=== PATIENT | male | born 1935 | race Caucasian/White ===

== ENCOUNTER 2019-04-26 16:11 | Emergency (ER) | payer OTHER ==
--- OUTSIDE RECORDS SUMMARY | 2019-04-26 16:13 | XMS REPORT ---
:1935 Author Organization [facility] Address [address] [place] [address] Dr. Ware [address] [place] [id number] Care Team Providers Name Role Phone DONALD APARICIO Unavailable Unavailable Problems This patient has no known problems. Allergies, Adverse Reactions, Alerts This patient has no known allergies or adverse reactions. Medications This patient has no known medications. Results Test Description Test Time Test Comments Text Results Atomic Results Result Comments PSA 2019-03-09 09:03:00 Test Item Value Reference Range Comments PROSTATE SPECIFIC ANTIGEN (BEAKER) (test thvy=356) 0.2 ng/mL 0.0-4.0 [id number] 09:03:00 Test Item Value Reference Range Comments THYROID STIMULATING HORMONE (BEAKER) (test 0.38 uIU/mL 0.35-4.94 abha=390) LIPID [id number] 08:48:00 Test Item Value Reference Range Comments TRIGLYCERIDES (BEAKER) (test lbri=733) 36 mg/dL CHOLESTEROL (BEAKER) (test hpnk=344) 102 mg/dL HDL CHOLESTEROL (BEAKER) (test rwnr=571) 45 mg/dL LDL CHOLESTEROL CALCULATED (BEAKER) (test 50 mg/dL hixn=219) Triglyceride Reference Range: Low Risk <150 Borderline 150- 199 High Risk 200-499 Very High Risk >=500Cholesterol Reference Range: Low Risk <200 Borderline 200-239 High Risk > 240HDL Cholesterol Reference Range: Low Risk >=60 High Risk <40LDL Cholesterol Reference Range: Optimal <100 Near Optimal 100-129 Borderline 130-159 High 160-189 Very High >=190BASIC METABOLIC [id number] 08:48:00 Test Item Value Reference Range Comments SODIUM (BEAKER) (test 137 meq/L 136-145 xzlj=766) POTASSIUM (BEAKER) (test 4.5 meq/L 3.5-5.1 cwyu=277) CHLORIDE (BEAKER) (test 103 meq/L 98-107 nxct=978) CO2 (BEAKER) (test 29 meq/L 22-29 czjn=506) BLOOD UREA NITROGEN 18 mg/dL 7-21 (BEAKER) (test nyqw=627) CREATININE (BEAKER) (test 0.99 mg/dL 0.57-1.25 rgae=436) GLUCOSE RANDOM (BEAKER) 109 mg/dL 70-105 (test aybx=889) CALCIUM (BEAKER) (test 9.4 mg/dL 8.4-10.2 srhq=061) EGFR (BEAKER) (test 72 mL/min/1.73 sq m ESTIMATED GFR IS NOT zoef=6229) ACCURATE CREATININE CLEARANCE IN PREDICTING GLOMERULAR FILTRATION RATE. ESTIMATED GFR IS NOT APPLICABLE FOR DIALYSIS PATIENTS. HEPATIC FUNCTION [id number] 08:48:00 Test Item Value Reference Range Comments TOTAL PROTEIN (BEAKER) (test cyaz=542) 6.6 gm/dL 6.0-8.3 ALBUMIN (BEAKER) (test lgxi=9379) 3.2 g/dL 3.5-5.0 BILIRUBIN TOTAL (BEAKER) (test fbqi=840) 1.3 mg/dL 0.2-1.2 BILIRUBIN DIRECT (BEAKER) (test ncsg=325) 0.7 mg/dL 0.1-0.5 ALKALINE PHOSPHATASE (BEAKER) (test bqdk=818) 89 U/L 40-150 AST (SGOT) (BEAKER) (test pvsl=351) 52 U/L 5-34 ALT (SGPT) (BEAKER) (test ebca=371) 28 U/L 6-55 CBC W/PLT COUNT & AUTO [id number] 08:25:00 Test Item Value Reference Range Comments WHITE BLOOD CELL COUNT (BEAKER) (test dtqw=718) 6.4 K/ L 3.5-10.5 RED BLOOD CELL COUNT (BEAKER) (test ajhl=830) 4.10 M/ L 4.63-6.08 HEMOGLOBIN (BEAKER) (test qdyb=666) 14.6 GM/DL 13.7-17.5 HEMATOCRIT (BEAKER) (test lwvn=544) 42.4 % 40.1-51.0 MEAN CORPUSCULAR VOLUME (BEAKER) (test ovru=160) 103.4 fL 79.0-92.2 MEAN CORPUSCULAR HEMOGLOBIN (BEAKER) (test 35.6 pg 25.7-32.2 jipx=732) MEAN CORPUSCULAR HEMOGLOBIN CONC (BEAKER) (test 34.4 GM/DL 32.3-36.5 xeyk=107) RED CELL DISTRIBUTION WIDTH (BEAKER) (test 14.6 % 11.6-14.4 ebqq=828) PLATELET COUNT (BEAKER) (test ujmf=306) 97 K/CU MM 150-450 MEAN PLATELET VOLUME (BEAKER) (test srhu=860) 9.5 fL 9.4-12.4 NUCLEATED RED BLOOD CELLS (BEAKER) (test 0 /100 WBC 0-0 ptxr=530) NEUTROPHILS RELATIVE PERCENT (BEAKER) (test 44 % trpi=527) LYMPHOCYTES RELATIVE PERCENT (BEAKER) (test 36 % bmnx=195) MONOCYTES RELATIVE PERCENT (BEAKER) (test 12 % gmjj=371) EOSINOPHILS RELATIVE PERCENT (BEAKER) (test 8 % baop=275) BASOPHILS RELATIVE PERCENT (BEAKER) (test 1 % mhvk=593) NEUTROPHILS ABSOLUTE COUNT (BEAKER) (test 2.82 K/ L 1.78-5.38 nehb=278) LYMPHOCYTES ABSOLUTE COUNT (BEAKER) (test 2.28 K/ L 1.32-3.57 ltbr=698) MONOCYTES ABSOLUTE COUNT (BEAKER) (test dwct=466) 0.74 K/ L 0.30-0.82 EOSINOPHILS ABSOLUTE COUNT (BEAKER) (test 0.51 K/ L 0.04-0.54 kelh=079) BASOPHILS ABSOLUTE COUNT (BEAKER) (test yznq=916) 0.06 K/ L 0.01-0.08 IMMATURE GRANULOCYTES-RELATIVE PERCENT (BEAKER) 0 % 0-1 (test mqhh=5693) PET, CARDIAC PERFUSION MULTIPLE STUDIES, REST AND [id number] 14:08: 00Reason for Exam:->chest painFINAL REPORT PROCEDURE: Rest/Stress MYOCARDIAL PERFUSION PET with regadenoson\XA9\ CPT CODE: 07663 INDICATION: Chest pain HISTORY: Cardiac risk factors: Hyperlipidemia, family history, age, sex. Other cardiovascular history: No reported CAD. Recent cardiac symptoms: Chest pain. Current cardiovascular- related medications: Aspirin, flecainide. PROTOCOL: Limited low-dose CT imaging was performed for attenuation correction. 40.2 mCi of Rb-82 chloride was injected iv at rest, and gated PET (positron emission tomography) images were obtained. Subsequently, 40.1 mCi of Rb-82 chloride was injected iv at expected peak pharmacologic effect, and gated PET images were obtained. PRELIMINARY STRESS TEST DATA FROM NONINVASIVE CARDIOLOGY: Pharmacologic stress was by 10-second iv infusion of 0.4 mg of regadenoson. Radiotracer was injected 30 seconds after start of stress. Heart rate was 55 beats/min at rest and 67 beats/min (48% of MPHR) at tracer injection. BP was 144/102 mmHg at rest and 111/65 mmHg at tracer injection. Stress was stopped for predetermined endpoint. The patient experienced no symptoms; treatment was not required. Preliminary ECG evaluation revealed sinus bradycardia at rest and no ischemic changes with stress. (Final ECG interpretation and other stress and monitoring data are reported separately by Cardiology.) IMAGING FINDINGS: Study quality is good. Images obtained after rest and stress injections show normal LV activity. LV and RV volumes appear normal. Gated images obtained at rest and with stress show normal LV wall motion and thickening. LVEF at rest is greater than 70%. LVEF at stress is greater than 70%. IMPRESSION: 1. Normal study. 2. Appropriate pharmacologic stress. 3. Normal myocardial perfusion. 4. Normal restingLV function. No deterioration of function is noted with pharmacologic stress. 5. Normal extracardiac tracer distribution. 6. CT images show calcification the aorta 7. No previous [facility] study for comparison. NONINVASIVE RISK STRATIFICATION: The above findings are considered low risk ( <1% annualmortality rate) based on the following criterion:- Normal or small myocardial perfusion defect at rest or with stress(JACC. 2012;59(9):857-88.) Signed: Alberto Salinas MDReport Verified Date/Time: 07/29/2018 14:08:02 Reading Location: [address] Reading Room [id number] 09:42:00 Test Item Value Reference Range Comments PROSTATE SPECIFIC ANTIGEN (BEAKER) (test rbsl=382) 0.3 ng/mL 0.0-4.0 [id number] 09:42:00 Test Item Value Reference Range Comments THYROID STIMULATING HORMONE (BEAKER) (test 0.64 uIU/mL 0.35-4.94 jdrp=031) B-TYPE NATRIURETIC FACTOR (BNP)2018-07-29 09:29:00 Test Item Value Reference Range Comments B-TYPE NATRIURETIC PEPTIDE (BEAKER) (test 125 pg/mL 0-100 ezqm=275) LIPID [id number] 09:23:00 Test Item Value Reference Range Comments TRIGLYCERIDES (BEAKER) (test sfui=825) 58 mg/dL CHOLESTEROL (BEAKER) (test qaaz=465) 132 mg/dL HDL CHOLESTEROL (BEAKER) (test wahr=597) 50 mg/dL LDL CHOLESTEROL CALCULATED (BEAKER) (test 70 mg/dL syul=292) Triglyceride Reference Range: Low Risk <150 Borderline 150- 199 High Risk 200-499 Very High Risk >=500Cholesterol Reference Range: Low Risk <200 Borderline 200-239 High Risk > 240HDL Cholesterol Reference Range: Low Risk >=60 High Risk <40LDL Cholesterol Reference Range: Optimal <100 Near Optimal 100-129 Borderline 130-159 High 160-189 Very High >=190BASIC METABOLIC [id number] 09:23:00 Test Item Value Reference Range Comments SODIUM (BEAKER) (test 138 meq/L 136-145 rwhb=087) POTASSIUM (BEAKER) (test 3.8 meq/L 3.5-5.1 yvxm=874) CHLORIDE (BEAKER) (test 102 meq/L 98-107 zcge=322) CO2 (BEAKER) (test 29 meq/L 22-29 soem=508) BLOOD UREA NITROGEN 19 mg/dL 7-21 (BEAKER) (test uwdw=243) CREATININE (BEAKER) (test 0.95 mg/dL 0.57-1.25 xavo=697) GLUCOSE RANDOM (BEAKER) 108 mg/dL 70-105 (test qofd=420) CALCIUM (BEAKER) (test 9.6 mg/dL 8.4-10.2 fbgc=742) EGFR (BEAKER) (test 76 mL/min/1.73 sq m ESTIMATED GFR IS NOT ormd=6719) ACCURATE CREATININE CLEARANCE IN PREDICTING GLOMERULAR FILTRATION RATE. ESTIMATED GFR IS NOT APPLICABLE FOR DIALYSIS PATIENTS. HEPATIC FUNCTION [id number] 09:23:00 Test Item Value Reference Range Comments TOTAL PROTEIN (BEAKER) (test eynr=417) 6.9 gm/dL 6.0-8.3 ALBUMIN (BEAKER) (test cbru=7926) 3.5 g/dL 3.5-5.0 BILIRUBIN TOTAL (BEAKER) (test tdtn=821) 1.0 mg/dL 0.2-1.2 BILIRUBIN DIRECT (BEAKER) (test ulmt=082) 0.5 mg/dL 0.1-0.5 ALKALINE PHOSPHATASE (BEAKER) (test gnlb=921) 90 U/L 40-150 AST (SGOT) (BEAKER) (test yvxa=391) 41 U/L 5-34 ALT (SGPT) (BEAKER) (test folh=596) 23 U/L 6-55 CBC W/PLT COUNT & AUTO [id number] 09:01:00 Test Item Value Reference Range Comments WHITE BLOOD CELL COUNT (BEAKER) (test pwcf=241) 6.2 K/ L 3.5-10.5 RED BLOOD CELL COUNT (BEAKER) (test rwkx=174) 4.24 M/ L 4.63-6.08 HEMOGLOBIN (BEAKER) (test ruwm=439) 14.9 GM/DL 13.7-17.5 HEMATOCRIT (BEAKER) (test omxr=790) 43.1 % 40.1-51.0 MEAN CORPUSCULAR VOLUME (BEAKER) (test eaub=431) 101.7 fL 79.0-92.2 MEAN CORPUSCULAR HEMOGLOBIN (BEAKER) (test 35.1 pg 25.7-32.2 ajko=423) MEAN CORPUSCULAR HEMOGLOBIN CONC (BEAKER) (test 34.6 GM/DL 32.3-36.5 huud=060) RED CELL DISTRIBUTION WIDTH (BEAKER) (test 14.1 % 11.6-14.4 ypti=650) PLATELET COUNT (BEAKER) (test ufwu=656) 116 K/CU MM 150-450 MEAN PLATELET VOLUME (BEAKER) (test xywh=527) 8.9 fL 9.4-12.4 NUCLEATED RED BLOOD CELLS (BEAKER) (test 0 /100 WBC 0-0 onmi=890) NEUTROPHILS RELATIVE PERCENT (BEAKER) (test 47 % tiqi=345) LYMPHOCYTES RELATIVE PERCENT (BEAKER) (test 34 % ccyq=799) MONOCYTES RELATIVE PERCENT (BEAKER) (test 10 % ibum=041) EOSINOPHILS RELATIVE PERCENT (BEAKER) (test 8 % omnp=714) BASOPHILS RELATIVE PERCENT (BEAKER) (test 1 % ygwi=991) NEUTROPHILS ABSOLUTE COUNT (BEAKER) (test 2.92 K/ L 1.78-5.38 plwz=870) LYMPHOCYTES ABSOLUTE COUNT (BEAKER) (test 2.09 K/ L 1.32-3.57 hvar=115) MONOCYTES ABSOLUTE COUNT (BEAKER) (test 0.63 K/ L 0.30-0.82 dphb=529) EOSINOPHILS ABSOLUTE COUNT (BEAKER) (test 0.52 K/ L 0.04-0.54 algn=965) BASOPHILS ABSOLUTE COUNT (BEAKER) (test 0.05 K/ L 0.01-0.08 ssrj=828) IMMATURE GRANULOCYTES-RELATIVE PERCENT (BEAKER) 0 % 0-1 (test jsmh=8341) [id number] 09:12:00 Test Item Value Reference Range Comments PROSTATE SPECIFIC ANTIGEN (BEAKER) (test atof=682) 0.3 ng/mL 0.0-4.0 [id number] 08:35:00 Test Item Value Reference Range Comments THYROID STIMULATING HORMONE (BEAKER) (test 0.84 uIU/mL 0.35-4.94 wvwx=945) B-TYPE NATRIURETIC FACTOR (BNP)2018-02-25 08:22:00 Test Item Value Reference Range Comments B-TYPE NATRIURETIC PEPTIDE (BEAKER) (test 159 pg/mL 0-100 kyay=903) LIPID [id number] 08:15:00 Test Item Value Reference Range Comments TRIGLYCERIDES (BEAKER) (test kmhc=044) 54 mg/dL CHOLESTEROL (BEAKER) (test zlne=580) 125 mg/dL HDL CHOLESTEROL (BEAKER) (test zfkm=628) 54 mg/dL LDL CHOLESTEROL CALCULATED (BEAKER) (test 60 mg/dL ynav=944) Triglyceride Reference Range: Low Risk <150 Borderline 150- 199 High Risk 200-499 Very High Risk >=500Cholesterol Reference Range: Low Risk <200 Borderline 200-239 High Risk > 240HDL Cholesterol Reference Range: Low Risk >=60 High Risk <40LDL Cholesterol Reference Range: Optimal <100 Near Optimal 100-129 Borderline 130-159 High 160-189 Very High >=190BASIC METABOLIC [id number] 08:15:00 Test Item Value Reference Range Comments SODIUM (BEAKER) (test 139 meq/L 136-145 hxcq=227) POTASSIUM (BEAKER) (test 4.2 meq/L 3.5-5.1 susm=042) CHLORIDE (BEAKER) (test 102 meq/L 98-107 uuwy=345) CO2 (BEAKER) (test 31 meq/L 22-29 drla=162) BLOOD UREA NITROGEN 17 mg/dL 7-21 (BEAKER) (test xufb=700) CREATININE (BEAKER) (test 1.14 mg/dL 0.57-1.25 icra=442) GLUCOSE RANDOM (BEAKER) 97 mg/dL 70-105 (test rtcu=458) CALCIUM (BEAKER) (test 9.7 mg/dL 8.4-10.2 rmpw=171) EGFR (BEAKER) (test 62 mL/min/1.73 sq m ESTIMATED GFR IS NOT uuhu=2982) ACCURATE CREATININE CLEARANCE IN PREDICTING GLOMERULAR FILTRATION RATE. ESTIMATED GFR IS NOT APPLICABLE FOR DIALYSIS PATIENTS. HEPATIC FUNCTION [id number] 08:15:00 Test Item Value Reference Range Comments TOTAL PROTEIN (BEAKER) (test intw=420) 7.0 gm/dL 6.0-8.3 ALBUMIN (BEAKER) (test obog=9821) 3.7 g/dL 3.5-5.0 BILIRUBIN TOTAL (BEAKER) (test bsib=601) 1.2 mg/dL 0.2-1.2 BILIRUBIN DIRECT (BEAKER) (test dxev=230) 0.7 mg/dL 0.1-0.5 ALKALINE PHOSPHATASE (BEAKER) (test tcjc=972) 85 U/L 40-150 AST (SGOT) (BEAKER) (test cvug=867) 37 U/L 5-34 ALT (SGPT) (BEAKER) (test fipe=302) 19 U/L 6-55 CBC W/PLT COUNT & AUTO [id number] 07:57:00 Test Item Value Reference Range Comments WHITE BLOOD CELL COUNT (BEAKER) (test nbbg=141) 6.6 K/ L 3.5-10.5 RED BLOOD CELL COUNT (BEAKER) (test rxrg=693) 4.27 M/ L 4.63-6.08 HEMOGLOBIN (BEAKER) (test iyyn=843) 14.7 GM/DL 13.7-17.5 HEMATOCRIT (BEAKER) (test rwmh=049) 43.5 % 40.1-51.0 MEAN CORPUSCULAR VOLUME (BEAKER) (test vqox=562) 101.9 fL 79.0-92.2 MEAN CORPUSCULAR HEMOGLOBIN (BEAKER) (test 34.4 pg 25.7-32.2 dhjf=138) MEAN CORPUSCULAR HEMOGLOBIN CONC (BEAKER) (test 33.8 GM/DL 32.3-36.5 qzoj=064) RED CELL DISTRIBUTION WIDTH (BEAKER) (test 14.5 % 11.6-14.4 cjtj=608) PLATELET COUNT (BEAKER) (test vxtc=586) 117 K/CU MM 150-450 MEAN PLATELET VOLUME (BEAKER) (test azhv=653) 9.5 fL 9.4-12.4 NUCLEATED RED BLOOD CELLS (BEAKER) (test 0 /100 WBC 0-0 mxjy=520) NEUTROPHILS RELATIVE PERCENT (BEAKER) (test 48 % yyxg=379) LYMPHOCYTES RELATIVE PERCENT (BEAKER) (test 37 % kvdq=178) MONOCYTES RELATIVE PERCENT (BEAKER) (test 10 % xyyc=541) EOSINOPHILS RELATIVE PERCENT (BEAKER) (test 5 % imhr=919) BASOPHILS RELATIVE PERCENT (BEAKER) (test 1 % pvut=036) NEUTROPHILS ABSOLUTE COUNT (BEAKER) (test 3.12 K/ L 1.78-5.38 efkx=065) LYMPHOCYTES ABSOLUTE COUNT (BEAKER) (test 2.42 K/ L 1.32-3.57 vojz=125) MONOCYTES ABSOLUTE COUNT (BEAKER) (test 0.67 K/ L 0.30-0.82 fxje=153) EOSINOPHILS ABSOLUTE COUNT (BEAKER) (test 0.30 K/ L 0.04-0.54 iqno=906) BASOPHILS ABSOLUTE COUNT (BEAKER) (test 0.04 K/ L 0.01-0.08 nepv=030) IMMATURE GRANULOCYTES-RELATIVE PERCENT (BEAKER) 0 % 0-1 (test ylop=2213) RAD, CHEST, 2 [id number] 11:54:00Reason for Exam:->HTNFINAL REPORT CLINICAL HISTORY: HTN TECHNIQUE: 2 views of the chest COMPARISON: 08/11/2015 IMPRESSION: Mild interstitial opacities are again seen with a left lower lung predominance. There is no lobar consolidation. There are no pleural effusions. The cardiomediastinal silhouette is unchanged tortuosity of the thoracic aorta. 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 Signed: Lucina Hearn MDReport Verified Date/Time: 08/20/2017 11:54: 58 Reading Location: [facility] Reading Room [id number] 11:48:00 Test Item Value Reference Range Comments THYROID STIMULATING HORMONE (BEAKER) (test 1.05 uIU/mL 0.35-4.94 uvod=859) [id number] 10:45:00 Test Item Value Reference Range Comments PROSTATE SPECIFIC ANTIGEN (BEAKER) (test evwa=048) 0.4 ng/mL 0.0-4.0 LIPID [id number] 10:37:00 Test Item Value Reference Range Comments TRIGLYCERIDES (BEAKER) (test ljav=485) 19 mg/dL CHOLESTEROL (BEAKER) (test nsrx=110) 128 mg/dL HDL CHOLESTEROL (BEAKER) (test fyom=025) 51 mg/dL LDL CHOLESTEROL CALCULATED (BEAKER) (test 73 mg/dL pdsc=998) Triglyceride Reference Range: Low Risk <150 Borderline 150- 199 High Risk 200-499 Very High Risk >=500Cholesterol Reference Range: Low Risk <200 Borderline 200-239 High Risk > 240HDL Cholesterol Reference Range: Low Risk >=60 High Risk <40LDL Cholesterol Reference Range: Optimal <100 Near Optimal 100-129 Borderline 130-159 High 160-189 Very High >=190BASIC METABOLIC [id number] 10:37:00 Test Item Value Reference Range Comments SODIUM (BEAKER) (test 141 meq/L 136-145 bgld=917) POTASSIUM (BEAKER) (test 3.9 meq/L 3.5-5.1 smbn=596) CHLORIDE (BEAKER) (test 104 meq/L 98-107 rbsm=777) CO2 (BEAKER) (test 28 meq/L 22-29 esis=029) BLOOD UREA NITROGEN 16 mg/dL 7-21 (BEAKER) (test yznu=655) CREATININE (BEAKER) (test 0.98 mg/dL 0.57-1.25 anmr=291) GLUCOSE RANDOM (BEAKER) 110 mg/dL 70-105 (test cdnz=238) CALCIUM (BEAKER) (test 9.5 mg/dL 8.4-10.2 yizl=341) EGFR (BEAKER) (test 73 mL/min/1.73 sq m ESTIMATED GFR IS NOT ipns=5588) ACCURATE CREATININE CLEARANCE IN PREDICTING GLOMERULAR FILTRATION RATE. ESTIMATED GFR IS NOT APPLICABLE FOR DIALYSIS PATIENTS. HEPATIC FUNCTION [id number] 10:37:00 Test Item Value Reference Range Comments TOTAL PROTEIN (BEAKER) (test dllk=881) 6.9 gm/dL 6.0-8.3 ALBUMIN (BEAKER) (test dzid=4812) 3.6 g/dL 3.5-5.0 BILIRUBIN TOTAL (BEAKER) (test wlzp=443) 0.9 mg/dL 0.2-1.2 BILIRUBIN DIRECT (BEAKER) (test gtfr=617) 0.5 mg/dL 0.1-0.5 ALKALINE PHOSPHATASE (BEAKER) (test kkle=101) 85 U/L 40-150 AST (SGOT) (BEAKER) (test mmrq=698) 33 U/L 5-34 ALT (SGPT) (BEAKER) (test isfc=690) 15 U/L 6-55 CBC W/PLT COUNT & AUTO [id number] 10:06:00 Test Item Value Reference Range Comments WHITE BLOOD CELL COUNT (BEAKER) (test rntj=685) 6.1 K/ L 3.5-10.5 RED BLOOD CELL COUNT (BEAKER) (test msrq=315) 4.06 M/ L 4.63-6.08 HEMOGLOBIN (BEAKER) (test caer=762) 14.1 GM/DL 13.7-17.5 HEMATOCRIT (BEAKER) (test pgxa=204) 41.1 % 40.1-51.0 MEAN CORPUSCULAR VOLUME (BEAKER) (test rvle=705) 101.2 fL 79.0-92.2 MEAN CORPUSCULAR HEMOGLOBIN (BEAKER) (test 34.7 pg 25.7-32.2 lwqy=659) MEAN CORPUSCULAR HEMOGLOBIN CONC (BEAKER) (test 34.3 GM/DL 32.3-36.5 soca=181) RED CELL DISTRIBUTION WIDTH (BEAKER) (test 14.3 % 11.6-14.4 rsmi=256) PLATELET COUNT (BEAKER) (test dkgp=810) 126 K/CU MM 150-450 MEAN PLATELET VOLUME (BEAKER) (test smku=677) 9.5 fL 9.4-12.4 NUCLEATED RED BLOOD CELLS (BEAKER) (test 0 /100 WBC 0-0 ajuk=418) NEUTROPHILS RELATIVE PERCENT (BEAKER) (test 51 % ctfv=722) LYMPHOCYTES RELATIVE PERCENT (BEAKER) (test 33 % twvi=538) MONOCYTES RELATIVE PERCENT (BEAKER) (test 11 % qvww=594) EOSINOPHILS RELATIVE PERCENT (BEAKER) (test 4 % cqsm=286) BASOPHILS RELATIVE PERCENT (BEAKER) (test 1 % udge=688) NEUTROPHILS ABSOLUTE COUNT (BEAKER) (test 3.09 K/ L 1.78-5.38 zkyt=021) LYMPHOCYTES ABSOLUTE COUNT (BEAKER) (test 2.01 K/ L 1.32-3.57 falg=032) MONOCYTES ABSOLUTE COUNT (BEAKER) (test 0.68 K/ L 0.30-0.82 owre=820) EOSINOPHILS ABSOLUTE COUNT (BEAKER) (test 0.25 K/ L 0.04-0.54 fvqk=154) BASOPHILS ABSOLUTE COUNT (BEAKER) (test 0.06 K/ L 0.01-0.08 afhz=029) IMMATURE GRANULOCYTES-RELATIVE PERCENT (BEAKER) 0 % 0-1 (test ogbz=1586) [id number] 10:54:00 Test Item Value Reference Range Comments PROSTATE SPECIFIC ANTIGEN (BEAKER) (test btgu=562) 0.9 ng/mL 0.0-4.0 [id number] 10:06:00 Test Item Value Reference Range Comments THYROID STIMULATING HORMONE (BEAKER) (test 0.86 uIU/mL 0.35-4.94 wkgw=873) LIPID [id number] 09:51:00 Test Item Value Reference Range Comments TRIGLYCERIDES (BEAKER) (test euhd=519) 51 mg/dL CHOLESTEROL (BEAKER) (test ihmn=000) 138 mg/dL HDL CHOLESTEROL (BEAKER) (test lyvr=622) 55 mg/dL LDL CHOLESTEROL CALCULATED (BEAKER) (test 73 mg/dL jwex=896) Triglyceride Reference Range: Low Risk <150 Borderline 150- 199 High Risk 200-499 Very High Risk >=500Cholesterol Reference Range: Low Risk <200 Borderline 200-239 High Risk > 240HDL Cholesterol Reference Range: Low Risk >=60 High Risk <40LDL Cholesterol Reference Range: Optimal <100 Near Optimal 100-129 Borderline 130-159 High 160-189 Very High >=190BASIC METABOLIC [id number] 09:51:00 Test Item Value Reference Range Comments SODIUM (BEAKER) (test 140 meq/L 136-145 igui=893) POTASSIUM (BEAKER) (test 3.6 meq/L 3.5-5.1 cenx=054) CHLORIDE (BEAKER) (test 102 meq/L 98-107 xasl=050) CO2 (BEAKER) (test 29 meq/L 22-29 vcqb=469) BLOOD UREA NITROGEN 12 mg/dL 7-21 (BEAKER) (test ziam=972) CREATININE (BEAKER) (test 0.97 mg/dL 0.57-1.25 ykwq=131) GLUCOSE RANDOM (BEAKER) 105 mg/dL 70-105 (test scwh=227) CALCIUM (BEAKER) (test 9.4 mg/dL 8.4-10.2 xlxi=737) EGFR (BEAKER) (test 74 mL/min/1.73 sq m ESTIMATED GFR IS NOT hxwq=3061) ACCURATE CREATININE CLEARANCE IN PREDICTING GLOMERULAR FILTRATION RATE. ESTIMATED GFR IS NOT APPLICABLE FOR DIALYSIS PATIENTS. HEPATIC FUNCTION [id number] 09:51:00 Test Item Value Reference Range Comments TOTAL PROTEIN (BEAKER) (test abff=352) 7.1 gm/dL 6.0-8.3 ALBUMIN (BEAKER) (test amwl=4928) 3.5 g/dL 3.5-5.0 BILIRUBIN TOTAL (BEAKER) (test rpzs=217) 1.2 mg/dL 0.2-1.2 BILIRUBIN DIRECT (BEAKER) (test snsj=124) 0.6 mg/dL 0.1-0.5 ALKALINE PHOSPHATASE (BEAKER) (test ylsi=605) 96 U/L 40-150 AST (SGOT) (BEAKER) (test hiem=876) 48 U/L 5-34 ALT (SGPT) (BEAKER) (test xnds=505) 28 U/L 6-55 CBC W/PLT COUNT & AUTO [id number] 09:12:00 Test Item Value Reference Range Comments WHITE BLOOD CELL COUNT (BEAKER) (test rexn=988) 5.1 K/ L 3.5-10.5 RED BLOOD CELL COUNT (BEAKER) (test dtnx=544) 4.28 M/ L 4.63-6.08 HEMOGLOBIN (BEAKER) (test kvhg=179) 15.1 GM/DL 13.7-17.5 HEMATOCRIT (BEAKER) (test tdnp=513) 43.9 % 40.1-51.0 MEAN CORPUSCULAR VOLUME (BEAKER) (test dggq=884) 102.6 fL 79.0-92.2 MEAN CORPUSCULAR HEMOGLOBIN (BEAKER) (test 35.3 pg 25.7-32.2 zlsu=832) MEAN CORPUSCULAR HEMOGLOBIN CONC (BEAKER) (test 34.4 GM/DL 32.3-36.5 vtvy=258) RED CELL DISTRIBUTION WIDTH (BEAKER) (test 14.3 % 11.6-14.4 qawm=617) PLATELET COUNT (BEAKER) (test fyoc=294) 118 K/CU MM 150-450 MEAN PLATELET VOLUME (BEAKER) (test lzbl=273) 9.3 fL 9.4-12.4 NUCLEATED RED BLOOD CELLS (BEAKER) (test 0 /100 WBC 0-0 goab=925) NEUTROPHILS RELATIVE PERCENT (BEAKER) (test 47 % nqta=427) LYMPHOCYTES RELATIVE PERCENT (BEAKER) (test 36 % rfbq=337) MONOCYTES RELATIVE PERCENT (BEAKER) (test 12 % zxrr=323) EOSINOPHILS RELATIVE PERCENT (BEAKER) (test 4 % aftg=284) BASOPHILS RELATIVE PERCENT (BEAKER) (test 1 % kogy=162) NEUTROPHILS ABSOLUTE COUNT (BEAKER) (test 2.38 K/ L 1.78-5.38 rxss=549) LYMPHOCYTES ABSOLUTE COUNT (BEAKER) (test 1.83 K/ L 1.32-3.57 cdyn=476) MONOCYTES ABSOLUTE COUNT (BEAKER) (test 0.63 K/ L 0.30-0.82 sden=601) EOSINOPHILS ABSOLUTE COUNT (BEAKER) (test 0.22 K/ L 0.04-0.54 xjoh=798) BASOPHILS ABSOLUTE COUNT (BEAKER) (test 0.04 K/ L 0.01-0.08 jgbw=362) IMMATURE GRANULOCYTES-RELATIVE PERCENT (BEAKER) 0 % 0-1 (test mpug=8990) [id number] 11:16:00 Test Item Value Reference Range Comments THYROID STIMULATING HORMONE (BEAKER) (test 1.13 uIU/mL 0.35-4.94 jfoo=267) LIPID [id number] 10:34:00 Test Item Value Reference Range Comments TRIGLYCERIDES (BEAKER) (test ahfh=804) 46 mg/dL CHOLESTEROL (BEAKER) (test sjul=562) 126 mg/dL HDL CHOLESTEROL (BEAKER) (test kcct=915) 52 mg/dL LDL CHOLESTEROL CALCULATED (BEAKER) (test 65 mg/dL jdrq=106) Triglyceride Reference Range: Low Risk <150 Borderline 150- 199 High Risk 200-499 Very High Risk >=500Cholesterol Reference Range: Low Risk <200 Borderline 200-239 High Risk > 240HDL Cholesterol Reference Range: Low Risk >=60 High Risk <40LDL Cholesterol Reference Range: Optimal <100 Near Optimal 100-129 Borderline 130-159 High 160-189 Very High >=190BASIC METABOLIC [id number] 10:34:00 Test Item Value Reference Range Comments SODIUM (BEAKER) (test 141 meq/L 136-145 hzpw=487) POTASSIUM (BEAKER) (test 3.8 meq/L 3.5-5.1 esxv=764) CHLORIDE (BEAKER) (test 103 meq/L 98-107 ljra=780) CO2 (BEAKER) (test 28 meq/L 22-29 lrim=540) BLOOD UREA NITROGEN 16 mg/dL 7-21 (BEAKER) (test lgdo=140) CREATININE (BEAKER) (test 1.01 mg/dL 0.57-1.25 uvuv=985) GLUCOSE RANDOM (BEAKER) 102 mg/dL 70-105 (test ttyw=852) CALCIUM (BEAKER) (test 9.6 mg/dL 8.4-10.2 lvsy=992) EGFR (BEAKER) (test 71 mL/min/1.73 sq m ESTIMATED GFR IS NOT uolo=6495) ACCURATE CREATININE CLEARANCE IN PREDICTING GLOMERULAR FILTRATION RATE. ESTIMATED GFR IS NOT APPLICABLE FOR DIALYSIS PATIENTS. HEPATIC FUNCTION [id number] 10:34:00 Test Item Value Reference Range Comments TOTAL PROTEIN (BEAKER) (test gptf=145) 6.8 gm/dL 6.0-8.3 ALBUMIN (BEAKER) (test fikp=9212) 3.4 g/dL 3.5-5.0 BILIRUBIN TOTAL (BEAKER) (test wdax=882) 1.1 mg/dL 0.2-1.2 BILIRUBIN DIRECT (BEAKER) (test risz=563) 0.5 mg/dL 0.1-0.5 ALKALINE PHOSPHATASE (BEAKER) (test uypx=749) 78 U/L 40-150 AST (SGOT) (BEAKER) (test chtd=018) 38 U/L 5-34 ALT (SGPT) (BEAKER) (test rwnu=769) 17 U/L 6-55 [id number] 10:17:00 Test Item Value Reference Range Comments PROSTATE SPECIFIC ANTIGEN (BEAKER) (test nvzt=935) 0.5 ng/mL 0.0-4.0 CBC W/PLT COUNT & AUTO [id number] 09:50:00 Test Item Value Reference Range Comments WHITE BLOOD CELL COUNT (BEAKER) (test crgu=628) 5.0 K/ L 4.0-10.0 RED BLOOD CELL COUNT (BEAKER) (test dzyt=408) 4.18 M/ L 4.20-5.80 HEMOGLOBIN (BEAKER) (test vhjd=751) 14.6 GM/DL 13.0-16.8 HEMATOCRIT (BEAKER) (test inpj=539) 44.6 % 40.0-50.0 MEAN CORPUSCULAR VOLUME (BEAKER) (test xtws=871) 107.0 fL 82.0-98.0 MEAN CORPUSCULAR HEMOGLOBIN (BEAKER) (test 35.1 pg 27.0-33.0 wytg=322) MEAN CORPUSCULAR HEMOGLOBIN CONC (BEAKER) (test 32.8 GM/DL 32.0-36.0 tewp=026) RED CELL DISTRIBUTION WIDTH (BEAKER) (test 13.1 % 10.3-14.2 lnjd=568) PLATELET COUNT (BEAKER) (test idlz=573) 114 K/CU MM 150-430 MEAN PLATELET VOLUME (BEAKER) (test ludc=858) 6.8 fL 6.5-10.5 NUCLEATED RED BLOOD CELLS (BEAKER) (test 0 /100 WBC 0-0 hwap=631) NEUTROPHILS RELATIVE PERCENT (BEAKER) (test 48 % dxlg=283) LYMPHOCYTES RELATIVE PERCENT (BEAKER) (test 35 % ulkr=637) MONOCYTES RELATIVE PERCENT (BEAKER) (test 12 % njmn=955) EOSINOPHILS RELATIVE PERCENT (BEAKER) (test 3 % geiw=335) BASOPHILS RELATIVE PERCENT (BEAKER) (test 1 % gnjx=207) NEUTROPHILS ABSOLUTE COUNT (BEAKER) (test 2.40 K/ L 1.80-8.00 ejmd=423) LYMPHOCYTES ABSOLUTE COUNT (BEAKER) (test 1.75 K/ L 1.48-4.50 dpky=879) MONOCYTES ABSOLUTE COUNT (BEAKER) (test 0.60 K/ L 0.00-1.30 golj=570) EOSINOPHILS ABSOLUTE COUNT (BEAKER) (test 0.17 K/ L 0.00-0.50 vpaq=122) BASOPHILS ABSOLUTE COUNT (BEAKER) (test 0.04 K/ L 0.00-0.20 rnlb=371) 0.00
[2019-04-26 17:06] LABS: Absolute Lymphocytes (CBC) 2.2 K/uL (0.7-4.9); Basophils % 0.4 % (0-1.3); Hematocrit 40.6 % (39.6-49.0); Lymphocytes % 40.4 % (15.3-44.8); MPV 8.4 fL (7.6-11.3)
[2019-04-26] MEDS ORDERED: NA CHLORIDE 0.9% 1,000 ML ONE (17:29)
[2019-04-26 17:33] LABS: Albumin 2.8 g/dL (3.4-5.0); Bilirubin Direct 0.3 mg/dL (0-0.2); Bilirubin Total 0.9 mg/dL (0.2-1.0); Potassium 3.8 mmol/L (3.5-5.1); Protein, Total 6.3 g/dL (6.4-8.2)
--- NOTE | 2019-04-26 18:11 | RAD REPORT ---
EXAM DESCRIPTION: CT - Abdomen Pelvis W Contrast - 04/26/2019 5:51 pm CLINICAL HISTORY: RUQ, epigastric pain and ttp ;Abd pain COMPARISON: CT study July 2016 TECHNIQUE: Biphasic, helical CT imaging of the abdomen and pelvis was performed following 100 ml non -ionic IV contrast. No oral contrast given. All CT scans are performed using dose optimization technique as appropriate and may include automated exposure control or mA/KV adjustment according to patient size. FINDINGS: Interstitial fibrotic lung changes present with no pneumothorax or pleural effusion. Sharon bony left hemidiaphragm noted. No pericardial thickening or effusion. The liver, spleen, and pancreas show no suspicious findings. Gallbladder and biliary tree are also wi thout suspicious finding. Symmetric renal function is seen with no hydronephrosis or suspicious renal mass. No pyelonephritis o r acute parenchymal process. Nonobstructing 9 mm calculus lower pole right kidney. No urinary bladder abnormality. Prostate calcifications are present without gross enlargement. No adrenal abnormalities . No gastric dilatation or gastric wall thickening. No acute small bowel finding. Diverticulosis is pre sent in the sigmoid colon. No diverticulitis. No free air, free fluid or inflammatory stranding. No hernia, mass or bulky lymphadenopathy. Prominent disc and bony degenerative changes are present. No acute or pathologic bone process. IMPRESSION: No acute colon finding identifiable. Patient has sigmoid diverticulosis without divertic ulitis findings. No active GI process identifiable. Additional nonacute findings detailed in the body of the report.
--- NOTE | 2019-04-26 19:27 | EDPHYS ---
Physician Documentation [facility] Name: Saurav Vega Age: 84 yrs Sex: Male : 1935 Arrival Date: 04/26/2019 Time: 16:13 Bed 19 Private MD: Unknown, Unknown ED Physician Camila Gallagher HPI: 04/26 19:25 This 84 yrs old Male presents to ER via Ambulatory with complaints of ma2 Abdominal Pain, Diarrhea. 19:25 The patient presents to the emergency department with nausea, vomiting, diarrhea. ma2 Onset: The symptoms/episode began/occurred gradually, 3 day(s) ago. Possible causes: bad food exposure. Severity of symptoms: At their worst the symptoms were moderate in the emergency department the symptoms are unchanged. The patient has experienced a previous episode. Historical: - Allergies: 16:20 Erythromycin; rb1 16:20 Neomycin Sulfate; rb1 16:20 Percocet; rb1 16:20 Sulfa (Sulfonamide Antibiotics); rb1 - PMHx: 16:20 Hypothyroidism; acid reflux; rb1 16:20 Irregular heart rate; rb1 - PSHx: 16:20 Tonsillectomy; Vasectomy; eyelid; bilateral knees; Hernia repair; cataract; rb1 - Immunization history:: Adult Immunizations up to date. - Social history:: Smoking status: Patient/guardian denies using tobacco, Patient/guardian denies using alcohol, street drugs, The patient lives with family. - Ebola Screening: : Patient negative for fever greater than or equal to 101.5 degrees Fahrenheit, and additional compatible Ebola Virus Disease symptoms. - Family history:: not pertinent. ROS: 19:25 Constitutional: Negative for fever, chills, and weight loss. ma2 19:25 All other systems are negative. Exam: 19:25 Constitutional: This is a well developed, well nourished patient who is awake, alert, ma2 and in no acute distress. Head/Face: Normocephalic, atraumatic. Chest/axilla: Normal chest wall appearance and motion. Nontender with no deformity. No lesions are appreciated. Cardiovascular: Regular rate and rhythm with a normal S1 and S2. No gallops, murmurs, or rubs. Normal PMI, no JVD. No pulse deficits. Respiratory: Lungs have equal breath sounds bilaterally, clear to auscultation and percussion. No rales, rhonchi or wheezes noted. No increased work of breathing, no retractions or nasal flaring. Abdomen/GI: Soft, non-tender, with normal bowel sounds. No distension or tympany. No guarding or rebound. No evidence of tenderness throughout. Male : Normal genitalia with no discharge or lesions. MS/ Extremity: Pulses equal, no cyanosis. Neurovascular intact. Full, normal range of motion. Vital Signs: 16:20 BP 133 / 89; Pulse 61; Resp 18; Temp 97.6(O); Pulse Ox 98% on R/A; Weight 79.38 kg (R); rb1 Height 5 ft. 10 in. (177.80 cm) (R); Pain 4/10; 17:30 BP 125 / 76; Pulse 49; Resp 17; Pulse Ox 99% ; bp 18:09 BP 117 / 69; Pulse 50; Resp 16; Pulse Ox 100% ; bp 19:56 BP 127 / 76; Pulse 54; Resp 18; Pulse Ox 98% on R/A; wh 16:20 Body Mass Index 25.11 (79.38 kg, 177.80 cm) rb1 MDM: 16:26 Patient medically screened. ma2 19:25 Differential diagnosis: cholecystitis, pancreatitis, appendicitis, diverticulitis. Data ma2 reviewed: vital signs, nurses notes. Counseling: I had a detailed discussion with the patient and/or guardian regarding: the historical points, exam findings, and any diagnostic results supporting the discharge/admit diagnosis, the presence of at least one elevated blood pressure reading (>120/80) during this emergency department visit. Response to treatment: the patient's symptoms have mildly improved after treatment, the patient's symptoms have markedly improved after treatment. 04/26 16:38 Order name: Basic Metabolic Panel; Complete Time: 18:59 wi2 04/26 16:38 Order name: CBC with Diff wi2 04/26 16:38 Order name: Creatinine for Radiology; Complete Time: 17:25 ma2 04/26 16:38 Order name: Hepatic Function; Complete Time: 18:59 wi2 04/26 16:38 Order name: Lipase; Complete Time: 18:59 [facility] 04/26 16:38 Order name: CT Abd/Pelvis - IV Contrast Only; Complete Time: 18:59 [facility] 04/26 16:38 Order name: IV Saline Lock; Complete Time: 16:55 ma2 04/26 16:38 Order name: Labs collected and sent; Complete Time: 16:55 wi2 Administered Medications: 17:00 Drug: NS 0.9% 1000 ml Route: IV; Rate: 1 bolus; Site: right forearm; bp 19:59 Follow up: Response: No adverse reaction; IV Status: Completed infusion Disposition: 04/26/19 19:27 Discharged to Home. Impression: Diarrhea, unspecified. - Condition is Stable. - Discharge Instructions: Food Choices to Help Relieve Diarrhea, Adult, Diarrhea, Adult. - Prescriptions for Zofran 4 mg Oral Tablet - take 1 tablet by ORAL route every 12 hours As needed; 20 tablet. - Medication Reconciliation Form, Thank You Letter, Antibiotic Education, Prescription Opioid Use form. - Follow up: Private Physician; When: Tomorrow; Reason: If symptoms return, Continuance of care. Signatures: Dispatcher [employer] EDRoro Hernandez RN RN [facility] Jose Carlos Tan Raghu Polanco RN RN Camila Gallagher MD MD wi2 Corrections: (The following items were deleted from the chart) 19:59 19:27 04/26/2019 19:27 Discharged to Home. Impression: Diarrhea, unspecified. Condition wh is Stable. Forms are Medication Reconciliation Form, Thank You Letter, Antibiotic Education, Prescription Opioid Use. Follow up: Private Physician; When: Tomorrow; Reason: If symptoms return, Continuance of care. wi2
--- NOTE | 2019-04-26 19:27 | ER ---
Nurse's Notes [facility] Name: Saurav Vega Age: 84 yrs Sex: Male : 1935 Arrival Date: 04/26/2019 Time: 16:13 Bed 19 Private MD: Unknown, Unknown Diagnosis: Diarrhea, unspecified Presentation: 04/26 16:15 Presenting complaint: Patient states: Abdominal pain, right upper quadrant, pain 4/10, rb1 diarrhea x 4 days. BP 115/55 at home, his normal is 120/70. Denies fever, vomiting. Nausea since last Friday. Transition of care: patient was not received from another setting of care. Risk Assessment: Do you want to hurt yourself or someone else? Patient reports no desire to harm self or others. Initial Sepsis Screen: Does the patient meet any 2 criteria? No. Patient's initial sepsis screen is negative. Does the patient have a suspected source of infection? No. Patient's initial sepsis screen is negative. Care prior to arrival: None. 16:15 Method Of Arrival: Ambulatory rb1 16:15 Acuity: IRVING 3 rb1 19:15 Onset of symptoms was April 26, 2019. Triage Assessment: 16:20 General: Appears in no apparent distress. comfortable, Behavior is cooperative, bp appropriate for age, anxious. Pain: Complains of pain in abdomen. EENT: No deficits noted. Neuro: No deficits noted. Cardiovascular: No deficits noted. Respiratory: No deficits noted. GI: Reports diarrhea. : No signs and/or symptoms were reported regarding the genitourinary system. Derm: No deficits noted. Musculoskeletal: No deficits noted. Historical: - Allergies: 16:20 Erythromycin; rb1 16:20 Neomycin Sulfate; rb1 16:20 Percocet; rb1 16:20 Sulfa (Sulfonamide Antibiotics); rb1 - PMHx: 16:20 Hypothyroidism; acid reflux; rb1 16:20 Irregular heart rate; rb1 - PSHx: 16:20 Tonsillectomy; Vasectomy; eyelid; bilateral knees; Hernia repair; cataract; rb1 - Immunization history:: Adult Immunizations up to date. - Social history:: Smoking status: Patient/guardian denies using tobacco, Patient/guardian denies using alcohol, street drugs, The patient lives with family. - Ebola Screening: : Patient negative for fever greater than or equal to 101.5 degrees Fahrenheit, and additional compatible Ebola Virus Disease symptoms. - Family history:: not pertinent. Screenin:42 Abuse screen: Denies threats or abuse. Denies injuries from another. Nutritional bp screening: No deficits noted. Tuberculosis screening: No symptoms or risk factors identified. Fall Risk None identified. Assessment: 16:20 General: SEE TRIAGE NOTE. bp 17:59 Reassessment: PT RETURNED FROM CT. bp 19:15 Reassessment: Patient appears in no apparent distress at this time. Patient and/or family updated on plan of care and expected duration. Pain level reassessed. Patient is alert, oriented x 3, equal unlabored respirations, skin warm/dry/pink. 19:15 GI: Bowel sounds present X 4 quads. Abd is soft and non tender X 4 quads. wh 19:56 Reassessment: Patient appears in no apparent distress at this time. No changes from previously documented assessment. Patient and/or family updated on plan of care and expected duration. Pain level reassessed. Patient is alert, oriented x 3, equal unlabored respirations, skin warm/dry/pink. Patient states feeling better. Vital Signs: 16:20 BP 133 / 89; Pulse 61; Resp 18; Temp 97.6(O); Pulse Ox 98% on R/A; Weight 79.38 kg (R); rb1 Height 5 ft. 10 in. (177.80 cm) (R); Pain 4/10; 17:30 BP 125 / 76; Pulse 49; Resp 17; Pulse Ox 99% ; bp 18:09 BP 117 / 69; Pulse 50; Resp 16; Pulse Ox 100% ; bp 19:56 BP 127 / 76; Pulse 54; Resp 18; Pulse Ox 98% on R/A; wh 16:20 Body Mass Index 25.11 (79.38 kg, 177.80 cm) rb1 ED Course: 16:13 Patient arrived in ED. rg4 16:13 Unknown, Unknown is Private Physician. rg4 16:18 Triage completed. rb1 16:22 Arm band placed on left wrist. rb1 16:23 Raghu Polanco, THADDEUS is Primary Nurse. bp 16:26 Camila Gallagher MD is Attending Physician. ma2 16:42 Radiology exam delayed due to lab results not completed at this time. (BUN/Creatinine). md1 16:42 Patient has correct armband on for positive identification. Bed in low position. Call bp light in reach. Side rails up X2. Adult w/ patient. 17:00 Inserted saline lock: 22 gauge in right forearm, using aseptic technique. Blood bp collected. 17:56 CT Abd/Pelvis - IV Contrast Only In Process Unspecified. EDMS 19:57 No provider procedures requiring assistance completed. IV discontinued, intact, wh bleeding controlled, No redness/swelling at site. Administered Medications: 17:00 Drug: NS 0.9% 1000 ml Route: IV; Rate: 1 bolus; Site: right forearm; bp 19:59 Follow up: Response: No adverse reaction; IV Status: Completed infusion Outcome: 19:27 Discharge ordered by . kristen 19:58 Discharged to home ambulatory, with family. 19:58 Condition: stable 19:58 Discharge instructions given to patient, family, Instructed on discharge instructions, follow up and referral plans. medication usage, POC Nausea, Vomiting and Diarrhea Demonstrated understanding of instructions, follow-up care, medications, POC 19:59 Patient left the ED. Signatures: Dispatcher [employer] EDMS Roro Still, RN RN rb1 Jaye Pires rg4 Jose Carlos Tan Raghu Polanco RN RN bp Camila Gallagher MD MD ma2 Rose Mary Fischer md1
== END 2019-04-26 19:59 | disposition home or self-care (01) ==
LOC: ER 16:11
DX: R19.7 Diarrhea, unspecified (principal); E03.9 Hypothyroidism, unspecified; Z88.2 Allergy status to sulfonamides; Z88.3 Allergy status to other anti-infective agents; Z88.5 Allergy status to narcotic agent
CPT/HCPCS: 96361; 85025; 80048; 36415; 80076; 83690; 74177; 96360; 99284; Q9967; J7030

== ENCOUNTER 2019-05-23 11:50 | Emergency (ER) | payer OTHER ==
--- OUTSIDE RECORDS SUMMARY | 2019-05-23 11:53 | XMS REPORT ---
:1935 [facility] Address [address] [place] [id number] Care Team Providers Name Role Phone LYSALDONALD Unavailable Unavailable Problems This patient has no known problems. Allergies, Adverse Reactions, Alerts This patient has no known allergies or adverse reactions. Medications This patient has no known medications. Results Test Description Test Time Test Comments Text Results Atomic Results Result Comments PSA 2019-03-09 09:03:00 Test Item Value Reference Range Comments PROSTATE SPECIFIC ANTIGEN (BEAKER) (test clwe=844) 0.2 ng/mL 0.0-4.0 [id number] 09:03:00 Test Item Value Reference Range Comments THYROID STIMULATING HORMONE (BEAKER) (test 0.38 uIU/mL 0.35-4.94 qsqp=205) LIPID [id number] 08:48:00 Test Item Value Reference Range Comments TRIGLYCERIDES (BEAKER) (test tqhm=607) 36 mg/dL CHOLESTEROL (BEAKER) (test blha=879) 102 mg/dL HDL CHOLESTEROL (BEAKER) (test ubfh=556) 45 mg/dL LDL CHOLESTEROL CALCULATED (BEAKER) (test 50 mg/dL fuwd=640) Triglyceride Reference Range: Low Risk <150 Borderline 150- 199 High Risk 200-499 Very High Risk >=500Cholesterol Reference Range: Low Risk <200 Borderline 200-239 High Risk > 240HDL Cholesterol Reference Range: Low Risk >=60 High Risk <40LDL Cholesterol Reference Range: Optimal <100 Near Optimal 100-129 Borderline 130-159 High 160-189 Very High >=190BASIC METABOLIC [id number] 08:48:00 Test Item Value Reference Range Comments SODIUM (BEAKER) (test 137 meq/L 136-145 uogk=261) POTASSIUM (BEAKER) (test 4.5 meq/L 3.5-5.1 qywk=149) CHLORIDE (BEAKER) (test 103 meq/L 98-107 tqlb=891) CO2 (BEAKER) (test 29 meq/L 22-29 macg=221) BLOOD UREA NITROGEN 18 mg/dL 7-21 (BEAKER) (test mbvi=081) CREATININE (BEAKER) (test 0.99 mg/dL 0.57-1.25 wqkr=675) GLUCOSE RANDOM (BEAKER) 109 mg/dL 70-105 (test izde=168) CALCIUM (BEAKER) (test 9.4 mg/dL 8.4-10.2 noqo=788) EGFR (BEAKER) (test 72 mL/min/1.73 sq m ESTIMATED GFR IS NOT rvom=6564) ACCURATE CREATININE CLEARANCE IN PREDICTING GLOMERULAR FILTRATION RATE. ESTIMATED GFR IS NOT APPLICABLE FOR DIALYSIS PATIENTS. HEPATIC FUNCTION [id number] 08:48:00 Test Item Value Reference Range Comments TOTAL PROTEIN (BEAKER) (test rvtb=614) 6.6 gm/dL 6.0-8.3 ALBUMIN (BEAKER) (test fmmn=8212) 3.2 g/dL 3.5-5.0 BILIRUBIN TOTAL (BEAKER) (test xbjq=167) 1.3 mg/dL 0.2-1.2 BILIRUBIN DIRECT (BEAKER) (test yrot=014) 0.7 mg/dL 0.1-0.5 ALKALINE PHOSPHATASE (BEAKER) (test kyzx=037) 89 U/L 40-150 AST (SGOT) (BEAKER) (test ihfk=602) 52 U/L 5-34 ALT (SGPT) (BEAKER) (test zeul=954) 28 U/L 6-55 CBC W/PLT COUNT & AUTO [id number] 08:25:00 Test Item Value Reference Range Comments WHITE BLOOD CELL COUNT (BEAKER) (test kppw=600) 6.4 K/ L 3.5-10.5 RED BLOOD CELL COUNT (BEAKER) (test wjha=789) 4.10 M/ L 4.63-6.08 HEMOGLOBIN (BEAKER) (test xojq=519) 14.6 GM/DL 13.7-17.5 HEMATOCRIT (BEAKER) (test xuau=092) 42.4 % 40.1-51.0 MEAN CORPUSCULAR VOLUME (BEAKER) (test vusk=932) 103.4 fL 79.0-92.2 MEAN CORPUSCULAR HEMOGLOBIN (BEAKER) (test 35.6 pg 25.7-32.2 flkh=324) MEAN CORPUSCULAR HEMOGLOBIN CONC (BEAKER) (test 34.4 GM/DL 32.3-36.5 ipww=699) RED CELL DISTRIBUTION WIDTH (BEAKER) (test 14.6 % 11.6-14.4 xatb=927) PLATELET COUNT (BEAKER) (test ldiq=722) 97 K/CU MM 150-450 MEAN PLATELET VOLUME (BEAKER) (test cvxr=830) 9.5 fL 9.4-12.4 NUCLEATED RED BLOOD CELLS (BEAKER) (test 0 /100 WBC 0-0 ddgr=583) NEUTROPHILS RELATIVE PERCENT (BEAKER) (test 44 % eopo=180) LYMPHOCYTES RELATIVE PERCENT (BEAKER) (test 36 % sqlz=851) MONOCYTES RELATIVE PERCENT (BEAKER) (test 12 % kwsv=213) EOSINOPHILS RELATIVE PERCENT (BEAKER) (test 8 % ehux=763) BASOPHILS RELATIVE PERCENT (BEAKER) (test 1 % zvfb=041) NEUTROPHILS ABSOLUTE COUNT (BEAKER) (test 2.82 K/ L 1.78-5.38 slgm=856) LYMPHOCYTES ABSOLUTE COUNT (BEAKER) (test 2.28 K/ L 1.32-3.57 aewm=208) MONOCYTES ABSOLUTE COUNT (BEAKER) (test xwds=077) 0.74 K/ L 0.30-0.82 EOSINOPHILS ABSOLUTE COUNT (BEAKER) (test 0.51 K/ L 0.04-0.54 vbde=273) BASOPHILS ABSOLUTE COUNT (BEAKER) (test odbp=647) 0.06 K/ L 0.01-0.08 IMMATURE GRANULOCYTES-RELATIVE PERCENT (BEAKER) 0 % 0-1 (test sjar=2537) PET, CARDIAC PERFUSION MULTIPLE STUDIES, REST AND [id number] 14:08: 00Reason for Exam:->chest painFINAL REPORT PROCEDURE: Rest/Stress MYOCARDIAL PERFUSION PET with regadenoson\XA9\ CPT CODE: 13740 INDICATION: Chest pain HISTORY: Cardiac risk factors: [...] show calcification the aorta 7. No previous [facility] study for comparison. NONINVASIVE RISK STRATIFICATION: The above findings are considered low risk ( <1% annualmortality rate) based on the following criterion:- Normal or small myocardial perfusion defect at rest or with stress(JACC. 2012;59(9):857-81.) Signed: Adelfo Salinas MDReport Verified Date/Time: 07/29/2018 14:08:02 Reading Location: [address] Reading Room [id number] 09:42:00 Test Item Value Reference Range Comments PROSTATE SPECIFIC ANTIGEN (BEAKER) (test iqpw=820) 0.3 ng/mL 0.0-4.0 [id number] 09:42:00 Test Item Value Reference Range Comments THYROID STIMULATING HORMONE (BEAKER) (test 0.64 uIU/mL 0.35-4.94 ivwa=138) B-TYPE NATRIURETIC FACTOR (BNP)2018-07-29 09:29:00 Test Item Value Reference Range Comments B-TYPE NATRIURETIC PEPTIDE (BEAKER) (test 125 pg/mL 0-100 tfek=743) LIPID [id number] 09:23:00 Test Item Value Reference Range Comments TRIGLYCERIDES (BEAKER) (test ojjt=057) 58 mg/dL CHOLESTEROL (BEAKER) (test hnli=216) 132 mg/dL HDL CHOLESTEROL (BEAKER) (test dogd=659) 50 mg/dL LDL CHOLESTEROL CALCULATED (BEAKER) (test 70 mg/dL jtaf=710) Triglyceride Reference Range: Low Risk <150 Borderline 150- 199 High Risk 200-499 Very High Risk >=500Cholesterol Reference Range: Low Risk <200 Borderline 200-239 High Risk > 240HDL Cholesterol Reference Range: Low Risk >=60 High Risk <40LDL Cholesterol Reference Range: Optimal <100 Near Optimal 100-129 Borderline 130-159 High 160-189 Very High >=190BASIC METABOLIC [id number] 09:23:00 Test Item Value Reference Range Comments SODIUM (BEAKER) (test 138 meq/L 136-145 bvez=146) POTASSIUM (BEAKER) (test 3.8 meq/L 3.5-5.1 sgxe=357) CHLORIDE (BEAKER) (test 102 meq/L 98-107 iwzq=688) CO2 (BEAKER) (test 29 meq/L 22-29 qpod=065) BLOOD UREA NITROGEN 19 mg/dL 7-21 (BEAKER) (test gqdf=840) CREATININE (BEAKER) (test 0.95 mg/dL 0.57-1.25 olzq=214) GLUCOSE RANDOM (BEAKER) 108 mg/dL 70-105 (test zfbq=921) CALCIUM (BEAKER) (test 9.6 mg/dL 8.4-10.2 hepq=114) EGFR (BEAKER) (test 76 mL/min/1.73 sq m ESTIMATED GFR IS NOT dzdw=1070) ACCURATE CREATININE CLEARANCE IN PREDICTING GLOMERULAR FILTRATION RATE. ESTIMATED GFR IS NOT APPLICABLE FOR DIALYSIS PATIENTS. HEPATIC FUNCTION [id number] 09:23:00 Test Item Value Reference Range Comments TOTAL PROTEIN (BEAKER) (test ifoi=398) 6.9 gm/dL 6.0-8.3 ALBUMIN (BEAKER) (test obzo=5571) 3.5 g/dL 3.5-5.0 BILIRUBIN TOTAL (BEAKER) (test ixyx=526) 1.0 mg/dL 0.2-1.2 BILIRUBIN DIRECT (BEAKER) (test toyt=933) 0.5 mg/dL 0.1-0.5 ALKALINE PHOSPHATASE (BEAKER) (test iupf=682) 90 U/L 40-150 AST (SGOT) (BEAKER) (test udam=239) 41 U/L 5-34 ALT (SGPT) (BEAKER) (test xvzr=385) 23 U/L 6-55 CBC W/PLT COUNT & AUTO [id number] 09:01:00 Test Item Value Reference Range Comments WHITE BLOOD CELL COUNT (BEAKER) (test gdcj=676) 6.2 K/ L 3.5-10.5 RED BLOOD CELL COUNT (BEAKER) (test orhu=475) 4.24 M/ L 4.63-6.08 HEMOGLOBIN (BEAKER) (test ilow=063) 14.9 GM/DL 13.7-17.5 HEMATOCRIT (BEAKER) (test pbop=078) 43.1 % 40.1-51.0 MEAN CORPUSCULAR VOLUME (BEAKER) (test gzeq=842) 101.7 fL 79.0-92.2 MEAN CORPUSCULAR HEMOGLOBIN (BEAKER) (test 35.1 pg 25.7-32.2 zaop=408) MEAN CORPUSCULAR HEMOGLOBIN CONC (BEAKER) (test 34.6 GM/DL 32.3-36.5 mytw=646) RED CELL DISTRIBUTION WIDTH (BEAKER) (test 14.1 % 11.6-14.4 fose=225) PLATELET COUNT (BEAKER) (test tcmt=953) 116 K/CU MM 150-450 MEAN PLATELET VOLUME (BEAKER) (test upgy=942) 8.9 fL 9.4-12.4 NUCLEATED RED BLOOD CELLS (BEAKER) (test 0 /100 WBC 0-0 nzar=055) NEUTROPHILS RELATIVE PERCENT (BEAKER) (test 47 % xxld=292) LYMPHOCYTES RELATIVE PERCENT (BEAKER) (test 34 % rvcl=307) MONOCYTES RELATIVE PERCENT (BEAKER) (test 10 % xyyw=503) EOSINOPHILS RELATIVE PERCENT (BEAKER) (test 8 % kqkh=226) BASOPHILS RELATIVE PERCENT (BEAKER) (test 1 % crrr=140) NEUTROPHILS ABSOLUTE COUNT (BEAKER) (test 2.92 K/ L 1.78-5.38 wcxn=942) LYMPHOCYTES ABSOLUTE COUNT (BEAKER) (test 2.09 K/ L 1.32-3.57 wvrj=595) MONOCYTES ABSOLUTE COUNT (BEAKER) (test 0.63 K/ L 0.30-0.82 pddw=154) EOSINOPHILS ABSOLUTE COUNT (BEAKER) (test 0.52 K/ L 0.04-0.54 wgzf=684) BASOPHILS ABSOLUTE COUNT (BEAKER) (test 0.05 K/ L 0.01-0.08 kcoh=136) IMMATURE GRANULOCYTES-RELATIVE PERCENT (BEAKER) 0 % 0-1 (test ewjq=1656) [id number] 09:12:00 Test Item Value Reference Range Comments PROSTATE SPECIFIC ANTIGEN (BEAKER) (test pvdp=596) 0.3 ng/mL 0.0-4.0 [id number] 08:35:00 Test Item Value Reference Range Comments THYROID STIMULATING HORMONE (BEAKER) (test 0.84 uIU/mL 0.35-4.94 kdnk=648) B-TYPE NATRIURETIC FACTOR (BNP)2018-02-25 08:22:00 Test Item Value Reference Range Comments B-TYPE NATRIURETIC PEPTIDE (BEAKER) (test 159 pg/mL 0-100 nidz=695) LIPID [id number] 08:15:00 Test Item Value Reference Range Comments TRIGLYCERIDES (BEAKER) (test vwby=696) 54 mg/dL CHOLESTEROL (BEAKER) (test gwnu=106) 125 mg/dL HDL CHOLESTEROL (BEAKER) (test axlr=583) 54 mg/dL LDL CHOLESTEROL CALCULATED (BEAKER) (test 60 mg/dL hgkf=038) Triglyceride Reference Range: Low Risk <150 Borderline 150- 199 High Risk 200-499 Very High Risk >=500Cholesterol Reference Range: Low Risk <200 Borderline 200-239 High Risk > 240HDL Cholesterol Reference Range: Low Risk >=60 High Risk <40LDL Cholesterol Reference Range: Optimal <100 Near Optimal 100-129 Borderline 130-159 High 160-189 Very High >=190BASIC METABOLIC [id number] 08:15:00 Test Item Value Reference Range Comments SODIUM (BEAKER) (test 139 meq/L 136-145 khuu=022) POTASSIUM (BEAKER) (test 4.2 meq/L 3.5-5.1 sxro=311) CHLORIDE (BEAKER) (test 102 meq/L 98-107 xugj=779) CO2 (BEAKER) (test 31 meq/L 22-29 khhx=870) BLOOD UREA NITROGEN 17 mg/dL 7-21 (BEAKER) (test uyvw=081) CREATININE (BEAKER) (test 1.14 mg/dL 0.57-1.25 dkui=192) GLUCOSE RANDOM (BEAKER) 97 mg/dL 70-105 (test bthh=284) CALCIUM (BEAKER) (test 9.7 mg/dL 8.4-10.2 rbaz=939) EGFR (BEAKER) (test 62 mL/min/1.73 sq m ESTIMATED GFR IS NOT xhto=8058) ACCURATE CREATININE CLEARANCE IN PREDICTING GLOMERULAR FILTRATION RATE. ESTIMATED GFR IS NOT APPLICABLE FOR DIALYSIS PATIENTS. HEPATIC FUNCTION [id number] 08:15:00 Test Item Value Reference Range Comments TOTAL PROTEIN (BEAKER) (test ussd=956) 7.0 gm/dL 6.0-8.3 ALBUMIN (BEAKER) (test wtua=6058) 3.7 g/dL 3.5-5.0 BILIRUBIN TOTAL (BEAKER) (test qolx=012) 1.2 mg/dL 0.2-1.2 BILIRUBIN DIRECT (BEAKER) (test whae=779) 0.7 mg/dL 0.1-0.5 ALKALINE PHOSPHATASE (BEAKER) (test udqy=823) 85 U/L 40-150 AST (SGOT) (BEAKER) (test uzfg=537) 37 U/L 5-34 ALT (SGPT) (BEAKER) (test ftqn=952) 19 U/L 6-55 CBC W/PLT COUNT & AUTO [id number] 07:57:00 Test Item Value Reference Range Comments WHITE BLOOD CELL COUNT (BEAKER) (test gwnn=940) 6.6 K/ L 3.5-10.5 RED BLOOD CELL COUNT (BEAKER) (test xjup=334) 4.27 M/ L 4.63-6.08 HEMOGLOBIN (BEAKER) (test ybun=996) 14.7 GM/DL 13.7-17.5 HEMATOCRIT (BEAKER) (test zawc=590) 43.5 % 40.1-51.0 MEAN CORPUSCULAR VOLUME (BEAKER) (test vmwe=661) 101.9 fL 79.0-92.2 MEAN CORPUSCULAR HEMOGLOBIN (BEAKER) (test 34.4 pg 25.7-32.2 skuz=553) MEAN CORPUSCULAR HEMOGLOBIN CONC (BEAKER) (test 33.8 GM/DL 32.3-36.5 zkqk=428) RED CELL DISTRIBUTION WIDTH (BEAKER) (test 14.5 % 11.6-14.4 niub=920) PLATELET COUNT (BEAKER) (test cdlp=220) 117 K/CU MM 150-450 MEAN PLATELET VOLUME (BEAKER) (test lnrx=293) 9.5 fL 9.4-12.4 NUCLEATED RED BLOOD CELLS (BEAKER) (test 0 /100 WBC 0-0 jkgz=054) NEUTROPHILS RELATIVE PERCENT (BEAKER) (test 48 % nzhd=181) LYMPHOCYTES RELATIVE PERCENT (BEAKER) (test 37 % gzwb=921) MONOCYTES RELATIVE PERCENT (BEAKER) (test 10 % ovvs=384) EOSINOPHILS RELATIVE PERCENT (BEAKER) (test 5 % lufe=081) BASOPHILS RELATIVE PERCENT (BEAKER) (test 1 % hbft=089) NEUTROPHILS ABSOLUTE COUNT (BEAKER) (test 3.12 K/ L 1.78-5.38 lwyy=745) LYMPHOCYTES ABSOLUTE COUNT (BEAKER) (test 2.42 K/ L 1.32-3.57 eyei=237) MONOCYTES ABSOLUTE COUNT (BEAKER) (test 0.67 K/ L 0.30-0.82 ioce=972) EOSINOPHILS ABSOLUTE COUNT (BEAKER) (test 0.30 K/ L 0.04-0.54 ghjv=809) BASOPHILS ABSOLUTE COUNT (BEAKER) (test 0.04 K/ L 0.01-0.08 iulw=984) IMMATURE GRANULOCYTES-RELATIVE PERCENT (BEAKER) 0 % 0-1 (test zncw=7495) RAD, CHEST, 2 [id number] 11:54:00Reason for Exam:->HTNFINAL REPORT CLINICAL HISTORY: HTN [...] Verified Date/Time: 08/20/2017 11:54: 58 Reading Location: [facility] Reading Room [id number] 11:48:00 Test Item Value Reference Range Comments THYROID STIMULATING HORMONE (BEAKER) (test 1.05 uIU/mL 0.35-4.94 tzzv=701) [id number] 10:45:00 Test Item Value Reference Range Comments PROSTATE SPECIFIC ANTIGEN (BEAKER) (test gtgq=623) 0.4 ng/mL 0.0-4.0 LIPID [id number] 10:37:00 Test Item Value Reference Range Comments TRIGLYCERIDES (BEAKER) (test uaui=249) 19 mg/dL CHOLESTEROL (BEAKER) (test gtau=773) 128 mg/dL HDL CHOLESTEROL (BEAKER) (test lsxt=384) 51 mg/dL LDL CHOLESTEROL CALCULATED (BEAKER) (test 73 mg/dL mirw=173) Triglyceride Reference Range: Low Risk <150 Borderline 150- 199 High Risk 200-499 Very High Risk >=500Cholesterol Reference Range: Low Risk <200 Borderline 200-239 High Risk > 240HDL Cholesterol Reference Range: Low Risk >=60 High Risk <40LDL Cholesterol Reference Range: Optimal <100 Near Optimal 100-129 Borderline 130-159 High 160-189 Very High >=190BASIC METABOLIC [id number] 10:37:00 Test Item Value Reference Range Comments SODIUM (BEAKER) (test 141 meq/L 136-145 rxem=156) POTASSIUM (BEAKER) (test 3.9 meq/L 3.5-5.1 yocf=976) CHLORIDE (BEAKER) (test 104 meq/L 98-107 elyr=899) CO2 (BEAKER) (test 28 meq/L 22-29 ngvc=565) BLOOD UREA NITROGEN 16 mg/dL 7-21 (BEAKER) (test kcwo=211) CREATININE (BEAKER) (test 0.98 mg/dL 0.57-1.25 dfkw=322) GLUCOSE RANDOM (BEAKER) 110 mg/dL 70-105 (test epjh=337) CALCIUM (BEAKER) (test 9.5 mg/dL 8.4-10.2 xgwx=043) EGFR (BEAKER) (test 73 mL/min/1.73 sq m ESTIMATED GFR IS NOT vrog=9525) ACCURATE CREATININE CLEARANCE IN PREDICTING GLOMERULAR FILTRATION RATE. ESTIMATED GFR IS NOT APPLICABLE FOR DIALYSIS PATIENTS. HEPATIC FUNCTION [id number] 10:37:00 Test Item Value Reference Range Comments TOTAL PROTEIN (BEAKER) (test sfcd=137) 6.9 gm/dL 6.0-8.3 ALBUMIN (BEAKER) (test lncq=1369) 3.6 g/dL 3.5-5.0 BILIRUBIN TOTAL (BEAKER) (test vkpz=852) 0.9 mg/dL 0.2-1.2 BILIRUBIN DIRECT (BEAKER) (test pwbu=649) 0.5 mg/dL 0.1-0.5 ALKALINE PHOSPHATASE (BEAKER) (test tyid=094) 85 U/L 40-150 AST (SGOT) (BEAKER) (test dycq=928) 33 U/L 5-34 ALT (SGPT) (BEAKER) (test lxpb=998) 15 U/L 6-55 CBC W/PLT COUNT & AUTO [id number] 10:06:00 Test Item Value Reference Range Comments WHITE BLOOD CELL COUNT (BEAKER) (test ummv=720) 6.1 K/ L 3.5-10.5 RED BLOOD CELL COUNT (BEAKER) (test ryvc=453) 4.06 M/ L 4.63-6.08 HEMOGLOBIN (BEAKER) (test dssx=008) 14.1 GM/DL 13.7-17.5 HEMATOCRIT (BEAKER) (test fdfj=389) 41.1 % 40.1-51.0 MEAN CORPUSCULAR VOLUME (BEAKER) (test mmyz=757) 101.2 fL 79.0-92.2 MEAN CORPUSCULAR HEMOGLOBIN (BEAKER) (test 34.7 pg 25.7-32.2 vovs=007) MEAN CORPUSCULAR HEMOGLOBIN CONC (BEAKER) (test 34.3 GM/DL 32.3-36.5 xeeo=812) RED CELL DISTRIBUTION WIDTH (BEAKER) (test 14.3 % 11.6-14.4 zpcf=375) PLATELET COUNT (BEAKER) (test ddpb=876) 126 K/CU MM 150-450 MEAN PLATELET VOLUME (BEAKER) (test nmem=846) 9.5 fL 9.4-12.4 NUCLEATED RED BLOOD CELLS (BEAKER) (test 0 /100 WBC 0-0 tpav=172) NEUTROPHILS RELATIVE PERCENT (BEAKER) (test 51 % gubc=967) LYMPHOCYTES RELATIVE PERCENT (BEAKER) (test 33 % rasx=484) MONOCYTES RELATIVE PERCENT (BEAKER) (test 11 % fmev=980) EOSINOPHILS RELATIVE PERCENT (BEAKER) (test 4 % iyor=812) BASOPHILS RELATIVE PERCENT (BEAKER) (test 1 % bmdh=688) NEUTROPHILS ABSOLUTE COUNT (BEAKER) (test 3.09 K/ L 1.78-5.38 lutx=578) LYMPHOCYTES ABSOLUTE COUNT (BEAKER) (test 2.01 K/ L 1.32-3.57 znyj=682) MONOCYTES ABSOLUTE COUNT (BEAKER) (test 0.68 K/ L 0.30-0.82 waoq=436) EOSINOPHILS ABSOLUTE COUNT (BEAKER) (test 0.25 K/ L 0.04-0.54 bcjm=902) BASOPHILS ABSOLUTE COUNT (BEAKER) (test 0.06 K/ L 0.01-0.08 xcej=452) IMMATURE GRANULOCYTES-RELATIVE PERCENT (BEAKER) 0 % 0-1 (test dlsj=2800) [id number] 10:54:00 Test Item Value Reference Range Comments PROSTATE SPECIFIC ANTIGEN (BEAKER) (test cbxl=359) 0.9 ng/mL 0.0-4.0 [id number] 10:06:00 Test Item Value Reference Range Comments THYROID STIMULATING HORMONE (BEAKER) (test 0.86 uIU/mL 0.35-4.94 djoc=277) LIPID [id number] 09:51:00 Test Item Value Reference Range Comments TRIGLYCERIDES (BEAKER) (test jqnp=363) 51 mg/dL CHOLESTEROL (BEAKER) (test ioyi=712) 138 mg/dL HDL CHOLESTEROL (BEAKER) (test plob=328) 55 mg/dL LDL CHOLESTEROL CALCULATED (BEAKER) (test 73 mg/dL cbdn=621) Triglyceride Reference Range: Low Risk <150 Borderline 150- 199 High Risk 200-499 Very High Risk >=500Cholesterol Reference Range: Low Risk <200 Borderline 200-239 High Risk > 240HDL Cholesterol Reference Range: Low Risk >=60 High Risk <40LDL Cholesterol Reference Range: Optimal <100 Near Optimal 100-129 Borderline 130-159 High 160-189 Very High >=190BASIC METABOLIC [id number] 09:51:00 Test Item Value Reference Range Comments SODIUM (BEAKER) (test 140 meq/L 136-145 twax=391) POTASSIUM (BEAKER) (test 3.6 meq/L 3.5-5.1 dzpw=761) CHLORIDE (BEAKER) (test 102 meq/L 98-107 bmot=296) CO2 (BEAKER) (test 29 meq/L 22-29 tjrb=804) BLOOD UREA NITROGEN 12 mg/dL 7-21 (BEAKER) (test pcol=539) CREATININE (BEAKER) (test 0.97 mg/dL 0.57-1.25 tuoe=412) GLUCOSE RANDOM (BEAKER) 105 mg/dL 70-105 (test dfqp=821) CALCIUM (BEAKER) (test 9.4 mg/dL 8.4-10.2 lpss=422) EGFR (BEAKER) (test 74 mL/min/1.73 sq m ESTIMATED GFR IS NOT hesw=2380) ACCURATE CREATININE CLEARANCE IN PREDICTING GLOMERULAR FILTRATION RATE. ESTIMATED GFR IS NOT APPLICABLE FOR DIALYSIS PATIENTS. HEPATIC FUNCTION [id number] 09:51:00 Test Item Value Reference Range Comments TOTAL PROTEIN (BEAKER) (test fipy=050) 7.1 gm/dL 6.0-8.3 ALBUMIN (BEAKER) (test rbwy=0094) 3.5 g/dL 3.5-5.0 BILIRUBIN TOTAL (BEAKER) (test gzka=202) 1.2 mg/dL 0.2-1.2 BILIRUBIN DIRECT (BEAKER) (test issp=860) 0.6 mg/dL 0.1-0.5 ALKALINE PHOSPHATASE (BEAKER) (test rrvf=320) 96 U/L 40-150 AST (SGOT) (BEAKER) (test ucck=854) 48 U/L 5-34 ALT (SGPT) (BEAKER) (test qkvc=630) 28 U/L 6-55 CBC W/PLT COUNT & AUTO [id number] 09:12:00 Test Item Value Reference Range Comments WHITE BLOOD CELL COUNT (BEAKER) (test njrf=110) 5.1 K/ L 3.5-10.5 RED BLOOD CELL COUNT (BEAKER) (test gklo=037) 4.28 M/ L 4.63-6.08 HEMOGLOBIN (BEAKER) (test bstr=431) 15.1 GM/DL 13.7-17.5 HEMATOCRIT (BEAKER) (test bwvz=536) 43.9 % 40.1-51.0 MEAN CORPUSCULAR VOLUME (BEAKER) (test fxcv=376) 102.6 fL 79.0-92.2 MEAN CORPUSCULAR HEMOGLOBIN (BEAKER) (test 35.3 pg 25.7-32.2 kyid=337) MEAN CORPUSCULAR HEMOGLOBIN CONC (BEAKER) (test 34.4 GM/DL 32.3-36.5 ydpp=632) RED CELL DISTRIBUTION WIDTH (BEAKER) (test 14.3 % 11.6-14.4 nfce=689) PLATELET COUNT (BEAKER) (test heak=033) 118 K/CU MM 150-450 MEAN PLATELET VOLUME (BEAKER) (test lrjw=182) 9.3 fL 9.4-12.4 NUCLEATED RED BLOOD CELLS (BEAKER) (test 0 /100 WBC 0-0 wgth=442) NEUTROPHILS RELATIVE PERCENT (BEAKER) (test 47 % hyde=704) LYMPHOCYTES RELATIVE PERCENT (BEAKER) (test 36 % azkp=538) MONOCYTES RELATIVE PERCENT (BEAKER) (test 12 % ojpl=231) EOSINOPHILS RELATIVE PERCENT (BEAKER) (test 4 % nqej=187) BASOPHILS RELATIVE PERCENT (BEAKER) (test 1 % titq=310) NEUTROPHILS ABSOLUTE COUNT (BEAKER) (test 2.38 K/ L 1.78-5.38 avjp=919) LYMPHOCYTES ABSOLUTE COUNT (BEAKER) (test 1.83 K/ L 1.32-3.57 ncha=290) MONOCYTES ABSOLUTE COUNT (BEAKER) (test 0.63 K/ L 0.30-0.82 vxmr=023) EOSINOPHILS ABSOLUTE COUNT (BEAKER) (test 0.22 K/ L 0.04-0.54 hlgk=435) BASOPHILS ABSOLUTE COUNT (BEAKER) (test 0.04 K/ L 0.01-0.08 imlf=178) IMMATURE GRANULOCYTES-RELATIVE PERCENT (BEAKER) 0 % 0-1 (test afbq=0899) [id number] 11:16:00 Test Item Value Reference Range Comments THYROID STIMULATING HORMONE (BEAKER) (test 1.13 uIU/mL 0.35-4.94 oryw=841) LIPID [id number] 10:34:00 Test Item Value Reference Range Comments TRIGLYCERIDES (BEAKER) (test xkin=006) 46 mg/dL CHOLESTEROL (BEAKER) (test ktdo=141) 126 mg/dL HDL CHOLESTEROL (BEAKER) (test ytjd=878) 52 mg/dL LDL CHOLESTEROL CALCULATED (BEAKER) (test 65 mg/dL khjd=694) Triglyceride Reference Range: Low Risk <150 Borderline 150- 199 High Risk 200-499 Very High Risk >=500Cholesterol Reference Range: Low Risk <200 Borderline 200-239 High Risk > 240HDL Cholesterol Reference Range: Low Risk >=60 High Risk <40LDL Cholesterol Reference Range: Optimal <100 Near Optimal 100-129 Borderline 130-159 High 160-189 Very High >=190BASIC METABOLIC [id number] 10:34:00 Test Item Value Reference Range Comments SODIUM (BEAKER) (test 141 meq/L 136-145 lgnl=322) POTASSIUM (BEAKER) (test 3.8 meq/L 3.5-5.1 drsq=654) CHLORIDE (BEAKER) (test 103 meq/L 98-107 efyq=879) CO2 (BEAKER) (test 28 meq/L 22-29 fhlj=863) BLOOD UREA NITROGEN 16 mg/dL 7-21 (BEAKER) (test qnas=725) CREATININE (BEAKER) (test 1.01 mg/dL 0.57-1.25 opqr=683) GLUCOSE RANDOM (BEAKER) 102 mg/dL 70-105 (test ekjy=557) CALCIUM (BEAKER) (test 9.6 mg/dL 8.4-10.2 pddd=751) EGFR (BEAKER) (test 71 mL/min/1.73 sq m ESTIMATED GFR IS NOT ijmb=8603) ACCURATE CREATININE CLEARANCE IN PREDICTING GLOMERULAR FILTRATION RATE. ESTIMATED GFR IS NOT APPLICABLE FOR DIALYSIS PATIENTS. HEPATIC FUNCTION [id number] 10:34:00 Test Item Value Reference Range Comments TOTAL PROTEIN (BEAKER) (test doya=742) 6.8 gm/dL 6.0-8.3 ALBUMIN (BEAKER) (test pcgi=0734) 3.4 g/dL 3.5-5.0 BILIRUBIN TOTAL (BEAKER) (test dvmx=726) 1.1 mg/dL 0.2-1.2 BILIRUBIN DIRECT (BEAKER) (test wcgg=016) 0.5 mg/dL 0.1-0.5 ALKALINE PHOSPHATASE (BEAKER) (test zfjf=416) 78 U/L 40-150 AST (SGOT) (BEAKER) (test pinn=887) 38 U/L 5-34 ALT (SGPT) (BEAKER) (test wiqf=832) 17 U/L 6-55 [id number] 10:17:00 Test Item Value Reference Range Comments PROSTATE SPECIFIC ANTIGEN (BEAKER) (test gfcv=160) 0.5 ng/mL 0.0-4.0 CBC W/PLT COUNT & AUTO [id number] 09:50:00 Test Item Value Reference Range Comments WHITE BLOOD CELL COUNT (BEAKER) (test btdm=453) 5.0 K/ L 4.0-10.0 RED BLOOD CELL COUNT (BEAKER) (test niti=321) 4.18 M/ L 4.20-5.80 HEMOGLOBIN (BEAKER) (test xkrg=538) 14.6 GM/DL 13.0-16.8 HEMATOCRIT (BEAKER) (test zyog=285) 44.6 % 40.0-50.0 MEAN CORPUSCULAR VOLUME (BEAKER) (test csfm=495) 107.0 fL 82.0-98.0 MEAN CORPUSCULAR HEMOGLOBIN (BEAKER) (test 35.1 pg 27.0-33.0 ycsy=950) MEAN CORPUSCULAR HEMOGLOBIN CONC (BEAKER) (test 32.8 GM/DL 32.0-36.0 wlwf=277) RED CELL DISTRIBUTION WIDTH (BEAKER) (test 13.1 % 10.3-14.2 cqkf=049) PLATELET COUNT (BEAKER) (test pydy=505) 114 K/CU MM 150-430 MEAN PLATELET VOLUME (BEAKER) (test obzr=570) 6.8 fL 6.5-10.5 NUCLEATED RED BLOOD CELLS (BEAKER) (test 0 /100 WBC 0-0 qadn=796) NEUTROPHILS RELATIVE PERCENT (BEAKER) (test 48 % jgjm=564) LYMPHOCYTES RELATIVE PERCENT (BEAKER) (test 35 % hiac=556) MONOCYTES RELATIVE PERCENT (BEAKER) (test 12 % ompk=991) EOSINOPHILS RELATIVE PERCENT (BEAKER) (test 3 % scff=940) BASOPHILS RELATIVE PERCENT (BEAKER) (test 1 % gzae=812) NEUTROPHILS ABSOLUTE COUNT (BEAKER) (test 2.40 K/ L 1.80-8.00 goiy=206) LYMPHOCYTES ABSOLUTE COUNT (BEAKER) (test 1.75 K/ L 1.48-4.50 rklw=124) MONOCYTES ABSOLUTE COUNT (BEAKER) (test 0.60 K/ L 0.00-1.30 dxei=779) EOSINOPHILS ABSOLUTE COUNT (BEAKER) (test 0.17 K/ L 0.00-0.50 lasn=566) BASOPHILS ABSOLUTE COUNT (BEAKER) (test 0.04 K/ L 0.00-0.20 kgvx=884) 0.00
--- NOTE | 2019-05-23 13:17 | RAD REPORT ---
EXAM DESCRIPTION: RAD - Ribs Left - 05/23/2019 1:05 pm CLINICAL HISTORY: Fall, left-sided chest pain COMPARISON: None. FINDINGS: No displaced rib fracture is seen and no non-displaced rib fractures confirmed. No aggress sae rib lesion. No underlying pneumothorax, effusion, infiltrate or pulmonary contusion. IMPRESSION: No displaced rib fracture and no nondisplaced rib fracture confirmed. No pulmonary contusion or acute pleural/ parenchymal process.
--- NOTE | 2019-05-23 13:43 | EDPHYS ---
Physician Documentation [facility] Name: Saurav Vega Age: 84 yrs Sex: Male : 1935 Arrival Date: 05/23/2019 Time: 11:53 Bed 11 Private MD: ED Physician Shahram Soto HPI: 05/23 12:26 This 84 yrs old Male presents to ER via Ambulatory with complaints of Rib jmm pain. 12:26 Onset: The symptoms/episode began/occurred acutely. Associated signs and symptoms:. jmm Modifying factors: The patient symptoms are alleviated by nothing, the patient symptoms are aggravated by nothing. This is an 84 year old male with a history of hypothyroidism that presents to the ED with complaints of left sided rib pain after slipping and hitting the edge of a table against his left side. Denies shortness of breath. Pain is mainly upon standing. . Historical: - Allergies: 12:01 Erythromycin; sg 12:01 Neomycin Sulfate; sg 12:01 Percocet; sg 12:01 Sulfa (Sulfonamide Antibiotics); sg - PMHx: 12:01 acid reflux; Hypothyroidism; Irregular heart rate; sg - PSHx: 12:01 Tonsillectomy; Vasectomy; eyelid; bilateral knees; Hernia repair; cataract; sg - Immunization history:: Adult Immunizations up to date. - Social history:: Smoking status: Patient/guardian denies using tobacco. - Ebola Screening: : Patient negative for fever greater than or equal to 101.5 degrees Fahrenheit, and additional compatible Ebola Virus Disease symptoms Patient denies exposure to infectious person Patient denies travel to an Ebola-affected area in the 21 days before illness onset No symptoms or risks identified at this time. ROS: 12:26 Constitutional: Negative for fever, chills, and weight loss, Cardiovascular: Negative jmm for chest pain, palpitations, and edema, Respiratory: Negative for shortness of breath, cough, wheezing, and pleuritic chest pain, Abdomen/GI: Negative for abdominal pain, nausea, vomiting, diarrhea, and constipation, Back: Negative for injury and pain. 12:26 All other systems are negative. Exam: 12:26 Constitutional: This is a well developed, well nourished patient who is awake, alert, jmm and in no acute distress. Head/Face: atraumatic. Eyes: EOMI, no conjunctival erythema appreciated ENT: Moist Mucus Membranes Neck: Trachea midline, Supple 12:26 Cardiovascular: Regular rate and rhythm. No edema appreciated 12:26 Abdomen/GI: Non distended, soft Back: Normal ROM Skin: General appearance color normal MS/ Extremity: Moves all extremities, no obvious deformities appreciated, no edema noted to the lower extremities Neuro: Awake and alert, normal gait Psych: Behavior is normal, Mood is normal, Patient is cooperative and pleasant 12:26 Chest/axilla: Inspection: normal, Palpation: tenderness, that is moderate, of the left lateral anterior chest. 12:26 Respiratory: the patient does not display signs of respiratory distress, Respirations: normal, Breath sounds: are clear throughout. Vital Signs: 12:03 BP 129 / 77; Pulse 52; Resp 16; Temp 98.2; Pulse Ox 99% on R/A; Weight 79.38 kg (R); sg Height 5 ft. 10 in. (177.80 cm); Pain 8/10; 12:03 Body Mass Index 25.11 (79.38 kg, 177.80 cm) MDM: 12:12 Patient medically screened. [facility] 13:38 Data reviewed: vital signs, nurses notes. Counseling: I had a detailed discussion with [facility] the patient and/or guardian regarding: the historical points, exam findings, and any diagnostic results supporting the discharge/admit diagnosis, radiology results, the need for outpatient follow up, to return to the emergency department if symptoms worsen or persist or if there are any questions or concerns that arise at home. ED course: Xray negative. IS with education given along with return precautions. Patient understood and agrees with the plan of care. . 05/23 12:23 Order name: Ribs Left XRAY; Complete Time: 13:28 [facility] 05/23 13:29 Order name: INCENTIVE SPIROMETRY [facility] Administered Medications: No medications were administered Disposition: 05/24 08:32 Co-signature as Attending Physician, Shahram Soto MD I agree with the assessment and kdr plan of care. Disposition: 05/23/19 13:42 Discharged to Home. Impression: Rib Contusion. - Condition is Stable. - Discharge Instructions: Rib Contusion. - Medication Reconciliation Form, Thank You Letter, Antibiotic Education, Prescription Opioid Use form. - Follow up: Private Physician; When: 2 - 3 days; Reason: Recheck today's complaints, Continuance of care, Re-evaluation by your physician. Signatures: Dispatcher [employer] EDJaylon Fairchild, RN RN Shahram Lobo MD MD kdr Mickail, Joel, PA PA jmm Williams, Irene, RN RN iw Corrections: (The following items were deleted from the chart) 05/23 14:00 13:42 05/23/2019 13:42 Discharged to Home. Impression: Rib Contusion. Condition is iw Stable. Forms are Medication Reconciliation Form, Thank You Letter, Antibiotic Education, Prescription Opioid Use. Follow up: Private Physician; When: 2 - 3 days; Reason: Recheck today's complaints, Continuance of care, Re-evaluation by your physician. rocio
--- NOTE | 2019-05-23 13:43 | ER ---
Nurse's Notes [facility] Name: Saurav Vega Age: 84 yrs Sex: Male : 1935 Arrival Date: 05/23/2019 Time: 11:53 Bed 11 Private MD: Diagnosis: Rib Contusion Presentation: 05/23 12:02 Presenting complaint: Patient states: Sitting at the table evening, lost my sg balance and fell landing on my left side hitting the table, with rib pain that worsened today. Transition of care: patient was not received from another setting of care. Onset of symptoms was May 23, 2019. Risk Assessment: Do you want to hurt yourself or someone else? Patient reports no desire to harm self or others. Initial Sepsis Screen: Does the patient meet any 2 criteria? No. Patient's initial sepsis screen is negative. Does the patient have a suspected source of infection? No. Patient's initial sepsis screen is negative. Care prior to arrival: None. 12:02 Method Of Arrival: Ambulatory sg 12:02 Acuity: IRVING 4 sg Triage Assessment: 13:00 General: Appears in no apparent distress. Behavior is calm, cooperative. iw Historical: - Allergies: 12:01 Erythromycin; sg 12:01 Neomycin Sulfate; sg 12:01 Percocet; sg 12:01 Sulfa (Sulfonamide Antibiotics); sg - PMHx: 12:01 acid reflux; Hypothyroidism; Irregular heart rate; sg - PSHx: 12:01 Tonsillectomy; Vasectomy; eyelid; bilateral knees; Hernia repair; cataract; sg - Immunization history:: Adult Immunizations up to date. - Social history:: Smoking status: Patient/guardian denies using tobacco. - Ebola Screening: : Patient negative for fever greater than or equal to 101.5 degrees Fahrenheit, and additional compatible Ebola Virus Disease symptoms Patient denies exposure to infectious person Patient denies travel to an Ebola-affected area in the 21 days before illness onset No symptoms or risks identified at this time. Screenin:50 Abuse screen: Denies threats or abuse. Denies injuries from another. Nutritional iw screening: No deficits noted. Tuberculosis screening: No symptoms or risk factors identified. Fall Risk Fall in past 12 months (25 points). Assessment: 13:00 General: Appears in no apparent distress. Behavior is calm, cooperative. Pain: iw Complains of pain in left lateral anterior chest. Neuro: Level of Consciousness is awake, alert, obeys commands, Oriented to person, place, time, situation, Moves all extremities. Cardiovascular: Patient's skin is warm and dry. Respiratory: Airway is patent Respiratory effort is even, unlabored, Respiratory pattern is regular, symmetrical. GI: No signs and/or symptoms were reported involving the gastrointestinal system. Derm: Skin is intact. Musculoskeletal: Range of motion: intact in all extremities. Vital Signs: 12:03 BP 129 / 77; Pulse 52; Resp 16; Temp 98.2; Pulse Ox 99% on R/A; Weight 79.38 kg (R); sg Height 5 ft. 10 in. (177.80 cm); Pain 8/10; 12:03 Body Mass Index 25.11 (79.38 kg, 177.80 cm) ED Course: 11:53 Patient arrived in ED. mr 12:00 Arm band placed on. 12:03 Triage completed. 12:11 Keon Marie PA is PHCP. [facility] 12:11 Shahram Soto MD is Attending Physician. [facility] 13:00 Patient has correct armband on for positive identification. iw 13:04 Ribs Left XRAY In Process Unspecified. EDMS 13:32 Ruth Damon, THADDEUS is Primary Nurse. iw 13:59 No provider procedures requiring assistance completed. Patient did not have IV access iw during this emergency room visit. Administered Medications: No medications were administered Outcome: 13:42 Discharge ordered by MD. [facility] 13:59 Discharged to home ambulatory. iw 13:59 Condition: good 13:59 Discharge instructions given to patient, Instructed on discharge instructions, follow up and referral plans. how to use Incentive Spirometer, pt states he has two at home 14:00 Patient left the ED. Signatures: Dispatcher [employer] EDMS Jaylon Ramirez RN RN Keon Marie PA PA jmm Rivera, Mary mr Ruth Damon, THADDEUS RN
[2019-05-23 14:04] VITALS: BP 129/77; TEMP 98.2; O2SAT 99
== END 2019-05-23 14:00 | disposition home or self-care (01) ==
LOC: ER 11:50
DX: S20.20XA Contusion of thorax, unspecified, initial encounter (principal); W01.190A Fall on same level from slipping, tripping and stumbling with subsequent striking against furniture, initial encounter; Y93.9 Activity, unspecified; Y92.9 Unspecified place or not applicable; Z88.3 Allergy status to other anti-infective agents; Z88.5 Allergy status to narcotic agent; Z88.8 Allergy status to other drugs, medicaments and biological substances
CPT/HCPCS: 99283

== ENCOUNTER 2022-05-01 08:41 | Observation (INO) | payer OTHER ==
--- OUTSIDE RECORDS SUMMARY | 2022-05-01 08:47 | XMS REPORT | Continuity of Care Document ---
:1935 Author Organization [facility] t Address [address] [place] [address] Care Team Providers Name Role Phone Raghu Gonzales Primary Care Physician KULWANT PACHECO Attending Clinician Unavailable Christina Gant Attending Clinician Unavailable Becca Soriano MD Attending Clinician [phone] Kulwant Pacheco MD Attending Clinician KULWANT PACHECO Attending Clinician Unavailable Flo Laura MD Attending Clinician Taylor TRAVIS, Nedra Attending Clinician Unavailable Melita Basurto MD Attending Clinician Rakesh Attending Clinician Unavailable Isaias Judge Attending Clinician [phone] Kalin Madden MD Attending Clinician [phone], [facility] Us Room Attending Clinician Unavailable KALIN AMDDEN Attending Clinician Unavailable Marvin DIXON, Vicente Allen Attending Clinician Isaias Judge Attending Clinician Unavailable Risa Bartlett Attending Clinician Unavailable DONALD APARICIO Attending Clinician Unavailable KULWANT PACHECO Admitting Clinician Unavailable Rakesh Admitting Clinician Unavailable Isaias Judge Admitting Clinician Unavailable Payers Payer Name Policy Type Policy Number Effective Date Expiration Date S poli ERS MEDICARE [id number] ADVANTAGE PPO-[facility] [employer] MEDICARE [id number] ADVANTAGE PPO [facility] [id number] 2021 (MEDICARE 00:00:00 REPLACEMENT/ADVANTA GE - PPO) [facility] [id number] 2021 00:00:00 [employer] MEDICARE ADV [id number] 2013 00:00:00 Problems Condition Condition Condition Status Onset Resolution Last Treating Co mments Source Name Details Category Date Date Treatment Clinician Date A-fib A-fib Disease Active [facility] 00:[facility] PAF PAF Disease Active [facility] (paroxysma (paroxysma 02-19 Co llege l atrial l atrial 00:00: of fibrillati fibrillati 00 Me dicin on) on) e Bilateral Bilateral Disease Active [facility] carotid carotid 02-19 College artery artery 00:00: of stenosis stenosis 00 Medici n e Low back Low Back Problem Active [facility] a pain Pain 6-29 Orthope 00:00: dic 00 Sports Medicin e Trichiasis Trichiasis Disease Active [facility] 00:00: Hospita 00 l Primary Primary Disease Active Overview: Meth eleanor open angle open angle 03-[address] glaucoma glaucoma 00:00: g of this Hos ekaterina of both of both 00 note is l eyes, eyes, different moderate moderate from the stage stage original. Glaucoma Overview Dx: POAG , advanced optic atrophy ouTmax: OD 28Average IOP: 1--14 OUTarget IOP: 10 mm HgCurrent Medicatio ns: latanopro st qd OU, cosopt bid ouAllergi es: nkdaC/D (Date): 0.8/0.8 OULaser/S urgeries: Glaukos trabecula r micro-byp ass stent OD, Hydrus Aqueous stent implant OS, SLT OD, Phaco/IOL OUGoniosc opy: grad 3 OU with PAS HVF (Date): 03/06Right EyeThresh old was 24-2. Strategy was APPLE. -12.07. Findings include superior arcuate defect, superior nasal step defect, inferior arcuate defect. Left EyeThresh old was 24-2. Strategy was APPLE. -1.10. Findings include non-speci fic defects. 05/05Righ t EyeReliab ility was good. Temporal thickness was showing abnormal thinning. Superior thickness was showing abnormal thinning. Nasal thickness was showing abnormal thinning. Inferior thickness was showing abnormal thinning. Left EyeReliab ility was good. Temporal thickness was normal. Superior thickness was showing abnormal thinning. Nasal thickness was normal. Inferior thickness was showing abnormal thinning. Notes41/6 2 SignedEle ctronical ly signed by Becca Soriano MD on 05/09/20 at 1146 OUTREACH CLINICIAN 10/01Right EyeThresh old was 24-2. Strategy was APPLE. Reliabili ty was good (12% FN). Progressi on has been stable. -9.04. Findings include superior nasal step defect, superior arcuate defect. Left EyeThresh old was 24-2. Strategy was APPLE. Reliabili ty was good. -3.87. Findings include non-speci fic defects (No prior vf for compariso n). HVF 20R ight EyeThresh old was 24-2. Strategy was APPLE. Reliabili ty was good. 11.67. Findings include non-speci fic defects, superior arcuate defect, superior altitudin al defect, inferior arcuate defect. Left EyeThresh old was 24-2. Strategy was APPLE. Reliabili ty was poor. -3.88. Findings include non-speci fic defects (Probable rim artefact) . SignedEle ctronical ly signed by Becca Soriano MD on 05/09/20 at 1144 OUTREACH CLINICIAN 06/08/19R ight EyeReliab ility was good. Temporal thickness was showing abnormal thinning. Superior thickness was showing abnormal thinning. Nasal thickness was showing abnormal thinning. Inferior thickness was showing abnormal thinning. Left EyeReliab ility was good. Temporal thickness was normal. Superior thickness was showing abnormal thinning. Nasal thickness was normal. Inferior thickness was showing abnormal thinning. Notes40/6 2 SignedEle ctronical ly signed by Becca Soriano MD on 05/19/19 at 1153 OUTREACH CLINICIAN 04/09/18R eliabilty goodOD MD -10.38 Superior and inferior arcuate scotoma, superior nasal stepOS MD -2.86 non specific changesOC T (Date): 03/06Right EyeReliab ility was good. Temporal thickness was showing abnormal thinning. Superior thickness was showing abnormal thinning. Nasal thickness was showing abnormal thinning. Inferior thickness was showing abnormal thinning. Left EyeReliab ility was good. Temporal thickness was normal. Superior thickness was showing abnormal thinning. Nasal thickness was normal. Inferior thickness was showing abnormal thinning. Notes42/6 2 U4/18Righ t EyeReliab ility was good. Temporal thickness was showing abnormal thinning. Superior thickness was showing abnormal thinning. Nasal thickness was showing abnormal thinning. Inferior thickness was showing abnormal thinning. Left EyeTempor al thickness was normal. Superior thickness was showing abnormal thinning. Nasal thickness was normal. Inferior thickness was showing abnormal thinning. 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 SN60WF +19.0 D [id number] +19.5 D OS20/20 ou PVD PVD Disease Active Overview: Method i (posterior (posterior 03-[address] vitreous vitreous 00:00: g of this Hos ekaterina detachment detachment 00 note l ) ) might be different from the original. No retinal tears or detachmen ts. Hypothyroi Hypothyroi Disease Active [facility] dism, dism, 11-20 [facility] unspecifie unspecifie 00:00: Me dical d type d type 00 Center Hyperlipid Hyperlipid Disease Active [facility] emia, emia, 11-20 [facility] unspecifie unspecifie 00:00: Me dical d d 00 Center hyperlipid hyperlipid emia type emia type Osteopenia Osteopenia Disease Active Overview : [facility] 00:[facility]: g of this Medical 00 note Center might be different from the original. Compressi on fracture L3 vertebra PVC PVC Disease Active Overview: [facility] (premature (premature 02-28 [facility] ventricula ventricula 00:00: g of this of r r 00 note Medicin contractio contractio might be e n) n) different from the original. Last Assessmen t & Plan: Formattin g of this note might be different from the original. Noted on ECG today and on exam. Asymptoma tic. PVC PVC Disease Active Overview: [facility] (premature (premature 02-28 [facility] ventricula ventricula 00:00: g of this of r r 00 note Medicin contractio contractio might be e n) n) different from the original. Last Assessmen t & Plan: Formattin g of this note might be different from the original. Noted on ECG today and on exam. Asymptoma tic. Hyperlipid Hyperlipid Disease Active Overview : [facility] emia emia 12-20 [facility] 00:00: g of this of 00 note Medicin might be e different from the original. Last Assessmen t & Plan: Formattin g of this note might be different from the original. Refills sent to pharmacy. Recent FLP is WNL. No changes made today. Allergies, Adverse Reactions, Alerts Allergy Allergy Status Severity Reaction(s) Onset Inactive Treating Comm ents Source Name Type Date Date Clinician Erythrom Propensi Active [facility] ycin ty to 02-19 [place] adverse 00:00: of reaction 00 Medicin s to e drug Neomycin Propensi Active [facility] ty to 02-19 [place] adverse 00:00: of reaction 00 Medicin s to e drug Oxycodon Propensi Active [facility] e-Acetam ty to 02-19 [place] inophen adverse 00:00: of reaction 00 Medicin s to e drug Sulfa Propensi Active [facility] Antibiot ty to 02-19 [place] ics adverse 00:00: of reaction 00 Medicin s to e drug Erythrom Propensi Active Other (See 2016 ANY MYCIN Methodi ycin ty to Comments) 2-[address] adverse 00:00: CS"Makes Hospita reaction 00 me feel l s to worse drug than the reason I started taking the medicatio n" Oxycodon Propensi Active Other (See 2015-06 "Makes me Methodi e-Acetam ty to Comments) 2- short st inophen adverse 00:00: fused, Hospita reaction 00 crazy and l s to assertive drug " Sulfa Propensi Active Other (See 2015-06 "koehler my M ethodi (Sulfona ty to Comments) [address] mide adverse 00:00: causes Hospita Antibiot reaction 00 scarring" l ics) s to drug ERYTHROM Allergy Active [facility] YCIN 08-11 00:00: 00 NEOMYCIN Allergy Active [facility] 08-11 00:00: 00 OXYCODON Allergy Active Med Other [facility] E-ACETAM 08-11 INOPHEN 00:00: 00 SULFA Allergy Active High Swelling [facility] (SULFONA 08-11 MIDE 00:00: ANTIBIOT 00 ICS) Oxycodon Drug Active Other (See Angry/ivania [facility] e-Acetam Allergy Comments) 08-11 n [facility] inophen 00:00: Medical 00 Center Sulfa Drug Active Swelling [facility] (Sulfona Allergy 08-11 [facility] mide 00:00: Medical Antibiot 00 Center ics) Erythrom Drug Active Swelling [facility] ycin Allergy 08-11 [facility] 00:[facility]: Medical 00 Center Neomycin Drug Active Swelling [facility] Allergy 26 [facility] 00:[facility]: Medical 00 Center STATINS- Allergy Active [facility] HMG-COA 02-28 REDUCTAS 00:00: E 00 INHIBITO RS Statins- Propensi Active All [facility] ty to 02-28 [facility] adverse 00:00: had Medical e reaction 00 muscle Center Inhibito s pain rs Family History Family Member Diagnosis Comments Start Date Stop Date Source Natural father COPD [facility] Natural father Emphysema [facility] Natural mother Cancer [facility] Natural mother Pancreatic cancer Met [facility] Natural brother Heart attack [facility] Maternal grandfather Heart attack [facility] Maternal grandmother Stroke [facility] Paternal grandfather Stroke [facility] Paternal grandmother Diabetes [facility] Natural sister No Known Problems [facility] Social History Social Habit Start Date Stop Date Quantity Comments Source History SDOH [facility] Alcohol Frequency Medical Center History SDOH [facility] Alcohol Std Drinks Medica l Center History SDOH [facility] Alcohol Binge Medical Jud ter Alcohol intake 2022-02-26 2022-02-26 Current drinker Ernesto edgar 00:00:00 00:00:00 of [facility] (finding) Alcohol Comment 2017-09-17 2017-09-[address] 00:00:00 00:00:00 [facility] Tobacco use and 2015-08-11 2015-08-[address] [facility] kes exposure 00:00:00 00:00:00 [facility] Center Sex Ass[birth year] At [birth year] MANUEL Barrera kes 00:00:00 00:00:00 [facility] Center Smoking Status Start Date Stop Date Source Never smoked tobacco [facility] of Medicine Medications Ordered Filled Start Stop Current Ordering Indication Dosage Frequency Signature Comments Components Source Medication Medication Date Date Medication? Clinician (SIG) Name Name Aspirin 81 2021-06 Yes 81mg Take 81 mg B aylor MG tablet 0-27 by mouth. Colle ge 10:52: of 11 Medicin e B 2021-06 Yes 1{tbl} Take 1 [facility]-E 0-27 Tablet by Col lege -Zn (BEE 10:52: mouth of ZEE) TABS 11 daily. Medicin e fluticasone 2021-06 Yes 1{spray 1 [place] by [facility] (FLONASE) 0-27 } Nasal College 50 MCG/ACT 10:52: route. of nasal spray 11 Medicin e omeprazole 2021-06 Yes 40mg Take 40 mg B [facility]ylor (PRILOSEC) 0-27 by mouth. Magdalena ege 20 MG 10:52: of capsule 11 Medicin e L-Methylfol 2021-06 Yes Take by [place] [facility] ate-B6-B12 0-27 mouth. College (FOLTX) 10:52: of 1.1325-2 11 Medicin MG TABS e Lidocaine 2021-06 Yes Apply [facility] HCl 4 % 0-27 topically. Colleg e CREA 10:52: of 11 Medicin e latanoprost 2021-06 Yes INSTILL Met [facility]odi (XALATAN) 0-23 ONE (1) st 0.005 % 00:00: DROP(S) IN Hosp rosy ophthalmic 00 EACH EYE l solution AT BEDTIME. latanoprost 2021-06 Yes INSTILL Met [facility]odi (XALATAN) 0-23 ONE (1) st 0.005 % 00:00: DROP(S) IN Hosp rosy ophthalmic 00 EACH EYE l solution AT BEDTIME. latanoprost 2021-06 Yes 1[drp] QD Administer Methodi (XALATAN) 0-[address] 0.005 % 00:00: both eyes Hospi ta ophthalmic 00 nightly. l solution dorzolamide 2021-06 Yes 1[drp] Q.5D Administer Methodi -timoloL 0-[address] (COSOPT) 00:00: both eyes Hosp rosy 22.3-6.8 00 2 (two) l mg/mL times a ophthalmic day. solution latanoprost 2021-06 Yes 1[drp] QD Administer Methodi (XALATAN) 0-[address] 0.005 % 00:00: both eyes Hospi ta ophthalmic 00 nightly. l solution dorzolamide 2021-06 Yes 1[drp] Q.5D Administer Methodi -timoloL 0-[address] (COSOPT) 00:00: both eyes Hosp rosy 22.3-6.8 00 2 (two) l mg/mL times a ophthalmic day. solution CALCIUM 2021-06 Yes QD Take by [facility]AL [facility]-01 [facility] 20:10: daily. [address] CALCIUM 2021-06 Yes QD Take by [facility] ORAL 0-01 [facility] 20:10: daily. [address] folic acid Yes 1mg QD Take [address] (FOLVITE) 1 9-30 by mouth Luke s MG tablet 20:31: daily. Medica l 39 Van calcium Yes Osteopenia 1{tbl} Q.5D Take [address] citrate-vit 9-30 tablet by Leann es salas D3 200 20:31: mouth 2 Med ical mg calcium 39 (two) Center -250 unit times Tab daily . aspirin 81 Yes Osteopenia 81mg QD Take [address] MG EC 9-30 by mouth [facility] tablet 20:31: daily. [address] latanoprost Yes 1[drp] QD Place [address] (XALATAN) 9-30 drop into [facility] 0.005 % 20:31: both eyes Medic al ophthalmic 39 nightly. Cente r solution calcium Yes Osteopenia 1{tbl} Q.5D Take [address] citrate-vit 9-30 tablet by Leann es salas D3 200 20:31: mouth 2 Med ical mg calcium 39 (two) Center -250 unit times Tab daily . aspirin 81 Yes Osteopenia 81mg QD Take [address] MG EC 930 by mouth [facility] tablet 20:31: daily. Medical 39 Center latanoprost Yes 1[drp] QD Place [address] (XALATAN) 9-30 drop into [facility] 0.005 % 20:31: both eyes Medic al ophthalmic 39 nightly. Cente r solution folic acid Yes 1mg QD Take [address] (FOLVITE) 1 03-15 by mouth Luke s MG tablet 20:31: daily. Medica l 39 Center lidocaine 2021- No Apply [facility] (LMX) 4 % 03-15 topically Luke s cream 08:54: 00:00 daily as Medical 23 :00 needed. Center lidocaine 2021- No Apply [facility] (LMX) 4 % 03-15 topically Luke s cream 08:54: 00:00 daily as Medical 23 :00 needed. Van levothyroxi Yes 75ug QD Take [address] ne 9-22 mcg by [facility] (SYNTHROID, 00:00: mouth Medic al LEVOTHROID) 00 daily. Van 75 MCG tablet levothyroxi Yes 75ug QD Take [address] ne 9-22 mcg by [facility] (SYNTHROID, 00:00: mouth Medic al LEVOTHROID) 00 daily. Van 75 MCG tablet Lidocaine Yes Apply [facility] HCl 4 % 02-19 topically. Colleg vinny CREA 16:14: of 37 Medicin e L-Methylfol Yes Take by [place] [facility] ate-B6-B12 02-19 mouth. College (FOLTX) 16:13: of 1.13-2 59 Medicin MG TABS e Aspirin 81 0 Yes 81mg Take 81 mg B aylor MG tablet 02-19 by mouth. Colle ge 16:07: of 20 Medicin e B Yes 1{tbl} Take 1 [facility] - Tablet by Col lege -Zn (BEE 16:07: mouth of ZEE) TABS 20 daily. Medicin e fluticasone 0 Yes 1{spray 1 [place] by [facility] (FLONASE) 02-19 } Nasal College 50 MCG/ACT 16:07: route. of nasal spray 20 Medicin e omeprazole 0 Yes 40mg Take 40 mg [facility] (PRILOSEC) 02-19 by mouth. [facility]ena ege 20 MG 16:07: of capsule 20 Medicin e flecainide 0 Yes 50mg Take 1 [facility] (TAMBOCOR) 02-19 Tablet by Magdalena ege 50 MG 00:00: mouth 3 of tablet 00 times Medicin daily. e flecainide 0 Yes 50mg Take 1 [facility] (TAMBOCOR) 02-19 Tablet by Magdalena ege 50 MG 00:00: mouth 3 of tablet 00 times Medicin daily. e flecainide 0 2021- No Girish (TAMBOCOR) 02-19 09-06 College 50 MG 00:00: 00:00 of tablet 00 :00 Medicin e apixaban 0 Yes 1{tbl} Q.5D Take 1 [facility] (Eliquis) 5 8-23 tablet by Leann es mg Tab 00:00: mouth 2 Medical tablet 00 (two) Center times daily. ELIQUIS 5 0 Yes 1{tbl} Take 1 [facility] MG TABS 8-23 Tablet by [place] 00:00: mouth two of 00 times Medicin daily. e apixaban 0 Yes 1{tbl} Q.5D Take 1 [facility] (Eliquis) 5 8-23 tablet by Leann es mg Tab 00:00: mouth 2 Medical tablet 00 (two) Center times daily. ELIQUIS 5 2021-0 Yes 1{tbl} Take 1 [facility] or MG TABS 8-23 Tablet by [place] 00:00: mouth two of 00 times Medicin daily. e ezetimibe 0 Yes 10mg Take 10 mg Ba ylor (ZETIA) 10 - by mouth Colle ge MG tablet 00:00: daily. Medicin e ezetimibe 0 Yes 10mg Take 10 mg [facility] y[facility] (ZETIA) 10 -18 by mouth Colle ge MG tablet 00:00: daily. Medicin e ezetimibe Yes 10mg QD Take 10 mg Me thodi (ZETIA) 10 01-[address] mg tablet 10:30: nightly. Hosp rosy 13 Last dose l taken last night folic acid Yes 1{tbl} QD Take 1 Met [facility] 2.5 mg + B6 01-[address] 25 mg + B12 10:30: mouth Hospi ta 2 mg 13 daily. l (FOLBIC) Last dose 2.5-25-2 mg taken tablet yesterday aspirin 0 Yes 81mg QD Take 81 mg Meth eleanor (ECOTRIN) 01-[address] 81 MG 10:30: daily. Hospita enteric 13 Last taken l coated on tablet 06/02/2016 omeprazole Yes 40mg Take 40 mg M ethodi (PriLOSEC) 01-[address] 20 MG 10:30: as needed. Hospit a capsule 13 l calcium Yes 630mg QD Take 630 Metho di carbonate-v 01-[address] itamin D3 10:30: mouth Hospita 500mg 13 daily. l (1,250mg) -600 unit tablet fluticasone Yes 1{spray 1 spray Methodi (FLONASE) 01-14 } into each st 50 10:30: nostril as Hospita mcg/actuati 13 needed. l on nasal spray multivitami Yes 1{tbl} QD Take 1 Me thodi n with 01-[address] minerals 10:30: mouth Hospita tablet 13 daily. l levothyroxi Yes 75ug QD Take 75 Met [facility] ne 8- mcg by st (SYNTHROID) 10:30: mouth Hospi ta 100 mcg 13 daily. l tablet lidocaine Yes Apply Methodi HCL 01-[address] (Aspercreme 10:30: as needed. Hospita , lidocaine 13 l HCL,) 4 % cream famotidine Yes 40mg QD Take 40 mg M ethodi (Pepcid) 40 01-[address] MG tablet 10:30: daily. Hospit a 13 l ezetimibe 0 Yes 10mg QD Take 10 mg Me [facility] (ZETIA) 10 01-[address] mg tablet 10:30: nightly. Hosp rosy 13 Last dose l taken last night folic acid 0 Yes 1{tbl} QD Take 1 Met [facility] 2.5 mg + B6 01-[address] 25 mg + B12 10:30: mouth Hospi ta 2 mg 13 daily. l (FOLBIC) Last dose 2.5-25-2 mg taken tablet yesterday aspirin 0 Yes 81mg QD Take 81 mg Meth eleanor (ECOTRIN) 01-[address] 81 MG 10:30: daily. Hospita enteric 13 Last taken l coated on tablet 06/02/2016 omeprazole 0 Yes 40mg Take 40 mg M ethodi (PriLOSEC) 01-[address] 20 MG 10:30: as needed. Hospit a capsule 13 l calcium Yes 630mg QD Take 630 Metho di carbonate-v 01-[address] itamin D3 10:30: mouth Hospita 500mg 13 daily. l (1,250mg) -600 unit tablet fluticasone Yes 1{spray 1 spray Methodi (FLONASE) 01-14 } into each st 50 10:30: nostril as Hospita mcg/actuati 13 needed. l on nasal spray multivitami Yes 1{tbl} QD Take 1 Me thodi n with 01-[address] minerals 10:30: mouth Hospita tablet 13 daily. l levothyroxi Yes 75ug QD Take 75 Met [facility] ne 01-[address] (SYNTHROID) 10:30: mouth Hospi ta 100 mcg 13 daily. l tablet lidocaine Yes Apply Methodi HCL 01-[address] (Aspercreme 10:30: as needed. Hospita , lidocaine 13 l HCL,) 4 % cream famotidine Yes 40mg QD Take 40 mg M ethodi (Pepcid) 40 8-[address] MG tablet 10:30: daily. Hospit a 13 l famotidine 2021-[address] [facility] (PEPCID) 40 7-20 Tablet(s) Leann es MG tablet 00:00: By Mouth Medi nahum 00 Every Center Evening famotidine 2021-[address] [facility] (PEPCID) 40 7-20 Tablet(s) Leann es MG tablet 00:00: By Mouth Medi nahum 00 Every Center Evening famotidine 2021-0 Yes TAKE ONE [place] [facility] (PEPCID) 40 7-20 (1) College MG tablet 00:00: TABLET(S) of 00 BY MOUTH Medicin EVERY e EVENING. famotidine 0 Yes TAKE ONE [place] ro[facility]inda (PEPCID) 40 7-20 (1) College MG tablet 00:00: TABLET(S) of 00 BY MOUTH Medicin EVERY e EVENING. EUTHYROX 75 Yes TAKE 1 [facility] MCG tablet 6-20 TABLET BY [facility] e[facility] 00:00: MOUTH ONCE of 00 DAILY Medicin e EUTHYROX 75 2021-0 Yes TAKE 1 [facility] MCG tablet 6-20 TABLET BY [facility] e[facility] 00:00: MOUTH ONCE of 00 DAILY Medicin e latanoprost Yes INSTILL [place] [facility] (XALATAN) 6-17 ONE (1) [place] 0.005 % 00:00: DROP(S) IN of ophthalmic 00 EACH EYE Medic in solution AT e BEDTIME. latanoprost Yes INSTILL [place] [facility] (XALATAN) 6-17 ONE (1) [place] 0.005 % 00:00: DROP(S) IN of ophthalmic 00 EACH EYE Medic in solution AT e BEDTIME. dorzolamide 0 Yes INSTILL [place] [facility] -timolol 6-16 ONE (1) College (COSOPT) 00:00: DROP(S) IN of 22.3-6.8 00 EACH EYE Medicin MG/ML TWICE A e ophthalmic DAY. solution dorzolamide 0 Yes INSTILL [place] [facility] -timolol 6-16 ONE (1) College (COSOPT) 00:00: DROP(S) IN of 22.3-6.8 00 EACH EYE Medicin MG/ML TWICE A e ophthalmic DAY. solution lidocaine 2020-06- No 1{patch Q24H Place 1 M ethodi (LIDODERM) 0-18 11-18 } patch on st 5 % 00:00: 05:59 the skin Hospita 00 :00 daily for l 30 days. Remove & Discard patch within 12 hours or as directed by lidocaine 2020-06- No 1{patch Q24H Place 1 M ethodi (LIDODERM) 0-18 11-18 } patch on st 5 % 00:00: 05:59 the skin Hospita 00 :00 daily for l 30 days. Remove & Discard patch within 12 hours or as directed by dorzolamide 2020-06- No INSTILL Me thodi -timoloL 0-12 04-02 ONE (1) st (COSOPT) 00:00: 00:00 DROP(S) IN Ho spita 22.3-6.8 00 :00 EACH EYE l mg/mL TWICE A ophthalmic DAY. solution latanoprost 2020-06- No INSTILL M ethodi (XALATAN) 0-04-02 ONE (1) st 0.005 % 00:00: 00:00 DROP(S) IN Hos ekaterina ophthalmic 00 :00 EACH EYE l solution AT BEDTIME. dorzolamide 2020-06- No INSTILL Me thodi -timoloL 004-02 ONE (1) st (COSOPT) 00:00: 00:00 DROP(S) IN Ho spita 22.3-6.8 00 :00 EACH EYE l mg/mL TWICE A ophthalmic DAY. solution latanoprost 2020-06- No INSTILL M ethodi (XALATAN) 0-04-02 ONE (1) st 0.005 % 00:00: 00:00 DROP(S) IN Hos ekaterina ophthalmic 00 :00 EACH EYE l solution AT BEDTIME. diclofenac 2021- No 1{patch Q24H Place 1 Methodi epolamine 03-13 } patch on st (Licart) 00:00: 00:00 the skin Hosp rosy 1.3 % patch 00 :00 daily as l 24 hour needed (low back pain). diclofenac 2021- No 1{patch Q24H Place 1 Methodi epolamine 03-13 } patch on st (Licart) 00:00: 00:00 the skin Hosp rosy 1.3 % patch 00 :00 daily as l 24 hour needed (low back pain). celecoxib Yes 2 tabs in [facility] (CeleBREX) 7-[address] 100 MG 00:00: tab at Hospita capsule 00 bedtime l celecoxib Yes 2 tabs in [facility] (CeleBREX) 7-[address] 100 MG 00:00: tab at Hospita capsule 00 bedtime l flecainide 2019- Yes DAILY. [facility] (TAMBOCOR) 0-05 [facility] 50 MG 00:00: Medical tablet 00 Van flecainide 2019-06 Yes DAILY. [facility] (TAMBOCOR) 0-05 [facility] 50 MG 00:00: Medical tablet 00 Van multivitami Yes 1{tbl} QD Take [address] [facility] (FOLBIC) 8-18 tablet by Leann es 2.5-25-2 mg 00:00: mouth Medic al tablet 00 daily. Van multivitami Yes 1{tbl} QD Take [address] (FOLBIC) 8-18 tablet by Leann es 2.5-25-2 mg 00:00: mouth Medic al tablet 00 daily. Van ezetimibe [address] Daily[address] [facility] (ZETIA) 10 8-17 [facility] mg tablet 00:00: Medical 00 Van ezetimibe [address] [facility] (ZETIA) 10 8-17 [facility] mg tablet 00:00: Medical 00 Van celecoxib 2021- No TAKE ONE [facility] (CELEBREX) 09-06 (1) [facility] 100 MG 00:00: 00:00 CAPSULE(S) Medi nahum capsule 00 :00 BY MOUTH Center EVERY TWELVE HOURS NEEDED FOR PAIN. celecoxib 2021- No TAKE ONE [facility] (CELEBREX[facility] 09-06 (1) [facility] 100 MG 00:00: 00:00 CAPSULE(S) Medi nahum capsule 00 :00 BY MOUTH Center EVERY TWELVE HOURS NEEDED FOR PAIN. dorzolamide Yes 1[drp] Q.5D Place [address] -timolol 6-26 drop into [facility] (COSOPT) 00:00: both eyes Medi nahum 22.3-6.8 00 2 (two) Center mg/mL times ophthalmic daily. solution dorzolamide Yes 1[drp] Q.5D Place [address] -timolol 6-26 drop into [facility] (COSOPT) 00:00: both eyes Medi nahum 22.3-6.8 00 2 (two) Center mg/mL times ophthalmic daily. solution omeprazole 2017-06 Yes Hyperlipide TAKE ONE [facility] (PRILOSEC) 2-12 shayy, (1) [facility] 40 MG 00:00: unspecified CAPSULE(S) Medical capsule 00 hyperlipide BY MOUTH C enter shayy type TWICE A DAY BEFORE MEALS. omeprazole 2017-06 Yes Hyperlipide TAKE ONE [facility] (PRILOSEC) 2-12 shayy, (1) [facility] 40 MG 00:00: unspecified CAPSULE(S) Medical capsule 00 hyperlipide BY MOUTH C enter shayy type TWICE A DAY BEFORE MEALS. niacin 2021- No 1{tbl} Q.5D 1 tablet 2 Me thodi (NIASPAN) 01-03 (two) st 500 MG CR 00:00: 00:00 times a [facility]osp [facility] tablet 00 :00 day. l niacin 2021- No 1{tbl} Q.5D 1 tablet 2 Me thodi (NIASPAN) 01-03 (two) st 500 MG CR 00:00: 00:00 times a Hosp rosy tablet 00 :00 day. l flecainide Yes 1{tbl} Q.5D 1 tablet 2 [facility] (TAMBOCOR) 12-26 (two) st 50 MG 00:00: times a Hospita tablet 00 day. l flecainide Yes 1{tbl} Q.5D 1 tablet 2 [facility] (TAMBOCOR) 12-26 (two) st 50 MG 00:00: times a Hospita tablet 00 day. l fluticasone Yes Essential 1{spray QD [address] [facility] (FLONASE) 12-02 hypertensio } Nasal Marina kes 50 00:00: n route Medical mcg/actuati 00 daily. Center on nasal spray fluticasone 2017-0 Yes Essential 1{spray QD [address] [facility] (FLONASE) 6-19 hypertensio } Nasal Marina kes 50 00:00: n route Medical mcg/actuati 00 daily. Center on nasal spray Immunizations Ordered Immunization Filled Immunization Date Status Commen ts Source Name Name Influenza TIV (IM) 2022-02-[address] [facility] 00:00:00 [facility] Influenza TIV (IM) 2022-02-[address] [facility] 00:00:00 [facility] Moderna SARS-CoV-2 2021-05-18 Completed [facility] Vaccination 00:00:00 of Medicine Moderna .5mL 2021-05-18 Completed [facility] ge SARS-CoV-2 00:00:00 of Medicine Vaccination Moderna SARS-CoV-2 2020-08-17 Completed [facility] Vaccination 00:00:00 of Medicine Moderna .5mL 2020-08-17 Completed [facility] ge SARS-CoV-2 00:00:00 of Medicine Vaccination Moderna SARS-CoV-2 2020-07-20 Completed [facility] Vaccination 00:00:00 of Medicine Moderna .5mL 2020-07-20 Completed [facility] ge SARS-CoV-2 00:00:00 of Medicine Vaccination Influenza TIV (IM) 2019-02-[address] [facility] 00:00:00 [facility] Influenza TIV (IM) 2019-02-[address] [facility] 00:00:00 [facility] Center (Shingrix, 2018-05-[address] [facility] Recombinant, 00:00:00 Medical Cent er Adjuvanted) Zoster Vaccine IM (Shingrix, 2018-05-[address] [facility] Recombinant, 00:00:00 Medical Cent er Adjuvanted) Zoster Vaccine IM Zoster Recombinant 2018-05-05 Completed [facility] 00:00:00 of Medicine Zoster Recombinant 2018-05-05 Completed [facility] 00:00:00 of Medicine SHINGLES VARICELLA 2018-02-[address] [facility] (ZOSTAVAX) ZOSTER 00:00:00 [facility] SHINGLES VARICELLA 2018-02-[address] [facility] (ZOSTAVAX) ZOSTER 00:00:00 [facility] Zoster Live 2018-02-26 [facility] Zoster Live 2018-02-26 Completed [facility] Medicine Pneumococcal 2015-03-[address] [facility] Conjugate 7-Valent 00:00:00 Medica l Center Pneumococcal 2015-03-[address] [facility] Conjugate 7-Valent 00:00:00 Medica l Center Pneumococcal 2015-03-07 Completed [facility] Conjugate 7-Valent 00:00:00 of Med icine Pneumococcal 2015-03-07 Completed [facility] Conjugate 7-Valent 00:00:00 of Med icine Tetanus 2008-04-20 Completed [facility] 00:00:00 of Medicine Td 7+ years, (TDVAX) 2008-04-[address] [facility] 2 Lf tetanus toxoid 00:00:00 [facility] Center preservative free Td 7+ years, (TDVAX) 2008-04-[address] [facility] 2 Lf tetanus toxoid 00:00:00 [facility] preservative free Tetanus 2008-04-20 Completed [facility] 00:00:00 of Medicine Vital Signs Vital Name Observation Time Observation Value Comments Source Systolic blood 2022-04-11 15:52:00 126 mm[Hg] [facility] pressure Medicine Diastolic blood 2022-04-11 15:52:00 76 mm[Hg] [facility] pressure Medicine Heart rate 2022-04-11 15:51:00 52 /min [facility] Body height 2022-04-11 15:51:00 177.8 cm [facility] Body weight 2022-04-11 15:51:00 80.287 kg [facility] BMI 2022-04-11 15:51:00 25.40 kg/m2 [facility] HEIGHT 2022 08:00:00 177.8 cm WEIGHT 2022 08:00:00 82.555 kg HEIGHT 2022 08:00:00 177.8 cm WEIGHT 2022 08:00:00 82.555 kg HEIGHT 2022 08:00:00 177.8 cm WEIGHT 2022 08:00:00 82.555 kg HEIGHT 2022-03-12 08:47:00 177.8 cm WEIGHT 2022-03-12 08:47:00 83.008 kg HEIGHT 2022-03-12 08:47:00 177.8 cm WEIGHT 2022-03-12 08:47:00 83.008 kg HEIGHT 2022-03-12 08:47:00 177.8 cm WEIGHT 2022-03-12 08:47:00 83.008 kg Systolic blood 2022-02-19 21:21:00 140 mm[Hg] [facility] pressure Medicine Diastolic blood 2022-02-19 21:21:00 81 mm[Hg] [facility] Medicine Heart rate 2022-02-19 21:16:00 53 /min [facility] Body height 2022-02-19 21:16:00 177.8 cm [facility] weight 2022-02-19 21:16:00 83.008 kg [facility] BMI 2022-02-19 21:16:00 26.26 [facility] Height 2021-12-12 00:00:00 70 [in_i] [facility] BMI (Body Mass 2021-12-12 00:00:00 25.5 kg/m2 [facility] Body Weight 2021-12-12 00:00:00 178 [lb_av] [facility] HEIGHT 2020-04-04 09:43:00 177.8 cm WEIGHT 2020-04-04 09:43:00 81.466 kg HEIGHT 2020-04-04 09:43:00 177.8 cm WEIGHT 2020-04-04 09:43:00 81.466 kg Systolic blood 2022 20:05:00 129 mm[Hg] [facility] Diastolic blood 2022 20:05:00 78 mm[Hg] [facility] Heart rate 2022 20:05:00 61 /min [facility] Respiratory rate 2022 20:05:00 17 /min [facility] Oxygen saturation in 2022 20:05:00 97 /min [facility] Arterial blood by Medical Ce nter Pulse oximetry Body temperature 2022 16:01:00 36.11 Marissa [facility] Body height 2022 08:00:00 177.8 cm [facility] Body weight 2022 08:00:00 82.555 kg [facility] BMI 2022 08:00:00 26.11 kg/m2 [facility] Systolic blood 2022-01-14 15:24:00 151 mm[Hg] [facility] pressure Diastolic blood 2022-01-14 15:24:00 84 mm[Hg] [facility] pressure Heart rate 2022-01-14 15:24:00 64 /min [facility] Body temperature 2022-01-14 15:24:00 36.67 Marissa [facility] Body height 2022-01-14 15:24:00 167.6 cm [facility] Body weight 2022-01-14 15:24:00 83.915 kg [facility] BMI 2022-01-14 15:24:00 29.86 kg/m2 [facility] Procedures Procedure Date / Time Performing Clinician Source Performed ELECTROCARDIOGRAM COMPLETE 2022-04-11 10:46:00 B [facility] POCT-ACT 2022 14:56:00 Champ [facility] POCT-ACT 2022 14:27:00 Champ [facility] POCT-ACT 2022 14:06:00 Champ [facility] POCT-ACT 2022 13:43:00 Champ [facility] CARDIAC ELECTROPHYSIOLOGY 2022 12:33:00 Kulwant Pacheco CH, I [facility] STUDY, WITH ABLATION Medical Jud ter ABORH, MANUAL 2022 09:44:00 Kaylyn Forte [facility] MAGNESIUM 2022 09:28:00 Rolando Dong [facility] TYPE AND SCREEN, AUTOMATED 2022 09:28:00 Rolando Dong [facility] ECG 12-LEAD 2022 09:01:42 Rolando Dong [facility] CARDIAC CATH REPORT - SCAN 2022 00:00:00 Provider, [facility] EKG-SCANNED 2022 00:00:00 Provider, Default [facility] COVID ANTIGEN 2022-03-12 09:20:00 [facility] CBC W/PLT COUNT & AUTO 2022-03-12 08:56:00 [facility] BASIC METABOLIC PANEL 2022-03-12 08:56:00 [facility] PROTHROMBIN TIME/INR 2022-03-12 08:56:00 [facility] CBC W/PLT COUNT & AUTO 2022-03-12 08:56:00 [facility] ELECTROCARDIOGRAM COMPLETE 2022-02-19 16:20:00 B [facility] RADEX SPI LUMBOSAC MINIMUM 2022-01-04 00:00:00 A [facility] 4 VIEWS Sports Medicine RADEX SPI LUMBOSAC 2/3 2022-01-04 00:00:00 Azale a [facility]opedic VIEWS Sports Medicine US ABDOMEN LIMITED 2021-12-31 07:53:[address] [facility] MRI SPINE EXTERNAL STUDY 2021-12-12 21:19:00 Melita Basurto [facility] RADEX SPI LUMBOSAC MINIMUM 2021-12-12 00:00:00 A [facility] 4 VIEWS Sports Medicine MRI, lumbar spine, w/o 2021-12-12 00:00:00 [facility] contrast Sports Medicine Plan of Care Planned Activity Planned Date Details Comments Source Future Scheduled 2022-04-22 INFLUENZA VACCINE [code = [facility] 16:08:00 INFLUENZA VACCINE] Hospital Future Scheduled 2022-04-22 HEPATITIS B VACCINES (1 [facility] 16:08:00 of 3 - 3-dose series) Hospit al [code = HEPATITIS B VACCINES (1 of 3 - 3-dose series)] Future Scheduled 2022-04-22 65+ PNEUMOCOCCAL VACCINE [facility] 16:08:00 (1 - PCV) [code = 65+ Hospit al PNEUMOCOCCAL VACCINE (1 - PCV)] Future Scheduled 2022-04-22 SHINGLES VACCINES (2 of [facility] 16:08:00 3) [code = SHINGLES Hospital VACCINES (2 of 3)] Future Scheduled 2022-04-22 COVID-19 VACCINE (4 - Me thodist Test 16:08:00 Booster for Moderna Hospital series) [code = COVID-19 VACCINE (4 - Booster for Moderna series)] Future Scheduled 2022-04-11 BMI FOLLOW UP PLAN [code [facility] of Test 10:51:58 = BMI FOLLOW UP PLAN] Medici ne Future Scheduled 2022-04-11 FALL SCREEN [code = FALL [facility] of Test 10:51:58 SCREEN] Medicine Future Scheduled 2022-04-11 Pneumococcal 65+ (1 - Ba [facility] of Test 10:51:58 PCV) [code = Pneumococcal Me dicine 65+ (1 - PCV)] Future Scheduled 2022-04-11 TETANUS SHOT (ADULT) [facility] of Test 10:51:58 [code = TETANUS SHOT Medicin e (ADULT)] Future Scheduled 2022-04-11 ZOSTER VACCINE (2 of 2) [facility] of Test 10:51:58 [code = ZOSTER VACCINE (2 Me dicine of 2)] Future Scheduled 2022-04-11 MEDICARE IPPE (WELCOME TO [facility] of Test 10:51:58 MEDICARE) [code = Medicine MEDICARE IPPE (WELCOME TO MEDICARE)] Future Scheduled 2022-04-11 COVID-19 Vaccine (4 - Ba [facility] of Test 10:51:58 Booster for Moderna Medicine series) [code = COVID-19 Vaccine (4 - Booster for Moderna series)] Future Scheduled 2022-04-11 FLU VACCINE > [address] [facility] of Test 10:51:58 [code = FLU VACCINE > 6 Medi cine MONTHS] Future Scheduled 2022-04-11 ELECTROCARDIOGRAM [facility] of Test 10:45:12 COMPLETE [code = 93734] Medi cine Future Scheduled 2022-04-07 HEPATITIS B VACCINES (1 [facility] 13:25:50 of 3 - 3-dose series) Hospit al [code = HEPATITIS B VACCINES (1 of 3 - 3-dose series)] Future Scheduled 2022-04-07 65+ PNEUMOCOCCAL VACCINE [facility] 13:25:50 (1 - PCV) [code = 65+ Hospit al PNEUMOCOCCAL VACCINE (1 - PCV)] Future Scheduled 2022-04-07 SHINGLES VACCINES (2 of [facility] 13:25:50 3) [code = SHINGLES Hospital VACCINES (2 of 3)] Future Scheduled 2022-04-07 COVID-19 VACCINE (4 - Me thodist Test 13:25:50 Booster for Moderna Hospital series) [code = COVID-19 VACCINE (4 - Booster for Moderna series)] Future Scheduled 2022-04-07 INFLUENZA VACCINE [code = [facility] 13:25:50 INFLUENZA VACCINE] Hospital Future Scheduled 2022-02-19 ELECTROCARDIOGRAM [facility] of Test 16:20:23 COMPLETE [code = 16372] Medi cine Future Scheduled 2022-02-19 FALL SCREEN [code = FALL [facility] of Test 16:16:23 SCREEN] Medicine Future Scheduled 2022-02-19 Pneumococcal 65+ (1 - Ba [facility] of Test 16:16:23 PCV) [code = Pneumococcal Me dicine 65+ (1 - PCV)] Future Scheduled 2022-02-19 MEDICARE AWV (Initial) B [facility] of Test 16:16:23 [code = MEDICARE AWV Medicin e (Initial)] Future Scheduled 2022-02-19 TETANUS SHOT (ADULT) [facility] of Test 16:16:23 [code = TETANUS SHOT Medicin e (ADULT)] Future Scheduled 2022-02-19 ZOSTER VACCINE (2 of 2) [facility] of Test 16:16:23 [code = ZOSTER VACCINE (2 Me dicine of 2)] Future Scheduled 2022-02-19 COVID-19 Vaccine (4 - Ba [facility] of Test 16:16:23 Booster for Moderna Medicine series) [code = COVID-19 Vaccine (4 - Booster for Moderna series)] Future Scheduled 2022-02-19 FLU VACCINE > [address] [facility] of Test 16:16:23 [code = FLU VACCINE > 6 Medi cine MONTHS] Future Scheduled 2021-09-16 COVID-19 VACCINE (4 - [facility] Test 00:[facility]:00 Booster for Moderna Medical Center series) [code = COVID-19 VACCINE (4 - Booster for Moderna series)] Future Scheduled 2021-09-16 COVID-19 VACCINE (4 - [facility] Test 00:00:00 Booster for Moderna Medical Center series) [code = COVID-19 VACCINE (4 - Booster for Moderna series)] Future Scheduled 2021-06-[address] [facility] Test 00:00:00 (12+) [code = DEPRESSION Med ical Center SCREENING (12+)] Future Scheduled 2021-06-16 F[address]S [address]ISK SCREENING [facility] Test 00:00:00 [code = FALLS RISK Medical C enter SCREENING] Future Scheduled 2021-06-[address] [facility] Test 00:00:00 (12+) [code = DEPRESSION Med ical Center SCREENING (12+)] Future Scheduled 2021-06-16 FALLS RISK SCREENING [facility] Test 00:00:00 [code = FALLS RISK Medical C enter SCREENING] Future Scheduled 2018-06-30 SHINGLES VACCINES ([address] [facility] Test 00:00:00 3) [code = SHINGLES Medical Center VACCINES (3 of 3)] Future Scheduled 2018-06-30 SHINGLES VACCINES ([address] [facility] Test 00:00:00 3) [code = SHINGLES Medical Center VACCINES (3 of 3)] Future Scheduled 2018-04-20 DTAP/TDAP/TD VACCINES ([address] [facility] Test 00:00:00 - Td or Tdap) [code = Medica l Center DTAP/TDAP/TD VACCINES (2 - Td or Tdap)] Future Scheduled 2018-04-20 DTAP/TDAP/TD VACCINES ([address] [facility] Test 00:00:00 - Td or Tdap) [code = Medica l Center DTAP/TDAP/TD VACCINES (2 - Td or Tdap)] Future Scheduled 2014-02-[address]AL WELLNESS [facility] Test 00:00:00 (YEAR 2 or FIRST YEAR if Med ical Center no IPPE) [code = MEDICARE ANNUAL WELLNESS (YEAR 2 or FIRST YEAR if no IPPE)] Future Scheduled 2014-02-[address] WELLNESS [facility] Test 00:00:00 (YEAR 2 or FIRST YEAR if Med ical Center no IPPE) [code = MEDICARE ANNUAL WELLNESS (YEAR 2 or FIRST YEAR if no IPPE)] Future Scheduled 2001 PNEUMOCOCCAL 65+ YRS (1 - [facility] Test 00:00:00 PCV) [code = PNEUMOCOCCAL Me dical Center 65+ YRS (1 - PCV)] Future Scheduled 2001 PNEUMOCOCCAL 65+ YRS (1 - [facility] Test 00:00:00 PCV) [code = PNEUMOCOCCAL Me dical Center 65+ YRS (1 - PCV)] Encounters Start End Encounter Admission Attending Care Care Encounter Source Date/Time Date/Time Type Type Clinicians Facility Department ID 2022-04-11 2022-04-11 Office YANCY PACHECO [id number] 10:07:50 15:40:04 Visit [facility] 350.1.13.21 College Y 0.2.7.2.686 of [id number] Medi aneudy 300 e 2022-04-02 2022-04-02 Refill Gant, 1.2.840.1 [id number] Methodi 00:00:00 00:00:[address] 3.430.2.7 Hospit a .3.500176 l .8 2022-04-02 2022-04-02 Refill Gant, 1.2.840.1 [id number] Methodi 00:00:00 00:00:[address] 3.430.2.7 Hospit a .3.052076 l .8 2022-03-27 2022-03-27 Refill Becca Soriano 1.2.840.1 [id number] Methodi 00:00:00 00:00:00 E Jasmyn 18233.1.1 019 s t 3.430.2.7 Hospit a .3.078120 l .8 2022-03-27 2022-03-27 Refill Bo Becca 1.2.840.1 [id number] Methodi 00:00:00 00:00:00 E Jasmyn 98400.1.1 019 s t 3.430.2.7 Hospit a .3.002350 l .8 2022 2022 Outpatient [facility] [id number] 08:22:00 23:59:00 Edwar Medicin e 2022 2022 [id number] 08:22:00 20:10:00 Encounter [facility] 2022 2022 Outpatient ZI PACHECO [facility] Surgery [id number] SLE 08:22:00 20:10:00 [facility] 2022 2022 [facility] [id number] 08:22:00 20:10:00 Encounter [facility] 2022 2022 [facility] [id number] 12:03:00 16:36:00 [facility] 2022 2022 [facility] [id number] 12:03:00 16:36:00 [facility] [address] [facility] [id number] 12:32:00 16:02:00 Event [facility] [address] [facility] [id number] 12:32:00 16:02:00 Event [facility] 2022-03-12 2022-03-12 Office ZI Pacheco Abdi [facility] [id number] [id number] 09:00:00 09:15:00 Visit [facility] 2022-03-12 2022-03-12 Office Nathan Pachecoi [facility] [id number] [id number] 09:00:00 09:15:00 [facility] 2022-03-12 2022-03-12 Outpatient ZI [facility] [id number] [facility] 08:43:18 08:43:18 2022-02-26 2022-02-26 Office Becca Soriano 1.2.840.1 [id number] Methodi 10:30:00 11:00:00 Visit Vinny Vines 79223.1.1 110 s t 3.430.2.7 Hospit a .3.285668 l .8 2022-02-26 2022-02-26 Office Becca Soriano 1.2.840.1 [id number] Methodi 10:30:00 11:00:00 Visit Vinny [place]ines 98298.1.1 110 s t 3.430.2.7 Hospit a .3.825822 l .8 2022-02-26 2022-02-26 Travel 1.2.840.1 1.2.163.204 [id number] Methodi 00:00:00 00:00:[address] 3.430.2.7 0.2.7.3.698 Ho spita .3.532978 084.8 l .8 2022-02-26 2022-02-26 Travel 1.2.840.1 1.2.071.794 [id number] Methodi 00:00:00 00:00:[address] 3.430.2.7 0.2.7.3.698 Ho spita .3.945143 084.8 l .8 2022-02-19 2022-02-20 Office LUIS FELIPEYANCY EVANS 1.2.840.114 [id number] 15:47:10 08:17:00 Visit [facility] 350.1.13.21 College Y 0.2.7.2.686 of [id number] Medi aneudy 300 e 2022-01-23 2022-01-23 [facility] Sherine 1.2.840.1 [id number] Methodi 10:44:35 23:59:00 Encounter Melita Conley 32951.1.1 060 s t 3.430.2.7 Hospit a .3.855789 l .8 2022-01-23 2022-01-23 [facility], 1.2.840.1 [id number] Methodi 10:44:35 23:59:00 Encounter Melita Conley 73745.1.1 060 s t 3.430.2.7 Hospit a .3.440874 l .8 2022-01-14 2022-01-14 Office Sherine, 1.2.840.1 [id number] Methodi 10:30:00 11:09:37 Visit Melita Conley 30045.1.[address] 3.430.2.7 Hospit a .3.442925 l .8 2022-01-14 2022-01-14 Office Sherine, 1.2.840.1 [id number] Methodi 10:30:00 11:09:37 Visit Melita Conley 15965.1.[address] 3.430.2.7 Hospit a .3.540025 l .8 2022-01-14 2022-01-14 Travel 1.2.840.1 1.2.751.630 [id number] Methodi 00:00:00 00:00:[address] 3.430.2.7 0.2.7.3.698 Ho spita .3.115391 084.8 l .8 2022-01-14 2022-01-14 Travel 1.2.840.1 1.2.209.453 [id number] Methodi 00:00:00 00:00:[address] 3.430.2.7 0.2.7.3.698 Ho spita .3.015611 084.8 l .8 2022-01-04 2022-01-04 Outpatient FOG_Nu AOSM AOSM 632 [id number] Steph 03:03:00 03:03:00 _Netta [id number] Ortho pe dic Sports Medicin e 2022-01-04 2022-01-04 Outpatient Nu, AOSM AOSM [id number] [id number] 00:00:00 00:00:00 Isaias Hernandez [id number] 2022-01-04 2022-01-04 Isaias Hernandez AOSM [place] - Ortho [id number] Steph 00:00:00 00:00:00 Snehal Judge MD: [id number] FOG_Ofc dic [facility] Spo [place]ts [place], [place] [phone] , Ph. [phone] 2022-01-01 2022-01-01 Outpatient FOG_Stuckey AOSM AO 632 [id number] Steph 07:10:00 07:10:00 _Netta [id number] Ortho pe dic Sports Medicin e 2021-12-31 2021-12-31 [facility] [id number] 07:10:11 23:59:00 Encounter 1, [facility] 2021-12-31 2021-12-31 Outpatient [facility] SLE [id number] SLE 07:10:11 23:59:00 NIXA 2021-12-31 2021-12-31 [facility] [id number] 07:10:11 23:59:00 Encounter 1, [facility] 2021-12-31 2021-12-31 Office Marvin, 1.2.840.1 [id number] Methodi 13:15:00 14:59:52 Visit Vicente 71517.1.1 015 [facility] 3.430.2.7 Hospit a .3.724412 l .8 2021-12-31 2021-12-31 Office Marvin, 1.2.840.1 [id number] Methodi 13:15:00 14:59:52 Visit Vicente 94808.1.1 015 [facility] 3.430.2.7 Hospit a .3.121775 l .8 2021-12-31 2021-12-31 Travel 1.2.840.1 1.2.928.280 [id number] Methodi 00:00:00 00:00:[address] 3.430.2.7 0.2.7.3.698 Ho spita .3.375641 084.8 l .8 2021-12-31 2021-12-31 Travel 1.2.840.1 1.2.305.374 [id number] Methodi 00:00:00 00:00:[address] 3.430.2.7 0.2.7.3.698 Ho spita .3.835370 084.8 l .8 2021-12-12 2021-12-12 Outpatient ZI Judge [facility] [id number] [facility] 15:08:00 15:08:00 Isaias Ortez [facility] 2021-12-12 2021-12-12 Outpatient FOG_[place] AOSM AOSM 632 [id number] Steph 03:42:00 03:42:00 _Netta [id number] Ortho pe dic Sports Medicin e 2021-12-12 2021-12-12 Isaias Hernandez AOSM [place] - Ortho [id number] Steph 00:00:00 00:00:00 Snehal Judge MD: [id number] FOG_Ofc dic [facility], [place] [phone] , Ph. [phone] 2021-12-12 2021-12-12 [place] [id number] 00:00:00 00:00:00 Isaias Hernandez [id number] 2021-12-10 2021-12-10 Outpatient FOG_[place] AOSM AOSM 632 [id number] Steph 07:24:00 07:24:00 _Netta [id number] Orth[facility] 2021-12-07 2021-12-07 [id number] [address] 00:00:00 00:00:00 Orders [facility] 2021-12-07 2021-12-07 Outside [facility] [id number] [address] 00:00:00 00:00:00 Orders [facility] 2021-12-05 2021-12-05 Outpatient FOG_Nu PYLE AOSM 632 [id number] Steph 03:37:00 03:37:00 _Netta [id number] Ortho pe dic [facility] 2021-10-01 2021-10-01 Office Marvin, 1.2.840.1 [id number] Methodi 10:00:00 10:20:25 Visit Vicente 53549.1.[address] Alejandro 3.430.2.7 Hospit a .3.646590 l .8 2021-10-01 2021-10-01 Office [facility], 1.2.840.1 [id number] Methodi 10:00:00 10:20:25 Visit Vicente 97227.1.[address] Alejandro 3.430.2.7 Hospit a .3.162123 l .8 2021-10-01 2021-10-01 Travel 1.2.840.1 1.2.578.410 6438 [id number] Methodi 00:00:00 00:00:[address] 3.430.2.7 0.2.7.3.698 Ho spita .3.353429 084.8 l .8 2021-10-01 2021-10-01 Travel 1.2.840.1 1.2.187.207 1478 821370 Methodi 00:00:00 00:00:[address] 3.430.2.7 0.2.7.3.698 Ho spita .3.511363 084.8 l .8 2021-08-17 2021-08-17 Clinical Dhruv, 1.2.840.1 [id number] 2099 [id number] Methodi 12:30:00 13:29:49 Support Risa 41056.1.[address] 3.430.2.7 Hospit a .3.068003 l .8 2021-08-17 2021-08-17 Clinical Dhruv, 1.2.840.1 [id number] 2099 [id number] Methodi 12:30:00 13:29:49 Support Risa 08259.1.[address] 3.430.2.7 Hospit a .3.699860 l .8 2021-08-17 2021-08-17 Travel 1.2.840.1 1.2.427.299 0591 [id number] Methodi 00:00:00 00:00:[address] 3.430.2.7 0.2.7.3.698 Ho spita .3.566998 084.8 l .8 2021-08-17 2021-08-17 Travel 1.2.840.1 1.2.943.697 3400 [id number] Methodi 00:00:00 00:00:[address] 3.430.2.7 0.2.7.3.698 Ho spita .3.126991 084.8 l .8 2021-08-15 2021-08-15 Office Becca Soriano 1.2.840.1 [id number] Methodi 11:00:00 12:07:22 Visit [place] 23655.1.1 634 s t 3.430.2.7 Hospit a .3.612852 l .8 2021-08-15 2021-08-15 Office Becca Soriano 1.2.840.1 [id number] Methodi 11:00:00 12:07:22 Visit [place] 45263.1.1 634 s t 3.430.2.7 Hospit a .3.004827 l .8 2021-08-15 2021-08-15 Travel 1.2.840.1 1.2.410.256 0900 180283 Methodi 00:00:00 00:00:[address] 3.430.2.7 0.2.7.3.698 Ho spita .3.586737 084.8 l .8 2021-08-15 2021-08-15 Travel 1.2.840.1 1.2.526.037 4885 112237 Methodi 00:00:00 00:00:[address] 3.430.2.7 0.2.7.3.698 Ho spita .3.209196 084.8 l .8 2021-07-02 2021-07-02 Office Marvin, 1.2.840.1 [id number] 87055 Methodi 10:00:00 10:40:56 Visit Vicente 80617.1.[address] Alejandro 3.430.2.7 Hospit a .3.911780 l .8 2021-07-02 2021-07-02 Office Marvin, 1.2.840.1 [id number] 12 Methodi 10:00:00 10:40:56 Visit Vicente [address]0005.1.[address] Alejandro 3.430.2.7 Hospit a .3.888946 l .8 2021-07-02 2021-07-02 Travel 1.2.840.1 1.2.342.417 2787 [id number] Methodi 00:00:00 00:00:[address] 3.430.2.7 0.2.7.3.698 Ho spita .3.873122 084.8 l .8 2021-07-02 2021-07-02 Travel 1.2.840.1 1.2.545.150 1180 107389 Methodi 00:00:00 00:00:[address] 3.430.2.7 0.2.7.3.698 Ho spita .3.810174 084.8 l .8 2021-04-02 2021-04-02 Outpatient [facility] [id number] 86[address] [place] 00:00:00 00:00:00 VICENTE [address] 2021-03-13 2021-03-13 Outpatient MARVIN, [facility] [id number] 7413 [place] 00:00:00 00:00:00 VICENTE [address] 2021-03-01 2021-03-01 Outpatient BO, BECCA [facility] 129 [id number] [place] 00:00:00 00:00:[address] 2021-03-01 2021-03-01 Outpatient SHERINE, [facility] [id number] 715 [place] 00:00:00 00:00:00 MELITA [address] 2021-01-04 2021-01-04 Outpatient SHERINE, [facility] [id number] 524 [place] 00:00:00 00:00:00 MELITA [address] 2020-12-28 2020-12-28 Outpatient BASURTO, [facility] [id number] 622 [place] 00:00:00 00:00:00 MELITA [address] 2020-09-05 2020-09-05 Outpatient BO, BECCA [facility] 132 [id number] [place] 00:00:00 00:00:[address] 2020-05-09 2020-05-09 Outpatient BO, BECCA [facility] 604 [id number] [place] 00:00:00 00:00:[address] 2020-04-04 2020-04-04 Outpatient EL PERIN, [facility] [id number] [facility] 00:00:00 00:00:00 KALIN 2020-04-04 2020-04-04 Outpatient EL [facility] [id number] 226 [facility] 00:00:00 00:00:00 2020-04-03 2020-04-03 Outpatient [facility] [id number] 0-2 [facility] 00:00:00 00:00:00 [id number] 2019-12-28 2019-12-28 Outpatient SHERINE, [facility] [id number] 714 [place] 00:00:00 00:00:00 MELITA [address] 2019-12-28 2019-12-28 Outpatient BO, BECCA [facility] 741 [id number] [place] 00:00:00 00:00:[address] 2019-08-24 2019-08-24 Outpatient [facility] [id number] 0-2 [facility] 00:00:00 00:00:00 [id number] 2019-06-25 2019-06-25 [facility] [id number] 769 [place] 00:00:00 00:00:00 MELITA [address] Results Test Description Test Time Test Comments Results Result Comments Source POC ACTIVATED CLOTTING TIME 2022 15:16:00 Test Item Value Reference Range Interpretation Comme nts Activated Clotting Time (test 306 sec : 74-137 seconds, Baseline: TESTED AT code = 3184-9) [address], [address]: Computerized Machine Fabric Cutter/Techni tex ID = [id number] for CABAN-GOLDBER G, AYLIN [facility] ACTIVATED CLOTTING [id number] 15:16:00 Test Item Value Reference Range Interpretation Comments Activated Clotting Time 306 sec : 74 -137 seconds, (test code = 3184-9) Jean-Pierre e: TESTED AT [address], [facility] 30: Computerized Machine Fabric Cutter/Techni tex ID = [id number] for CABAN-GOLDBER G, AYLIN [facility]-[id number] 15:16:00 Test Item Value Reference Range Interpretation Comments ACTIVATED CLOTTING TIME 306 sec : 74 -137 seconds, (BEAKER) (test code = Baseli ne: TESTED AT 441) [address], [facility] 30: Computerized Machine Fabric Cutter/Techni tex ID = [id number] for CABAN-VICTOR MANUELBER G, AYLIN [id number] 14:42:37 Test Item Value Reference Range Interpretation Comments ACTIVATED CLOTTING TIME 312 sec : 74 -137 seconds, (BEAKER) (test code = Baseli ne: TESTED AT 441) [address], [facility] 30: Computerized Machine Fabric Cutter/Techni tex ID = [id number] for CAABN-GOLDBER G, AYLIN [id number] 14:22:21 Test Item Value Reference Range Interpretation Comments ACTIVATED CLOTTING TIME 318 sec : 74 -137 seconds, (BEAKER) (test code = Baseli ne: TESTED AT 441) [address], [facility] 30: Computerized Machine Fabric Cutter/Techni tex ID = [id number] for CABAN-GOLDBER G, AYLIN [id number] 13:59:09 Test Item Value Reference Range Interpretation Comments ACTIVATED CLOTTING TIME 277 sec : 74 -137 seconds, (BEAKER) (test code = Baseli ne: TESTED AT 441) [facility] [address] [place], [address]: Computerized Machine Fabric Cutter/Techni tex ID = [id number] for AYLIN GALAN [id number] 10:05:51 Test Item Value Reference Range Interpretation Comments MAGNESIUM (BEAKER) (test code = 1.6 mg/dL 1.6-2.6 627) Computerized Machine Fabric Cutter ID - DIANA LBASIC METABOLIC [id number] 13:01:02 Test Item Value Reference Range Interpretation Comments SODIUM (BEAKER) 139 meq/L 136-145 (test code = 381) POTASSIUM 4.3 meq/L 3.5-5.1 (BEAKER) (test code = 379) CHLORIDE (BEAKER) 103 meq/L 98-107 (test code = 382) CO2 (BEAKER) 30 meq/L 22-29 H (test code = 355) BLOOD UREA 15 mg/dL 7-21 NITROGEN (BEAKER) (test code = 354) CREATININE 1.05 mg/dL 0.57-1.25 (BEAKER) (test code = 358) GLUCOSE RANDOM 111 mg/dL 70-105 H (BEAKER) (test code = 652) CALCIUM (BEAKER) 9.8 mg/dL 8.4-10.2 (test code = 697) EGFR (BEAKER) 70 Interpretatio n of eGFR (test code = mL/min/1.73 values Stage De scription 1092) sq m Result G1 Gerri l or high >=90 G2 Mildly decreased 60-89 G3a Mildl y to moderately 45-5 9 G3b Moderately to s everely 30-44 G4 Severl y decreased 15-29 G5 Kidney failure <15Reported eGF R is based on the CKD-EPI 2021 equation that d oes not use a race coefficientEsti mated GFR is not as accur ate as Creatinine Ileana garcia in predicting glom erular filtration rate . Estimated GFR is not appl icable for dialysis patien ts Computerized Machine Fabric Cutter ID - ADMINCOVID [id number] 10:06:11 Test Item Value Reference Range Interpretation Comments SARS COVID ANTIGEN Negative Negative (test code = 27216-8) CONCHIS (test code = CONCHIS) The QuickVue SARS Antigen test does not differentiate between SARS-CoV and SARS-CoV-2. The test has been authorized by the FDA under an EUA for use by authorized laboratories. Lab Interpretation Normal (test code = 58978-2) [facility]OV[facility] [id number] 10:06:11 Test Item Value Reference Range Interpretation Comments SARS COVID ANTIGEN Negative Negative (test code = 28871-1) CONCHIS (test code = CONCHIS) The QuickVue SARS Antigen test does not differentiate between SARS-CoV and SARS-CoV-2. The test has been authorized by the FDA under an EUA for use by authorized laboratories. Lab Interpretation Normal (test code = 88329-9) [facility] [id number] 10:06:11 Test Item Value Reference Range Interpretation Comments SARS COVID ANTIGEN (test code = Negative Negative [id number]) The QuickVue SARS Antigen test does not differentiate between SARS-CoV and SARS-CoV-2.The test has been authorized by the FDA under an EUA for use by authorized laboratories.PROTHROMBIN TIME/[id number] 09:33:47 Test Item Value Reference Range Interpretation Comments PROTIME (BEAKER) 16.9 seconds 11.9-14.2 H (test code = 759) INR (BEAKER) (test 1.47 See_Comment [Automat ed message] code = 370) The system EasyLink generated this result transmitted ref erence range: <=5.90. The reference range was not used to int erpret this result as normal/abnormal . RECOMMENDED COUMADIN/WARFARIN INR THERAPY RANGESSTANDARD DOSE: 2.0 - 3.0 Includes: PROPHYLAXIS for venous thrombosis, systemic embolization; TREATMENT for venous thrombosis and/or pulmonary embolus.HIGH RISK: Target INR is 2.5-3.5 for patients with mechanical heart valves.CBC W/PLT COUNT & AUTO [id number] 09:11:22 Test Item Value Reference Range Interpretation Comments WHITE BLOOD CELL COUNT (BEAKER) 6.4 K/ L 3.5-10.5 (test code = 775) RED BLOOD CELL COUNT (BEAKER) 4.27 M/ L 4.63-6.08 L (test code = 761) HEMOGLOBIN (BEAKER) (test code = 14.4 GM/DL 13.7-17.5 410) HEMATOCRIT (BEAKER) (test code = 41.9 % 40.1-51.0 411) MEAN CORPUSCULAR VOLUME (BEAKER) 98.1 fL 79.0-92.2 H (test code = 753) MEAN CORPUSCULAR HEMOGLOBIN 33.7 pg 25.7-32.2 H (BEAKER) (test code = 751) MEAN CORPUSCULAR HEMOGLOBIN CONC 34.4 GM/DL 32.3-36.5 (BEAKER) (test code = 752) RED CELL DISTRIBUTION WIDTH 14.6 % 11.6-14.4 H (BEAKER) (test code = 412) PLATELET COUNT (BEAKER) (test 145 K/CU MM 150-450 L code = 756) MEAN PLATELET VOLUME (BEAKER) 9.1 fL 9.4-12.4 L (test code = 754) NUCLEATED RED BLOOD CELLS 0 /100 WBC 0-0 (BEAKER) (test code = 413) NEUTROPHILS RELATIVE PERCENT 48 % (BEAKER) (test code = 429) LYMPHOCYTES RELATIVE PERCENT 35 % (BEAKER) (test code = 430) MONOCYTES RELATIVE PERCENT 11 % (BEAKER) (test code = 431) EOSINOPHILS RELATIVE PERCENT 4 % (BEAKER) (test code = 432) BASOPHILS RELATIVE PERCENT 1 % (BEAKER) (test code = 437) NEUTROPHILS ABSOLUTE COUNT 3.05 K/ L 1.78-5.38 (BEAKER) (test code = 670) LYMPHOCYTES ABSOLUTE COUNT 2.25 K/ L 1.32-3.57 (BEAKER) (test code = 414) MONOCYTES ABSOLUTE COUNT (BEAKER) 0.70 K/ L 0.30-0.82 (test code = 415) EOSINOPHILS ABSOLUTE COUNT 0.28 K/ L 0.04-0.54 (BEAKER) (test code = 416) BASOPHILS ABSOLUTE COUNT (BEAKER) 0.05 K/ L 0.01-0.08 (test code = 417) IMMATURE GRANULOCYTES-RELATIVE 0 % 0-1 PERCENT (BEAKER) (test code = 2801) US, ABDOMINAL, [id number] 17:42:00Reason for Exam:->disease of gallbladderLOS [facility]GEL[facility] : 1935 Sex: MFINAL REPORT TECHNIQUE: Grayscale ultrasound of the right abdomen. INDICATION: disease of gallbladder. COMPARISON: None. FINDINGS: MIDLINE VASCULATURE: The visualized inferior vena cava is unremarkable. The maximum visualized aortic diameter is 2.5 cm. LIVER: Smooth liver contour. No focal lesions. The main portal vein is patent and measures 1 cm in diameter. BILIARY:Gallbladder: No gallstones or sludge. No gallbladder wall thickening, pericholecystic fluid, or distention. Negative sonographic Haines sign.Common bile duct measures 0.3 cm, within normal limits. No intrahepatic biliary ductal dilatation. PANCREAS: Incompletely visualized due to overlying bowel gas. The partially visualized pancreatic body is normal. PERITONEUM: No free fluid. RIGHT KIDNEY: Normal in size. No hydronephrosis. No sonographically evident solid mass lesion. A right lower pole hyperechoic structure with posterior acoustic shadowing and twinkle artifact measures 1.1 cm. IMPRESSION: 1.The gallbladder h as a normal ultrasound appearance. 2.A nonobstructing right lower pole renal stone measures 1.1 cm. Signed: Raza Abraham [facility] Verified Date/Time: 12/31/2021 17:42:00 - MRI L-SPINE W/O [id number] 09:19:00 [facility] 1935 Sex: M Patient Name: JOE ABDI Unit No: [id number] Report Has Been Amended EXAMS: CPT CODE: [id number] L-SPINE W/O CONT 42108 Addendum - 12/13/2021 SIGNED 12/13/2021 ADDENDUM: [id number] MRI/MRILSPNWOADDENDUM: There is an acute to subacute less than 25% benign appearing superior endplate compressionfracture of L4. at 0919 Reported and signed by: Mauricio Pan MD Report DIAGNOSIS: 1. At L1-2 there is 2 mm of disc bulging with annular fissuring with moderate left and mild right foraminal narrowing. Slight narrowing of the central canal is seen with facet degeneration. 2. At L2-3 there is a grade 1 retrolisthesis with endplate spur formation and associated bulging. Moderate left and mild to moderate right foraminal narrowing is seen with moderate narrowing of the central canal facet degeneration. 3. At L3-4 there is a retrolisthesis with associated disc bulging. Marked right and moderate left foraminal narrowing is seenwith mild narrowing of the canal. Facet degeneration is present. 4. At L4-5 there is a mild retrolist hesis with 3 mm of left foraminal and extraforaminal disc protrusion impinging on the left L4 nerve root. Moderate to marked right and moderate left foraminal narrowing is seen. Moderate canal stenosisis present with facet degeneration. 5. At L5-S1 there is a slight degenerative spondylolisthesis and2 mm of disc bulging with moderate right foraminal narrowing and mild left-sided stenosis. Facet degeneration is seen with slight narrowing of the central canal. COMMENT: COMPARISON: No prior exams available. Scans were performed in the sagittal and axial planes utilizing T1, T2 and inversion recovery images. Endplate and disc degeneration is present at all levels. There is a thoracolumbar scoliosisconvex right and a lumbar scoliosis is left. Disc configurations are as described. Spondylitic changes are as noted. The conus is in the expected location. The description these findings assumes a normal count of 5 lumbar type vertebra. [facility] NAME: FABRICE ABDI[address] PHYS: Isaias Viera MD : 1935 AGE: 86 SEX: M [place] [address] LOC: Y.MRI PHONE #: [phone] EXAM DATE: 12/12/2021 STATUS: DEP CLI FAX #: [phone] RAD #: D/C DT PAGE 1 Signed Report (CONTINUED) Patient Name: JOE ABDI Unit No: [id number] Report Has Been Amended EXAMS: CPT CODE: [id number] MRI L-SPINE W/O CONT 46320 (Continued) at 0900 Reported and signed by: Mauricio Monteiro MD CC: Isaias Judge MD Technologist: DOROTHEA YA MRI. Transcribed D/ (09) LouannJCL [facility] NAME: JOE ABDI [address] [place] [address] PHYS: Isaias Viera MD : 1935 AGE: 86 SEX: M [place] [address] LOC: Y.MRI PHONE #: [phone] EXAM DATE: 12/12/2021 STATUS: [facility] CLI FAX #: [phone] RAD #: D/C DT PAGE 2 Signed Report Patient Name: JOE ABDI Unit No: [id number] Report Has Been Amended EXAMS: CPT CODE: [id number] MRI L-SPINE W/O CONT 36080 (Continued) Orig Print D/T: S: 12/13/2021 (09) [facility] NAME: JOE ABDI [facility] PHYS: Isaias Viera MD : 1935 AGE: 86 SEX: M [place] [address] LOC: Y.MRI PHONE #: [phone] EXAM DATE: 12/12/2021 STATUS: DEP CLI FAX #: [phone] RAD #: D/C DT PAGE 3 Signed [id number] 11:02:00 Test Item Value Reference Range Interpretation Comments PROSTATE SPECIFIC ANTIGEN (BEAKER) 0.3 ng/mL 0.0-4.0 (test code = 844) Computerized Machine Fabric Cutter ID - MARY [id number] 11:02:00 Test Item Value Reference Range Interpretation Comments THYROID STIMULATING HORMONE 1.803 uIU/mL 0.350-4.940 (BEAKER) (test code = 772) Computerized Machine Fabric Cutter ID - MARY FRAD, CHEST, 2 [id number] 10:56:00Reason for Exam:->htnL[facility] : 1935 Sex: MFINAL REPORT INDICATION: htn COMPARISON: August 20, 2018 TECHNIQUE: Frontal and lateral views of the chest. IMPRESSION:Lungs and pleura: Mild interstitial congestive changes may reflect developing edema. No consolidation. No effusion.Heart and mediastinum: Normal heart size. Unremarkable mediastinal contours.Osseous structures: No acute abnormality.Additional findings: None. Signed:JR Jacobson Robert MDReport Verified Date/Time: 04/04/2020 10:56:33 Reading Location: [facility] Radiology Reading Room COMPREHENSIVE METABOLIC PANEL 2020-04-04 10:41:00 Test Item Value Reference Range Interpretation Comments TOTAL PROTEIN 6.7 gm/dL 6.0-8.3 (BEAKER) (test code = 770) ALBUMIN (BEAKER) 3.5 g/dL 3.5-5.0 (test code = 1145) ALKALINE PHOSPHATASE 74 U/L 40-150 (BEAKER) (test code = 346) BILIRUBIN TOTAL 0.8 mg/dL 0.2-1.2 (BEAKER) (test code = 377) SODIUM (BEAKER) (test 139 meq/L 136-145 code = 381) POTASSIUM (BEAKER) 4.2 meq/L 3.5-5.1 (test code = 379) CHLORIDE (BEAKER) 102 meq/L 98-107 (test code = 382) CO2 (BEAKER) (test 29 meq/L 22-29 code = 355) BLOOD UREA NITROGEN 21 mg/dL 7-21 (BEAKER) (test code = 354) CREATININE (BEAKER) 1.12 mg/dL 0.57-1.25 (test code = 358) GLUCOSE RANDOM 110 mg/dL 70-105 H (BEAKER) (test code = 652) CALCIUM (BEAKER) 9.3 mg/dL 8.4-10.2 (test code = 697) AST (SGOT) (BEAKER) 33 U/L 5-34 (test code = 353) ALT (SGPT) (BEAKER) 16 U/L 6-55 (test code = 347) EGFR (BEAKER) (test 62 mL/min/1.73 ESTIMA PHYLLIS GFR IS code = 1092) sq m NOT ACCURATE CREATININE CLEARANCE IN PREDICTING GLOMERULAR FILTRATION RATE . ESTIMATED GFR I S NOT APPLICABLE FOR DIALYSIS PATIEN TS. Computerized Machine Fabric Cutter ID - MARY FLIPID [id number] 10:41:00 Test Item Value Reference Range Interpretation Comments TRIGLYCERIDES (BEAKER) (test code = 38 mg/dL 540) CHOLESTEROL (BEAKER) (test code = 130 mg/dL 631) HDL CHOLESTEROL (BEAKER) (test code 53 mg/dL = 976) LDL CHOLESTEROL CALCULATED (BEAKER) 69 mg/dL (test code = 633) Triglyceride Reference Range: Low Risk <150 Borderline 150-199 High Risk 200- 499 Very High Risk >=500Cholesterol Reference Range: Low Risk <200 Borderline 200-239 High Risk >240HDL Cholesterol Reference Range: Low Risk >=60 High Risk <40LDL Cholesterol Reference Range: Optimal <100 Near Optimal 100-129 Borderline 130-159 High 160-189 Very High >=190 Computerized Machine Fabric Cutter MAYURI HERNANDEZ FB-TYPE NATRIURETIC FACTOR (BNP)2020-04-04 10:41:00 Test Item Value Reference Range Interpretation Comments B-TYPE NATRIURETIC PEPTIDE (BEAKER) 221 pg/mL 0-100 H (test code = 700) Computerized Machine Fabric Cutter ID Eugenia HERNANDEZ FCBC W/PLT COUNT & AUTO [id number] 10:32:00 Test Item Value Reference Range Interpretation Comments WHITE BLOOD CELL COUNT (BEAKER) 6.3 K/ L 3.5-10.5 (test code = 775) RED BLOOD CELL COUNT (BEAKER) 3.85 M/ L 4.63-6.08 L (test code = 761) HEMOGLOBIN (BEAKER) (test code = 13.4 GM/DL 13.7-17.5 L 410) HEMATOCRIT (BEAKER) (test code = 39.9 % 40.1-51.0 L 411) MEAN CORPUSCULAR VOLUME (BEAKER) 103.6 fL 79.0-92.2 H (test code = 753) MEAN CORPUSCULAR HEMOGLOBIN 34.8 pg 25.7-32.2 H (BEAKER) (test code = 751) MEAN CORPUSCULAR HEMOGLOBIN CONC 33.6 GM/DL 32.3-36.5 (BEAKER) (test code = 752) RED CELL DISTRIBUTION WIDTH 14.2 % 11.6-14.4 (BEAKER) (test code = 412) PLATELET COUNT (BEAKER) (test 112 K/CU MM 150-450 L code = 756) MEAN PLATELET VOLUME (BEAKER) 9.4 fL 9.4-12.4 (test code = 754) NUCLEATED RED BLOOD CELLS 0 /100 WBC 0-0 (BEAKER) (test code = 413) NEUTROPHILS RELATIVE PERCENT 41 % (BEAKER) (test code = 429) LYMPHOCYTES RELATIVE PERCENT 38 % (BEAKER) (test code = 430) MONOCYTES RELATIVE PERCENT 11 % (BEAKER) (test code = 431) EOSINOPHILS RELATIVE PERCENT 10 % (BEAKER) (test code = 432) BASOPHILS RELATIVE PERCENT 1 % (BEAKER) (test code = 437) NEUTROPHILS ABSOLUTE COUNT 2.55 K/ L 1.78-5.38 (BEAKER) (test code = 670) LYMPHOCYTES ABSOLUTE COUNT 2.35 K/ L 1.32-3.57 (BEAKER) (test code = 414) MONOCYTES ABSOLUTE COUNT (BEAKER) 0.69 K/ L 0.30-0.82 (test code = 415) EOSINOPHILS ABSOLUTE COUNT 0.64 K/ L 0.04-0.54 H (BEAKER) (test code = 416) BASOPHILS ABSOLUTE COUNT (BEAKER) 0.03 K/ L 0.01-0.08 (test code = 417) IMMATURE GRANULOCYTES-RELATIVE 0 % 0-1 PERCENT (BEAKER) (test code = 2801) [id number] 09:26:00 Test Item Value Reference Range Interpretation Comments PROSTATE SPECIFIC ANTIGEN (BEAKER) 0.2 ng/mL 0.0-4.0 (test code = 844) Computerized Machine Fabric Cutter ID - AMBROSIO [id number] 09:26:00 Test Item Value Reference Range Interpretation Comments THYROID STIMULATING HORMONE 2.28 uIU/mL 0.35-4.94 (BEAKER) (test code = 772) Computerized Machine Fabric Cutter ID - AMBROSIO MLIPID [id number] 09:02:00 Test Item Value Reference Range Interpretation Comments TRIGLYCERIDES (BEAKER) (test code = 37 mg/dL 540) CHOLESTEROL (BEAKER) (test code = 109 mg/dL 631) HDL CHOLESTEROL (BEAKER) (test code 50 mg/dL = 976) LDL CHOLESTEROL CALCULATED (BEAKER) 52 mg/dL (test code = 633) Triglyceride Reference Range: Low Risk <150 Borderline 150-199 High Risk 200- 499 Very High Risk >=500Cholesterol Reference Range: Low Risk <200 Borderline 200-239 High Risk >240HDL Cholesterol Reference Range: Low Risk >=60 High Risk <40LDL Cholesterol Reference Range: Optimal <100 Near Optimal 100-129 Borderline 130-159 High 160-189 Very High >=190 Computerized Machine Fabric Cutter ID - AMBROSIO MBASIC METABOLIC [id number] 09:02:00 Test Item Value Reference Range Interpretation Comments SODIUM (BEAKER) 139 meq/L 136-145 (test code = 381) POTASSIUM (BEAKER) 4.1 meq/L 3.5-5.1 (test code = 379) CHLORIDE (BEAKER) 104 meq/L 98-107 (test code = 382) CO2 (BEAKER) (test 30 meq/L 22-29 H code = 355) BLOOD UREA NITROGEN 16 mg/dL 7-21 (BEAKER) (test code = 354) CREATININE (BEAKER) 1.05 mg/dL 0.57-1.25 (test code = 358) GLUCOSE RANDOM 114 mg/dL 70-105 H (BEAKER) (test code = 652) CALCIUM (BEAKER) 9.3 mg/dL 8.4-10.2 (test code = 697) EGFR (BEAKER) (test 67 mL/min/1.73 ESTIMA PHYLLIS GFR IS code = 1092) sq m NOT ACCURATE CREATININE CLEARANCE IN PREDICTING GLOMERULAR FILTRATION RATE . ESTIMATED GFR I S NOT APPLICABLE FOR DIALYSIS PATIEN TS. Computerized Machine Fabric Cutter ID - AMBROSIO EPATIC FUNCTION [id number] 09:02:00 Test Item Value Reference Range Interpretation Comments TOTAL PROTEIN (BEAKER) (test code = 6.6 gm/dL 6.0-8.3 770) ALBUMIN (BEAKER) (test code = 1145) 3.3 g/dL 3.5-5.0 L BILIRUBIN TOTAL (BEAKER) (test code 1.1 mg/dL 0.2-1.2 = 377) BILIRUBIN DIRECT (BEAKER) (test 0.6 mg/dL 0.1-0.5 H code = 706) ALKALINE PHOSPHATASE (BEAKER) (test 85 U/L 40-150 code = 346) AST (SGOT) (BEAKER) (test code = 47 U/L 5-34 H 353) ALT (SGPT) (BEAKER) (test code = 24 U/L 6-55 347) Computerized Machine Fabric Cutter ID - AMBROSIO MCBC W/PLT COUNT & AUTO [id number] 08:54:00 Test Item Value Reference Range Interpretation Comments WHITE BLOOD CELL COUNT (BEAKER) 6.1 K/ L 3.5-10.5 (test code = 775) RED BLOOD CELL COUNT (BEAKER) 4.05 M/ L 4.63-6.08 L (test code = 761) HEMOGLOBIN (BEAKER) (test code = 14.6 GM/DL 13.7-17.5 410) HEMATOCRIT (BEAKER) (test code = 42.1 % 40.1-51.0 411) MEAN CORPUSCULAR VOLUME (BEAKER) 104.0 fL 79.0-92.2 H (test code = 753) MEAN CORPUSCULAR HEMOGLOBIN 36.0 pg 25.7-32.2 H (BEAKER) (test code = 751) MEAN CORPUSCULAR HEMOGLOBIN CONC 34.7 GM/DL 32.3-36.5 (BEAKER) (test code = 752) RED CELL DISTRIBUTION WIDTH 14.3 % 11.6-14.4 (BEAKER) (test code = 412) PLATELET COUNT (BEAKER) (test 104 K/CU MM 150-450 L code = 756) MEAN PLATELET VOLUME (BEAKER) 9.7 fL 9.4-12.4 (test code = 754) NUCLEATED RED BLOOD CELLS 0 /100 WBC 0-0 (BEAKER) (test code = 413) NEUTROPHILS RELATIVE PERCENT 47 % (BEAKER) (test code = 429) LYMPHOCYTES RELATIVE PERCENT 36 % (BEAKER) (test code = 430) MONOCYTES RELATIVE PERCENT 12 % (BEAKER) (test code = 431) EOSINOPHILS RELATIVE PERCENT 5 % (BEAKER) (test code = 432) BASOPHILS RELATIVE PERCENT 1 % (BEAKER) (test code = 437) NEUTROPHILS ABSOLUTE COUNT 2.83 K/ L 1.78-5.38 (BEAKER) (test code = 670) LYMPHOCYTES ABSOLUTE COUNT 2.16 K/ L 1.32-3.57 (BEAKER) (test code = 414) MONOCYTES ABSOLUTE COUNT (BEAKER) 0.74 K/ L 0.30-0.82 (test code = 415) EOSINOPHILS ABSOLUTE COUNT 0.27 K/ L 0.04-0.54 (BEAKER) (test code = 416) BASOPHILS ABSOLUTE COUNT (BEAKER) 0.04 K/ L 0.01-0.08 (test code = 417) IMMATURE GRANULOCYTES-RELATIVE 0 % 0-1 PERCENT (BEAKER) (test code = 2801) [id number] 09:03:00 Test Item Value Reference Range Interpretation Comments PROSTATE SPECIFIC ANTIGEN (BEAKER) 0.2 ng/mL 0.0-4.0 (test code = 844) [id number] 09:03:00 Test Item Value Reference Range Interpretation Comments THYROID STIMULATING HORMONE 0.38 uIU/mL 0.35-4.94 (BEAKER) (test code = 772) LIPID [id number] 08:48:00 Test Item Value Reference Range Interpretation Comments TRIGLYCERIDES (BEAKER) (test code = 36 mg/dL 540) CHOLESTEROL (BEAKER) (test code = 102 mg/dL 631) HDL CHOLESTEROL (BEAKER) (test code 45 mg/dL = 976) LDL CHOLESTEROL CALCULATED (BEAKER) 50 mg/dL (test code = 633) Triglyceride Reference Range: Low Risk <150 Borderline 150-199 High Risk 200- 499 Very High Risk >=500Cholesterol Reference Range: Low Risk <200 Borderline 200-239 High Risk >240HDL Cholesterol Reference Range: Low Risk >=60 High Risk <40LDL Cholesterol Reference Range: Optimal <100 Near Optimal 100-129 Borderline 130-159 High 160-189 Very High >=190BASIC METABOLIC [id number] 08:48:00 Test Item Value Reference Range Interpretation Comments SODIUM (BEAKER) 137 meq/L 136-145 (test code = 381) POTASSIUM (BEAKER) 4.5 meq/L 3.5-5.1 (test code = 379) CHLORIDE (BEAKER) 103 meq/L 98-107 (test code = 382) CO2 (BEAKER) (test 29 meq/L 22-29 code = 355) BLOOD UREA NITROGEN 18 mg/dL 7-21 (BEAKER) (test code = 354) CREATININE (BEAKER) 0.99 mg/dL 0.57-1.25 (test code = 358) GLUCOSE RANDOM 109 mg/dL 70-105 H (BEAKER) (test code = 652) CALCIUM (BEAKER) 9.4 mg/dL 8.4-10.2 (test code = 697) EGFR (BEAKER) (test 72 mL/min/1.73 ESTIMA PHYLLIS GFR IS code = 1092) sq m NOT ACCURATE CREATININE CLEARANCE IN PREDICTING GLOMERULAR FILTRATION RATE . ESTIMATED GFR I S NOT APPLICABLE FOR DIALYSIS PATIEN TS. HEPATIC FUNCTION [id number] 08:48:00 Test Item Value Reference Range Interpretation Comments TOTAL PROTEIN (BEAKER) (test code = 6.6 gm/dL 6.0-8.3 770) ALBUMIN (BEAKER) (test code = 1145) 3.2 g/dL 3.5-5.0 L BILIRUBIN TOTAL (BEAKER) (test code 1.3 mg/dL 0.2-1.2 H = 377) BILIRUBIN DIRECT (BEAKER) (test 0.7 mg/dL 0.1-0.5 H code = 706) ALKALINE PHOSPHATASE (BEAKER) (test 89 U/L 40-150 code = 346) AST (SGOT) (BEAKER) (test code = 52 U/L 5-34 H 353) ALT (SGPT) (BEAKER) (test code = 28 U/L 6-55 347) CBC W/PLT COUNT & AUTO [id number] 08:25:00 Test Item Value Reference Range Interpretation Comments WHITE BLOOD CELL COUNT (BEAKER) 6.4 K/ L 3.5-10.5 (test code = 775) RED BLOOD CELL COUNT (BEAKER) 4.10 M/ L 4.63-6.08 L (test code = 761) HEMOGLOBIN (BEAKER) (test code = 14.6 GM/DL 13.7-17.5 410) HEMATOCRIT (BEAKER) (test code = 42.4 % 40.1-51.0 411) MEAN CORPUSCULAR VOLUME (BEAKER) 103.4 fL 79.0-92.2 H (test code = 753) MEAN CORPUSCULAR HEMOGLOBIN 35.6 pg 25.7-32.2 H (BEAKER) (test code = 751) MEAN CORPUSCULAR HEMOGLOBIN CONC 34.4 GM/DL 32.3-36.5 (BEAKER) (test code = 752) RED CELL DISTRIBUTION WIDTH 14.6 % 11.6-14.4 H (BEAKER) (test code = 412) PLATELET COUNT (BEAKER) (test code 97 K/CU MM 150-450 L = 756) MEAN PLATELET VOLUME (BEAKER) 9.5 fL 9.4-12.4 (test code = 754) NUCLEATED RED BLOOD CELLS (BEAKER) 0 /100 WBC 0-0 (test code = 413) NEUTROPHILS RELATIVE PERCENT 44 % (BEAKER) (test code = 429) LYMPHOCYTES RELATIVE PERCENT 36 % (BEAKER) (test code = 430) MONOCYTES RELATIVE PERCENT 12 % (BEAKER) (test code = 431) EOSINOPHILS RELATIVE PERCENT 8 % (BEAKER) (test code = 432) BASOPHILS RELATIVE PERCENT 1 % (BEAKER) (test code = 437) NEUTROPHILS ABSOLUTE COUNT 2.82 K/ L 1.78-5.38 (BEAKER) (test code = 670) LYMPHOCYTES ABSOLUTE COUNT 2.28 K/ L 1.32-3.57 (BEAKER) (test code = 414) MONOCYTES ABSOLUTE COUNT (BEAKER) 0.74 K/ L 0.30-0.82 (test code = 415) EOSINOPHILS ABSOLUTE COUNT 0.51 K/ L 0.04-0.54 (BEAKER) (test code = 416) BASOPHILS ABSOLUTE COUNT (BEAKER) 0.06 K/ L 0.01-0.08 (test code = 417) IMMATURE GRANULOCYTES-RELATIVE 0 % 0-1 PERCENT (BEAKER) (test code = 2801) PET, CARDIAC PERFUSION MULTIPLE STUDIES, REST AND [id number] 14:08:00 Reason for Exam:->chest painFINAL REPORT PROCEDURE: Rest/Stress MYOCARDIAL PERFUSION PET with regadenoson\\XA9\\ CPT CODE: 03361 INDICATION: Chest pain HISTORY: Cardiac risk factors: Hyperlipidemia, family history, age, sex. Other cardiovascular history: No reported CAD. Recent cardiac symptoms: Chest pain. Current cardiovascular-related medications: Aspirin, flecainide. PROTOCOL: Limited low-dose CT [...] stress. 3. Normal myocardial perfusion. 4. Normal resting LV function. No deterioration of functi on is noted with pharmacologic stress. 5. Normal extracardiac tracer distribution. 6. CT images showcalcification the aorta 7. No previous [facility] study for comparison. NONINVASIVE RISK STRATIFICATION: The above findings are considered low risk (<1% annual mortality rate) based on the following crite saurav:- Normal or small myocardial perfusion defect at rest or with stress(JACC. 2012;59(9):857-81.) Signed: Adelfo Salinas Verified Date/Time: 07/29/2018 14:08:02 Reading Location: [address] Reading Room PSA 2018-07-29 09:42:00 Test Item Value Reference Range Interpretation Comments PROSTATE SPECIFIC ANTIGEN (BEAKER) 0.3 ng/mL 0.0-4.0 (test code = 844) [id number] 09:42:00 Test Item Value Reference Range Interpretation Comments THYROID STIMULATING HORMONE 0.64 uIU/mL 0.35-4.94 (BEAKER) (test code = 772) B-TYPE NATRIURETIC FACTOR (BNP)2018-07-29 09:29:00 Test Item Value Reference Range Interpretation Comments B-TYPE NATRIURETIC PEPTIDE (BEAKER) 125 pg/mL 0-100 H (test code = 700) LIPID [id number] 09:23:00 Test Item Value Reference Range Interpretation Comments TRIGLYCERIDES (BEAKER) (test code = 58 mg/dL 540) CHOLESTEROL (BEAKER) (test code = 132 mg/dL 631) HDL CHOLESTEROL (BEAKER) (test code 50 mg/dL = 976) LDL CHOLESTEROL CALCULATED (BEAKER) 70 mg/dL (test code = 633) Triglyceride Reference Range: Low Risk <150 Borderline 150-199 High Risk 200- 499 Very High Risk >=500Cholesterol Reference Range: Low Risk <200 Borderline 200-239 High Risk >240HDL Cholesterol Reference Range: Low Risk >=60 High Risk <40LDL Cholesterol Reference Range: Optimal <100 Near Optimal 100-129 Borderline 130-159 High 160-189 Very High >=190BASIC METABOLIC [id number] 09:23:00 Test Item Value Reference Range Interpretation Comments SODIUM (BEAKER) 138 meq/L 136-145 (test code = 381) POTASSIUM (BEAKER) 3.8 meq/L 3.5-5.1 (test code = 379) CHLORIDE (BEAKER) 102 meq/L 98-107 (test code = 382) CO2 (BEAKER) (test 29 meq/L 22-29 code = 355) BLOOD UREA NITROGEN 19 mg/dL 7-21 (BEAKER) (test code = 354) CREATININE (BEAKER) 0.95 mg/dL 0.57-1.25 (test code = 358) GLUCOSE RANDOM 108 mg/dL 70-105 H (BEAKER) (test code = 652) CALCIUM (BEAKER) 9.6 mg/dL 8.4-10.2 (test code = 697) EGFR (BEAKER) (test 76 mL/min/1.73 ESTIMA PHYLLIS GFR IS code = 1092) sq m NOT ACCURATE CREATININE CLEARANCE IN PREDICTING GLOMERULAR FILTRATION RATE . ESTIMATED GFR I S NOT APPLICABLE FOR DIALYSIS PATIEN TS. HEPATIC FUNCTION [id number] 09:23:00 Test Item Value Reference Range Interpretation Comments TOTAL PROTEIN (BEAKER) (test code = 6.9 gm/dL 6.0-8.3 770) ALBUMIN (BEAKER) (test code = 1145) 3.5 g/dL 3.5-5.0 BILIRUBIN TOTAL (BEAKER) (test code 1.0 mg/dL 0.2-1.2 = 377) BILIRUBIN DIRECT (BEAKER) (test 0.5 mg/dL 0.1-0.5 code = 706) ALKALINE PHOSPHATASE (BEAKER) (test 90 U/L 40-150 code = 346) AST (SGOT) (BEAKER) (test code = 41 U/L 5-34 H 353) ALT (SGPT) (BEAKER) (test code = 23 U/L 6-55 347) CBC W/PLT COUNT & AUTO [id number] 09:01:00 Test Item Value Reference Range Interpretation Comments WHITE BLOOD CELL COUNT (BEAKER) 6.2 K/ L 3.5-10.5 (test code = 775) RED BLOOD CELL COUNT (BEAKER) 4.24 M/ L 4.63-6.08 L (test code = 761) HEMOGLOBIN (BEAKER) (test code = 14.9 GM/DL 13.7-17.5 410) HEMATOCRIT (BEAKER) (test code = 43.1 % 40.1-51.0 411) MEAN CORPUSCULAR VOLUME (BEAKER) 101.7 fL 79.0-92.2 H (test code = 753) MEAN CORPUSCULAR HEMOGLOBIN 35.1 pg 25.7-32.2 H (BEAKER) (test code = 751) MEAN CORPUSCULAR HEMOGLOBIN CONC 34.6 GM/DL 32.3-36.5 (BEAKER) (test code = 752) RED CELL DISTRIBUTION WIDTH 14.1 % 11.6-14.4 (BEAKER) (test code = 412) PLATELET COUNT (BEAKER) (test 116 K/CU MM 150-450 L code = 756) MEAN PLATELET VOLUME (BEAKER) 8.9 fL 9.4-12.4 L (test code = 754) NUCLEATED RED BLOOD CELLS 0 /100 WBC 0-0 (BEAKER) (test code = 413) NEUTROPHILS RELATIVE PERCENT 47 % (BEAKER) (test code = 429) LYMPHOCYTES RELATIVE PERCENT 34 % (BEAKER) (test code = 430) MONOCYTES RELATIVE PERCENT 10 % (BEAKER) (test code = 431) EOSINOPHILS RELATIVE PERCENT 8 % (BEAKER) (test code = 432) BASOPHILS RELATIVE PERCENT 1 % (BEAKER) (test code = 437) NEUTROPHILS ABSOLUTE COUNT 2.92 K/ L 1.78-5.38 (BEAKER) (test code = 670) LYMPHOCYTES ABSOLUTE COUNT 2.09 K/ L 1.32-3.57 (BEAKER) (test code = 414) MONOCYTES ABSOLUTE COUNT (BEAKER) 0.63 K/ L 0.30-0.82 (test code = 415) EOSINOPHILS ABSOLUTE COUNT 0.52 K/ L 0.04-0.54 (BEAKER) (test code = 416) BASOPHILS ABSOLUTE COUNT (BEAKER) 0.05 K/ L 0.01-0.08 (test code = 417) IMMATURE GRANULOCYTES-RELATIVE 0 % 0-1 PERCENT (BEAKER) (test code = 2801) [id number] 09:12:00 Test Item Value Reference Range Interpretation Comments PROSTATE SPECIFIC ANTIGEN (BEAKER) 0.3 ng/mL 0.0-4.0 (test code = 844) [id number] 08:35:00 Test Item Value Reference Range Interpretation Comments THYROID STIMULATING HORMONE 0.84 uIU/mL 0.35-4.94 (BEAKER) (test code = 772) B-TYPE NATRIURETIC FACTOR (BNP)2018-02-25 08:22:00 Test Item Value Reference Range Interpretation Comments B-TYPE NATRIURETIC PEPTIDE (BEAKER) 159 pg/mL 0-100 H (test code = 700) LIPID [id number] 08:15:00 Test Item Value Reference Range Interpretation Comments TRIGLYCERIDES (BEAKER) (test code = 54 mg/dL 540) CHOLESTEROL (BEAKER) (test code = 125 mg/dL 631) HDL CHOLESTEROL (BEAKER) (test code 54 mg/dL = 976) LDL CHOLESTEROL CALCULATED (BEAKER) 60 mg/dL (test code = 633) Triglyceride Reference Range: Low Risk <150 Borderline 150-199 High Risk 200- 499 Very High Risk >=500Cholesterol Reference Range: Low Risk <200 Borderline 200-239 High Risk >240HDL Cholesterol Reference Range: Low Risk >=60 High Risk <40LDL Cholesterol Reference Range: Optimal <100 Near Optimal 100-129 Borderline 130-159 High 160-189 Very High >=190BASIC METABOLIC [id number] 08:15:00 Test Item Value Reference Range Interpretation Comments SODIUM (BEAKER) 139 meq/L 136-145 (test code = 381) POTASSIUM (BEAKER) 4.2 meq/L 3.5-5.1 (test code = 379) CHLORIDE (BEAKER) 102 meq/L 98-107 (test code = 382) CO2 (BEAKER) (test 31 meq/L 22-29 H code = 355) BLOOD UREA NITROGEN 17 mg/dL 7-21 (BEAKER) (test code = 354) CREATININE (BEAKER) 1.14 mg/dL 0.57-1.25 (test code = 358) GLUCOSE RANDOM 97 mg/dL 70-105 (BEAKER) (test code = 652) CALCIUM (BEAKER) 9.7 mg/dL 8.4-10.2 (test code = 697) EGFR (BEAKER) (test 62 mL/min/1.73 ESTIMA PHYLLIS GFR IS code = 1092) sq m NOT ACCURATE CREATININE CLEARANCE IN PREDICTING GLOMERULAR FILTRATION RATE . ESTIMATED GFR I S NOT APPLICABLE FOR DIALYSIS PATIEN TS. HEPATIC FUNCTION [id number] 08:15:00 Test Item Value Reference Range Interpretation Comments TOTAL PROTEIN (BEAKER) (test code = 7.0 gm/dL 6.0-8.3 770) ALBUMIN (BEAKER) (test code = 1145) 3.7 g/dL 3.5-5.0 BILIRUBIN TOTAL (BEAKER) (test code 1.2 mg/dL 0.2-1.2 = 377) BILIRUBIN DIRECT (BEAKER) (test 0.7 mg/dL 0.1-0.5 H code = 706) ALKALINE PHOSPHATASE (BEAKER) (test 85 U/L 40-150 code = 346) AST (SGOT) (BEAKER) (test code = 37 U/L 5-34 H 353) ALT (SGPT) (BEAKER) (test code = 19 U/L 6-55 347) CBC W/PLT COUNT & AUTO [id number] 07:57:00 Test Item Value Reference Range Interpretation Comments WHITE BLOOD CELL COUNT (BEAKER) 6.6 K/ L 3.5-10.5 (test code = 775) RED BLOOD CELL COUNT (BEAKER) 4.27 M/ L 4.63-6.08 L (test code = 761) HEMOGLOBIN (BEAKER) (test code = 14.7 GM/DL 13.7-17.5 410) HEMATOCRIT (BEAKER) (test code = 43.5 % 40.1-51.0 411) MEAN CORPUSCULAR VOLUME (BEAKER) 101.9 fL 79.0-92.2 H (test code = 753) MEAN CORPUSCULAR HEMOGLOBIN 34.4 pg 25.7-32.2 H (BEAKER) (test code = 751) MEAN CORPUSCULAR HEMOGLOBIN CONC 33.8 GM/DL 32.3-36.5 (BEAKER) (test code = 752) RED CELL DISTRIBUTION WIDTH 14.5 % 11.6-14.4 H (BEAKER) (test code = 412) PLATELET COUNT (BEAKER) (test 117 K/CU MM 150-450 L code = 756) MEAN PLATELET VOLUME (BEAKER) 9.5 fL 9.4-12.4 (test code = 754) NUCLEATED RED BLOOD CELLS 0 /100 WBC 0-0 (BEAKER) (test code = 413) NEUTROPHILS RELATIVE PERCENT 48 % (BEAKER) (test code = 429) LYMPHOCYTES RELATIVE PERCENT 37 % (BEAKER) (test code = 430) MONOCYTES RELATIVE PERCENT 10 % (BEAKER) (test code = 431) EOSINOPHILS RELATIVE PERCENT 5 % (BEAKER) (test code = 432) BASOPHILS RELATIVE PERCENT 1 % (BEAKER) (test code = 437) NEUTROPHILS ABSOLUTE COUNT 3.12 K/ L 1.78-5.38 (BEAKER) (test code = 670) LYMPHOCYTES ABSOLUTE COUNT 2.42 K/ L 1.32-3.57 (BEAKER) (test code = 414) MONOCYTES ABSOLUTE COUNT (BEAKER) 0.67 K/ L 0.30-0.82 (test code = 415) EOSINOPHILS ABSOLUTE COUNT 0.30 K/ L 0.04-0.54 (BEAKER) (test code = 416) BASOPHILS ABSOLUTE COUNT (BEAKER) 0.04 K/ L 0.01-0.08 (test code = 417) IMMATURE GRANULOCYTES-RELATIVE 0 % 0-1 PERCENT (BEAKER) (test code = 2801) RAD, CHEST, 2 [id number] 11:54:00Reason for Exam:->HTNFINAL REPORT CLINICAL HISTORY: HTN TECHNIQUE: 2 views of the chest COMPARISON: 08/11/2015 IMPRESSION: Mild interstitial opacities are again seen with a left lower lung predominance.There is no lobar consolidation. There are no pleural effusions. The cardiomediastinal silhouette isunchanged tortuosity of the thoracic aorta. 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 Signed: Lucina Maldonado MDReport Verified Date/Time: 08/20/2017 11:54:58 Reading Location: [facility] Radiology Reading Room [id number] 11:48:00 Test Item Value Reference Range Interpretation Comments THYROID STIMULATING HORMONE 1.05 uIU/mL 0.35-4.94 (BEAKER) (test code = 772) [id number] 10:45:00 Test Item Value Reference Range Interpretation Comments PROSTATE SPECIFIC ANTIGEN (BEAKER) 0.4 ng/mL 0.0-4.0 (test code = 844) LIPID [id number] 10:37:00 Test Item Value Reference Range Interpretation Comments TRIGLYCERIDES (BEAKER) (test code = 19 mg/dL 540) CHOLESTEROL (BEAKER) (test code = 128 mg/dL 631) HDL CHOLESTEROL (BEAKER) (test code 51 mg/dL = 976) LDL CHOLESTEROL CALCULATED (BEAKER) 73 mg/dL (test code = 633) Triglyceride Reference Range: Low Risk <150 Borderline 150-199 High Risk 200- 499 Very High Risk >=500Cholesterol Reference Range: Low Risk <200 Borderline 200-239 High Risk >240HDL Cholesterol Reference Range: Low Risk >=60 High Risk <40LDL Cholesterol Reference Range: Optimal <100 Near Optimal 100-129 Borderline 130-159 High 160-189 Very High >=190BASIC METABOLIC [id number] 10:37:00 Test Item Value Reference Range Interpretation Comments SODIUM (BEAKER) 141 meq/L 136-145 (test code = 381) POTASSIUM (BEAKER) 3.9 meq/L 3.5-5.1 (test code = 379) CHLORIDE (BEAKER) 104 meq/L 98-107 (test code = 382) CO2 (BEAKER) (test 28 meq/L 22-29 code = 355) BLOOD UREA NITROGEN 16 mg/dL 7-21 (BEAKER) (test code = 354) CREATININE (BEAKER) 0.98 mg/dL 0.57-1.25 (test code = 358) GLUCOSE RANDOM 110 mg/dL 70-105 H (BEAKER) (test code = 652) CALCIUM (BEAKER) 9.5 mg/dL 8.4-10.2 (test code = 697) EGFR (BEAKER) (test 73 mL/min/1.73 ESTIMA PHYLLIS GFR IS code = 1092) sq m NOT ACCURATE CREATININE CLEARANCE IN PREDICTING GLOMERULAR FILTRATION RATE . ESTIMATED GFR I S NOT APPLICABLE FOR DIALYSIS PATIEN TS. HEPATIC FUNCTION [id number] 10:37:00 Test Item Value Reference Range Interpretation Comments TOTAL PROTEIN (BEAKER) (test code = 6.9 gm/dL 6.0-8.3 770) ALBUMIN (BEAKER) (test code = 1145) 3.6 g/dL 3.5-5.0 BILIRUBIN TOTAL (BEAKER) (test code 0.9 mg/dL 0.2-1.2 = 377) BILIRUBIN DIRECT (BEAKER) (test 0.5 mg/dL 0.1-0.5 code = 706) ALKALINE PHOSPHATASE (BEAKER) (test 85 U/L 40-150 code = 346) AST (SGOT) (BEAKER) (test code = 33 U/L 5-34 353) ALT (SGPT) (BEAKER) (test code = 15 U/L 6-55 347) CBC W/PLT COUNT & AUTO [id number] 10:06:00 Test Item Value Reference Range Interpretation Comments WHITE BLOOD CELL COUNT (BEAKER) 6.1 K/ L 3.5-10.5 (test code = 775) RED BLOOD CELL COUNT (BEAKER) 4.06 M/ L 4.63-6.08 L (test code = 761) HEMOGLOBIN (BEAKER) (test code = 14.1 GM/DL 13.7-17.5 410) HEMATOCRIT (BEAKER) (test code = 41.1 % 40.1-51.0 411) MEAN CORPUSCULAR VOLUME (BEAKER) 101.2 fL 79.0-92.2 H (test code = 753) MEAN CORPUSCULAR HEMOGLOBIN 34.7 pg 25.7-32.2 H (BEAKER) (test code = 751) MEAN CORPUSCULAR HEMOGLOBIN CONC 34.3 GM/DL 32.3-36.5 (BEAKER) (test code = 752) RED CELL DISTRIBUTION WIDTH 14.3 % 11.6-14.4 (BEAKER) (test code = 412) PLATELET COUNT (BEAKER) (test 126 K/CU MM 150-450 L code = 756) MEAN PLATELET VOLUME (BEAKER) 9.5 fL 9.4-12.4 (test code = 754) NUCLEATED RED BLOOD CELLS 0 /100 WBC 0-0 (BEAKER) (test code = 413) NEUTROPHILS RELATIVE PERCENT 51 % (BEAKER) (test code = 429) LYMPHOCYTES RELATIVE PERCENT 33 % (BEAKER) (test code = 430) MONOCYTES RELATIVE PERCENT 11 % (BEAKER) (test code = 431) EOSINOPHILS RELATIVE PERCENT 4 % (BEAKER) (test code = 432) BASOPHILS RELATIVE PERCENT 1 % (BEAKER) (test code = 437) NEUTROPHILS ABSOLUTE COUNT 3.09 K/ L 1.78-5.38 (BEAKER) (test code = 670) LYMPHOCYTES ABSOLUTE COUNT 2.01 K/ L 1.32-3.57 (BEAKER) (test code = 414) MONOCYTES ABSOLUTE COUNT (BEAKER) 0.68 K/ L 0.30-0.82 (test code = 415) EOSINOPHILS ABSOLUTE COUNT 0.25 K/ L 0.04-0.54 (BEAKER) (test code = 416) BASOPHILS ABSOLUTE COUNT (BEAKER) 0.06 K/ L 0.01-0.08 (test code = 417) IMMATURE GRANULOCYTES-RELATIVE 0 % 0-1 PERCENT (BEAKER) (test code = 2801) [id number] 10:54:00 Test Item Value Reference Range Interpretation Comments PROSTATE SPECIFIC ANTIGEN (BEAKER) 0.9 ng/mL 0.0-4.0 (test code = 844) [id number] 10:06:00 Test Item Value Reference Range Interpretation Comments THYROID STIMULATING HORMONE 0.86 uIU/mL 0.35-4.94 (BEAKER) (test code = 772) LIPID [id number] 09:51:00 Test Item Value Reference Range Interpretation Comments TRIGLYCERIDES (BEAKER) (test code = 51 mg/dL 540) CHOLESTEROL (BEAKER) (test code = 138 mg/dL 631) HDL CHOLESTEROL (BEAKER) (test code 55 mg/dL = 976) LDL CHOLESTEROL CALCULATED (BEAKER) 73 mg/dL (test code = 633) Triglyceride Reference Range: Low Risk <150 Borderline 150-199 High Risk 200- 499 Very High Risk >=500Cholesterol Reference Range: Low Risk <200 Borderline 200-239 High Risk >240HDL Cholesterol Reference Range: Low Risk >=60 High Risk <40LDL Cholesterol Reference Range: Optimal <100 Near Optimal 100-129 Borderline 130-159 High 160-189 Very High >=190BASIC METABOLIC [id number] 09:51:00 Test Item Value Reference Range Interpretation Comments SODIUM (BEAKER) 140 meq/L 136-145 (test code = 381) POTASSIUM (BEAKER) 3.6 meq/L 3.5-5.1 (test code = 379) CHLORIDE (BEAKER) 102 meq/L 98-107 (test code = 382) CO2 (BEAKER) (test 29 meq/L 22-29 code = 355) BLOOD UREA NITROGEN 12 mg/dL 7-21 (BEAKER) (test code = 354) CREATININE (BEAKER) 0.97 mg/dL 0.57-1.25 (test code = 358) GLUCOSE RANDOM 105 mg/dL 70-105 (BEAKER) (test code = 652) CALCIUM (BEAKER) 9.4 mg/dL 8.4-10.2 (test code = 697) EGFR (BEAKER) (test 74 mL/min/1.73 ESTIMA PHYLLIS GFR IS code = 1092) sq m NOT ACCURATE CREATININE CLEARANCE IN PREDICTING GLOMERULAR FILTRATION RATE . ESTIMATED GFR I S NOT APPLICABLE FOR DIALYSIS PATIEN TS. HEPATIC FUNCTION [id number] 09:51:00 Test Item Value Reference Range Interpretation Comments TOTAL PROTEIN (BEAKER) (test code = 7.1 gm/dL 6.0-8.3 770) ALBUMIN (BEAKER) (test code = 1145) 3.5 g/dL 3.5-5.0 BILIRUBIN TOTAL (BEAKER) (test code 1.2 mg/dL 0.2-1.2 = 377) BILIRUBIN DIRECT (BEAKER) (test 0.6 mg/dL 0.1-0.5 H code = 706) ALKALINE PHOSPHATASE (BEAKER) (test 96 U/L 40-150 code = 346) AST (SGOT) (BEAKER) (test code = 48 U/L 5-34 H 353) ALT (SGPT) (BEAKER) (test code = 28 U/L 6-55 347) CBC W/PLT COUNT & AUTO [id number] 09:12:00 Test Item Value Reference Range Interpretation Comments WHITE BLOOD CELL COUNT (BEAKER) 5.1 K/ L 3.5-10.5 (test code = 775) RED BLOOD CELL COUNT (BEAKER) 4.28 M/ L 4.63-6.08 L (test code = 761) HEMOGLOBIN (BEAKER) (test code = 15.1 GM/DL 13.7-17.5 410) HEMATOCRIT (BEAKER) (test code = 43.9 % 40.1-51.0 411) MEAN CORPUSCULAR VOLUME (BEAKER) 102.6 fL 79.0-92.2 H (test code = 753) MEAN CORPUSCULAR HEMOGLOBIN 35.3 pg 25.7-32.2 H (BEAKER) (test code = 751) MEAN CORPUSCULAR HEMOGLOBIN CONC 34.4 GM/DL 32.3-36.5 (BEAKER) (test code = 752) RED CELL DISTRIBUTION WIDTH 14.3 % 11.6-14.4 (BEAKER) (test code = 412) PLATELET COUNT (BEAKER) (test 118 K/CU MM 150-450 L code = 756) MEAN PLATELET VOLUME (BEAKER) 9.3 fL 9.4-12.4 L (test code = 754) NUCLEATED RED BLOOD CELLS 0 /100 WBC 0-0 (BEAKER) (test code = 413) NEUTROPHILS RELATIVE PERCENT 47 % (BEAKER) (test code = 429) LYMPHOCYTES RELATIVE PERCENT 36 % (BEAKER) (test code = 430) MONOCYTES RELATIVE PERCENT 12 % (BEAKER) (test code = 431) EOSINOPHILS RELATIVE PERCENT 4 % (BEAKER) (test code = 432) BASOPHILS RELATIVE PERCENT 1 % (BEAKER) (test code = 437) NEUTROPHILS ABSOLUTE COUNT 2.38 K/ L 1.78-5.38 (BEAKER) (test code = 670) LYMPHOCYTES ABSOLUTE COUNT 1.83 K/ L 1.32-3.57 (BEAKER) (test code = 414) MONOCYTES ABSOLUTE COUNT (BEAKER) 0.63 K/ L 0.30-0.82 (test code = 415) EOSINOPHILS ABSOLUTE COUNT 0.22 K/ L 0.04-0.54 (BEAKER) (test code = 416) BASOPHILS ABSOLUTE COUNT (BEAKER) 0.04 K/ L 0.01-0.08 (test code = 417) IMMATURE GRANULOCYTES-RELATIVE 0 % 0-1 PERCENT (BEAKER) (test code = 2801) [id number] 11:16:00 Test Item Value Reference Range Interpretation Comments THYROID STIMULATING HORMONE 1.13 uIU/mL 0.35-4.94 (BEAKER) (test code = 772) LIPID [id number] 10:34:00 Test Item Value Reference Range Interpretation Comments TRIGLYCERIDES (BEAKER) (test code = 46 mg/dL 540) CHOLESTEROL (BEAKER) (test code = 126 mg/dL 631) HDL CHOLESTEROL (BEAKER) (test code 52 mg/dL = 976) LDL CHOLESTEROL CALCULATED (BEAKER) 65 mg/dL (test code = 633) Triglyceride Reference Range: Low Risk <150 Borderline 150-199 High Risk 200- 499 Very High Risk >=500Cholesterol Reference Range: Low Risk <200 Borderline 200-239 High Risk >240HDL Cholesterol Reference Range: Low Risk >=60 High Risk <40LDL Cholesterol Reference Range: Optimal <100 Near Optimal 100-129 Borderline 130-159 High 160-189 Very High >=190BASIC METABOLIC [id number] 10:34:00 Test Item Value Reference Range Interpretation Comments SODIUM (BEAKER) 141 meq/L 136-145 (test code = 381) POTASSIUM (BEAKER) 3.8 meq/L 3.5-5.1 (test code = 379) CHLORIDE (BEAKER) 103 meq/L 98-107 (test code = 382) CO2 (BEAKER) (test 28 meq/L 22-29 code = 355) BLOOD UREA NITROGEN 16 mg/dL 7-21 (BEAKER) (test code = 354) CREATININE (BEAKER) 1.01 mg/dL 0.57-1.25 (test code = 358) GLUCOSE RANDOM 102 mg/dL 70-105 (BEAKER) (test code = 652) CALCIUM (BEAKER) 9.6 mg/dL 8.4-10.2 (test code = 697) EGFR (BEAKER) (test 71 mL/min/1.73 ESTIMA PHYLLIS GFR IS code = 1092) sq m NOT ACCURATE CREATININE CLEARANCE IN PREDICTING GLOMERULAR FILTRATION RATE . ESTIMATED GFR I S NOT APPLICABLE FOR DIALYSIS PATIEN TS. HEPATIC FUNCTION [id number] 10:34:00 Test Item Value Reference Range Interpretation Comments TOTAL PROTEIN (BEAKER) (test code = 6.8 gm/dL 6.0-8.3 770) ALBUMIN (BEAKER) (test code = 1145) 3.4 g/dL 3.5-5.0 L BILIRUBIN TOTAL (BEAKER) (test code 1.1 mg/dL 0.2-1.2 = 377) BILIRUBIN DIRECT (BEAKER) (test 0.5 mg/dL 0.1-0.5 code = 706) ALKALINE PHOSPHATASE (BEAKER) (test 78 U/L 40-150 code = 346) AST (SGOT) (BEAKER) (test code = 38 U/L 5-34 H 353) ALT (SGPT) (BEAKER) (test code = 17 U/L 6-55 347) [id number] 10:17:00 Test Item Value Reference Range Interpretation Comments PROSTATE SPECIFIC ANTIGEN (BEAKER) 0.5 ng/mL 0.0-4.0 (test code = 844) CBC W/PLT COUNT & AUTO [id number] 09:50:00 Test Item Value Reference Range Interpretation Comments WHITE BLOOD CELL COUNT (BEAKER) 5.0 K/ L 4.0-10.0 (test code = 775) RED BLOOD CELL COUNT (BEAKER) 4.18 M/ L 4.20-5.80 L (test code = 761) HEMOGLOBIN (BEAKER) (test code = 14.6 GM/DL 13.0-16.8 410) HEMATOCRIT (BEAKER) (test code = 44.6 % 40.0-50.0 411) MEAN CORPUSCULAR VOLUME (BEAKER) 107.0 fL 82.0-98.0 H (test code = 753) MEAN CORPUSCULAR HEMOGLOBIN 35.1 pg 27.0-33.0 H (BEAKER) (test code = 751) MEAN CORPUSCULAR HEMOGLOBIN CONC 32.8 GM/DL 32.0-36.0 (BEAKER) (test code = 752) RED CELL DISTRIBUTION WIDTH 13.1 % 10.3-14.2 (BEAKER) (test code = 412) PLATELET COUNT (BEAKER) (test 114 K/CU MM 150-430 L code = 756) MEAN PLATELET VOLUME (BEAKER) 6.8 fL 6.5-10.5 (test code = 754) NUCLEATED RED BLOOD CELLS 0 /100 WBC 0-0 (BEAKER) (test code = 413) NEUTROPHILS RELATIVE PERCENT 48 % (BEAKER) (test code = 429) LYMPHOCYTES RELATIVE PERCENT 35 % (BEAKER) (test code = 430) MONOCYTES RELATIVE PERCENT 12 % (BEAKER) (test code = 431) EOSINOPHILS RELATIVE PERCENT 3 % (BEAKER) (test code = 432) BASOPHILS RELATIVE PERCENT 1 % (BEAKER) (test code = 437) NEUTROPHILS ABSOLUTE COUNT 2.40 K/ L 1.80-8.00 (BEAKER) (test code = 670) LYMPHOCYTES ABSOLUTE COUNT 1.75 K/ L 1.48-4.50 (BEAKER) (test code = 414) MONOCYTES ABSOLUTE COUNT (BEAKER) 0.60 K/ L 0.00-1.30 (test code = 415) EOSINOPHILS ABSOLUTE COUNT 0.17 K/ L 0.00-0.50 (BEAKER) (test code = 416) BASOPHILS ABSOLUTE COUNT (BEAKER) 0.04 K/ L 0.00-0.20 (test code = 417) 0.00
[2022-05-01 09:40] LABS: Urine Blood 2+ (Negative); Urine Glucose Negative (Negative); Urine Protein Negative (Negative)
--- NOTE | 2022-05-01 09:46 | RAD REPORT ---
EXAM DESCRIPTION: Keila Single View05/01/2022 9:30 am CLINICAL HISTORY: Chest pain COMPARISON: 2019 FINDINGS: Moderate bilateral interstitial lung opacities. Heart is mildly enlarged. Four aorta is tortuous/ectatic IMPRESSION: Moderate bilateral interstitial lung opacities. I suspect most if not all of this is chr onic
[2022-05-01 09:51] LABS: Absolute Lymphocytes (CBC) 1.9 K/uL (0.7-4.9); Hematocrit 42.6 % (39.6-49.0); Lymphocytes % 34.7 % (15.3-44.8); MCV 100.6 fL (80-100); MPV 7.4 fL (7.6-11.3); RBC Red Blood Cell Count 4.23 M/uL (4.33-5.43)
[2022-05-01 09:53] LABS: Protime INR 1.75
[2022-05-01 10:11] LABS: SARS-CoV-2 Antigen Rapid Res Negative (Negative)
[2022-05-01 10:12] LABS: Albumin 2.7 g/dL (3.4-5.0); Bilirubin Direct 0.3 mg/dL (0-0.2); Bilirubin Total 0.9 mg/dL (0.2-1.0); Potassium 3.6 mmol/L (3.5-5.1)
[2022-05-01] MEDS ORDERED: ASPIRIN 81 MG CHEWABLE TABLET ONE (10:22)
[2022-05-01] MEDS ORDERED: FAMOTIDINE 20 MG/2 ML VIAL IV ONE (10:22)
[2022-05-01] MEDS ORDERED: CEFTRIAXONE 1000 MG/VIAL ONE (10:22)
[2022-05-01] MEDS ORDERED: NA CHLORIDE 0.9% 50 ML IV ONE (10:22)
[2022-05-01 11:32] LABS: Magnesium 1.7 mg/dL (1.8-2.4)
--- NOTE | 2022-05-01 12:36 | RAD REPORT ---
EXAM DESCRIPTION: CT - Head Brain Wo Cont - 05/01/2022 12:24 pm CLINICAL HISTORY: dizzy Headache, drowsiness, dizziness COMPARISON: No comparisons TECHNIQUE: All CT scans are performed using dose optimization technique as appropriate and may inclu de automated exposure control or mA/KV adjustment according to patient size. FINDINGS: No intracranial hemorrhage, hydrocephalus or extra-axial fluid collection.Mild generalized brain atrophy is present with mild periventricular and deep white matter chronic microvascular ische jackson changes.No areas of brain edema or evidence of midline shift. The paranasal sinuses and mastoids are clear. The calvarium is intact. IMPRESSION: No acute intracranial abnormality.
[2022-05-01] MEDS ORDERED: MAGNESIUM SULFATE 1 gm IVPB 1 GM/100 ML BAG IV ONE ×2 (12:44→19:00)
--- NOTE | 2022-05-01 13:29 | EDPHYS ---
Physician Documentation [facility] Name: Saurav Vega Age: 87 yrs Sex: Male : 1935 Arrival Date: 05/01/2022 Time: 08:42 Bed 23 Private MD: ED Physician Shlomo Varela HPI: 05/01 13:12 This 87 yrs old Male presents to ER via Ambulatory with complaints of nayeli Dizziness. Historical: - Allergies: 09:13 Erythromycin; jl7 09:13 Neomycin Sulfate; jl7 09:13 Percocet; jl7 09:13 Sulfa (Sulfonamide Antibiotics); jl7 - Home Meds: 09:13 Synthroid Oral [Active]; Zetia Oral [Active]; Foltx oral [Active]; Prilosec Oral jl7 [Active]; Pepcid Oral [Active]; Flonase Nasal [Active]; flecainide oral [Active]; Eliquis oral [Active]; Xalatan Opht [Active]; - PMHx: 09:13 acid reflux; Hypothyroidism; Irregular heart rate; Hypercholesterolemia; Atrial jl7 fibrillation; 12:37 Glaucoma; kb3 - PSHx: 09:13 cardiac ablation; jl7 - Immunization history:: Client reports receiving the 2nd dose of the Covid vaccine. - Social history:: Smoking status: Patient denies any tobacco usage or history of. ROS: 13:15 Constitutional: Negative for fever, chills, and weight loss, Eyes: Negative for injury, nayeli pain, redness, and discharge, ENT: Negative for injury, pain, and discharge, Neck: Negative for injury, pain, and swelling, Cardiovascular: Negative for chest pain, palpitations, and edema, Respiratory: Negative for shortness of breath, cough, wheezing, and pleuritic chest pain, Abdomen/GI: Negative for abdominal pain, nausea, vomiting, diarrhea, and constipation, Back: Negative for injury and pain, : Negative for injury, bleeding, discharge, and swelling, MS/Extremity: Negative for injury and deformity, Skin: Negative for injury, rash, and discoloration, Psych: Negative for depression, anxiety, suicide ideation, homicidal ideation, and hallucinations, Allergy/Immunology: Negative for hives, rash, and allergies, Endocrine: Negative for neck swelling, polydipsia, polyuria, polyphagia, and marked weight changes, Hematologic/Lymphatic: Negative for swollen nodes, abnormal bleeding, and unusual bruising. 13:15 Neuro: Positive for dizziness. Exam: 13:15 Constitutional: This is a well developed, well nourished patient who is awake, alert, nayeli and in no acute distress. Head/Face: Normocephalic, atraumatic. Eyes: Pupils equal round and reactive to light, extra-ocular motions intact. Lids and lashes normal. Conjunctiva and sclera are non-icteric and not injected. Cornea within normal limits. Periorbital areas with no swelling, redness, or edema. ENT: Nares patent. No nasal discharge, no septal abnormalities noted. Tympanic membranes are normal and external auditory canals are clear. Oropharynx with no redness, swelling, or masses, exudates, or evidence of obstruction, uvula midline. Mucous membranes moist. Neck: Trachea midline, no thyromegaly or masses palpated, and no cervical lymphadenopathy. Supple, full range of motion without nuchal rigidity, or vertebral point tenderness. No Meningismus. Chest/axilla: Normal chest wall appearance and motion. Nontender with no deformity. No lesions are appreciated. Cardiovascular: Regular rate and rhythm with a normal S1 and S2. No gallops, murmurs, or rubs. Normal PMI, no JVD. No pulse deficits. Respiratory: Lungs have equal breath sounds bilaterally, clear to auscultation and percussion. No rales, rhonchi or wheezes noted. No increased work of breathing, no retractions or nasal flaring. Abdomen/GI: Soft, non-tender, with normal bowel sounds. No distension or tympany. No guarding or rebound. No evidence of tenderness throughout. Back: No spinal tenderness. No costovertebral tenderness. Full range of motion. Male : Normal genitalia with no discharge or lesions. Skin: Warm, dry with normal turgor. Normal color with no rashes, no lesions, and no evidence of cellulitis. MS/ Extremity: Pulses equal, no cyanosis. Neurovascular intact. Full, normal range of motion. Psych: Awake, alert, with orientation to person, place and time. Behavior, mood, and affect are within normal limits. 13:15 Cardiovascular: Rate: bradycardic, actual rate is 49 bpm, Rhythm: regular, Pulses: no pulse deficits are appreciated, Heart sounds: normal, normal S1and S2, no S3 or S4, no rub, no gallop, murmur, systolic, grade 2 over 6, heard in the mitral area. 13:15 ECG was reviewed by the Attending Physician. 13:15 Neuro: Orientation: is normal, appropriate for stated age, no acute changes, Mentation: is normal, appropriate for stated age, no acute changes, Memory: is normal, appropriate for stated age, no acute changes, Cranial nerves: grossly normal, is grossly normal based on the patient's age, no acute changes, Motor: is normal, is grossly normal based on the patient's age, no acute changes, moves all fours, strength is normal, Sensation: is normal, no obvious gross deficits, appropriate no acute changes, Gait: is steady. Vital Signs: 09:12 BP 150 / 87; Pulse 53; Resp 15; Temp 97.1; Pulse Ox 100% ; Weight 79.38 kg; Height 5 jl7 ft. 10 in. (177.80 cm); Pain 0/10; 11:16 BP 126 / 69; Pulse 68; Pulse Ox 98% on R/A; ap3 13:04 BP 128 / 72 Supine; Pulse 50; Resp 16; Pulse Ox 97% ; kb3 13:07 BP 149 / 82 Sitting; Pulse 55; Resp 14; Pulse Ox 98% ; kb3 13:09 BP 132 / 75 Standing; Pulse 62; Resp 16; Pulse Ox 98% ; kb3 15:00 BP 139 / 88; Pulse 51; Resp 20; Pulse Ox 98% ; kb3 17:00 BP 149 / 81; Pulse 50; Resp 20; Pulse Ox 96% ; kb3 09:12 Body Mass Index 25.11 (79.38 kg, 177.80 cm) 7 MDM: 08:50 Patient medically screened. nayeli 13:19 Differential diagnosis: abnormal EKG, anxiety, hiatal hernia, stable angina, unstable nayeli angina. HEART Score: History: Slightly Suspicious (0), ECG: Non specific repolarization disturbance / LBTB / PM (1), Age: > or = 65 years (2), Risk Factors: > or = 3 Risk factors for atherosclerotic disease (2), [Hypercholesterolemia] [Hypertension] [+ Family HX] Troponin: < or = 1 x Normal Limit (0). Differential diagnosis: cardiac arrhythmia, CVA, generalized weakness, hypovolemia, idiopathic dizziness, near-syncope, TIA. The patient was not given aspirin in the Emergency Department. Not indicated due to patient's past medical history. The patient's deep vein thrombosis risk score was calculated as follows: Total Score: 0. This patient was found to be at low risk for a deep vein thrombosis by using the Well's assessment criteria. The patient's pulmonary embolism risk score was calculated as follows: Total Score: 0-2 points. This patient was found to be at low risk for a pulmonary embolism by using the Well's assessment criteria. OPAL Risk Score: 1 - patient's age is greater or equal to 65 years, 1 - Three or more CAD risk factors, 1- Known CAD, TOTAL SCORE = 3. Data reviewed: vital signs, nurses notes, lab test result(s), EKG, radiologic studies, CT scan, plain films. Data interpreted: consulting it architect: rate is 62 beats/min, rhythm is regular, Pulse oximetry: on room air is 100 %. Test interpretation: by ED physician or midlevel provider: ECG, plain radiologic studies. Counseling: I had a detailed discussion with the patient and/or guardian regarding: the historical points, exam findings, and any diagnostic results supporting the discharge/admit diagnosis, lab results, radiology results, the need for further work-up and treatment in the hospital. 05/01 08:52 Order name: Basic Metabolic Panel; Complete Time: 12:00 [facility] 05/01 08:52 Order name: CBC with Diff; Complete Time: 10:14 [facility] 05/01 08:52 Order name: LFT's; Complete Time: 12:00 [facility] 05/01 08:52 Order name: Magnesium; Complete Time: 12:00 [facility] 05/01 08:52 Order name: NT PRO-BNP; Complete Time: 12:00 [facility] 05/01 08:52 Order name: PT-INR; Complete Time: 10:14 [facility] 05/01 08:52 Order name: Troponin HS; Complete Time: 12:00 [facility] 05/01 08:52 Order name: Lipase; Complete Time: 12:00 [facility] 05/01 08:52 Order name: SARS RAPID; Complete Time: 10:14 [facility] 05/01 09:40 Order name: Urine Dipstick-Ancillary; Complete Time: 10:14 EDVT 05/01 10:16 Order name: Urine Culture [facility] 05/01 15:41 Order name: Magnesium EDMS 05/01 15:41 Order name: Phosphorus EDMS 05/01 15:41 Order name: T4 Free EDVT 05/01 08:52 Order name: XRAY Chest (1 view); Complete Time: 10:14 [facility] 05/01 12:01 Order name: CT Head Brain wo Cont; Complete Time: 13:00 [facility] 05/01 13:59 Order name: Brain Wo Cont; Complete Time: 15:08 EDVT 05/01 15:37 Order name: Echo with Doppler EDMS 05/01 15:37 Order name: ERT ORTHOSTATIC V/S EDMS 05/01 15:37 Order name: ERT ORTHOSTATIC V/S EDMS 05/01 15:37 Order name: Carotid Artery Bilateral EDMS 05/01 15:41 Order name: Thyroid Stimulating Hormone EDMS 05/01 15:41 Order name: Urinalysis EDMS 05/01 15:41 Order name: Basic Metabolic Panel EDMS 05/01 15:41 Order name: Basic Metabolic Panel EDMS 05/01 15:41 Order name: CBC with Automated Diff EDVT 05/01 15:41 Order name: CBC with Automated Diff EDVT 05/01 08:52 Order name: EKG; Complete Time: 08:52 [facility] 05/01 08:52 Order name: Cardiac monitoring; Complete Time: 09:33 [facility] 05/01 08:52 Order name: EKG - Nurse/Tech; Complete Time: 09:33 [facility] 05/01 08:52 Order name: IV Saline Lock; Complete Time: 09:33 [facility] 05/01 08:52 Order name: Labs collected and sent; Complete Time: 09:33 [facility] 05/01 08:52 Order name: O2 Per Protocol; Complete Time: 09:33 [facility] 05/01 08:52 Order name: O2 Sat Monitoring; Complete Time: 09:33 [facility] 05/01 08:52 Order name: Urine Dipstick-Ancillary (obtain specimen); Complete Time: 09:39 [facility] 05/01 12:09 Order name: Orthostatic Blood Pressure; Complete Time: 17:35 [facility] 05/01 15:40 Order name: Heart Healthy EDMS EC:15 Rate is 49 beats/min. QRS [place] is Normal. MD interval is normal. QRS interval is nayeli normal. QT interval is normal. No Q waves. T waves are Normal. No ST changes noted. Clinical impression: Sinus bradycardia and No evidence of ischemia. Interpreted by me. Reviewed by me. Administered Medications: 10:29 Not Given (Patient Refused): Aspirin 81 mg PO once ap3 10:29 Not Given (Patient Refused): Pepcid (famotidine) 20 mg IVP once; dilute with 10 mL 0.9% ap3 NaCl; give over 2 minutes 10:29 Drug: Rocephin (cefTRIAXone) 1 grams Route: IV; Rate: per protocol; Site: right ap3 antecubital; 10:45 Follow up: IV Status: Completed infusion; IV Intake: 50ml ap3 12:00 Follow up: Response: No adverse reaction; IV Status: Completed infusion; IV Intake: [id number] 12:33 Not Given (Patient Refused): Meclizine 25 mg PO once ap3 12:45 Drug: Magnesium Sulfate 1 grams Route: IVPB; Infused Over: 1 hrs; Site: right kb3 antecubital; 14:45 Follow up: Response: No adverse reaction; IV Status: Completed infusion; IV Intake: kb3 100ml Disposition Summary: 05/01/22 13:28 Hospitalization Ordered Hospitalization Status: Observation nayeli Provider: Camila Valera cha Location: Telemetry/MedSurg (observation) nayeli Condition: Fair nayeli Problem: new nayeli Symptoms: have improved nayeli Bed/Room Type: Standard nayeli Room Assignment: 209(05/01/22 16:27) bd Diagnosis - Bradycardia, unspecified nayeli - UTI/ Urinary tract infection, site not specified nayeli - Hypomagnesemia nayeli - Dizziness and giddiness nayeli - Unspecified atrial fibrillation - hx of 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 EDMS EDMS 16:27 13:28 nayeli bd
--- NOTE | 2022-05-01 13:29 | ER ---
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 Coronavirus screen: Vaccine status: Patient reports receiving the 2nd dose of the covid vaccine. Ebola Screen: No symptoms or risks identified at this time. Initial Sepsis Screen: Does the patient meet any 2 criteria? No. Patient's initial sepsis screen is negative. Does the patient have a suspected source of infection? No. Patient's initial sepsis screen is negative. Risk Assessment: Do you want to hurt yourself or someone else? Patient reports no desire to harm self or others. Onset of symptoms is unknown. 09:12 Method Of Arrival: Ambulatory jl7 09:12 Acuity: IRVING 3 jl7 Triage Assessment: 09:13 General: Appears in no apparent distress. uncomfortable, Behavior is calm, cooperative, jl7 appropriate for age. Pain: Denies pain. Neuro: Level of Consciousness is awake, alert, obeys commands, Oriented to person, place, time, situation, Reports dizziness. Cardiovascular: Patient's skin is warm and dry. Rhythm is regular. Historical: - Allergies: 09:13 Erythromycin; jl7 09:13 Neomycin Sulfate; jl7 09:13 Percocet; jl7 09:13 Sulfa (Sulfonamide Antibiotics); jl7 - Home Meds: 09:13 Synthroid Oral [Active]; Zetia Oral [Active]; Foltx oral [Active]; Prilosec Oral jl7 [Active]; Pepcid Oral [Active]; Flonase Nasal [Active]; flecainide oral [Active]; Eliquis oral [Active]; Xalatan Opht [Active]; - PMHx: 09:13 acid reflux; Hypothyroidism; Irregular heart rate; Hypercholesterolemia; Atrial jl7 fibrillation; 12:37 Glaucoma; kb3 - PSHx: 09:13 cardiac ablation; jl7 - Immunization history:: Client reports receiving the 2nd dose of the Covid vaccine. - Social history:: Smoking status: Patient denies any tobacco usage or history of. Screenin:01 Abuse screen: Denies threats or abuse. Nutritional screening: No deficits noted. ap3 Tuberculosis screening: No symptoms or risk factors identified. 17:42 Fall Risk kb3 Assessment: 11:01 Pain: Pain does not radiate. Pain began gradually. ap3 13:09 General: Orthostatic VS completed. Pt reports feeling less dizzy while standing than he kb3 had felt before but reports he remains the most dizzy when moving from lying to sitting. 17:00 General: Pt standing at bedside to void with stand-by assist only. Reports feeling kb3 better. Denies pain. Food tray provided. Vital Signs: 09:12 BP 150 / 87; Pulse 53; Resp 15; Temp 97.1; Pulse Ox 100% ; Weight 79.38 kg; Height 5 jl7 ft. 10 in. (177.80 cm); Pain 0/10; 11:16 BP 126 / 69; Pulse 68; Pulse Ox 98% on R/A; ap3 13:04 BP 128 / 72 Supine; Pulse 50; Resp 16; Pulse Ox 97% ; kb3 13:07 BP 149 / 82 Sitting; Pulse 55; Resp 14; Pulse Ox 98% ; kb3 13:09 BP 132 / 75 Standing; Pulse 62; Resp 16; Pulse Ox 98% ; kb3 15:00 BP 139 / 88; Pulse 51; Resp 20; Pulse Ox 98% ; kb3 17:00 BP 149 / 81; Pulse 50; Resp 20; Pulse Ox 96% ; kb3 09:12 Body Mass Index 25.11 (79.38 kg, 177.80 cm) jl7 ED Course: 08:42 Patient arrived in ED. as 08:50 Shlomo Varela MD is Attending Physician. nayeli 09:13 Triage completed. jl7 09:13 Arm band placed on right wrist. jl7 09:32 XRAY Chest (1 view) In Process Unspecified. EDMS 09:33 EKG done, by ED staff, reviewed by Shlomo Varela MD. jw7 09:[address] P[address] is Primary Nurse. ap3 09:39 Urine collected: clean catch specimen, clear, bozena colored. jw7 10:00 No provider procedures requiring assistance completed. Inserted saline lock: 20 gauge kb3 in right antecubital area, using aseptic technique. Blood collected. 11:01 Patient has correct armband on for positive identification. Bed in low position. Call ap3 light in reach. Side rails up X2. Adult w/ patient. 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 Pulse ox on. NIBP on. 11:01 Patient maintains SpO2 saturation greater than 95% on room air. ap3 12:25 CT Head Brain wo Cont In Process Unspecified. EDMS 13:20 Patient moved to MRI. kb3 13:24 Camila Valera MD is Hospitalizing Provider. [facility] 14:04 Brain Wo Cont In Process Unspecified. EDMS 17:42 Patient admitted, IV remains in place. kb3 Administered Medications: 10:29 Not Given (Patient Refused): Aspirin 81 mg PO once ap3 10:29 Not Given (Patient Refused): Pepcid (famotidine) 20 mg IVP once; dilute with 10 mL 0.9% ap3 NaCl; give over 2 minutes 10:29 Drug: Rocephin (cefTRIAXone) 1 grams Route: IV; Rate: per protocol; Site: right ap3 antecubital; 10:45 Follow up: IV Status: Completed infusion; IV Intake: 50ml ap3 12:00 Follow up: Response: No adverse reaction; IV Status: Completed infusion; IV Intake: [id number] 12:33 Not Given (Patient Refused): Meclizine 25 mg PO once ap3 12:45 Drug: Magnesium Sulfate 1 grams Route: IVPB; Infused Over: 1 hrs; Site: right kb3 antecubital; 14:45 Follow up: Response: No adverse reaction; IV Status: Completed infusion; IV Intake: kb3 100ml Medication: 11:01 VIS not applicable for this client. ap3 Intake: 10:45 IV: 50ml; Total: 50ml. ap3 12:00 IV: 50ml; Total: 100ml. kb3 14:45 IV: 100ml; Total: 200ml. kb3 Outcome: 13:28 Decision to Hospitalize by Provider. nayeli 17:42 Admitted to Med/surg accompanied by nurse, accompanied by tech, via wheelchair, Report kb3 called to Dagmar TRAVIS 17:42 Condition: stable 17:42 Instructed on the need for admit. 18:05 Patient left the ED. kb3 Signatures: Dispatcher [employer] Shlomo Crawford MD MD cha Martinez, Amelia as Leal, Jahala RN RN jl7 Court Pineda RN RN ap3 Ruby Robles7 Michela Causey RN RN kb3
--- NOTE | 2022-05-01 14:28 | RAD REPORT ---
EXAM DESCRIPTION: MRI - Brain Wo Cont - 05/01/2022 2:06 pm CLINICAL HISTORY: cva Headache, drowsiness, CVA symptomology COMPARISON: Head Brain Wo Cont dated 05/01/2022 TECHNIQUE: Multi-sequence, multiplanar MR imaging of the brain was performed without contrast. FINDINGS: No intracranial hemorrhage, hydrocephalus or extra-axial fluid collections.Moderate conflu ent T2/FLAIR hyperintensity in the periventricular and deep white matter is present compatible with c hronic microvascular ischemic changes. No edema or shift of midline structures. No findings to suspec t brain mass. DWI is negative for acute CVA. Midline structures are normally formed. Mastoid air cells and paranasal sinuses are clear. IMPRESSION: Negative for acute CVA or other acute intracranial process.
[2022-05-01] MEDS ORDERED: HYDROCODONE/APAP 5/325 MG TAB PO PRN (15:33)
[2022-05-01] MEDS ORDERED: ACETAMINOPHEN 325 MG TABLET PO PRN (15:33)
[2022-05-01] MEDS ORDERED: HYDRALAZINE HCL 20 MG/ML VIAL IV PRN (15:33)
--- NOTE | 2022-05-01 15:41 | P.HP ---
Certification for Inpatient Patient admitted to: Observation With expected LOS: <2 Midnights Patient will require the following post-hospital care: None Practitioner: I am a practitioner with admitting privileges, knowledge of patient current condition, hospital course, and medical plan of care. Services: Services provided to patient in accordance with Admission requirements found in Title 42 Section 412.3 of the Code of Federal Regulations Patient History Date of Service: 05/01/22 Reason for admission: Dizziness and headache. History of Present Illness: Patient is an 87-year-old male with a past medical history significant for GERD, hypothyroidism, A. fib, HLD, glaucoma presents with complaint of dizziness. Patient reported that he gets dizzy whenever he changes position or get up. Patient reported associated signs and symptoms of headache. Patient denies any other signs and symptoms. Symptoms are aggravated or relieved by nothing. Patient decided to present to the hospital due to worsening symptoms. Of note, patient reported a recent cardiac ablation in 2021. Allergies acetaminophen [From Percocet] Allergy (Unverified 08/11/16 00:16) Unknown oxycodone [From Percocet] Allergy (Unverified 08/11/16 00:16) Unknown Erythromycin Allergy (Uncoded 08/11/16 00:16) Unknown Neomycin Sulfate Allergy (Uncoded 08/11/16 00:16) Unknown Sulfa (Sulfonamide A Allergy (Uncoded 08/11/16 00:16) Unknown Home medications list reviewed: No - Past Medical/Surgical History -: Paroxysmal A. fib. -: Hypothyroidism. -: GERD. -: Cardiac ablation. - Family History Family History: Reviewed- Non-Contributory - Social History Smoking Status: Unknown if ever smoked Alcohol use: No CD- Drugs: No Caffeine use: Yes Place of Residence: Home Review of Systems General: Unremarkable Eyes: Unremarkable ENT: Unremarkable Respiratory: Unremarkable Cardiovascular: Other (Dizziness) Gastrointestinal: Unremarkable Musculoskeletal: Unremarkable Integumentary: Unremarkable Neurological: Other (Headache, dizziness) Physical Examination - Physical Exam General: Alert, In no apparent distress, Oriented x3 HEENT: Atraumatic, PERRLA, Mucous membr. moist/pink, EOMI, Sclerae nonicteric Neck: Supple, 2+ carotid pulse no bruit, No LAD, Without JVD or thyroid abnormality Respiratory: Clear to auscultation bilaterally, Normal air movement Cardiovascular: No edema Capillary refill: <2 Seconds Gastrointestinal: Normal bowel sounds, Soft and benign, No tenderness Musculoskeletal: No clubbing, No tenderness Integumentary: No rashes Neurological: Normal speech, Normal tone, Normal affect Lymphatics: No axilla or inguinal lymphadenopathy - Studies Laboratory Data (last 24 hrs) 05/01/22 09:18: PT 19.2 H, INR 1.75 05/01/22 09:18: WBC 5.50, Hgb 14.3, Hct 42.6, Plt Count 151 L 05/01/22 09:18: Sodium 140, Potassium 3.6, BUN 15, Creatinine 1.06, Glucose 110 H, Magnesium 1.7 L, Total Bilirubin 0.9, AST 29, ALT 21, Alkaline Phosphatase 119 H, Lipase 109 Assessment and Plan - Plan --Dizziness\anemia syncope. Likely secondary to bradycardia. Echocardiogram and carotid Doppler pending. We will get some orthostatic vital signs. Cardiology consulted. Will await further recommendations. --Bradycardia. Echocardiogram pending. Telemetry to monitor for any malignant arrhythmia. 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 --GERD. Continue Protonix. --Hyperlipidemia. Continue home medication. --Paroxysmal A. fib. Continue Eliquis. Patient reportedly sent cardiac ablation in February 2022. Telemetry to monitor for any malignant arrhythmia. --Glaucoma. Continue home medication. --Hypothyroidism. Continue home medication. --UTI POA. Continue antibiotics. Urine cultures pending. ---Hypomagnesemia. Replete as needed. --CKD 2. Baseline functions unknown. We will continue to monitor renal functions. -- DVT prophylaxis with Eliquis. Discharge Plan: Home Plan to discharge in: Greater than 2 days - Advance Directives Does patient have a Living Will: Yes Does patient have a Durable POA for Healthcare: Yes - Code Status/Comfort Care Code Status Assessed: Yes Physician Review: Patient Assessed, Agree with Above Assessment and Plan Critical Care: No
--- NOTE | 2022-05-01 16:46 | RAD REPORT ---
EXAM DESCRIPTION: US - CP - 05/01/2022 4:35 pm CLINICAL HISTORY: Dizziness Headache, drowsiness, dizziness COMPARISON: Head Brain Wo Cont dated 05/01/2022 TECHNIQUE: Real-time sonographic evaluation of both carotid systems was performed. Doppler interroga tion was performed with waveform tracing bilaterally. FINDINGS: Normal high resistance waveforms are noted in both external carotid arteries. The common c arotid arteries and internal carotid arteries show normal low resistance waveforms. Small volume hard plaque seen in both carotid bulbs. Peak systolic and end diastolic velocity values and the ICA/CCA ratios are in the non-hemodynamically significant range. Antegrade flow seen in both vertebral arteries. IMPRESSION: Small mild hard plaque is seen in both carotid bulbs. No evidence of a hemodynamically significant stenosis.
[2022-05-01 19:59] LABS: Magnesium 1.8 mg/dL (1.8-2.4); Phosphorus 2.7 mg/dL (2.5-4.9); Thyroid Stimulating Hormone 1.06 uIU/mL (0.360-3.740)
[2022-05-01] MEDS: APIXABAN 5 MG TABLET PO SCH (21:00)
[2022-05-01] MEDS ORDERED: ATORVASTATIN 40 MG TAB PO SCH (21:00)
[2022-05-01 21:47] VITALS: BMI 25.1
[2022-05-02 06:14] LABS: Absolute Lymphocytes (CBC) 1.9 K/uL (0.7-4.9); Hematocrit 39.4 % (39.6-49.0); Lymphocytes % 28.8 % (15.3-44.8); MCV 100.9 fL (80-100); MPV 7.6 fL (7.6-11.3); RBC Red Blood Cell Count 3.91 M/uL (4.33-5.43)
[2022-05-02 06:20] LABS: Potassium 3.7 mmol/L (3.5-5.1)
[2022-05-02 07:03] LABS: Folic Acid, (Folate) > 20.0 ng/mL (3.1-17.5)
[2022-05-02] MEDS ORDERED: PANTOPRAZOLE 40MG TABLET PO SCH (07:30)
[2022-05-02] MEDS ORDERED: FLUTICASONE 50MCG NASAL SPRAY NAS PRN (08:24)
[2022-05-02 08:35] VITALS: BP 117/67; TEMP 97.9
[2022-05-02] MEDS: APIXABAN 5 MG TABLET PO SCH (08:41)
[2022-05-02] MEDS ORDERED: LIDOCAINE TP SCH (09:00)
[2022-05-02] MEDS ORDERED: HOME MED 1 EA UNK (Omeprazole [Prilosec] 40 MG Capsule.Dr) PO SCH (09:00)
[2022-05-02] MEDS ORDERED: CEFTRIAXONE 1,000 MG in NA CHLORIDE 0.9% 50 ML IVPB SCH (09:00)
[2022-05-02] MEDS ORDERED: LEVOTHYROXINE SOD 0.075 MG TAB PO SCH (09:00)
[2022-05-02] MEDS ORDERED: MULTIVIT W/ MINERAL TAB PO SCH (09:00)
[2022-05-02] MEDS ORDERED: CALCIUM CITRATE PO SCH (09:00)
[2022-05-02] MEDS ORDERED: EZETIMIBE 10 MG TAB PO SCH (09:00)
[2022-05-02] MEDS ORDERED: APIXABAN 5 MG TABLET PO SCH (09:00)
[2022-05-02] MEDS ORDERED: HOME MED 1 EA UNK (Dorzolamide Hcl/Timolol Maleat [Dorzolamide-Timolol Eye Drops] 10 ML Dr OP SCH (09:00)
[2022-05-02] MEDS ORDERED: LIDOCAINE 4% PATCH TD SCH (09:00)
[2022-05-02] MEDS ORDERED: ASPIRIN 81 MG CHEWABLE TABLET PO SCH (09:00)
[2022-05-02] MEDS ORDERED: ASPIRIN EC 81 MG TAB PO SCH (09:00)
[2022-05-02] MEDS ORDERED: FOLBIC 1 TAB PO SCH (09:00)
[2022-05-02] MEDS ORDERED: VITAMIN D3 PO SCH (09:00)
[2022-05-02] MEDS ORDERED: CALCIUM CARB 500MG/VIT D 200 IU TAB PO SCH (09:00)
[2022-05-02 09:59] VITALS: O2SAT 95
--- NOTE | 2022-05-02 15:47 | CON ---
Date of Consultation: 05/01/2022 Reason For Consultation: Dizziness. History Of Present Illness: Mr. Vega is 87. Has had a history of atrial fibrillation, recent abla tion. He follows up with workers' compensation hearings officer in [place]. He sees Dr. Khan and sees Dr. Arslan Noble whom I contacted, but I have not got any answer yet. Nevertheless, came in with what sounded like benign p ositional vertigo. He was slightly bradycardic. He is asymptomatic now. Allergies: HE IS ALLERGIC TO TYLENOL AND ERYTHROMYCIN. Past Medical History: Includes atrial fibrillation, ablation, hypothyroidism, and dyslipidemia. Medications: Include flecainide, Eliquis, aspirin, Lipitor, and thyroid. Review of Systems: Negative. Social History: Negative. Family History: Negative. Physical Examination: Vital Signs: In sinus rhythm. HEENT: Negative. Neck: Supple with no bruit. Chest: Clear. Cardiac: Normal. Abdomen: Benign. Extremities: Revealed no clubbing, cyanosis, or edema. Diagnostic Data: Normal. Impression And Plan: Dizziness and lightheadedness, most likely secondary to benign positional verti go. I do not think this is related to his medications. Nevertheless, he had an ablation recently an d I think there was a chance he could come of his flecainide and Eliquis. He will follow up with his conduit installer in the near future to make that decision. From my standpoint, he can go home wh enever it is okay with Dr. Valera. JAVIER/PORSHA Voice ID: [id number] Report ID: [id number]
[2022-05-02] MEDS ORDERED: HOME MED 1 EA UNK (Latanoprost/Pf [Latanoprost 0.005% Eye Drop] 7.5 ML Drops) OPTH SCH (21:00)
[2022-05-02] MEDS ORDERED: FAMOTIDINE 20 MG TAB PO SCH (21:00)
[2022-05-02] MEDS ORDERED: HOME MED 1 EA UNK (Dorzolamide Hcl/Timolol Maleat [Dorzolamide-Timolol Eye Drops] 10 ML Dr OPTH SCH (21:00)
--- NOTE | 2022-05-04 19:22 | EKG ---
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
== END 2022-05-02 11:02 | disposition home or self-care (01) ==
LOC: ER 08:41 → ERHOLD 15:29 → 2ND 17:39
PROVIDERS: ADMIT Hospitalist; ATTEND Hospitalist
DX: R42 Dizziness and giddiness (principal); I48.0 Paroxysmal atrial fibrillation; R00.1 Bradycardia, unspecified; E03.9 Hypothyroidism, unspecified; E83.42 Hypomagnesemia; N18.2 Chronic kidney disease, stage 2 (mild); K21.9 Gastro-esophageal reflux disease without esophagitis; E78.5 Hyperlipidemia, unspecified; H40.9 Unspecified glaucoma; N39.0 Urinary tract infection, site not specified; Z79.01 Long term (current) use of anticoagulants; Z88.2 Allergy status to sulfonamides; Z88.6 Allergy status to analgesic agent; Z20.822 Contact with and (suspected) exposure to COVID-19
CPT/HCPCS: 96365; 96367; 93005; 87088; 85025 ×2; 87086; 80048 ×2; 36415; 83735 ×2; 84100; 85610; 80076; 84443; 81003; 84484; 84439; 82746; 82607; 83690; 83880; 70450; 71045; 93880; 70551; 99285; 87811; J3475 ×2; G0378 ×3

== ENCOUNTER 2022-10-08 21:30 | Observation (INO) | payer OTHER ==
--- OUTSIDE RECORDS SUMMARY | 2022-10-08 21:37 | XMS REPORT | Continuity of Care Document ---
:1935 Author Organization [facility] t Address [address] [facility] [address] [place] [address] Care Team Providers Name Role Phone DIANN HUERTA Primary Care Physician Unavailable KULWANT PACHECO Attending Clinician Unavailable Becca Soriano MD Attending Clinician [phone] Christina Gant Attending Clinician Unavailable KULWANT PACHECO Attending Clinician Unavailable Kulwant Pacheco MD Attending Clinician Flo Laura MD Attending Clinician Taylor TRAVIS, Nedra Attending Clinician Unavailable Melita Melgar MD Attending Clinician TEA_Nu_Netta Attending Clinician Unavailable Isaias Judge Attending Clinician [phone] KALIN MADDEN Attending Clinician Unavailable Kalin Madden MD Attending Clinician [phone], [facility] Room Attending Clinician Unavailable Vicente oWng MD Attending Clinician Isaias Judge Attending Clinician Unavailable Dhruv, Risa Attending Clinician Unavailable DONALD APARICIO Attending Clinician Unavailable KULWANT PACHECO Admitting Clinician Unavailable TEA_Nu_Isaias_ Admitting Clinician Unavailable Isaias Judge Admitting Clinician Unavailable Payers Payer Name Policy Type Policy Number Effective Date Expiration Date Bonita HUTCHINSON MEDICARE [id number] [facility]IC[facility] [id number] ADVANTAGE [place] [id number] Common HEALTHCARE [facility] UNITED MEDICARE [id number] 2021 HMO 00:00:00 [place] [id number] 2021 HEALTHCARE 00:00:00 (MEDICARE REPLACEMENT/ADVA NTAGE - PPO) [place] [id number] 2021 HEALTHCARE 00:00:00 HUMANA MEDICARE [id number] 2013 ADV 00:00:00 Problems Condition Condition Condition Status Onset Resolution Last Treating Co mments Source Name Details Category Date Date Treatment Clinician Date A-fib A-fib Disease Recurre [facility] 03-15 [facility] 00:00: Medical 00 Center PAF PAF Disease Active [facility] (paroxysma (paroxysma 02-19 [facility]lege l atrial l atrial 00:00: of fibrillati fibrillati 00 Me dicin on) on) e 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 Images from the original note were not included. Glaucoma Overview Dx: POAG , advanced optic atrophy ouTmax: OD 28Average IOP: 1--14 OUTarget IOP: 10 mm HgCurrent Medicatio ns: latanopro st qd OU, cosopt bid ouAllergi es: nkdaC/D (Date): 0.8/0.8 OULaser/S urgeries: Glaukos trabecula r micro-byp ass stent OD, Hydrus Aqueous stent implant OS, SLT OD, Phaco/IOL OUGoniosc opy: grad 3 OU with PAS HVF (Date): Right EyeThresh old was 24-2. Strategy was APPLE. [...] Becca Soriano MD on 05/09/20 at 1146 CUSTOMER CARE ASSOCIATE 18Right EyeThresh old was 24-2. Strategy was APPLE. Reliabili ty was good (12% FN). Progressi on has been stable. -9.04. Findings include superior nasal step defect, superior arcuate defect. Left EyeThresh old was 24-2. Strategy was APPLE. Reliabili ty was good. -3.87. Findings include non-speci fic defects (No prior vf for compariso n). HVF 05/09/20R ight EyeThresh old was 24-2. Strategy was APPLE. Reliabili ty was good. 11.67. Findings include non-speci fic defects, superior arcuate defect, superior altitudin al defect, inferior arcuate defect. Left EyeThresh old was 24-2. Strategy was APPLE. Reliabili ty was poor. -3.88. Findings include non-speci fic defects (Probable rim artefact) . SignedEle ctronical ly signed by Becca Soriano MD on 05/09/20 at 1144 CUSTOMER CARE ASSOCIATE 06/08/19R ight EyeReliab ility was good. Temporal [...] Becca Soriano MD on 05/19/19 at 1153 CUSTOMER CARE ASSOCIATE 04/09/18R elimaxim Camara MD -10.38 Superior and inferior arcuate scotoma, superior nasal stepOS MD -2.86 non specific changesOC T (Date): 08/27/22 ABLE03/06R ight EyeReliab ility was good. Temporal thickness [...] thickness was showing abnormal thinning. 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 SN60WF +19.0 D [id number] +19.5 D OS20/20 ou PVD PVD Disease [...] Osteopenia Disease Active Overview : [facility] 00:00: g of this Medical 00 note Center might be different from the original. Compressi on fracture L3 vertebra PVC PVC Disease Active Overview: [facility] (premature (premature 02-28 [facility] ventricula ventricula 00:00: g of this of r r 00 note Medicin contractio contractio might be e n) n) different from the original. Last Assessmen t & Plan: Formattin g of this note might be different from the original. Noted on ECG today and on exam. Asymptoma tic. PVC PVC Disease Active Overview: [facility] (premature (premature 15 [employer] ventricula ventricula 00:00: g of this of r r 00 note Medicin contractio contractio might be e n) n) different from the original. Last Assessmen t & Plan: Formattin g of this note might be different from the original. Noted on ECG today and on exam. Asymptoma tic. Hyperlipid Hyperlipid Disease Active Overview : [facility] emia 12-20 [facility] 00:00: g of this of 00 note Medicin might be e different from the original. Last Assessmen t & Plan: Formattin g of this note might be different from the original. Refills sent to pharmacy. Recent FLP is WNL. No changes made today. [id number] Lower Problem Common urinary Spirit tract - [facility] (LUTS) [facility] [id number] Prostate Problem Com fri nodule Spirit - [facility] [id number] History of Problem Co mmon urethral Spirit stricture - [facility] [id number] Microhemat Problem Co mmon uria Spirit [facility] Allergies, Adverse Reactions, Alerts Allergy Allergy Status Severity Reaction(s) Onset Inactive Treating Comm ents Source Name Type Date Date Clinician Chapo Drake Active [facility] ycin ty to 02-19 [place] adverse 00:00: of reaction 00 Medicin s to e drug Neomycin Propensi Active [facility] ty to 02-19 [place] adverse 00:00: of reaction 00 Medicin s to e drug Oxycodon Propensi Active [facility] e-Acetam ty to 02-19 [place] inophen adverse 00:00: of reaction 00 Medicin s to e drug Sulfa Propensi Active [facility] Antibiot ty to 02-19 [place] ics adverse 00:00: of reaction 00 Medicin s to e drug Erythrom Propensi Active Other (See 2015-06 ANY MYCIN Methodi ycin ty to Comments) 2- ANTIBIOTI st adverse 00:00: CS"Makes Hospita reaction 00 me feel l s to worse drug than the reason I started taking the medicatio n" Oxycodon Propensi Active Other (See 2015-06 "Makes me Methodi e-Acetam ty to Comments) [address] inophen adverse 00:00: fused, Hospita reaction 00 crazy and l s to assertive drug " Sulfa Propensi Active Other (See 2015-06 "koehler my M ethodi (Sulfona ty to Comments) 08-[address] mide adverse 00:00: causes Hospita Antibiot reaction 00 scarring" l ics) s to drug ERYTHROM Allergy Active [facility] YCIN 08-11 00:00: 00 NEOMYCIN Allergy Active [facility] 08-11 00:00: 00 OXYCODON Allergy Active Med Other [facility] E-ACETAM 08-11 INOPHEN 00:00: 00 SULFA Allergy Active High Swelling [facility] (SULFONA 26 MIDE 00:00: ANTIBIOT 00 ICS) Sulfa Drug Active Swelling [facility] (Sulfona Allergy 08-11 [facility] 00:[facility]: Medical Antibiot 00 Center ics) Oxycodon Drug Active Other (See Angry/ivania C HI St e-Acetam Allergy Comments) 08-11 n Luke s inophen 00:00: Medical 00 Center Sulfa Drug Active Swelling [facility] (Sulfona Allergy 08-11 [facility] 00:00: Medical Antibiot 00 Center ics) Erythrom Drug Active Swelling [facility] ycin Allergy 08-11 [facility] 00:00: Medical 00 Center Neomycin Drug Active Swelling [facility] Allergy -26 [facility] 00:00: Medical 00 Center STATINS- Allergy Active [facility] HMG-COA 9-15 REDUCTAS 00:00: E 00 INHIBITO RS Statins- Propensi Active All [facility] H[facility]-Coa ty to 15 statins- [facility] Reductas adverse 00:00: had Medical e reaction 00 muscle Center Inhibito s pain rs Statins- Propensi Active All [facility] H[facility]-Coa ty to 15 statins- [facility] Reductas adverse 00:00: had Medical e reaction 00 muscle Center Inhibito s pain rs Sulfona Sulfona Active Unknown Commo n mide mide Spirit (substan (substan - CHI ce) ce) [facility] Family History Family Member Diagnosis Comments Start Date Stop Date Source Natural sister No Known Problems Met [facility] Natural brother [facility] Natural father Emphysema [facility] Natural father COPD [facility] Maternal grandfather Heart attack [facility] Maternal grandmother Stroke [facility] Natural mother Pancreatic cancer Met [facility] Natural mother Cancer [facility] Paternal grandfather Stroke [facility] Paternal grandmother Diabetes [facility] Social History Social Habit Start Date Stop Date Quantity Comments Source Gender identity 2021-03-11 Identifies as male M ethodist 14:27:10 gender (finding) [facility] Sexual orientation 2021-03-11 Method ist 14:27:10 Hospital History SDOH [facility] Alcohol Frequency Medical Center History SDOH [facility] Alcohol Std Drinks Medica l Center History SDOH [facility] Alcohol Binge Medical Jud ter History of Tobacco Common [facility] - Use [facility] History of Social 2022-08-27 2022-08-[address] function 00:00:00 00:00:00 Hospital Alcohol intake 2022-04-05 2022-04-05 Current drink[facility] 00:[facility]00 00:00:00 alcohol (finding) Medical Center Alcohol Comment 20[address] [facility] 00:00:00 00:00:00 Medical Center Tobacco use and 2022-02-19 2022-02-19 Smokeless tobacco Ba [facility] exposure 00:00:00 00:00:00 non-user of Medicine Sex [birth year] MANUEL Pugh 00:00:00 00:00:00 Medical Center Smoking Status Start Date Stop Date Source Never smoked tobacco [facility] Magdalena ege of Medicine Medications Ordered Filled Start Stop Current Ordering Indication Dosage Frequency Signature Comments Components Source Medication Medication Date Date Medication? Clinician (SIG) Name Name Aspirin 81 Yes 81mg Take 81 mg B aylor MG tablet 3-14 by mouth. Colle ge 13:23: of 39 Medicin e B Yes 1{tbl} Take 1 [facility] Complex-C-E 3-14 Tablet by Col lege -Zn (BEE 13:23: mouth of ZEE) TABS 39 daily. Medicin e fluticasone Yes 1{spray 1 [place] by Girish (FLONASE) 3-14 } Nasal College 50 MCG/ACT 13:23: route. of nasal spray 39 Medicin e omeprazole Yes 40mg Take 40 mg B aylor (PRILOSEC) 3-14 by mouth Colle ge 20 MG 13:23: two times of capsule 39 daily. Medicin TAKE TWICE e A DAY BEFORE MEALS L-Methylfol Yes Take by [place] rosalinda ate-B6-B12 3-14 mouth. [place] (FOLTX) 13:23: of 1.-2 39 Medicin MG TABS e Lidocaine Yes Apply [facility] HCl 4 % 3-14 topically. Raing vinny CREA 13:23: of 39 Medicin e Aspirin 81 2021-06 Yes 81mg Take 81 mg B aylor MG tablet 2-29 by mouth. Colle ge 10:15: of 52 Medicin e B 2021-06 Yes 1{tbl} Take 1 [facility] Complex-C-E 2-29 Tablet by Col lege -Zn (BEE 10:15: mouth of ZEE) TABS 52 daily. Medicin e fluticasone 2021-06 Yes 1{spray 1 [place] by Girish (FLONASE) 2-29 } Nasal College 50 MCG/ACT 10:15: route. of nasal spray 52 Medicin e omeprazole 2021-06 Yes 40mg Take 40 mg B [facility]or (PRILOSEC) 2-29 by mouth Colle ge 20 MG 10:15: two times of capsule 52 daily. Medicin TAKE TWICE e A DAY BEFORE MEALS L-Methylfol 2021-06 Yes Take by [place] ro[place]inda ate-B6-B12 2-29 mouth. [place] ([facility]) 10:15: of .-2 52 Medicin MG TABS e Lidocaine 2021-06 Yes Apply [facility] HCl 4 % 2-29 topically. Colleg e CREA 10:15: of 52 Medicin e Aspirin 81 2021-06 Yes 81mg Take 81 mg B aylor MG tablet 0-27 by mouth. Colle ge 10:52: of 11 Medicin e B 2021-06 Yes 1{tbl} Take 1 [facility] Complex-C-E 0-27 Tablet by Col lege -Zn (BEE 10:52: mouth of ZEE) TABS 11 daily. Medicin e fluticasone 2021-06 Yes 1{spray 1 [place] by [facility] (FLONASE) 0-27 } Nasal College 50 MCG/ACT 10:52: route. of nasal spray 11 Medicin e omeprazole 2021-06 Yes 40mg Take 40 mg B aylor (PRILOSEC) 0-27 by mouth. Magdalena ege 20 MG 10:52: of capsule 11 Medicin e L-Methylfol 2021-06 Yes Take by [place] ro[place]inda ate-B6-B12 0-27 mouth. [place] ([facility]) 10:52: of .2 11 Medicin MG TABS e Lidocaine 2021-06 Yes Apply [facility]ish HCl 4 % 0-27 topically. Colleg e [...] St ORAL 0-01 mouth [facility]ukes 20:10: daily. [address] CALCIUM 2021-06 Yes QD Take by [facility] ORAL 0-01 [facility] 20:10: daily. [address] CALCIUM 2021-06 Yes QD Take by [facility] ORAL 0-01 mouth [facility] 20:10: daily. [address] CALCIUM 2021-06 Yes QD Take by [facility] ORAL 0-01 mouth [facility] 20:10: daily. [address] CALCIUM 2021-06 Yes QD Take by [facility] ORAL 0-01 mouth [facility]ukes 20:10: daily. [address] CALCIUM 2021-06 Yes QD Take by [facility] ORAL 0-01 mouth [facility] 20:10: daily. [address] CALCIUM 2021-06 Yes QD Take by [facility] ORAL 0-01 mouth [facility]ukes 20:10: daily. [address] folic acid Yes 1mg QD Take [address] (FOLVITE) 1 9-30 by mouth Luke s MG tablet 20:31: daily. [address] calcium Yes Osteopenia 1{tbl} Q.5D Take [address] citrate-vit 9-30 tablet by Leann es salas D3 200 20:31: mouth 2 Med ical mg calcium 39 (two) Center -250 unit times Tab daily . aspirin 81 Yes Osteopenia 81mg QD Take [address] MG EC 9-30 by mouth Lukes tablet 20:31: daily. [address] latanoprost Yes 1[drp] QD Place [address] (XALATAN) 9-30 drop into [facility]ukes 0.005 % 20:31: both eyes Medic al ophthalmic 39 nightly. Cente r solution folic acid Yes 1mg QD Take [address] (FOLVITE) 1 9-30 by mouth Luke s MG tablet 20:31: daily. [address] calcium Yes Osteopenia 1{tbl} Q.5D Take [address] citrate-vit 9-30 tablet by Leann es salas D3 200 20:31: mouth 2 Med ical mg calcium 39 (two) Center -250 unit times Tab daily . aspirin 81 Yes Osteopenia 81mg QD Take [address] MG EC 9-30 by mouth Lukes tablet 20:31: daily. [address] latanoprost Yes 1[drp] QD Place [address] (XALATAN) 9-30 drop into [facility]ukes 0.005 % 20:31: both eyes Medic al ophthalmic 39 nightly. Cente r solution folic acid Yes 1mg QD Take [address] (FOLVITE) 1 9-30 by mouth Luke s MG tablet 20:31: daily. [address] calcium Yes Osteopenia 1{tbl} Q.5D Take [address] citrate-vit 9-30 tablet by Leann es salas D3 200 20:31: mouth 2 Med ical mg calcium 39 (two) Center -250 unit times Tab daily . aspirin 81 Yes Osteopenia 81mg QD Take [address] MG EC 9-30 by mouth Lukes tablet 20:31: daily. [address] latanoprost Yes 1[drp] QD Place [address] (XALATAN) 9-30 drop into [facility]ukes 0.005 % 20:31: both eyes Medic al ophthalmic 39 nightly. Cente r solution folic acid Yes 1mg QD Take [address] (FOLVITE) 1 9-30 by mouth Luke s MG tablet 20:31: daily. [facility] Center calcium Yes Osteopenia 1{tbl} Q.5D Take [address] citrate-vit 9-30 tablet by Leann es salas D3 200 20:31: mouth 2 Med ical mg calcium 39 (two) Center -250 unit times Tab daily . aspirin 81 Yes Osteopenia 81mg QD Take [address] MG EC 9-30 by mouth Lukes tablet 20:31: daily. [address] latanoprost Yes 1[drp] QD Place [address] (XALATAN) 9-30 drop into [facility]ukes 0.005 % 20:31: both eyes Medic al ophthalmic 39 nightly. Cente r solution folic acid Yes 1mg QD Take [address] (FOLVITE) 1 9-30 by mouth Luke s MG tablet 20:31: daily. [place] [id number] Center calcium Yes Osteopenia 1{tbl} Q.5D Take [address] citrate-vit 9-30 tablet by Leann es salas D3 200 20:31: mouth 2 Med ical mg calcium 39 (two) Center -250 unit times Tab daily . aspirin 81 Yes Osteopenia 81mg QD Take [address] MG EC 9-30 by mouth Lukes tablet 20:31: daily. [address] latanoprost Yes 1[drp] QD Place [address] (XALATAN) 9-30 drop into [facility]ukes 0.005 % 20:31: both eyes Medic al ophthalmic 39 nightly. Cente r solution folic acid Yes 1mg QD Take [address] (FOLVITE) 1 9-30 by mouth Luke s MG tablet 20:31: daily. Medica l [address] [place] calcium Yes Osteopenia 1{tbl} Q.5D Take [address] citrate-vit 9-30 tablet by Leann es salas D3 200 20:31: mouth 2 Med ical mg calcium 39 (two) Center -250 unit times Tab daily . aspirin 81 Yes Osteopenia 81mg QD Take [address] MG EC 9-30 by mouth Lukes tablet 20:31: daily. [address] latanoprost Yes 1[drp] QD Place 1 [...] 9-30 by mouth [facility]ukes tablet 20:31: daily. [address] latanoprost Yes 1[drp] QD Place [address] (XALATAN) 9-30 drop into [facility]ukes 0.005 % 20:31: both eyes Medic al ophthalmic 39 nightly. Cente r solution folic acid Yes 1mg QD Take [address] (FOLVITE) 1 9-30 by mouth Luke s MG tablet 20:31: daily. Medica 39 [place] lidocaine 2021- No Apply [facility] (LMX) 4 % 03-1530 topically Luke s cream 08:54: 00:00 daily as Medical 23 :00 needed. [place] lidocaine 2021- No Apply [facility] (LMX) 4 % 03-1530 topically Luke s cream 08:54: 00:00 daily as Medical 23 :00 needed. [place] lidocaine 2021- No Apply [facility] (LMX) 4 % 03-15 topically Luke s cream 08:54: 00:00 daily as Medical 23 :00 needed. [place] lidocaine 2021- No Apply [facility] (LMX) 4 % 03-15 topically Luke s cream 08:54: 00:00 daily as Medical 23 :00 needed. [place] lidocaine 2021- No Apply [facility] (LMX) 4 % 03-15 topically Luke s cream 08:54: 00:00 daily as Medical 23 :00 needed. [place] lidocaine 2021- No Apply [facility] (LMX) 4 % 03-15 topically Luke s cream 08:54: 00:00 daily as Medical 23 :00 needed. [place] lidocaine 2021- No Apply [facility] (LMX) 4 % 03-15 topically Luke s cream 08:54: 00:00 daily as Medical 23 :00 needed. Center levothyroxi 2-0 Yes 75ug QD Take [address] ne 9-22 mcg by Lukes (SYNTHROID, 00:00: mouth Medic al LEVOTHROID) 00 daily. Center 75 MCG tablet levothyroxi 2-0 Yes 75ug QD Take [address] ne 9-22 mcg by Lukes (SYNTHROID, 00:00: mouth Medic al LEVOTHROID) 00 daily. Center 75 MCG tablet levothyroxi 2-0 Yes 75ug QD Take [address] ne 9-22 mcg by Lukes (SYNTHROID, 00:00: mouth Medic al LEVOTHROID) 00 daily. Center 75 MCG tablet levothyroxi 2022-0 Yes 75ug QD Take [address] ne 9-22 mcg by Lukes (SYNTHROID, 00:00: mouth Medic al LEVOTHROID) 00 daily. Center 75 MCG tablet levothyroxi 2022-0 Yes 75ug QD Take [address] ne 9-22 mcg by Lukes (SYNTHROID, 00:00: mouth Medic al LEVOTHROID) 00 daily. Center 75 MCG tablet levothyroxi 2022-0 Yes 75ug QD Take [address] ne 9-22 mcg by Lukes (SYNTHROID, 00:00: mouth Medic al LEVOTHROID) 00 daily. Center 75 MCG tablet levothyroxi 2022-0 Yes 75ug QD Take [address] ne 9-22 mcg by Lukes (SYNTHROID, 00:00: mouth Medic al LEVOTHROID) 00 daily. Center 75 MCG tablet Lidocaine Yes Apply [facility] HCl 4 % 02-19 topically. Lenard tavera CREA 16:14: of 37 Medicin e L-Methylfol Yes Take by [place] rosalinda ate-B6-B12 02-19 mouth. [place] (FOLTX) 16:13: of 1.-2 59 Medicin MG TABS e Aspirin 81 Yes 81mg Take 81 mg B aylor MG tablet 02-19 by mouth. Rain ge 16:07: of 20 Medicin e B Yes 1{tbl} Take 1 [facility] Complex-C-E 02-19 Tablet by Col yana [facility] (BEE 16:07: mouth of ZEE) TABS 20 daily. Medicin e fluticasone Yes 1{spray 1 [place] by Girish (FLONASE) 02-19 } Nasal College 50 MCG/ACT 16:07: route. of nasal spray 20 Medicin e omeprazole Yes 40mg Take 40 mg B aylor [...] tablet 00 times Medicin daily. e flecainide 2021-0 Yes 50mg Take 1 [facility] (TAMBOCOR) - Tablet by Magdalena ege 50 MG 00:00: mouth 3 of tablet 00 times Medicin daily. e flecainide 2021-0 Yes 50mg Take 1 [facility] (TAMBOCOR) 02-19 Tablet by Magdalena ege 50 MG 00:00: mouth 3 of tablet 00 times Medicin daily. e flecainide 2021-0 2021- No [facility] (TAMBOCOR) 02-19 College 50 MG 00:00: 00:00 of tablet 00 :00 Medicin e ELIQUIS 5 Yes 1{tbl} Take 1 [facility] or MG TABS 8-23 Tablet by [place] 00:00: mouth two of 00 times Medicin daily. e ELIQUIS 5 Yes 1{tbl} Take 1 [facility] or MG TABS 8-23 Tablet by [place] 00:00: mouth two of 00 times Medicin daily. e ELIQUIS 5 Yes 1{tbl} Take 1 Bayl or MG TABS 8-23 Tablet by [place] 00:00: mouth two of 00 times Medicin daily. e ELIQUIS 5 Yes 1{tbl} Take 1 Bayl or MG TABS 8-23 Tablet by [place] 00:00: mouth two of 00 times Medicin daily. e apixaban Yes 1{tbl} Q.5D Take 1 [facility] (Eliquis) 5 8-23 tablet by Leann es mg Tab 00:00: mouth 2 Medical tablet 00 (two) Center times daily. apixaban Yes 1{tbl} Q.5D Take 1 [facility] (Eliquis) 5 8-23 tablet by Leann es mg Tab 00:00: mouth 2 Medical tablet 00 (two) Center times daily. apixaban Yes 1{tbl} Q.5D Take 1 [facility] (Eliquis) 5 8-23 tablet by Leann es mg Tab 00:00: mouth 2 Medical tablet 00 (two) Center times daily. apixaban Yes 1{tbl} Q.5D Take 1 [facility] (Eliquis) 5 8-23 tablet by Leann es mg Tab 00:00: mouth 2 Medical tablet 00 (two) Center times daily. apixaban 2021- Yes 1{tbl} Q.5D Take 1 [facility] (Eliquis) 5 8-23 tablet by Leann es mg Tab 00:00: mouth 2 Medical tablet 00 (two) Center times daily. apixaban Yes 1{tbl} Q.5D Take 1 [facility] (Eliquis) 5 8-23 tablet by Leann es mg Tab 00:00: mouth 2 Medical tablet 00 (two) Center times daily. apixaban 0 Yes 1{tbl} Q.5D Take 1 [facility] (Eliquis) 5 8-23 tablet by Leann es mg Tab 00:00: mouth 2 Medical tablet 00 (two) Center times daily. ezetimibe 0 Yes 10mg Take 10 mg Ba ylor (ZETIA) 10 8-18 by mouth Colle ge MG tablet 00:00: daily. of Medicin e ezetimibe 0 Yes 10mg Take 1 [facility]ish (ZETIA) 10 8-18 Tablet by Magdalena ege MG tablet 00:00: mouth of 00 daily. Medicin e ezetimibe 0 Yes 10mg Take 10 mg Ba ylor (ZETIA) 10 8-18 by mouth Colle ge MG tablet 00:00: daily. of Medicin e ezetimibe 0 Yes 10mg Take 10 mg Ba ylor (ZETIA) 10 8-18 by mouth Colle ge MG tablet 00:00: daily. of Medicin e ezetimibe Yes 10mg QD Take 10 mg Me thodi (ZETIA) 10 8-[address] mg tablet 10:30: nightly. [...] needed. Hospit a capsule 13 l calcium 0 Yes 630mg QD Take 630 Metho di carbonate-v 8- mg by st itamin D3 10:30: mouth [...] 10:30: daily. Hospit a 13 l ezetimibe Yes 10mg QD Take 10 mg [...] dose 2.5-25-2 mg taken tablet yesterday aspirin Yes 81mg QD Take 81 mg Meth [...] 75ug QD Take 75 Met hodi ne - mcg by st (SYNTHROID) 10:30: mouth Hospi ta 100 mcg 13 daily. l tablet lidocaine Yes Apply Methodi HCL 01-[address] (Aspercreme 10:30: as needed. Hospita , lidocaine 13 l HCL,) 4 % cream famotidine Yes 40mg QD Take 40 mg M ethodi (Pepcid) 40 01-[address] MG tablet 10:30: daily. Hospit a 13 l ezetimibe Yes 10mg QD Take 10 mg [...] dose 2.5-25-2 mg taken tablet yesterday aspirin Yes 81mg QD Take 81 mg Meth [...] QD Take 1 Me thodi n with 8-[address] minerals 10:30: mouth Hospita tablet 13 daily. l levothyroxi 2021-0 Yes 75ug QD Take 75 Met hodi [...] 10:30: daily. Hospit a 13 l famotidine Yes TAKE ONE [place] rosalinda (PEPCID) 40 7-20 (1) College MG tablet 00:00: TABLET(S) of 00 BY MOUTH Medicin EVERY e EVENING. famotidine Yes TAKE ONE [place] rosalinda (PEPCID) 40 7-20 (1) College MG tablet 00:00: TABLET(S) of 00 BY MOUTH Medicin EVERY e EVENING. famotidine Yes SMARTSI [facility] (PEPCID) 40 [...] Medi nahum 00 Every Center Evening famotidine Yes SMARTSI C [facility] (PEPCID) 40 7-20 Tablet(s) Leann es MG tablet 00:00: By Mouth Medi nahum 00 Every Center Evening famotidine 2021- No TAKE ONE Johnny sheehan (PEPCID) 40 7-20 12-29 (1) College MG tablet 00:00: 00:00 TABLET(S) of 00 :00 BY MOUTH Medicin EVERY e EVENING. EUTHYROX 75 Yes TAKE 1 [facility] or MCG tablet 6-20 TABLET BY Magdalena ege 00:00: MOUTH ONCE of 00 DAILY Medicin e EUTHYROX 75 0 Yes TAKE 1 [facility]l or MCG tablet 6-20 TABLET BY Magdalena ege 00:00: MOUTH ONCE of 00 DAILY Medicin e EUTHYROX 75 0 Yes TAKE 1 [facility] MCG tablet 6-20 TABLET BY [facility] ege 00:00: MOUTH ONCE of 00 DAILY Medicin e EUTHYROX 75 Yes TAKE 1 [facility] MCG tablet 6-20 TABLET BY [facility] ege 00:00: MOUTH ONCE of 00 DAILY Medicin e latanoprost Yes INSTILL [place] [facility] (XALATAN) 6-17 ONE (1) College 0.005 % 00:00: DROP(S) IN of ophthalmic 00 EACH EYE Medic in solution AT e BEDTIME. latanoprost Yes INSTILL [place] [facility] (XALATAN) 6-17 ONE (1) College 0.005 % 00:00: DROP(S) IN of ophthalmic 00 EACH EYE Medic in solution AT e BEDTIME. latanoprost Yes INSTILL [place] [facility] (XALATAN) 6-17 ONE (1) College 0.005 % 00:00: DROP(S) IN of ophthalmic 00 EACH EYE Medic in solution AT e BEDTIME. latanoprost 0 Yes INSTILL [place] [facility] (XALATAN) 6-17 ONE (1) College 0.005 % 00:00: DROP(S) IN of ophthalmic 00 EACH EYE Medic in solution AT e BEDTIME. dorzolamide Yes INSTILL [place] [facility] -timolol 6-16 ONE (1) College (COSOPT) 00:00: DROP(S) IN of 22.3-6.8 00 EACH EYE Medicin MG/ML TWICE A e ophthalmic DAY. solution dorzolamide 0 Yes INSTILL [place] [facility] -timolol 6-16 ONE (1) [place] (COSOPT) 00:00: DROP(S) IN of 22.3-6.8 00 EACH EYE Medicin MG/ML TWICE A e ophthalmic DAY. solution dorzolamide 0 Yes INSTILL [place] [facility] -timolol 6-16 ONE (1) [place] (COSOPT) 00:00: DROP(S) IN of 22.3-6.8 00 EACH EYE Medicin MG/ML TWICE A e ophthalmic DAY. solution dorzolamide 0 Yes INSTILL [place] [facility] -timolol 6-16 ONE (1) [place] (COSOPT) 00:00: DROP(S) IN of 22.3-6.8 00 EACH EYE Medicin MG/ML TWICE A e ophthalmic DAY. solution lidocaine 2020-06 No 1{patch Q24H Place 1 M ethodi [...] within 12 hours or as directed by dorzolamconrado 2020-06- No INSTILL [facility] -timoloL 0-12 04-02 ONE (1) st (COSOPT) 00:00: 00:00 DROP(S) IN Ho spita 22.3-6.8 00 :00 EACH EYE l mg/mL TWICE A ophthalmic DAY. solution latanoprost 2020-06- No INSTILL M ethodi (XALATAN) 0-12 04-02 ONE () st 0.005 % 00:00: 00:00 DROP(S) IN Hos ekaterina ophthalmic 00 :00 EACH EYE l solution AT BEDTIME. dorzolamide 2020-06- No INSTILL [facility] -timoloL 0-12 10-18 ONE (1) st (COSOPT) 00:00: 00:00 DROP(S) IN Ho spita 22.3-6.8 00 :00 EACH EYE l mg/mL TWICE A ophthalmic DAY. solution latanoprost 2020-06- No INSTILL M ethodi (XALATAN) 004-02 ONE (1) st 0.005 % 00:00: 00:00 DROP(S) IN [facility] ophthalmic 00 :00 EACH EYE l solution AT BEDTIME. dorzolamide 2020-06- No INSTILL Me [facility] -timoloL 04-02 ONE (1) st (COSOPT) 00:00: 00:00 DROP(S) IN Ho spita 22.3-6.8 00 :00 EACH EYE l mg/mL TWICE A ophthalmic DAY. solution latanoprost 2020-06- No INSTILL M ethodi (XALATAN) 04-02 ONE (1) st 0.005 % 00:00: 00:00 [...] at Hospita capsule 00 bedtime l celecoxib 2020-0 Yes 2 tabs in [facility] (CeleBREX) 7-[address] 100 MG 00:00: tab at Hospita capsule 00 bedtime flecainide 2019-1 [facility]05 [facility] 00:00: Medical tablet 00 [facility] flecainide 2020- Yes [facility]. [facility]-05 [facility] 50 MG 00:00: Medical tablet 00 [facility] flecainide 2020- Yes DAILY. [facility] (TAMB[facility]OR[facility] 0-05 [facility] 50 MG 00:00: Medical tablet 00 [facility] flecainide 2020- Yes DAILY. [facility] (TAMB[facility] 0-05 [facility] 50 MG 00:00: Medical tablet 00 [facility] flecainide 2020- Yes DAILY. [facility] (TAMBOCOR[facility] 0-05 [facility] 50 MG 00:00: Medical tablet 00 [facility] flecainide 2020- Yes DAILY. [facility] (TAMBOCOR[facility] 0-05 [facility] 50 MG 00:00: Medical tablet 00 [facility] flecainide 2020- Yes DAILY. [facility] (TAMBOCOR[facility] 0-05 [facility] 50 MG 00:00: Medical tablet 00 [facility] multivitami 2020-0 Yes 1{tbl} QD Take [address] (FOLBIC) 8-18 tablet by Leann es 2.5-25-2 mg 00:00: mouth Medic al tablet 00 daily. [facility] multivitami 2019-0 Yes 1{tbl} QD Take [address] [facility] (FOLBIC) 8-18 tablet by Leann es 2.5-25-2 mg 00:00: mouth Medic al tablet 00 daily. [facility] multivitami 2020-0 Yes 1{tbl} QD Take [address] [facility] (FOLBIC) 8-18 tablet by Leann es 2.5-25-2 mg 00:00: mouth Medic al tablet 00 daily. [facility] multivitami 2020-0 Yes 1{tbl} QD Take [address] [facility] (FOLBIC) 8-18 tablet by Leann es 2.5-25-2 mg 00:00: mouth Medic al tablet 00 daily. [facility] multivitami 2020-0 Yes 1{tbl} QD Take [address] [facility] (FOLBIC) 8-18 tablet by Leann es 2.5-25-2 mg 00:00: mouth Medic al tablet 00 daily. [facility] multivitami 2020-0 Yes 1{tbl} QD Take [address] [facility] (FOLBIC) 8-18 tablet by Leann es 2.5-25-2 mg 00:00: mouth Medic al tablet 00 daily. [facility] multivitami 2020-0 Yes 1{tbl} QD Take [address] [facility] (FOLBIC) 8-18 tablet by Leann es 2.5-25-2 mg 00:00: mouth Medic al tablet 00 daily. [facility] ezetimibe 2020-[address] [facility] (ZETIA) 10 8-17 [facility] tablet 00:00: Medical 00 [facility] ezetimibe 2020-[address] [facility] (ZETIA) 10 8-17 [facility] tablet 00:00: Medical 00 [facility] ezetimibe 2020-[address] [facility] (ZETIA) 10 8-17 [facility] tablet 00:00: Medical 00 [facility] ezetimibe 2020-[address] [facility] (ZETIA) 10 8-17 [facility] tablet 00:00: Medical 00 [facility] ezetimibe 2020-[address] [facility] (ZETIA) 10 8-17 [facility] tablet 00:00: Medical 00 [facility] ezetimibe 2020-[address] [facility] (ZETIA) 10 8-17 [facility] tablet 00:00: Medical 00 [facility] ezetimibe 2020-[address] [facility] (ZETIA) 10 8-17 [facility] tablet 00:00: Medical 00 [facility] celecoxib 2019-2021- No TAKE ONE [facility] (CELEBREX) 09-06 (1) [facility] 100 MG 00:00: 00:00 CAPSULE(S) Medi nahum capsule 00 :00 BY MOUTH Center EVERY TWELVE HOURS NEEDED FOR PAIN. celecoxib 2019-2021- No TAKE ONE [facility] (CELEBREX) 09-06 [...] Center mg/mL times ophthalmic daily. solution dorzolamide 2018-0 Yes 1[drp] Q.5D Place [address] -timolol 6-26 drop into [facility] (COSOPT) 00:00: both eyes Medi nahum 22.3-6.8 00 2 (two) Center mg/mL times ophthalmic daily. solution dorzolamide 2019-0 Yes 1[drp] Q.5D Place [address] -timolol 6-26 drop into [facility] (COSOPT) 00:00: both eyes Medi nahum 22.3-6.8 00 2 (two) Center mg/mL times ophthalmic daily. solution dorzolamide 2019-0 Yes 1[drp] Q.5D Place [address] -timolol 6-26 drop into [facility] (COSOPT) 00:00: both eyes Medi nahum 22.3-6.8 00 2 (two) Center mg/mL times ophthalmic daily. solution dorzolamide 2018- Yes 1[drp] Q.5D Place [address] -timolol 6-26 drop into [facility] (COSOPT) 00:00: both eyes Medi nahum 22.3-6.8 00 2 (two) Center mg/mL times ophthalmic daily. solution dorzolamide 2018- Yes 1[drp] Q.5D Place [address] -timolol 6-26 drop into [facility] (COSOPT) 00:00: both eyes Medi nahum 22.3-6.8 00 2 (two) Center mg/mL times ophthalmic daily. solution dorzolamide 2018-0 Yes 1[drp] Q.5D Place 1 C HI [...] Yes Essential 1{spray QD 1 spray by [facility] (FLONASE) 619 hypertensio } Nasal [place] [facility] 50 00:00: n route Medical mcg/actuati 00 daily. Center on nasal spray fluticasone Yes Essential 1{spray QD [address] [facility] (FLONASE) 6-19 hypertensio } [facility] [place] [facility] 50 00:00: n route Medical mcg/actuati 00 daily. Center on nasal spray fluticasone Yes Essential 1{spray QD [address] [facility] (FLONASE) 6-19 hypertensio } [facility] [place] [facility] 50 00:00: n route Medical mcg/actuati 00 daily. Center on nasal spray fluticasone Yes Essential 1{spray QD [address] [facility] (FLONASE) 6-19 hypertensio } [facility]al [place] [facility] 50 00:00: n route Medical mcg/actuati 00 daily. Center on nasal spray fluticasone Yes Essential 1{spray QD [address] [facility] (FLONASE) 6-19 hypertensio } [facility] [place] [facility] 50 00:00: n route Medical mcg/actuati 00 daily. Center on nasal spray fluticasone Yes Essential 1{spray QD [address] [facility] (FLONASE) 6-19 hypertensio } [facility] [place] [facility] 50 00:00: n route Medical mcg/actuati 00 daily. Center on nasal spray fluticasone Yes Essential 1{spray QD [address] [facility] [address] (FLONASE) 6-19 hypertensio } [facility] [place] [facility] 50 00:00: n route Medical mcg/actuati 00 daily. Center on nasal spray Foltx Foltx No 1{table QD Foltx 1.1325-2 1.1325-2 t} 1.1325-2 MG MG MG Dorzolamide Dorzolamide No 1{drop_ BID Dorzolamid HCl-Timolol HCl-Timolol into_af e Mal Mal fected_ HCl-Timolo 22.3-6.8 22.3-6.8 eye} l Mal MG/ML MG/ML 22.3-6.8 MG/ML PriLOSEC PriLOSEC No BID PriLOSEC OTC 20 MG OTC 20 MG OTC 20 MG Aspirin 81 Aspirin 81 No 1{table QD Aspirin 81 MG MG t} MG Zetia 10 MG Zetia 10 MG No 1{table QD Zetia 10 t} MG Synthroid Synthroid No QD Synthroid 75 MCG 75 MCG 75 MCG Flonase Flonase No QD Flonase 0.05% nasal 0.05% nasal 0.05% spray spray nasal spray Xalatan Xalatan No 1{drop_ QD Xalatan 0.005 % 0.005 % into_af 0.005 % fected_ eye_in_ the_eve storm} Immunizations Ordered Immunization Filled Immunization Date Status Commen ts Source Name Name Influenza TIV (IM) 2022-02-[address] [facility] [facility] Influenza TIV (IM) 2022-02-[address] [facility]:[address] [facility] Influenza TIV (IM) 2022-02-[address] [facility]:[address] [facility] Influenza TIV (IM) 2022-02-[address] [facility]:[address] [facility] Influenza TIV (IM) 2022-02-[address] [facility] 00:[facility]:[address] [facility] Influenza TIV (IM) 2022-02-[address] [facility] 00:00:00 [facility] Influenza TIV (IM) 2022-02-[address] [facility] 00:00:00 [facility] Moderna .5 2021-05-18 Completed [facility] ge SARS-CoV-2 00:00:00 of Medicine Vaccination Moderna .5 2021-05-18 Completed [facility] ge SARS-CoV-2 00:00:00 of Medicine Vaccination Moderna SARS-CoV-2 2021-05-18 Completed [facility] Vaccination 00:00:00 of Medicine Moderna .5 2021-05-18 Completed [facility] ge SARS-CoV-2 00:00:00 of Medicine Vaccination Moderna .5 2020-08-17 Completed [facility] ge SARS-CoV-2 00:00:00 of Medicine Vaccination Moderna .5 2020-08-17 Completed [facility] ge SARS-CoV-2 00:00:00 of Medicine Vaccination Moderna SARS-CoV-2 2020-08-17 Completed [facility] Vaccination 00:00:00 of Medicine Moderna .5 2020-08-17 Completed [facility] ge SARS-CoV-2 00:00:00 of Medicine Vaccination Moderna .5 2020-07-20 Completed [facility] ge SARS-CoV-2 00:00:00 of Medicine Vaccination Moderna .5 2020-07-20 Completed [facility] ge SARS-CoV-2 00:00:00 of Medicine Vaccination Moderna SARS-CoV-2 2020-07-20 Completed [facility] Vaccination 00:00:00 of Medicine Moderna .5mL 2020-07-20 Completed [facility] ge SARS-CoV-2 00:00:00 of Medicine Vaccination Influenza TIV (IM) 2019-02-[address] [facility] 00:[facility]:[address] [facility] Influenza TIV (IM) 2019-02-[address] [facility] 00:[facility]:[address] [facility] Influenza TIV (IM) 2019-02-[address] [facility] 00:[facility]:[address] [facility] Influenza TIV (IM) 2019-02-[address] [facility] 00:00:00 [facility] Influenza TIV (IM) 2019-02-[address] [facility] 00:00:00 [facility] Influenza TIV (IM) 2019-02-[address] [facility] 00:00:00 [facility] Influenza TIV (IM) 2019-02-[address] [facility] 00:00:00 [facility] Zoster Recombinant 2018-05-05 Completed [facility] 00:00:00 of Medicine Zoster Recombinant 2018-05-05 Completed [facility] 00:00:00 of Medicine Zoster Recombinant 2018-05-05 Completed [facility] 00:00:00 of Medicine Zoster Recombinant 2018-05-05 Completed [facility] 00:00:00 of Medicine (Shingrix, 2018-05-[address] [facility] Recombinant, [...] Cent er Adjuvanted) Zoster Vaccine IM Zoster Live 2018-02-26 Completed [facility] 00:00:00 of Medicine Zoster Live 2018-02-26 Completed [facility] of Medicine Zoster Live 2018-02-26 Completed [facility] 00:00:00 of Medicine Zoster Live 2018-02-26 Completed [facility] 00:00:00 of Medicine SHINGLES VARICELLA 2018-02-[address] [facility] (ZOSTAVAX) ZOSTER 00:00:00 Medical Center SHINGLES VARICELLA 2018-02-[address] [facility] (ZOSTAVAX) ZOSTER 00:00:00 Medical Center SHINGLES VARICELLA 2018-02-[address] [facility] (ZOSTAVAX) ZOSTER 00:00:00 Medical Center SHINGLES VARICELLA 2018-02-[address] [facility] (ZOSTAVAX) ZOSTER 00:00:00 Medical Center SHINGLES VARICELLA 2018-02-[address] [facility] (ZOSTAVAX) ZOSTER 00:00:00 Medical Center SHINGLES VARICELLA 2018-02-[address] [facility] (ZOSTAVAX) ZOSTER 00:00:00 Medical Center SHINGLES VARICELLA 2018-02-[address] [facility] (ZOSTAVAX) ZOSTER 00:00:00 [facility] Pneumococcal 2015-03-07 Completed [facility] Colle ge Conjugate 7-Valent 00:00[facility] 2015-03-07 Completed [facility] Colle ge Conjugate 7-Valent 00:00:00 [facility] Pneumococcal 2015-03-07 Completed [facility] Colle ge Conjugate 7-Valent 00:00:00 of Med icine Pneumococcal 2015-03-07 Completed [facility] Conjugate 7-Valent 00:00:[facility] Pneumococcal 2015-03-[address] [facility] Conjugate 7-Valent 00:00:00 [facility] Pneumococcal 2015-03-[address] [facility] Conjugate 7-Valent 00:00:00 [facility] Pneumococcal 2015-03-[address] [facility] Conjugate 7-Valent 00:00:00 [facility] Pneumococcal 2015-03-[address] [facility] Conjugate 7-Valent 00:00:00 [facility] Pneumococcal 2015-03-[address] [facility] Conjugate 7-Valent 00:00:00 Medica l Center Pneumococcal 2015-03-[address] [facility] Conjugate 7-Valent 00:00:00 Medica l Center Pneumococcal 2015-03-[address] [facility] Conjugate 7-Valent 00:00:00 [facility] Center Tetanus 2008-04-20 Completed [facility] 00:00:00 of Medicine Tetanus 2008-04-20 Completed [facility] 00:00:00 of Medicine Tetanus 2008-04-20 Completed [facility] 00:00:00 of Medicine Tetanus 2008-04-20 Completed [facility] 00:00:00 of Medicine Td 7+ years, (TDVAX) 2008-04-[address] [facility] 2 Lf tetanus toxoid 00:00:00 Medic al Center preservative free Td 7+ years, (TDVAX) 2008-04-[address] [facility] 2 Lf tetanus toxoid 00:00:00 Medic al Center preservative free Td 7+ years, (TDVAX) 2008-04-[address] [facility] 2 Lf tetanus toxoid 00:00:00 Medic al Center preservative free Td 7+ years, (TDVAX) 2008-04-[address] [facility] 2 Lf tetanus toxoid 00:00:00 Medic al Center preservative free Td 7+ years, (TDVAX) 2008-04-[address] [facility] 2 Lf tetanus toxoid 00:00:00 Medic al Center preservative free Td 7+ years, (TDVAX) 2008-04-[address] [facility] 2 Lf tetanus toxoid 00:00:00 Medic al Center preservative free Td 7+ years, (TDVAX) 2008-04-[address] [facility] 2 Lf tetanus toxoid 00:00:00 Medic al Center preservative free Vital Signs Vital Name Observation Time Observation Value Comments Source Systolic blood 2022-08-27 18:27:00 119 mm[Hg] [facility] pressure Medicine Diastolic blood 2022-08-27 18:27:00 79 mm[Hg] [facility] Medicine Heart rate 2022-08-27 18:24:00 61 /min [facility] Body height 2022-08-27 18:24:00 177.8 cm [facility] Body weight 2022-08-27 18:24:00 79.379 kg [facility] BMI 2022-08-27 18:24:00 25.11 kg/m2 [facility] height 2022-07-05 10:30:00 66 [in_i] [facility] weight 2022-07-05 10:30:00 178.6 [lb_av] [facility] temperature 2022-07-05 10:30:00 98.0 [degF] [facility] bmi 2022-07-05 10:30:00 28.82 kg/m2 [facility] oximetry 2022-07-05 10:30:00 97 % [facility] respiratory rate 2022-07-05 10:30:00 16 /min [facility] blood pressure 2022-07-05 10:30:00 138 mm[Hg] [facility] systolic [facility] blood pressure 2022-07-05 10:30:00 69 mm[Hg] [facility] diastolic [facility] Systolic blood 2022-06-13 17:32:00 130 mm[Hg] [facility] pressure Medicine Diastolic blood 2022-06-13 17:32:00 75 mm[Hg] [facility] pressure Medicine Heart rate 2022-06-13 17:32:00 60 /min [facility] Systolic blood 2022-04-11 15:52:00 126 mm[Hg] [facility] pressure Medicine Diastolic blood 2022-04-11 15:52:00 76 mm[Hg] [facility] pressure Medicine Heart rate 2022-04-11 15:51:00 52 /min [facility] Body height 2022-04-11 15:51:00 177.8 cm [facility] Body weight 2022-04-11 15:51:00 80.287 kg [facility] BMI 2022-04-11 15:51:00 25.40 kg/m2 [facility] HEIGHT 2022 08:00:00 177.8 cm WEIGHT 2022 [...] kg Systolic blood 2022-02-19 21:21:00 140 mm[Hg] [facility] pressure Medicine Diastolic blood 2022-02-19 21:21:00 81 mm[Hg] [facility] pressure Medicine Heart rate 2022-02-19 21:16:00 53 /min [facility] Body height 2022-02-19 21:16:00 177.8 cm [facility] Body weight 2022-02-19 21:16:00 83.008 kg [facility] BMI 2022-02-19 21:16:00 26.26 kg/m2 [facility] Height 2021-12-12 00:00:00 70 [in_i] [facility] BMI (Body Mass 2021-12-12 00:00:00 25.5 kg/m2 [facility] Body Weight 2021-12-12 00:00:00 178 [lb_av] [facility] HEIGHT 2020-04-04 09:43:00 177.8 cm WEIGHT 2020-04-04 09:43:00 81.466 kg HEIGHT 2020-04-04 09:43:00 177.8 cm WEIGHT 2020-04-04 09:43:00 81.466 kg Systolic blood 2022 20:05:00 129 mm[Hg] [facility] Diastolic blood 2022 20:05:00 78 mm[Hg] [facility] Heart rate 2022 20:05:00 61 /min [facility] Respiratory rate 2022 20:05:00 17 /min [facility] Oxygen saturation in 2022 20:05:00 97 /min [facility] Arterial blood by Medical Ce nter Pulse oximetry Body temperature 2022 16:01:00 36.11 Marsisa [facility] Body height 2022 08:00:[address] [facility] Body weight 2022 08:00:[address] [facility] BMI 2022 08:00:00 26.11 kg/m2 [facility] Systolic blood 2022-01-14 15:24:00 151 mm[Hg] [facility] pressure Diastolic blood 2022-01-14 15:24:00 84 mm[Hg] [facility] pressure Heart rate 2022-01-14 15:24:00 64 /min [facility] Body temperature 2022-01-14 15:24:00 36.67 Marissa [facility] Body height 2022-01-14 15:24:00 167.6 cm [facility] Body weight 2022-01-14 15:24:00 83.915 kg [facility] BMI 2022-01-14 15:24:00 29.86 kg/m2 [facility] Procedures Procedure Date / Time Performing Clinician Source Performed AUTOMATED VISUAL FIELD, 2022-08-27 14:49:48 Becca Soriano [facility] EXTENDED - OU - BOTH EYES Jasmyn OCT, OPTIC NERVE - OU - 2022-08-27 14:49:39 Becca Soriano [facility] BOTH EYES [facility] ELECTROCARDIOGRAM COMPLETE 2022-08-27 13:33:00 B [facility] ELECTROCARDIOGRAM COMPLETE 2022-06-13 10:08:00 B [facility] ELECTROCARDIOGRAM COMPLETE 2022-04-11 10:46:00 B [facility] POCT-ACT 2022 14:56:00 Champ [facility] POCT-ACT 2022 14:27:00 Junior [facility] PO[facility]-ACT 2022 14:06[facility] 13:43:00 Junior [facility] CARDIAC ELECTROPHYSIOLOGY 2022 12:33:00 Kulwant Pacheco [facility] STUDY, WITH ABLATION Medical Jud ter ABORH, MANUAL 2022 09:44:00 Kaylyn Forte [facility] MAGNESIUM 2022 09:28:00 Rolando Dong [facility] TYPE AND SCREEN, AUTOMATED 2022 09:28:00 Rolando Dong [facility] ECG 12-LEAD 2022 09:01:42 Rolando Dong [facility] CARDIAC CATH REPORT - SCAN 2022 00:00:00 Provider, Gisela [facility] EKG-SCANNED 2022 00:00:00 Provider, Gisela [facility] COVID ANTIGEN 2022-03-12 09:20:00 Junior [facility] CBC W/PLT COUNT & AUTO 2022-03-12 08:56:[address] [facility] BASIC METABOLIC PANEL 2022-03-12 08:56[facility]00 [facility]/INR 2022-03-12 08:56[facility] W/PLT COUNT & AUTO 2022-03-12 08:56:[address] [facility] ELECTROCARDIOGRAM COMPLETE 2022-02-19 16:20:00 B [facility] RADEX SPI LUMBOSAC MINIMUM 2022-01-04 00:00:00 A [facility] 4 VIEWS Sports Medicine RADEX SPI LUMBOSAC 2/3 2022-01-04 00:00:00 Mahesh isidro Orthopedic VIEWS Sports Medicine US ABDOMEN LIMITED 2021-12-31 07:53:00 Kailn Madden [facility] MRI SPINE EXTERNAL STUDY 2021-12-12 21:19:00 Melita Melgar [facility] RADEX SPI LUMBOSAC MINIMUM 2021-12-12 00:00:00 Digna benjamin Orthopedic 4 VIEWS Sports Medicine MRI, lumbar spine, w/o 2021-12-12 00:00:00 Mahesh isidro Orthopedic contrast Sports Medicine Plan of Care Planned Activity Planned Date Details Comments Source Future Scheduled [address] [facility] Test 00:00:00 Counseling [facility] Screening Med ical Center (12+) [code = Tobacco Cessation Counseling and Screening (12+)] Future Scheduled [address] [facility] Test 00:00:00 Counseling and Screening Med ical Center (12+) [code = Tobacco Cessation Counseling and Screening (12+)] Future Scheduled [address] [facility] Test 00:00:00 Counseling and Screening Med ical Center (12+) [code = Tobacco Cessation Counseling and Screening (12+)] Future Scheduled [address] [facility] Test 00:00:00 Counseling and Screening Med ical Center (12+) [code = Tobacco Cessation Counseling and Screening (12+)] Future Scheduled [address] [facility] Test 00:00:00 Counseling and Screening Med ical Center (12+) [code = Tobacco Cessation Counseling and Screening (12+)] Future Scheduled 2022-09-14 65+ PNEUMOCOCCAL VACCINE [facility] 01:06:36 (1 - PCV) [code = 65+ Hospit al PNEUMOCOCCAL VACCINE (1 - PCV)] Future Scheduled 2022-09-14 SHINGLES VACCINES (2 of [facility] 01:06:36 3) [code = SHINGLES Hospital VACCINES (2 of 3)] Future Scheduled 2022-09-14 COVID-19 VACCINE (4 - [facility] 01:06:36 Booster for Moderna Hospital series) [code = COVID-19 VACCINE (4 - Booster for Moderna series)] Future Scheduled 2022-09-14 INFLUENZA VACCINE [code = [facility] 01:06:36 INFLUENZA VACCINE] Hospital Future Scheduled 2022-08-27 BMI Follow Up Plan [code [facility] of Test 14:23:54 = BMI Follow Up Plan] Medici ne Future Scheduled 2022-08-27 Pneumococcal 65+ (1 - Ba [facility] of Test 14:23:54 PCV) [code = Pneumococcal Me dicine 65+ (1 - PCV)] Future Scheduled 2022-08-27 TETANUS SHOT (ADULT) [facility] of Test 14:23:54 [code = TETANUS SHOT Medicin e (ADULT)] Future Scheduled 2022-08-27 ZOSTER VACCINE (2 of 2) [facility] of Test 14:23:54 [code = ZOSTER VACCINE (2 Me dicine of 2)] Future Scheduled 2022-08-27 Medicare Awv (Initial) B [facility] of Test 14:23:54 [code = Medicare Awv Medicin e (Initial)] Future Scheduled 2022-08-27 COVID-19 Vaccine (4 - Ba [facility] of Test 14:23:54 Booster for Moderna Medicine series) [code = COVID-19 Vaccine (4 - Booster for Moderna series)] Future Scheduled 2022-08-27 Fall Screen [code = Fall [facility] of Test 14:23:54 Screen] Medicine Future Scheduled 2022-08-27 ELECTROCARDIOGRAM [facility] of Test 13:33:49 COMPLETE [code = 90985] Medi cine Future Scheduled 2022-06-[address] [facility] Test 00:00:00 (12+) [code = DEPRESSION Med ical Center SCREENING (12+)] Future Scheduled 2022-06-16 FALLS [address]ISK SCREENING [facility] 00:00:00 [code = FALLS RISK Medical C enter SCREENING] Future Scheduled 2022-06-[address] [facility] Test 00:00:00 (12+) [code = DEPRESSION Med ical Center SCREENING (12+)] Future Scheduled 2022-06-16 F[address]K SCREENING [facility] 00:00:00 [code = FALLS RISK Medical C enter SCREENING] Future Scheduled 2022-06-13 BMI FOLLOW UP PLAN [code [facility] 10:25:44 = BMI FOLLOW UP PLAN] Medici ne Future Scheduled 2022-06-13 FALL SCREEN [code = FALL [facility] 10:25:44 SCREEN] Medicine Future Scheduled 2022-06-13 [facility]neumococcal 65+ ([facility] - [facility] PCV) [code = Pneumococcal Me dicine 65+ (1 - PCV)] Future Scheduled 2022-06-13 TETANUS SHOT (ADULT) [facility] Test 10:25:44 [code = TETANUS SHOT Medicin e (ADULT)] Future Scheduled 2022-06-13 ZOSTER VACCINE (2 of 2) [facility] 10:25:44 [code = ZOSTER VACCINE (2 Me dicine of 2)] Future Scheduled 2022-06-13 MEDICARE IPPE (WELCOME TO [facility] Test 10:25:44 MEDICARE) [code = Medicine MEDICARE IPPE (WELCOME TO MEDICARE)] Future Scheduled 2022-06-13 COVID-19 Vaccine (4 - Ba [facility] Test 10:25:44 Booster for Moderna Medicine series) [code = COVID-19 Vaccine (4 - Booster for Moderna series)] Future Scheduled 2022-06-13 ELECTROCARDIOGRAM [facility] 10:08:21 COMPLETE [code = 51330] Medi cine Future Scheduled 2022-04-22 HEPATITIS B VACCINES (1 [facility] 16:08:00 of 3 - 3-dose series) Hospit al [code = HEPATITIS B VACCINES (1 of 3 - 3-dose series)] Future Scheduled 2022-04-22 65+ PNEUMOCOCCAL VACCINE [facility] 16:08:00 (1 - PCV) [code = 65+ Hospit al PNEUMOCOCCAL VACCINE (1 - PCV)] Future Scheduled 2022-04-22 SHINGLES VACCINES (2 of [facility] 16:08:00 3) [code = SHINGLES Hospital VACCINES (2 of 3)] Future Scheduled 2022-04-22 COVID-19 [facility]ACCINE ([facility] - [facility] 16[facility]08:[facility] Booster for Moderna Hospital series) [code = COVID-19 VACCINE (4 - Booster for Moderna series)] Future Scheduled 2022-04-22 INFLUENZA VACCINE [code = [facility] 16:08:00 INFLUENZA VACCINE] Hospital Future Scheduled 2022-04-11 BMI FOLLOW UP PLAN [code [facility] Test 10:51:58 = BMI FOLLOW UP PLAN] Medici ne Future Scheduled 2022-04-11 FALL SCREEN [code = FALL [facility] 10:51:58 SCREEN] Medicine Future Scheduled 2022-04-11 Pneumococcal 65+ (1 - Ba [facility] Test 10:51:58 PCV) [code = Pneumococcal Me dicine 65+ (1 - PCV)] Future Scheduled 2022-04-11 TETANUS SHOT (ADULT) [facility] Test 10:51:58 [code = TETANUS SHOT Medicin e (ADULT)] Future Scheduled 2022-04-11 ZOSTER VACCINE (2 of 2) [facility] 10:51:58 [code = ZOSTER VACCINE (2 Me dicine of 2)] Future Scheduled 2022-04-11 MEDICARE IPPE (WELCOME TO [facility] Test 10:51:58 MEDICARE) [code = Medicine MEDICARE IPPE (WELCOME TO MEDICARE)] Future Scheduled 2022-04-11 COVID-19 Vaccine (4 - Ba [facility] Test 10:51:58 Booster for Moderna Medicine series) [code = COVID-19 Vaccine (4 - Booster for Moderna series)] Future Scheduled 2022-04-11 FLU VACCINE > 6 MONTHS B [facility] Test 10:51:58 [code = FLU VACCINE > 6 Medi cine MONTHS] Future Scheduled 2022-04-11 ELECTROCARDIOGRAM [facility] 10:45:12 COMPLETE [code = 76575] Medi cine Future Scheduled 2022-04-07 HEPATITIS B VACCINES (1 [facility] Test 13:25:50 of 3 - 3-dose series) Hospit al [code = HEPATITIS B VACCINES (1 of 3 - 3-dose series)] Future Scheduled 2022-04-07 65+ PNEUMOCOCCAL VACCINE [facility] 13:25:50 (1 - PCV) [code = 65+ Hospit al PNEUMOCOCCAL VACCINE (1 - PCV)] Future Scheduled 2022-04-07 SHINGLES VACCINES (2 of [facility] 13:25:50 3) [code = SHINGLES Hospital VACCINES (2 of 3)] Future Scheduled 2022-04-07 COVID-19 VACCINE (4 - [facility] 13:25:50 Booster for Moderna Hospital series) [code = COVID-19 VACCINE (4 - Booster for Moderna series)] Future Scheduled 2022-04-07 INFLUENZA VACCINE [code = [facility] 13:25:50 INFLUENZA VACCINE] Hospital Future Scheduled 2022-02-19 ELECTROCARDIOGRAM [facility] 16:20:23 COMPLETE [code = 23677] Medi cine Future Scheduled 2022-02-19 FALL SCREEN [code = FALL [facility] 16:16:23 SCREEN] Medicine Future Scheduled 2022-02-19 Pneumococcal 65+ (1 - Ba [facility] Test 16:16:23 PCV) [code = Pneumococcal Me dicine 65+ (1 - PCV)] Future Scheduled 2022-02-19 MEDICARE AWV (Initial) B [facility] Test 16:16:23 [code = MEDICARE AWV Medicin e (Initial)] Future Scheduled 2022-02-19 TETANUS SHOT (ADULT) [facility] Test 16:16:23 [code = TETANUS SHOT Medicin e (ADULT)] Future Scheduled 2022-02-19 ZOSTER VACCINE (2 of 2) [facility] Test 16:16:23 [code = ZOSTER VACCINE (2 Me dicine of 2)] Future Scheduled 2022-02-19 COVID-19 Vaccine (4 - Ba [facility] Test 16:16:23 Booster for Moderna Medicine series) [code = COVID-19 Vaccine (4 - Booster for Moderna series)] Future Scheduled 2022-02-19 FLU VACCINE > 6 MONTHS B [facility] Test 16:16:23 [code = FLU VACCINE > [...] - Booster for Moderna series)] Future Scheduled 2021-07-13 COVID-19 VACCINE (4 - [facility] [...] 00:00:00 (YEAR 2 or FIRST YEAR if [facility] no IPPE) [code = MEDICARE ANNUAL [...] Date/Time Type Type Clinicians Facility Department ID 2022-07-05 Outpatient [facility] [id number] Common 10:12:05 [id number] [facility] 2022-08-27 2022-08-27 Office YANCY PACHECO 1.2.840.114 [id number] [facility] 12:28:46 14:36:00 Visit KULWANT AMBULATOR 350.1.13.21 College Y 0.2.7.2.686 of [id number] [facility] 300 e 2022-08-27 2022-08-27 Office Becca Soriano 1.2.840.1 [id number] 21 [id number] Methodi 09:30:00 10:50:49 Visit Vinny Vines 54116.1.1 148 s t 3.430.2.7 Hospit a .3.134455 l .8 2022-08-27 2022-08-27 Outpatient BECCA SORIANO [facility] 198 [id number] [place] 00:00:00 00:00:[address] 2022-08-27 2022-08-27 Travel 1.2.840.1 1.2.364.669 5755 [id number] Methodi 00:00:00 00:00:[address] 3.430.2.7 0.2.7.3.698 Ho spita .3.365426 084.8 l .8 2022-07-05 2022-07-05 OFFICE STLMLC STLMLC [id number] Co mmon 00:00:00 00:00:00 VISIT NEW [facility] PT LEVEL 4 - [facility] 2022-06-13 2022-06-13 Office BULL PACHECO 1.2.840.114 [id number] [facility] 10:04:06 13:20:15 Visit [employer]ATOR 350.1.13.21 College Y 0.2.7.2.686 of [id number] Medi aneudy 300 e 2022-04-11 2022-04-11 Office YANCY PACHECO 1.2.840.114 [id number] [facility] 10:07:50 15:40:04 Visit [facility] AMBULATOR 350.1.13.21 College Y 0.2.7.2.686 of [id number] Medi aneudy 300 e 2022-04-02 2022-04-02 Refill Gant, 1.2.840.1 [id number] 3407 Methodi 00:00:00 00:00:[address] 3.430.2.7 Hospit a .3.301412 l .8 2022-04-02 2022-04-02 Refill Gant, 1.2.840.1 [id number] 9582 Methodi 00:00:00 00:00:[address] 3.430.2.7 Hospit a .3.962176 l .8 2022-03-27 2022-03-27 Refill Preston, Becca 1.2.840.1 [id number] 21 [id number] Methodi 00:00:00 00:00:00 [place] Vines 32450.1.1 019 s t 3.430.2.7 Hospit a .3.536983 l .8 2022-03-27 2022-03-27 Refill Preston, Becca 1.2.840.1 [id number] 21 [id number] Methodi 00:00:00 00:00:00 Vinny Vines 19365.1.1 019 s t 3.430.2.7 Hospit a .3.438471 l .8 2022 2022 Outpatient [facility] [id number] [facility] 08:22:00 23:59:00 Horace 2022 2022 Outpatient [facility] Surgery [id number] [facility] 08:22:00 20:10:00 [facility] 2022 2022 [facility] [id number] 08:22:00 20:10:00 Encounter [facility] 2022 2022 [facility] [id number] 08:22:00 20:10:00 Encounter [facility] 2022 2022 Surgery [facility] [id number] 12:03:00 16:36:00 [facility] 2022 2022 Surgery [facility] [id number] [address] 12:03:00 16:36:00 [facility] 2022 2022 Anesthesia [facility] [id number] [id number] 12:32:00 16:02:00 Event [facility] 2022 2022 [id number] [id number] 12:32:00 16:02:00 Event [facility] 2022 2022 Outpatient [facility] [id number] [facility] 00:00:00 08:21:00 Edwar Medicin e 2022-03-12 2022-03-[address] [facility] [id number] [id number] 09:00:00 09:15:00 Visit [facility] 2022-03-12 2022-03-[address] [facility] [id number] [id number] 09:00:00 09:15:00 Visit [facility] 2022-03-12 2022-03-12 Outpatient [facility] [id number] [facility] 08:43:18 08:43:18 2022-02-26 2022-02-26 Office Becca Soriano 1.2.840.1 [id number] 21 [id number] Methodi 10:30:00 11:00:00 Visit E Jasmyn 42903.1.1 110 s t 3.430.2.7 Hospit a .3.597046 l .8 2022-02-26 2022-02-26 Office Becca Soriano 1.2.840.1 [id number] 21 [id number] Methodi 10:30:00 11:00:00 Visit E Jasmyn 86510.1.1 110 s t 3.430.2.7 Hospit a .3.936519 l .8 2022-02-26 2022-02-26 Travel 1.2.840.1 1.2.763.062 6128 [id number] Methodi 00:00:00 00:00:[address] 3.430.2.7 0.2.7.3.698 Ho spita .3.947246 084.8 l .8 2022-02-26 2022-02-26 Travel 1.2.840.1 1.2.717.302 6489 758477 Methodi 00:00:00 00:00:[address] 3.430.2.7 0.2.7.3.698 Ho spita .3.129183 084.8 l .8 2022-02-19 2022-02-20 Office JUNIORYANCY 1.2.840.114 [id number] 74 [facility] 15:47:10 08:17:00 Visit KULWANT AMBULATOR 350.1.13.21 College Y 0.2.7.2.686 of [id number] Medi aneudy 300 e 2022-01-23 2022-01-23 [facility] Sherine, 1.2.840.1 [id number] 72495 Methodi 10:44:35 23:59:00 Encounter Melita Conley 28248.1.1 060 s t 3.430.2.7 Hospit a .3.292734 l .8 2022-01-23 2022-01-23 [facility] Sherine, 1.2.840.1 [id number] 73958 43019 Methodi 10:44:35 23:59:00 Encounter Melita Conley 58964.1.1 060 s t 3.430.2.7 Hospit a .3.059317 l .8 2022-01-14 2022-01-14 Office Sherine 1.2.840.1 [id number] 6579 Methodi 10:30:00 11:09:37 Visit Melita Conley 57251.1.[address] 3.430.2.7 Hospit a .3.554962 l .8 2022-01-14 2022-01-14 Office Sherine 1.2.840.1 [id number] 0044 Methodi 10:30:00 11:09:37 Visit Melita Conley 45528.1.[address] 3.430.2.7 Hospit a .3.859757 l .8 2022-01-14 2022-01-14 Travel 1.2.840.1 1.2.222.288 7753 067683 Methodi 00:00:00 00:00:[address] 3.430.2.7 0.2.7.3.698 Ho spita .3.029148 084.8 l .8 2022-01-14 2022-01-14 Travel 1.2.840.1 1.2.577.354 6313 195391 Methodi 00:00:00 00:00:[address] 3.430.2.7 0.2.7.3.698 Ho spita .3.612855 084.8 l .8 2022-01-04 2022-01-04 Outpatient FOG_Stuckey AOSM AO 632 7631-20 Steph 03:03:00 03:03:00 _Netta 957684 Ortho pe dic Sports Medicin e 2022-01-04 2022-01-04 [facility]-0 00:00:00 00:00:00 Isaias Hernandez [id number] 2022-01-04 2022-01-04 Isaias PYLE [place] - Ortho [id number] 2 Steph 00:00:00 00:00:00 Snehal Judge MD: [id number] FOG_Ofc dic [facility] Spo [facility], [place] [phone] , Ph. [phone] 2022-01-01 2022-01-01 Outpatient FOG_Stuckey AOSM AOSM 632 7631-20 Steph 07:10:00 07:10:00 _Netta 002734 Ortho pe dic Sports Medicin e 2021-12-31 2021-12-31 Outpatient VALERI [facility] SLE [id number] SLE 07:10:11 23:59:00 KALIN 2021-12-31 2021-12-31 [facility] Kalin Madden [facility] 1 [id number] [facility] 07:10:11 23:59:[address] [facility] 2021-12-31 2021-12-[address] [facility] 1 [id number] [facility] 07:10:11 23:59:00 [facility] 2021-12-31 2021-12-31 Office Marvin, 1.2.840.1 [id number] Methodi 13:15:00 14:59:[address] [employer] [address] Alejandro 3.430.2.7 Hospit a .3.119684 l .8 2021-12-31 2021-12-31 Office Marvin, 1.2.840.1 [id number] 83 Methodi 13:15:00 14:59:[address] [employer] [address] Alejandro 3.430.2.7 Hospit a .3.852745 l .8 2021-12-31 2021-12-31 Travel 1.2.840.1 1.2.390.442 3236 106049 Methodi 00:00:00 00:00:[address] 3.430.2.7 0.2.7.3.698 Ho spita .3.916434 084.8 l .8 2021-12-31 2021-12-31 Travel 1.2.840.1 1.2.934.863 8871 591226 Methodi 00:00:00 00:00:[address] 3.430.2.7 0.2.7.3.698 Ho spita .3.019112 084.8 l .8 2021-12-12 2021-12-12 Outpatient ZI Judge [facility] [id number] [facility] 15:08:00 15:08:00 [facility] 2021-12-12 2021-12-12 Outpatient TEA_Nu AOSM AOSM 632 7631-20 Steph 03:42:00 03:42:00 _Netta 546661 Ortho pe dic Sports Medicin e 2021-12-12 2021-12-12 Isaias Hernandez AOSM [place] - Ortho [id number] Steph 00:00:00 00:00:00 Snehal Judge MD: 7401 FOG_Ofc dic [facility] Spo [facility], [place] [address] , Ph. [phone] 2021-12-12 2021-12-12 Outpatient EDENILSON Judge AOSM [id number] 40-f 00:00:00 00:00:00 Isaias Hernandez [id number] 2021-12-10 2021-12-10 Outpatient FOG_Nu AOSM AOSM 632 7631-20 Steph 07:24:00 07:24:00 _Netta 257425 Ortho pe dic Sports Medicin e 2021-12-07 2021-12-07 [facility] [id number] 00:00:00 00:00:00 Orders [facility] 2021-12-07 2021-12-07 [facility] [id number] 00:00:00 00:00:00 Orders [facility] 2021-12-05 2021-12-[address] [facility] 632 7631-20 Steph 03:37:00 03:37:00 _Netta 182635 Ortho pe dic Sports Medicin e 2021-10-01 2021-10-01 Office Marvin, 1.2.840.1 [id number] 89769 Methodi 10:00:00 10:20:25 [address] [employer] 47348.1.1 169 [facility] 3.430.2.7 Hospit a .3.391897 l .8 2021-10-01 2021-10-01 Travel 1.2.840.1 1.2.400.822 2756 222549 Methodi 00:00:00 00:00:[address] 3.430.2.7 0.2.7.3.698 Ho spita .3.698759 084.8 l .8 2021-08-17 2021-08-17 Clinical Dhruv, 1.2.840.1 [id number] 2099 576006 Methodi 12:30:00 13:29:49 Support Risa 50215.1.[address] 3.430.2.7 Hospit a .3.752271 l .8 2021-08-17 2021-08-17 Travel 1.2.840.1 1.2.948.679 7704 192904 Methodi 00:00:00 00:00:[address] 3.430.2.7 0.2.7.3.698 Ho spita .3.783173 084.8 l .8 2021-08-15 2021-08-15 Office Becca Soriano 1.2.840.1 [id number] Methodi 11:00:00 12:07:22 Visit Vinny Vines 86660.1.1 634 s t 3.430.2.7 Hospit a .3.467043 l .8 2021-08-15 2021-08-15 Travel 1.2.840.1 1.2.289.604 6640 951001 Methodi 00:00:00 00:00:[address] 3.430.2.7 0.2.7.3.698 Ho spita .3.042916 084.8 l .8 2021-07-02 2021-07-02 Office Marvin, 1.2.840.1 [id number] 81865 96003 Methodi 10:00:00 10:40:56 Visit Vicente 51595.1.[address] Alejandro 3.430.2.7 Hospit a .3.690859 l .8 2021-07-02 2021-07-02 Travel 1.2.840.1 1.2.112.946 6018 [id number] Methodi 00:00:00 00:00:[address] 3.430.2.7 0.2.7.3.698 spita .3.155561 084.8 l .8 2021-04-02 2021-04-02 Outpatient MARVIN, [facility] [id number] 0288 [place] 00:00:00 00:00:00 VICENTE [address] 2021-03-13 2021-03-13 Outpatient MARVIN, [facility] [id number] 0162 [place] 00:00:00 00:00:00 VICENTE [address] 2021-03-01 2021-03-01 Outpatient KIRT, BECCA [facility] [id number] [place] 00:00:00 00:00:[address] 2021-03-01 2021-03-01 Outpatient SHERINE, [facility] [id number] [place] 00:00:00 00:00:00 MELITA [address] 2021-01-04 2021-01-04 Outpatient SHERINE, [facility] [id number] 524 [place] 00:00:00 00:00:00 MELITA [address] 2020-12-28 2020-12-28 Outpatient SHERINE, [facility] [id number] [place] 00:00:00 00:00:00 MELITA [address] 2020-09-05 2020-09-05 Outpatient KIRT, BECCA [facility] 698 [id number] [place] 00:00:00 00:00:[address] 2020-05-09 2020-05-09 Outpatient KIRT, BECCA [facility] [id number] [place] 00:00:00 00:00:[address] 2020-04-04 2020-04-04 Outpatient EL PERIN, [facility] [id number] [facility] 00:00:00 00:00:00 KALIN 2020-04-04 2020-04-04 Outpatient EL [facility] [id number] [facility] 00:00:00 00:00:00 2020-04-03 2020-04-03 Outpatient [facility] SLE [id number] 0-2 [facility] 00:00:00 00:00:00 [id number] 2019-12-28 2019-12-28 Outpatient SHERINE, [facility] [id number] [place] 00:00:00 00:00:00 MELITA [address] 2019-12-28 2019-12-28 Outpatient BECCA SORIANO [facility] [id number] [place] 00:00:00 00:00:[address] 2019-08-24 2019-08-24 Outpatient [facility] [id number] 0-2 [facility] 00:00:00 00:00:00 [id number] 2019-06-25 2019-06-25 Outpatient SHERINE, [facility] [id number] [place] 00:00:00 00:00:00 MELITA [address] [facility] i [facility] Results Test Description Test Time Test Comments Results Result Comments Source POC ACTIVATED CLOTTING TIME 2022 15:16:00 Test Item Value Reference Range Interpretation Comme nts Activated Clotting Time (test 306 sec : 74-137 seconds, Baseline: TESTED AT code = 3184-9) [address], [address]: Medical Record Technician/Techni tex ID = [id number] for CABAN-GOLDBER G, AYLIN [facility] ACTIVATED CLOTTING [id number] 15:16:00 Test Item Value Reference Range Interpretation Comments Activated Clotting Time 306 sec : 74 -137 seconds, (test code = 3184-9) Baselin e: TESTED AT [address], [address]: Medical Record Technician/Techni tex ID = [id number] for CABAN-GOLDBER G, AYLIN [facility] ACTIVATED CLOTTING [id number] 15:16:00 Test Item Value Reference Range Interpretation Comments Activated Clotting Time 306 sec : 74 -137 seconds, (test code = 3184-9) Baselin e: TESTED AT [address], [address]: Medical Record Technician/Techni tex ID = [id number] for CABAN-GOLDBER G, AYLIN [facility] ACTIVATED CLOTTING [id number] 15:16:00 Test Item Value Reference Range Interpretation Comments Activated Clotting Time 306 sec : 74 -137 seconds, (test code = 3184-9) Baselin e: TESTED AT [address], [address]: Medical Record Technician/Techni tex ID = [id number] for CABAN-GOLDBER G, AYLIN [facility] ACTIVATED CLOTTING [id number] 15:16:00 Test Item Value Reference Range Interpretation Comments Activated Clotting Time 306 sec : 74 -137 seconds, (test code = 3184-9) Baselin e: TESTED AT [address], [facility] 30: Medical Record Technician/Techni tex ID = [id number] for CABAN-KASSIDY G, AYLIN [facility] ACTIVATED CLOTTING [id number] 15:16:00 Test Item Value Reference Range Interpretation Comments Activated Clotting Time 306 sec : 74 -137 seconds, (test code = 3184-9) Baselin e: TESTED AT [address], [facility] 30: Medical Record Technician/Techni tex ID = [id number] for CABAN-VICTOR MANUELBER G, AYLIN [facility] ACTIVATED CLOTTING [id number] 15:16:00 Test Item Value Reference Range Interpretation Comments Activated Clotting Time 306 sec : 74 -137 seconds, (test code = 3184-9) Baselin e: TESTED AT [address], [facility] 30: Medical Record Technician/Techni tex ID = [id number] for CABAN-VICTOR MANUELBER G, [facility]LIN [id number] 15:16:00 Test Item Value Reference Range Interpretation Comments ACTIVATED CLOTTING TIME 306 sec : 74 -137 seconds, (BEAKER) (test code = Baseli ne: TESTED AT 441) [address], [facility] 30: Medical Record Technician/Techni tex ID = [id number] for CABAN-VICTOR MANUELBER G, AYLIN [id number] 14:42:37 Test Item Value Reference Range Interpretation Comments ACTIVATED CLOTTING TIME 312 sec : 74 -137 seconds, (BEAKER) (test code = Baseli ne: TESTED AT 441) [address], [facility] 30: Medical Record Technician/Techni tex ID = [id number] for CABAN-GOLDBER G, AYLIN [id number] 14:22:21 Test Item Value Reference Range Interpretation Comments ACTIVATED CLOTTING TIME 318 sec : 74 -137 seconds, (BEAKER) (test code = Baseli ne: TESTED AT 441) [address], [facility] 30: Medical Record Technician/Techni etx ID = [id number] for AYLIN GALAN [id number] 13:59:09 Test Item Value Reference Range Interpretation Comments ACTIVATED CLOTTING TIME 277 sec : 74 -137 seconds, (BEAKER) (test code = Vicki ne: TESTED AT 441) [facility] [address] [place], [address]: Medical Record Technician/Techni tex ID = [id number] for AYLIN GALAN [id number] 10:05:51 Test Item Value Reference Range Interpretation Comments MAGNESIUM (BEAKER) (test code = 1.6 mg/dL 1.6-2.6 627) Medical Record Technician ID - DIANA LBASIC METABOLIC [id number] 13:01:02 Test Item Value Reference Range Interpretation [...] not appl icable for dialysis patien ts Medical Record Technician ID - ADMINCOVID [id number] 10:06:11 Test Item Value Reference Range Interpretation Comments SARS COVID ANTIGEN Negative Negative (test code = 23255-3) CONCHIS (test code = CONCHIS) The [employer] SARS Antigen test does not differentiate between SARS-CoV and SARS-CoV-2. The test has been authorized by the FDA under an EUA for use by authorized laboratories. Lab Interpretation Normal (test code = 05447-9) [facility] [id number] 10:06:11 Test Item Value Reference Range Interpretation Comments SARS COVID ANTIGEN Negative Negative (test code = 14446-0) CONCHIS (test code = CONCHIS) The [employer] SARS Antigen test does not differentiate between SARS-CoV and SARS-CoV-2. The test has been authorized by the FDA under an EUA for use by authorized laboratories. Lab Interpretation Normal (test code = 93974-0) [facility] [id number] 10:06:11 Test Item Value Reference Range Interpretation Comments SARS COVID ANTIGEN Negative Negative (test code = 94325-1) CONCHIS (test code = CONCHIS) The [employer] SARS Antigen test does not differentiate between SARS-CoV and SARS-CoV-2. The test has been authorized by the FDA under an EUA for use by authorized laboratories. Lab Interpretation Normal (test code = 57235-5) [facility] [id number] 10:06:11 Test Item Value Reference Range Interpretation Comments SARS COVID ANTIGEN Negative Negative (test code = 65525-9) CONCHIS (test code = CONCHIS) The [employer] SARS Antigen test does not differentiate between SARS-CoV and SARS-CoV-2. The test has been authorized by the FDA under an EUA for use by authorized laboratories. Lab Interpretation Normal (test code = 81207-6) [id number] 10:06:11 Test Item Value Reference Range Interpretation Comments SARS COVID ANTIGEN Negative Negative (test code = 93760-4) CONCHIS (test code = CONCHIS) The [employer] SARS Antigen test does not differentiate between SARS-CoV and SARS-CoV-2. The test has been authorized by the FDA under an EUA for use by authorized laboratories. Lab Interpretation Normal (test code = 67601-5) [facility] [id number] 10:06:11 Test Item Value Reference Range Interpretation Comments SARS COVID ANTIGEN Negative Negative (test code = 26362-4) CONCHIS (test code = CONCHIS) The [employer] SARS Antigen test does not differentiate between SARS-CoV and SARS-CoV-2. The test has been authorized by the FDA under an EUA for use by authorized laboratories. Lab Interpretation Normal (test code = 48337-9) [facility] [id number] 10:06:11 Test Item Value Reference Range Interpretation Comments SARS COVID ANTIGEN Negative Negative (test code = 09832-9) CONCHIS (test code = CONCHIS) The QuickVue SARS Antigen test does not differentiate between SARS-CoV and SARS-CoV-2. The test has been authorized by the FDA under an EUA for use by authorized laboratories. Lab Interpretation Normal (test code = 12822-3) [facility] [id number] 10:06:11 Test Item Value Reference Range Interpretation Comments SARS COVID ANTIGEN (test code = Negative Negative 41601488) The QuickVue SARS Antigen test does not differentiate between SARS-CoV and SARS-CoV-2.The test has been authorized by the FDA under an EUA for use by authorized laboratories.PROTHROMBIN [id number] 09:33:47 Test Item Value Reference Range Interpretation Comments PROTIME (BEAKER) 16.9 seconds 11.9-14.2 H (test code = 759) INR (BEAKER) (test 1.47 See_Comment [Automat ed message] code = 370) The system [employer] generated this result transmitted ref erence range: <=5.90. The reference range was not used to int erpret this result as normal/abnormal . RECOMMENDED COUMADIN/WARFARIN INR THERAPY RANGESSTANDARD DOSE: 2.0 - 3.0 Includes: PROPHYLAXIS for venous thrombosis, systemic embolization; TREATMENT for venous thrombosis and/or pulmonary embolus.HIGH RISK: Target INR is 2.5-3.5 for patients with mechanical heart valves.CBC W/PLT COUNT & AUTO [id number] 09:11:22 Test Item Value Reference Range Interpretation [...] (BEAKER) (test code = 2801) US, ABDOMINAL, [id number] 17:42:00Reason for Exam:->disease of gallbladderSAN DIEGO [facility] : 1935 Sex: MFINAL REPORT TECHNIQUE: [...] renal stone measures 1.1 cm. Signed: Raza Abrahameport Verified Date/Time: 12/31/2021 17:42:00 - MRI L-SPINE W/O [id number] 09:19:00 [facility] 1935 Sex: M Patient Name: SAURAV ABDI Unit No: [id number] Report Has Been Amended EXAMS: CPT CODE: [id number] L-SPINE W/O CONT [id number] Addendum - 12/13/2021 SIGNED 12/13/2021 ADDENDUM: [id number] MRI/MRILSPNWOADDENDUM: There is an acute to subacute [...] left foraminal narrowing is seen. Moderate canal stenosis is present with facet degeneration. 5. At L5-S1 there is a slight degenerative spondylolisthesis and 2 mm of disc bulging with moderate right [...] normal count of 5 lumbar type vertebra. [facility] NAME: SAURAV ABDI [address] [place] [address] PHYS: Isaias Viera MD : 1935 AGE: 86 SEX: M [place] [address] LOC: Y.MRI PHONE #: [phone] EXAM DATE: 12/12/2021 STATUS: DEP CLI FAX #: [phone] RAD #: D/C DT PAGE 1 Signed Report (CONTINUED) Patient Name: SAURAV ABDI Unit No: [id number] Report Has Been Amended EXAMS: CPT CODE: [id number] MRI L-SPINE W/O CONT 29116 (Continued) at 0900 Reported and signed by: Mauricio Pan MD CC: Isaias Judge MD Technologist: DOROTHEA YA. Transcribed D/ (0900) LouannJCL [facility] NAME: SAURAV ABDI [address] [place] [address] PHYS: Isaias Viera MD : 1935 AGE: 86 SEX: M [place] [address] LOC: Y.MRI PHONE #: [phone] EXAM DATE: 12/12/2021 STATUS: DEP CLI FAX #: [phone] RAD #: D/C DT PAGE 2 SignedReport Patient Name: SAURAV ABDI Unit No: [id number] Report Has Been Amended EXAMS: CPT CODE: [id number] MRI L-SPINE W/O CONT 00975 (Continued) Orig Print D/T: S: 12/13/2021 (0903) [facility] NAME: SAURAV ABDI [place] [address] PHYS: STURY - NuIsaias MD : 1935GE: 86 SEX: M [place], [place] [address] LOC: CECIL PHONE #: [phone] EXAM DATE: 12/12/2021 STATUS: DEP CLI FAX #: [phone] RAD #: D/C DT PAGE 3 Signed [id number] 11:02:00 Test Item Value Reference Range Interpretation Comments PROSTATE SPECIFIC ANTIGEN (BEAKER) 0.3 ng/mL 0.0-4.0 (test code = 844) Medical Record Technician ID - MARY [id number] 11:02:00 Test Item Value Reference Range Interpretation Comments THYROID STIMULATING HORMONE 1.803 uIU/mL 0.350-4.940 (BEAKER) (test code = 772) Medical Record Technician ID - MARY MANE, CHEST, 2 [id number] 10:56:00Reason for Exam:->[facility] : 1935 Sex: MFINAL REPORT INDICATION: htn COMPARISON: August 20, 2018 TECHNIQUE: Frontal and lateral views of the chest. IMPRESSION:Lungs and pleura: Mild interstitial congestive changes may reflect developing edema. No consolidation. No effusion.Heart and mediastinum: Normal heart size. Unremarkable mediastinal contours.Osseous structures: No acute abnormality.Additional findings: None. Signed: JR Jacobson Robert MDReport Verified Date/Time: 04/04/2020 10:56:33 Reading Location: [facility] Radiology Reading Room COMPREHENSIVE METABOLIC [id number] 10:41:00 Test Item Value Reference Range Interpretation [...] S NOT APPLICABLE FOR DIALYSIS PATIEN TS. Medical Record Technician ID - MARY FLIPID [id number] 10:41:00 Test Item Value Reference Range Interpretation [...] Borderline 130-159 High 160-189 Very High >=190 Medical Record Technician MAYURI HERNANDEZ FB-TYPE NATRIURETIC FACTOR (BNP)2020-04-04 10:41:00 Test Item Value Reference Range Interpretation Comments B-TYPE NATRIURETIC PEPTIDE (BEAKER) 221 pg/mL 0-100 H (test code = 700) Medical Record Technician ID Eugenia HERNANDEZ FCBC W/PLT COUNT & AUTO [id number] 10:32:00 Test Item Value Reference Range Interpretation [...] 0-1 PERCENT (BEAKER) (test code = 2801) [id number] 09:26:00 Test Item Value Reference Range Interpretation Comments PROSTATE SPECIFIC ANTIGEN (BEAKER) 0.2 ng/mL 0.0-4.0 (test code = 844) Medical Record Technician ID - AMBROSIO [id number] 09:26:00 Test Item Value Reference Range Interpretation Comments THYROID STIMULATING HORMONE 2.28 uIU/mL 0.35-4.94 (BEAKER) (test code = 772) Medical Record Technician ID - AMBROSIO MLIPID [id number] 09:02:00 Test Item Value Reference Range Interpretation [...] Borderline 130-159 High 160-189 Very High >=190 Medical Record Technician ID - AMBROSIO MBASIC METABOLIC [id number] 09:02:00 Test Item Value Reference Range Interpretation [...] S NOT APPLICABLE FOR DIALYSIS PATIEN TS. Medical Record Technician ID - AMBROSIO EPATIC FUNCTION [id number] 09:02:00 Test Item Value Reference Range Interpretation [...] (test code = 24 U/L 6-55 347) Medical Record Technician ID - AMBROSIO MCBC W/PLT COUNT & AUTO [id number] 08:54:00 Test Item Value Reference Range Interpretation [...] 0-1 PERCENT (BEAKER) (test code = 2801) [id number] 09:03:00 Test Item Value Reference Range Interpretation Comments PROSTATE SPECIFIC ANTIGEN (BEAKER) 0.2 ng/mL 0.0-4.0 (test code = 844) [id number] 09:03:00 Test Item Value Reference Range Interpretation Comments THYROID STIMULATING HORMONE 0.38 uIU/mL 0.35-4.94 (BEAKER) (test code = 772) LIPID [id number] 08:48:00 Test Item Value Reference Range Interpretation [...] 130-159 High 160-189 Very High >=190BASIC METABOLIC [id number] 08:48:00 Test Item Value Reference Range Interpretation [...] APPLICABLE FOR DIALYSIS PATIEN TS. HEPATIC FUNCTION [id number] 08:48:00 Test Item Value Reference Range Interpretation [...] 6-55 347) CBC W/PLT COUNT & AUTO [id number] 08:25:00 Test Item Value Reference Range Interpretation [...] PET, CARDIAC PERFUSION MULTIPLE STUDIES, REST AND [id number] 14:08:00 Reason for Exam:->chest painFINAL REPORT PROCEDURE: Rest/Stress MYOCARDIAL PERFUSION PET with regadenoson\\XA9\\ CPT CODE: 68593 INDICATION: Chest pain HISTORY: Cardiac risk factors: [...] images showcalcification the aorta 7. No previous [facility] study for comparison. NONINVASIVE RISK STRATIFICATION: The above findings are considered low risk (<1% annual mortality rate) based on the following crite saurav:- Normal or small myocardial perfusion defect at rest or with stress(JACC. 2012;59(9):857-81.) Signed: Adelfo Salinas MDReport Verified Date/Time: 07/29/2018 14:08:02 Reading Location: [address] Reading Room PSA 2018-07-29 09:42:00 Test Item Value Reference Range Interpretation Comments PROSTATE SPECIFIC ANTIGEN (BEAKER) 0.3 ng/mL 0.0-4.0 (test code = 844) [id number] 09:42:00 Test Item Value Reference Range Interpretation Comments THYROID STIMULATING HORMONE 0.64 uIU/mL 0.35-4.94 (BEAKER) (test code = 772) B-TYPE NATRIURETIC FACTOR (BNP)2018-07-29 09:29:00 Test Item Value Reference Range Interpretation Comments B-TYPE NATRIURETIC PEPTIDE (BEAKER) 125 pg/mL 0-100 H (test code = 700) LIPID [id number] 09:23:00 Test Item Value Reference Range Interpretation Comments TRIGLYCERIDES (BEAKER) (test code = 58 mg/dL 540) CHOLESTEROL (BEAKER) (test code = 132 mg/dL 631) HDL CHOLESTEROL (BEAKER) (test code 50 mg/dL = 976) LDL CHOLESTEROL CALCULATED (BEAKER) 70 mg/dL (test code = 633) Triglyceride Reference Range: Low Risk <150 Borderline 150-199 High Risk 200-499 Very High Risk >=500Cholesterol Reference Range: Low Risk <200 Borderline 200-239 High Risk >240HDL Cholesterol Reference Range: Low Risk >=60 High Risk <40LDL Cholesterol Reference Range: Optimal <100 Near Optimal 100-129 Borderline 130-159 High 160-189 Very High >=190BASIC METABOLIC [id number] 09:23:00 Test Item Value Reference Range Interpretation [...] APPLICABLE FOR DIALYSIS PATIEN TS. HEPATIC FUNCTION [id number] 09:23:00 Test Item Value Reference Range Interpretation [...] 6-55 347) CBC W/PLT COUNT & AUTO [id number] 09:01:00 Test Item Value Reference Range Interpretation [...] 0-1 PERCENT (BEAKER) (test code = 2801) [id number] 09:12:00 Test Item Value Reference Range Interpretation Comments PROSTATE SPECIFIC ANTIGEN (BEAKER) 0.3 ng/mL 0.0-4.0 (test code = 844) [id number] 08:35:00 Test Item Value Reference Range Interpretation Comments THYROID STIMULATING HORMONE 0.84 uIU/mL 0.35-4.94 (BEAKER) (test code = 772) B-TYPE NATRIURETIC FACTOR (BNP)2018-02-25 08:22:00 Test Item Value Reference Range Interpretation Comments B-TYPE NATRIURETIC PEPTIDE (BEAKER) 159 pg/mL 0-100 H (test code = 700) LIPID [id number] 08:15:00 Test Item Value Reference Range Interpretation [...] 130-159 High 160-189 Very High >=190BASIC METABOLIC [id number] 08:15:00 Test Item Value Reference Range Interpretation [...] APPLICABLE FOR DIALYSIS PATIEN TS. HEPATIC FUNCTION [id number] 08:15:00 Test Item Value Reference Range Interpretation [...] 6-55 347) CBC W/PLT COUNT & AUTO [id number] 07:57:00 Test Item Value Reference Range Interpretation [...] (test code = 2801) RAD, CHEST, 2 [id number] 11:54:00Reason for Exam:->HTNFINAL REPORT CLINICAL HISTORY: HTN [...] MDReport Verified Date/Time: 08/20/2017 11:54:58 Reading Location: [facility] Radiology Reading Room [id number] 11:48:00 Test Item Value Reference Range Interpretation Comments THYROID STIMULATING HORMONE 1.05 uIU/mL 0.35-4.94 (BEAKER) (test code = 772) [id number] 10:45:00 Test Item Value Reference Range Interpretation Comments PROSTATE SPECIFIC ANTIGEN (BEAKER) 0.4 ng/mL 0.0-4.0 (test code = 844) LIPID [id number] 10:37:00 Test Item Value Reference Range Interpretation Comments TRIGLYCERIDES (BEAKER) (test code = 19 mg/dL 540) CHOLESTEROL (BEAKER) (test code = 128 mg/dL 631) HDL CHOLESTEROL (BEAKER) (test code 51 mg/dL = 976) LDL CHOLESTEROL CALCULATED (BEAKER) 73 mg/dL (test code = 633) Triglyceride Reference Range: Low Risk <150 Borderline 150-199 High Risk 200-499 Very High Risk >=500Cholesterol Reference Range: Low Risk <200 Borderline 200-239 High Risk >240HDL Cholesterol Reference Range: Low Risk >=60 High Risk <40LDL Cholesterol Reference Range: Optimal <100 Near Optimal 100-129 Borderline 130-159 High 160-189 Very High >=190BASIC METABOLIC [id number] 10:37:00 Test Item Value Reference Range Interpretation [...] APPLICABLE FOR DIALYSIS PATIEN TS. HEPATIC FUNCTION [id number] 10:37:00 Test Item Value Reference Range Interpretation [...] 6-55 347) CBC W/PLT COUNT & AUTO [id number] 10:06:00 Test Item Value Reference Range Interpretation [...] 0-1 PERCENT (BEAKER) (test code = 2801) [id number] 10:54:00 Test Item Value Reference Range Interpretation Comments PROSTATE SPECIFIC ANTIGEN (BEAKER) 0.9 ng/mL 0.0-4.0 (test code = 844) [id number] 10:06:00 Test Item Value Reference Range Interpretation Comments THYROID STIMULATING HORMONE 0.86 uIU/mL 0.35-4.94 (BEAKER) (test code = 772) LIPID [id number] 09:51:00 Test Item Value Reference Range Interpretation [...] 130-159 High 160-189 Very High >=190BASIC METABOLIC [id number] 09:51:00 Test Item Value Reference Range Interpretation [...] APPLICABLE FOR DIALYSIS PATIEN TS. HEPATIC FUNCTION [id number] 09:51:00 Test Item Value Reference Range Interpretation [...] 6-55 347) CBC W/PLT COUNT & AUTO [id number] 09:12:00 Test Item Value Reference Range Interpretation [...] 0-1 PERCENT (BEAKER) (test code = 2801) [id number] 11:16:00 Test Item Value Reference Range Interpretation Comments THYROID STIMULATING HORMONE 1.13 uIU/mL 0.35-4.94 (BEAKER) (test code = 772) LIPID [id number] 10:34:00 Test Item Value Reference Range Interpretation [...] 130-159 High 160-189 Very High >=190BASIC METABOLIC [id number] 10:34:00 Test Item Value Reference Range Interpretation [...] APPLICABLE FOR DIALYSIS PATIEN TS. HEPATIC FUNCTION [id number] 10:34:00 Test Item Value Reference Range Interpretation [...] (test code = 17 U/L 6-55 347) [id number] 10:17:00 Test Item Value Reference Range Interpretation Comments PROSTATE SPECIFIC ANTIGEN (BEAKER) 0.5 ng/mL 0.0-4.0 (test code = 844) CBC W/PLT COUNT & AUTO [id number] 09:50:00 Test Item Value Reference Range Interpretation [...]
[2022-10-08 21:49] LABS: Absolute Lymphocytes (CBC) 2.6 K/uL (0.7-4.9); Hematocrit 38.5 % (39.6-49.0); Lymphocytes % 40.3 % (15.3-44.8); MCV 99.8 fL (80-100); MPV 7.6 fL (7.6-11.3); RBC Red Blood Cell Count 3.86 M/uL (4.33-5.43)
--- NOTE | 2022-10-08 21:53 | RAD REPORT ---
EXAM DESCRIPTION: CT - Ct Stroke Brain Wo Cont - 10/08/2022 9:44 pm CLINICAL HISTORY: STROKE ALERT CVA symptomology, headache COMPARISON: Head Brain Wo Cont dated 05/01/2022 TECHNIQUE: All CT scans are performed using dose optimization technique as appropriate and may inclu de automated exposure control or mA/KV adjustment according to patient size. FINDINGS: No intracranial hemorrhage, hydrocephalus or extra-axial fluid collection.Mild generalized brain atrophy is present with mild periventricular and deep white matter chronic microvascular ische jackson changes.No areas of brain edema or evidence of midline shift. The paranasal sinuses and mastoids are clear. The calvarium is intact. IMPRESSION: No acute intracranial abnormality. The findings were discussed with dwaine Babb in the emergency room on 10/08/2022 at 9:50 p.m. by telep carmen.
[2022-10-08 22:02] LABS: Protime INR 1.55
[2022-10-08 22:08] LABS: Albumin 2.6 g/dL (3.4-5.0); Bilirubin Direct 0.1 mg/dL (0-0.2); Bilirubin Total 0.6 mg/dL (0.2-1.0); Protein, Total 7.1 g/dL (6.4-8.2); Troponin High Sensitivity 11.1 pg/mL (<58.9)
[2022-10-08 22:09] LABS: Magnesium 1.9 mg/dL (1.6-2.4); Potassium 4.3 mEq/L (3.5-5.1)
--- NOTE | 2022-10-08 22:11 | RAD REPORT ---
EXAM DESCRIPTION: RAD - Chest Single View - 10/08/2022 9:58 pm CLINICAL HISTORY: left arm numb Chest pain. COMPARISON: <Comparisons> FINDINGS: Portable technique limits examination quality. Extensive bilateral pulmonary opacities are present, mildly progressive since 05/01/2022 study. Presu mably, the majority of these opacities are chronic. The heart is moderately enlarged in size. No acut e fracture seen.
--- NOTE | 2022-10-08 23:35 | ER ---
Nurse's Notes [facility] Name: Saurav Vega Age: 87 yrs Sex: Male : 1935 Arrival Date: 10/08/2022 Time: 21:30 Bed 2 Private MD: Diagnosis: Left upper extremity paresthesia and weakness - improving Presentation: 10/08 21:31 Chief complaint: Chief complaint: EMS states: About 30 minutes ago the patient started kd3 feeling weakness and tingling in the left arm. No other symptoms. Pt does that eliquis for A-Fib. No prior history of a stroke or a heart attack. pt is A\T\O x 4 and equal in strength bilaterally. 21:31 Coronavirus screen: Vaccine status: Patient reports receiving the 2nd dose of the covid kd3 vaccine. Ebola Screen: No symptoms or risks identified at this time. Initial Sepsis Screen: Does the patient meet any 2 criteria? No. Patient's initial sepsis screen is negative. Does the patient have a suspected source of infection? No. Patient's initial sepsis screen is negative. Risk Assessment: Do you want to hurt yourself or someone else? Patient reports no desire to harm self or others. Onset of symptoms was October 08, 2022. 21:31 Method Of Arrival: EMS: [facility] kd3 21:31 Acuity: IRVING 3 kd3 Triage Assessment: 21:52 General: Appears in no apparent distress. Behavior is calm, cooperative. Pain: Denies kd3 pain. Historical: - Allergies: 21:52 Erythromycin; kd3 21:52 Neomycin Sulfate; kd3 21:52 Percocet; kd3 21:52 Sulfa (Sulfonamide Antibiotics); kd3 - PMHx: 21:52 acid reflux; Atrial fibrillation; Glaucoma; Hypercholesterolemia; Hypothyroidism; kd3 Irregular heart rate; - PSHx: 21:52 Cardiac Ablation; kd3 - Immunization history:: Adult Immunizations up to date. - Social history:: Smoking status: Patient denies any tobacco usage or history of. Screenin:31 Abuse screen: Denies threats or abuse. Denies injuries from another. kd3 21:31 Nutritional screening: No deficits noted. Tuberculosis screening: No symptoms or risk kd3 factors identified. VAN Screening: Arm Drift: Patient shows no arm weakness. Patient is VAN negative. 10/09 00:37 [facility] ED Fall Risk Assessment (Adult) History of falling in the last 3 months, lg3 including since admission No falls in past 3 months (0 pts). 01:48 Alejandra Swallow Protocol Brief Cognitive Screen What is your name? Normal, Where are you lg3 right now? Normal, What year is it? Normal. Oral Mechanism Examination Facial Symmetry: Normal, Motion: Normal, Lip Closure: Normal, Oral Mechanism Result: Normal. 3 oz Water Swallow Challenge: Pt able to drink all water without stopping, coughing, choking or throat clearing: Yes Result: PASS MD Notified: Shahram Soto MD. Assessment: 10/08 21:35 General: pt is not a canid ate for TNK due to Eliquis. . kd3 21:40 General: pt to CT . kd3 22:13 General: Appears in no apparent distress. comfortable, Behavior is calm, cooperative. aa9 Pain: Denies pain. Neuro: Level of Consciousness is awake, alert, obeys commands, Oriented to person, place, time, situation. Respiratory: Airway is patent Respiratory effort is even, unlabored. Derm: Skin is intact, is fragile, is thin. 10/09 00:36 Reassessment: Patient appears in no apparent distress at this time. No changes from lg3 previously documented assessment. Patient and/or family updated on plan of care and expected duration. Pain level reassessed. Patient is alert, oriented x 3, equal unlabored respirations, skin warm/dry/pink. Patient states symptoms have improved. Vital Signs: 10/08 22:00 BP 126 / 76; Pulse 55; Resp 18 S; Pulse Ox 99% on R/A; aa9 22:30 BP 125 / 75; Pulse 57; Resp 18; Pulse Ox 99% on R/A; aa9 10/09 00:36 BP 115 / 74; Pulse 55; Resp 17 S; Pulse Ox 99% on R/A; lg3 01:45 BP 131 / 69; Pulse 59; Resp 17; Pulse Ox 96% on R/A; aa9 NIH Stroke Scale Scores: 10/08 21:31 NIHSS Score: 2 kd3 10/09 05:01 NIHSS Score: 1 kdr ED Course: 10/08 21:31 Patient arrived in ED. la1 21:31 Patient has correct armband on for positive identification. Placed in gown. Bed in low kd3 position. Call light in reach. Side rails up X2. 21:32 Maintain EMS IV. Dressing intact. Good blood return noted. Site clean \T\ dry. Gauge \T\ kd 3 site: 20 gauge in the left A/C. blood sent . 21:37 Shahram Soto MD is Attending Physician. kdr 21:46 CT Stroke Brain w/o Contrast In Process Unspecified. EDMS 21:52 Triage completed. kd3 21:53 Arm band placed on. kd3 22:00 Stroke CXR 1 View In Process Unspecified. EDMS 22:18 Clarisa Taylor, THADDEUS is Primary Nurse. aa9 23:[address] In Process Unspecified. EDMS 23:[address] In Process Unspecified. EDMS 23:32 Enmanuel Fry MD is Hospitalizing Provider. kdr 04 00:36 No provider procedures requiring assistance completed. Patient admitted, IV remains in lg3 place. intact, No redness/swelling at site. 01:52 Urine W/Microscopic (UAM) Sent. aa9 Administered Medications: No medications were administered Medication: 00:37 VIS not applicable for this client. lg3 Outcome: 10/08 23:34 Decision to Hospitalize by Provider. kdr 10/09 01:53 Admitted to Med/surg accompanied by tech, via wheelchair, room 221, Report called to lg3 Parisa Condition: stable Instructed on the need for admit, Demonstrated understanding of instructions. 02:27 Patient left the ED. lg3 NIH Stroke Scale - NIH Stroke Score Date: 10/08/2022 Time: 21:31 Total Score = 2 10. Dysarthria (speech clarity - read or repeat words) - 0(Normal) 11. Extinction and Inattention (visual/tactile/auditory/spatial/personal) - 0(No abnormality) 1a. Level of Consciousness (LOC) - 0(Alert) 1b. Level of Consciousness (LOC) (Month \T\ Age) - 0(Both) 1c. LOC Commands (Open \T\ Closes Eyes/Wireless Sales Expert) - 0(Both) 2. Best Gaze (Lateral Gaze Paresis) - 0(Normal) 3. Visual Field Loss - 0(No visual loss) 4. Facial Palsy - 0(Normal) 5a. Left Arm: Motor (10-second hold) - 0(No drift) 5b. Right Arm: Motor (10-second hold) - 0(No drift) 6a. Left Leg: Motor (5-second hold - always test supine) - 0(No drift) 6b. Right Leg: Motor (5-second hold - always test supine) - 0(No drift) 7. Limb Ataxia (finger/nose \T\ heel/tillman - test with eyes open) - 1(Present in one limb) 8. Sensory Loss (pinprick arms/legs/face) - 1(Mild to moderate loss) 9. Best Language: Aphasia (description/naming/reading) - 0(No aphasia) Initials: kd3 NIH Stroke Scale - NIH Stroke Score Date: 10/09/2022 Time: 05:01 Total Score = 1 10. Dysarthria (speech clarity - read or repeat words) - 0(Normal) 11. Extinction and Inattention (visual/tactile/auditory/spatial/personal) - 0(No abnormality) 1a. Level of Consciousness (LOC) - 0(Alert) 1b. Level of Consciousness (LOC) (Month \T\ Age) - 0(Both) 1c. LOC Commands (Open \T\ Closes Eyes/Wireless Sales Expert) - 0(Both) 2. Best Gaze (Lateral Gaze Paresis) - 0(Normal) 3. Visual Field Loss - 0(No visual loss) 4. Facial Palsy - 0(Normal) 5a. Left Arm: Motor (10-second hold) - 0(No drift) 5b. Right Arm: Motor (10-second hold) - 0(No drift) 6a. Left Leg: Motor (5-second hold - always test supine) - 0(No drift) 6b. Right Leg: Motor (5-second hold - always test supine) - 0(No drift) 7. Limb Ataxia (finger/nose \T\ heel/tillman - test with eyes open) - 0(Absent) 8. Sensory Loss (pinprick arms/legs/face) - 1(Mild to moderate loss) 9. Best Language: Aphasia (description/naming/reading) - 0(No aphasia) Initials: kdr Signatures: Dispatcher [employer] EDMS Shahram Soto MD MD kdr Skinny Stein, [employer] SALES BEAUTY ADVISOR-C [employer] SALES BEAUTY ADVISOR-Cla1 Danielle Mccann RN RN 3 Imelda Theodore RN RN kd3 Taylor, Clarisa, RN RN aa9
--- NOTE | 2022-10-08 23:35 | EDPHYS ---
Physician Documentation [facility] Name: Saurav Vega Age: 87 yrs Sex: Male : 1935 Arrival Date: 10/08/2022 Time: 21:30 Bed 2 Private MD: ED Physician Shahram Soto HPI: 10/09 03:51 This 87 yrs old Male presents to ER via EMS with complaints of Left upper extremity kdr weakness and numbness. 03:51 Patient came to the emergency department today after starting to feel weak and tingling kdr in his left arm. He indicated that it was difficult to appreciate any sensation in his left forearm and hand and that it was difficult to maneuver his left upper extremity. He denies any other associated symptoms. This started about 30 minutes prior to arrival. Currently his strength is 5/5 in the left upper extremity and his sensation is largely resolved though he still has some paresthesia in his left hand and fingers. The patient took his Eliquis tonight and is not a candidate for TNK. Onset: The symptoms/episode began/occurred suddenly, .5 hour(s) ago. Severity of symptoms: At their worst the symptoms were mild in the emergency department the symptoms have improved moderately. The patient has not experienced similar symptoms in the past. The patient has not recently seen a physician. Historical: - Allergies: 10/08 21:52 Erythromycin; kd3 21:52 Neomycin Sulfate; kd3 21:52 Percocet; kd3 21:52 Sulfa (Sulfonamide Antibiotics); kd3 - PMHx: 21:52 acid reflux; Atrial fibrillation; Glaucoma; Hypercholesterolemia; Hypothyroidism; kd3 Irregular heart rate; - PSHx: 21:52 Cardiac Ablation; kd3 - Immunization history:: Adult Immunizations up to date. - Social history:: Smoking status: Patient denies any tobacco usage or history of. ROS: 10/09 05:01 Constitutional: Negative for fever, chills, and weight loss, Eyes: Negative for injury, kdr pain, redness, and discharge, ENT: Negative for injury, pain, and discharge, Neck: Negative for injury, pain, and swelling, Cardiovascular: Negative for chest pain, palpitations, and edema, Respiratory: Negative for shortness of breath, cough, wheezing, and pleuritic chest pain, Abdomen/GI: Negative for abdominal pain, nausea, vomiting, diarrhea, and constipation, Back: Negative for injury and pain, : Negative for injury, bleeding, discharge, and swelling, MS/Extremity: Negative for injury and deformity, Skin: Negative for injury, rash, and discoloration, Psych: Negative for depression, anxiety, suicide ideation, homicidal ideation, and hallucinations, Allergy/Immunology: Negative for hives, rash, and allergies, Endocrine: Negative for neck swelling, polydipsia, polyuria, polyphagia, and marked weight changes, Hematologic/Lymphatic: Negative for swollen nodes, abnormal bleeding, and unusual bruising. Neuro: Positive for numbness, weakness, of the left arm. Exam: 05:01 Constitutional: This is a well developed, well nourished patient who is awake, alert, kdr and in no acute distress. Head/Face: Normocephalic, atraumatic. Eyes: Pupils equal round and reactive to light, extra-ocular motions intact. Lids and lashes normal. Conjunctiva and sclera are non-icteric and not injected. Cornea within normal limits. Periorbital areas with no swelling, redness, or edema. Neck: Trachea midline, no thyromegaly or masses palpated, and no cervical lymphadenopathy. Supple, full range of motion without nuchal rigidity, or vertebral point tenderness. No Meningismus. Chest/axilla: Normal chest wall appearance and motion. Nontender with no deformity. No lesions are appreciated. Cardiovascular: Regular rate and rhythm with a normal S1 and S2. No gallops, murmurs, or rubs. Normal PMI, no JVD. No pulse deficits. Respiratory: Lungs have equal breath sounds bilaterally, clear to auscultation and percussion. No rales, rhonchi or wheezes noted. No increased work of breathing, no retractions or nasal flaring. Abdomen/GI: Soft, non-tender, with normal bowel sounds. No distension or tympany. No guarding or rebound. No evidence of tenderness throughout. Back: No spinal tenderness. No costovertebral tenderness. Full range of motion. Skin: Warm, dry with normal turgor. Normal color with no rashes, no lesions, and no evidence of cellulitis. MS/ Extremity: Pulses equal, no cyanosis. Neurovascular intact. Full, normal range of motion. Psych: Awake, alert, with orientation to person, place and time. Behavior, mood, and affect are within normal limits. 05:01 Neuro: Orientation: is normal, Mentation: is normal, Motor: is normal, Sensation: numbness, that is mild, of the left antecubital area, dorsal aspect of left forearm, left wrist, left hand, left elbow and palmar aspect of left forearm. Vital Signs: 10/08 22:00 BP 126 / 76; Pulse 55; Resp 18 S; Pulse Ox 99% on R/A; aa9 22:30 BP 125 / 75; Pulse 57; Resp 18; Pulse Ox 99% on R/A; aa9 10/09 00:36 BP 115 / 74; Pulse 55; Resp 17 S; Pulse Ox 99% on R/A; lg3 01:45 BP 131 / 69; Pulse 59; Resp 17; Pulse Ox 96% on R/A; aa9 NIH Stroke Scale Scores: 10/08 21:31 NIHSS Score: 2 kd3 10/09 05:01 NIHSS Score: 1 kdr MDM: 10/08 23:34 Patient medically screened. kdr 10/09 05:01 Data reviewed: vital signs, nurses notes, lab test result(s), EKG, radiologic studies. kdr 10/08 21:34 Order name: Basic Metabolic Panel; Complete Time: 22:22 [facility] 10/08 21:34 Order name: CBC with Diff; Complete Time: 22:50 [facility] 10/08 21:34 Order name: Hepatic Function; Complete Time: 22:50 [facility] 10/08 21:34 Order name: High Sensitivity Troponin; Complete Time: 22:50 [facility] 10/08 21:34 Order name: Magnesium; Complete Time: 22:50 [facility] 10/08 21:34 Order name: Protime (+inr); Complete Time: 22:50 [facility] 10/08 21:34 Order name: Ptt, Activated; Complete Time: 22:50 [facility] 10/08 21:50 Order name: Glucose, Ancillary Testing; Complete Time: 22:50 EDMS 10/09 00:20 Order name: Urine W/Microscopic (UAM) [facility] 10/08 21:34 Order name: CT Stroke Brain w/o Contrast; Complete Time: 22:50 [facility] 10/08 21:34 Order name: Stroke CXR 1 View; Complete Time: 22:50 sc10/08 22:50 Order name: Head Angio CT la1 04/25 22:50 Order name: Neck Angio CT 10/08 21:34 Order name: EKG; Complete Time: 21:34 10/08 21:34 Order name: Accucheck; Complete Time: 22:12 10/08 21:34 Order name: Cardiac monitoring; Complete Time: 22:12 10/08 21:34 Order name: EKG - Nurse/Tech; Complete Time: 22:12 10/08 21:34 Order name: IV Saline Lock; Complete Time: 22:12 10/08 21:34 Order name: Labs collected and sent; Complete Time: 22:12 10/08 21:34 Order name: NPO; Complete Time: 22:12 10/08 21:34 Order name: O2 Per Protocol; Complete Time: 22:12 10/08 21:34 Order name: O2 Sat Monitoring; Complete Time: 22:12 10/08 21:34 Order name: Stroke Swallow Screen; Complete Time: 01:52 la Administered Medications: No medications were administered Disposition Summary: 10/08/22 23:34 Hospitalization Ordered Hospitalization Status: Observation kdr Provider: Enmanuel Fry Location: Telemetry/MedSurg (observation) kdr Condition: Fair kdr Problem: new kdr Symptoms: have improved kdr Bed/Room Type: Standard [facility] Room Assignment: 221(10/09/22 00:29) eb1 Diagnosis - Left upper extremity paresthesia and weakness - improving kdr Forms: - Medication Reconciliation Form kdr - SBAR form kdr NIH Stroke Scale - NIH Stroke Score Date: 10/08/2022 Time: 21:31 Total Score = 2 10. Dysarthria (speech clarity - read or repeat words) - 0(Normal) 11. Extinction and Inattention (visual/tactile/auditory/spatial/personal) - 0(No abnormality) 1a. Level of Consciousness (LOC) - 0(Alert) 1b. Level of Consciousness (LOC) (Month \T\ Age) - 0(Both) 1c. LOC Commands (Open \T\ Closes Eyes/Insulation Inspector) - 0(Both) 2. Best Gaze (Lateral Gaze Paresis) - 0(Normal) 3. Visual Field Loss - 0(No visual loss) 4. Facial Palsy - 0(Normal) 5a. Left Arm: Motor (10-second hold) - 0(No drift) 5b. Right Arm: Motor (10-second hold) - 0(No drift) 6a. Left Leg: Motor (5-second hold - always test supine) - 0(No drift) 6b. Right Leg: Motor (5-second hold - always test supine) - 0(No drift) 7. Limb Ataxia (finger/nose \T\ heel/tillman - test with eyes open) - 1(Present in one limb) 8. Sensory Loss (pinprick arms/legs/face) - 1(Mild to moderate loss) 9. Best Language: Aphasia (description/naming/reading) - 0(No aphasia) Initials: kd3 NIH Stroke Scale - NIH Stroke Score Date: 10/09/2022 Time: 05:01 Total Score = 1 10. Dysarthria (speech clarity - read or repeat words) - 0(Normal) 11. Extinction and Inattention (visual/tactile/auditory/spatial/personal) - 0(No abnormality) 1a. Level of Consciousness (LOC) - 0(Alert) 1b. Level of Consciousness (LOC) (Month \T\ Age) - 0(Both) 1c. LOC Commands (Open \T\ Closes Eyes/Insulation Inspector) - 0(Both) 2. Best Gaze (Lateral Gaze Paresis) - 0(Normal) 3. Visual Field Loss - 0(No visual loss) 4. Facial Palsy - 0(Normal) 5a. Left Arm: Motor (10-second hold) - 0(No drift) 5b. Right Arm: Motor (10-second hold) - 0(No drift) 6a. Left Leg: Motor (5-second hold - always test supine) - 0(No drift) 6b. Right Leg: Motor (5-second hold - always test supine) - 0(No drift) 7. Limb Ataxia (finger/nose \T\ heel/tillman - test with eyes open) - 0(Absent) 8. Sensory Loss (pinprick arms/legs/face) - 1(Mild to moderate loss) 9. Best Language: Aphasia (description/naming/reading) - 0(No aphasia) Initials: kdr Signatures: Dispatcher [employer] EDMS Shahram Soto MD MD kdr Skinny Stein, OIL PIPE INSPECTOR-C OIL PIPE INSPECTOR-Cla1 Rosa Cates RN RN eb1 Imelda Theodore, THADDEUS RN kd3 Corrections: (The following items were deleted from the chart) 10/08 23:34 kdr eb1 10/09 00 00:29 210 andreea eb1
--- NOTE | 2022-10-09 01:21 | P.HP ---
Certification for Inpatient Patient admitted to: Observation With expected LOS: <2 Midnights Patient will require the following post-hospital care: None Practitioner: I am a practitioner with admitting privileges, knowledge of patient current condition, hospital course, and medical plan of care. Services: Services provided to patient in accordance with Admission requirements found in Title 42 Section 412.3 of the Code of Federal Regulations Patient History Date of Service: 10/09/22 Reason for admission: TIA History of Present Illness: 87-year-old male with history of atrial fibrillation on chronic anticoagulation, hypothyroidism, glaucoma, GERD, hyperlipidemia presents to the emergency department for upper extremity numbness, weakness. Symptoms began at approximately 1999 45 2022, he was opening a medication bottle when he noticed he could not feel his left arm, his daughter who is at bedside this time reported that she noticed he had left arm drift prior to EMS arrival. He was transported to the emergency department, upon arrival he was still having numbness of the left upper extremity. Stroke was called CT head without contrast was performed which was negative for acute findings. Patient was not a candidate for TNK given his use of Eliquis, his last dose of Eliquis was yesterday evening. His labs overall were unremarkable, chest x-ray shows extensive bilateral pulmonary opacities present, mildly progressive since 05/01/2022. Presumably the majority of these opacities are chronic heart is moderately enlarged no fracture seen. Patient symptoms improved during his stay in the emergency department, ED provider wishes to admit under observation for suspected TIA. Allergies acetaminophen [From Percocet] Allergy (Unverified 08/11/16 00:16) Unknown oxycodone [From Percocet] Allergy (Unverified 08/11/16 00:16) Unknown Erythromycin Allergy (Uncoded 08/11/16 00:16) Unknown Neomycin Sulfate Allergy (Uncoded 08/11/16 00:16) Unknown Sulfa (Sulfonamide A Allergy (Uncoded 08/11/16 00:16) Unknown Home Medications: Apixaban [Eliquis] 5 mg PO BID 05/02/22 Aspirin [Marixa Chewable Aspirin] 81 mg PO DAILY 05/02/22 B12/Levomefolate Calcium/B-6 [Foltx Tablet] 1 tab PO DAILY 05/02/22 Calcium Citrate/Vitamin D3 [Citracal + D Maximum Caplet] 1 tab PO BID 05/02/22 Dorzolamide HCl/Timolol Maleat [Dorzolamide-Timolol Eye Drops] 1 drop OP BID 05/02/22 Ezetimibe [Zetia] 10 mg PO DAILY 05/02/22 Famotidine [Pepcid] 40 mg PO BEDTIME 05/02/22 Fluticasone [Flonase 50MCG Nasal [place]*] 1 puff IH DAILY PRN 05/02/22 Latanoprost/Pf [Latanoprost 0.005% Eye Drop] 1 drop OP BEDTIME 05/02/22 Levothyroxine Sodium [Synthroid] 75 mcg PO DAILY 05/02/22 Lidocaine [Aspercreme Lidocaine] 1 each TP DAILY 05/02/22 Multivitamin 1 each PO DAILY 05/02/22 Omeprazole [Prilosec] 40 mg PO DAILY 05/02/22 Pantoprazole Sodium [Protonix] 40 mg PO ACB #30 tab 05/02/22 - Past Medical/Surgical History Diabetic: No -: Paroxysmal A. fib. -: Hypothyroidism. -: GERD. -: Glaucoma -: Hyperlipidemia -: Cardiac ablation. -: Eye Sx to correct double vision -: Right L5-S1 Transforaminal Epidural IRVING -: Hernia Repair -: Cataract Sx -: brenda knee replacement -: tonsillectomy Psychosocial/ Personal History: Lives at home alone - Family History Mother -: Cancer Brother -: Heart disease - Social History Smoking Status: Never smoker Alcohol use: No CD- Drugs: No Caffeine use: Yes Place of Residence: Home Review of Systems 10-point ROS is otherwise unremarkable Neurological: As per HPI Physical Examination - Physical Exam General: Alert, In no apparent distress, Oriented x3 HEENT: Atraumatic, PERRLA, Mucous membr. moist/pink, EOMI, Sclerae nonicteric Neck: Supple, 2+ carotid pulse no bruit, No LAD, Without JVD or thyroid abnormality Respiratory: Clear to auscultation bilaterally, Normal air movement Cardiovascular: Regular rate/rhythm, Normal S1 S2 Gastrointestinal: Normal bowel sounds, No tenderness Musculoskeletal: No tenderness Integumentary: No rashes Neurological: Normal gait, Normal speech, Normal strength at 5/5 x4 extr, Normal tone, Normal affect, Other (NIH 0 ) - Studies Laboratory Data (last 24 hrs) 10/08/22 21:30: PT 17.1 H, INR 1.55, APTT 33.5 10/08/22 21:30: WBC 6.60, Hgb 13.0 L, Hct 38.5 L, Plt Count 163 10/08/22 21:30: Sodium 139, Potassium 4.3, BUN 16, Creatinine 1.11, Glucose 93, Magnesium 1.9, Total Bilirubin 0.6, AST 45 H, ALT 22, Alkaline Phosphatase 123 H Assessment and Plan - Plan Assessment: LUE weakness/paresthesia-resolved suspect TIA Paroxysmal AFib S/P ablation on chronic anticoagulation-now in NSR Hypothyroidism Hyperlipidemia Glaucoma Abnormal CXR Plan: LUE weakness/paresthesia-resolved suspect TIA CT head without contrast negative for acute findings. NIH now 0, symptoms resolved. He does report change in his swallowing about 3-4 weeks ago, he passed bedside swallow, will have speech evaluate. CT angio head/neck negative for acute findings. MRI ordered, neurology consult in place, continue ASA and eliqu is. Paroxysmal AFib S/P ablation on chronic anticoagulation-now in NSR Monitor on tele, continue eliquis, asa. Hypothyroidism Continue levothyroxine, TSH/T4 ordered. Hyperlipidemia Statin ordered, lipid panel ordered. Glaucoma Continue eye drop Abnormal CXR CXR shows "Extensive bilateral pulmonary opacities are present, mildly progressive since 05/01/2022 study. Presumably, the majority of these opacities are chronic. The heart is moderately enlarged in size. No acute fracture seen." Discussed with patient and family, asymptomatic at this time, he was on flecanide for about 6 years prior to 2021, also parents were smokers. Recommend outpatient evaluation with PCP and pulm. DVT PPX:Continue Eliquis Code status:full Discharge Plan: Home Plan to discharge in: 24 Hours - Advance Directives Does patient have a Living Will: Yes Does patient have a Durable POA for Healthcare: Yes - Code Status/Comfort Care Code Status Assessed: Yes (Full code) Critical Care: No Time Spent Managing Pts Care (In Minutes): 70
[2022-10-09 02:05] LABS: Specific Gravity 1.025 (1.005-1.030); Urine Bacteria None Seen /HPF (<20); Urine Bilirubin NEGATIVE (Negative); Urine Blood 3+ (OVER) (Negative); Urine Clarity Clear (Clear); Urine Color Light-Yellow (Yellow); Urine Glucose NEGATIVE (Negative); Urine Mucus Slight /HPF (None Seen); Urine Protein NEGATIVE (Negative); Urine RBC 21-50 /HPF (None Seen); Urine Urobilinogen Normal (Normal)
[2022-10-09] MEDS ORDERED: ONDANSETRON 4 MG/2 ML VIAL IV PRN (02:19)
[2022-10-09] MEDS ORDERED: ACETAMINOPHEN 500 MG TAB PO PRN (02:19)
[2022-10-09 02:26] VITALS: BMI 24.3
[2022-10-09] MEDS: NA CHLORIDE 0.9% 1,000 ML IV SCH ×2 (02:57→15:12)
[2022-10-09 03:38] VITALS: O2SAT 98
[2022-10-09 04:11] LABS: Absolute Lymphocytes (CBC) 2.3 K/uL (0.7-4.9); Hematocrit 37.1 % (39.6-49.0); Lymphocytes % 40.8 % (15.3-44.8); MCV 99.5 fL (80-100); MPV 7.3 fL (7.6-11.3); RBC Red Blood Cell Count 3.72 M/uL (4.33-5.43)
[2022-10-09 05:01] LABS: Potassium 3.8 mEq/L (3.5-5.1); T4,Total 10.4 ug/dL (4.5-12.1); Thyroid Stimulating Hormone 0.915 uIU/mL (0.358-3.740)
[2022-10-09] MEDS ORDERED: LEVOTHYROXINE SOD 0.075 MG TAB PO SCH (09:00)
[2022-10-09] MEDS ORDERED: FOLIC ACID 1 MG TABLET PO SCH (09:00)
[2022-10-09] MEDS ORDERED: POTASSIUM CL SA 10 MEQ TAB PO ONE (09:00)
[2022-10-09] MEDS ORDERED: APIXABAN 5 MG TABLET PO SCH (09:00)
--- NOTE | 2022-10-09 11:47 | RAD REPORT ---
EXAM DESCRIPTION: CT - Neck Angio - 10/09/2022 6:56 am CLINICAL HISTORY: 87 years Male, NUMBNESS TECHNIQUE: Helical CT axial images are obtained from the base thoracic inlet through the vertex with IV contrast. Multiplanar reconstruction. MIP reconstruction plus or minus 3D image processing was also performed. NASCET criteria using the distal ICAs for comparison were used for evaluation of riley tid stenosis. This exam was performed according to our departmental dose-optimization program, which includes automated exposure control, adjustment of the mA and/or kV according to patient size and/or use of iterative reconstruction technique. COMPARISON: None. FINDINGS: CTA BRAIN: Distal aspect of bilateral internal carotid arteries demonstrate mild diffuse atherosclerotic change without evidence of stenosis or abnormal morphology. Bilateral anterior and middle cerebral arteri es have a normal appearance. Patent anterior communicating artery.. Basilar artery is normal in caliber and morphology without high-grade stenosis or basilar tip aneur ysm Bilateral posterior cerebral arteries are identified emanating from the basilar tip and are wit hin normal limits. Non-visualized right PCOM. Non-visualized left PCOM. No aneurysm, branch occlusion, arteriovenous malformation or other vascular anomalies. CTA NECK: RIGHT CAROTID: Very mild atherosclerosis within the carotid bifurcation. Cervical course of the int ernal carotid artery is within normal limits without focal stenosis, aneurysm, or dissection. Normal CCA. Origin and proximal visualized branches of the external carotid artery appears normal. LEFT CAROTID: Mild atherosclerosis within the carotid bifurcation. Cervical course of the internal carotid artery is within normal limits without focal stenosis, aneurysm, or dissection. Normal CCA. O rigin and proximal visualized branches of the external carotid artery appears normal. VERTEBRAL: Bilateral vertebral arteries have a normal appearance with co-dominance. OTHER: Origin of the great vessels are within normal limits. SOFT TISSUES: Unremarkable. IMPRESSION: 1. Negative CTA of the brain and neck. Electronically signed by: Darryl Matthew MD 10/09/2022 1:26 AM CDT Due to temporary technical issues with the PACS/Fluency reporting system, reports are being signed by the in house radiologist without review as a courtesy to ensure prompt reporting. The interpreting r adiologist is fully responsible for the content of the report.
--- NOTE | 2022-10-09 11:54 | RAD REPORT ---
EXAM DESCRIPTION: MRI - Brain Wo Cont - 10/09/2022 10:50 am CLINICAL HISTORY: Left arm numbness COMPARISON: Head CT October 08, 2022 TECHNIQUE: Axial, sagittal, and coronal magnetic resonance images of the brain were obtained. FINDINGS: Diffusion-weighted/ADC mapping demonstrate punctate abnormal signal left cerebellar peduncle, 4 stanford meter abnormal signal left caudate head, 3 millimeter abnormal signal right basal ganglia and 7 stanford meter abnormal signal bess matter anterior right parietal lobe. These are compatible with combinatio n of acute and subacute infarction moderate signal periventricular , deep and subcortical white matter likely ischemic changes secon falguni to small vessel disease/ The ventricles are normal caliber. An extra-axial fluid collection is not noted. 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
--- NOTE | 2022-10-09 12:00 | RAD REPORT ---
EXAM DESCRIPTION: CT - Head angio - 10/09/2022 6:55 am CLINICAL HISTORY: 87 years Male, NUMBNESS TECHNIQUE: Helical CT axial images are obtained from the base thoracic inlet through the vertex with IV contrast. Multiplanar reconstruction. MIP reconstruction plus or minus 3D image processing was also performed. NASCET criteria using the distal ICAs for comparison were used for evaluation of riley tid stenosis. This exam was performed according to our departmental dose-optimization program, which includes automated exposure control, adjustment of the mA and/or kV according to patient size and/or use of iterative reconstruction technique. COMPARISON: None. FINDINGS: CTA BRAIN: Distal aspect of bilateral internal carotid arteries demonstrate mild diffuse atherosclerotic change without evidence of stenosis or abnormal morphology. Bilateral anterior and middle cerebral arteri es have a normal appearance. Patent anterior communicating artery.. Basilar artery is normal in caliber and morphology without high-grade stenosis or basilar tip aneur ysm Bilateral posterior cerebral arteries are identified emanating from the basilar tip and are wit hin normal limits. Non-visualized right PCOM. Non-visualized left PCOM. No aneurysm, branch occlusion, arteriovenous malformation or other vascular anomalies. CTA NECK: RIGHT CAROTID: Very mild atherosclerosis within the carotid bifurcation. Cervical course of the int ernal carotid artery is within normal limits without focal stenosis, aneurysm, or dissection. Normal CCA. Origin and proximal visualized branches of the external carotid artery appears normal. LEFT CAROTID: Mild atherosclerosis within the carotid bifurcation. Cervical course of the internal carotid artery is within normal limits without focal stenosis, aneurysm, or dissection. Normal CCA. O rigin and proximal visualized branches of the external carotid artery appears normal. VERTEBRAL: Bilateral vertebral arteries have a normal appearance with co-dominance. OTHER: Origin of the great vessels are within normal limits. SOFT TISSUES: Unremarkable. IMPRESSION: 1. Negative CTA of the brain and neck. Electronically signed by: Darryl Matthew MD 10/09/2022 1:26 AM CDT Due to temporary technical issues with the PACS/Fluency reporting system, reports are being signed by the in house radiologist without review as a courtesy to ensure prompt reporting. The interpreting r adiologist is fully responsible for the content of the report.
[2022-10-09 19:17] VITALS: BP 133/76; TEMP 98
--- NOTE | 2022-10-09 20:10 | CON ---
Reason For Consultation: Consultation called because of stroke. History Of Present Illness: Mr. Vega is an 87-year-old patient with atrial fibrillation on chronic anticoagulation, hypothyroidism, dyslipidemia, and he was on antiplatelets and on Eliquis when at [facility], he developed sudden onset of difficulty using the left hand where he could not open a medication bottle. The hand tended to drift and he felt numb in the hand. The patient's symptoms began around 8 p.m. on 12/08 and he was brought to [facility] where his head CT scan, which was done at 9 :44 showed no acute ischemic or hemorrhagic change. At that point, the patient's symptoms had comple tely resolved and his NIH Stroke Scale was 0. However, the following day, which is today, the brain MRI identified 4 areas of potential stroke. The punctate abnormalities seen in the left cerebellar p eduncle suggested acute stroke. There was a 4 mm abnormality in the left caudate head. More chronic , a 3 mm abnormality in the right basal ganglia and a 7 mm abnormality in the right parietal lobe in the anterior region and again compatible with acute and subacute infarctions. The patient's clinical symptom, however, had resolved and he felt he was at baseline level of functioning. At home, he was taking Eliquis 5 mg twice daily and aspirin 81 mg daily. He is also on Lipitor 40 mg at bedtime. The patient was seen by the Cardiology Service Dr. Burroughs and there was a plan for him to have a [facility] hman procedure. The plan is for him to have that in January as he has actually failed to control the risk of stroke with Eliquis and it should be noted that he was actually not a candidate for TNKs as h liang is on Eliquis. An additional chest x-ray identified bilateral pulmonary opacities, which were mild ly progressive since May 01, 2022. It is felt that these are chronic findings. Past Medical History: Paroxysmal atrial fibrillation, hypothyroidism, gastroesophageal reflux diseas e, glaucoma, dyslipidemia, and failed cardiac ablation. Past Surgical History: In addition to cardiac ablation, right eye surgery, right L5-S1 epidural stim ulator placed, hernia repair, cataract surgery, bilateral knee replacement, and tonsillectomy. Allergies: PERCOCET, OXYCODONE, ERYTHROMYCIN, NEOMYCIN, AND SULFA. Family History: Cancer in mother and heart disease in brother. Home Medications: Eliquis 5 mg twice daily, aspirin 81 mg daily, folic acid 1 mg daily, calcium plus D 1 tablet twice daily, timolol eye drops 1 twice daily, Zetia 10 mg daily, Pepcid 40 mg daily, Flon ase 50 mcg nasal spray 1 daily, latanoprost 0.005% 1 drop at bedtime in each eye, Synthroid 75 mcg da apple, apply Aspercreme, lidocaine topically daily, multivitamin 1 daily, Prilosec 40 mg daily, and Pro tonix 40 mg daily. Review of Systems: As noted, incoordination and weakness, which have resolved in the right upper extremity. Otherwise, no fevers or chills. No nausea or vomiting. Mild myalgias and arthralgias. No rash. No headache. No weight change. No psychiatric complaints. No gastrointestinal or genitourinary complaints. Physical Examination: Vital Signs: Blood pressure 121/68, pulse 70, respiratory rate 16, temperature 98.1, and oxygen satu ration 97%. Weight 169 pounds and height 5 feet 10 inches. General: Mr. Vega is resting comfortably in bed. His daughter is at bedside. HEENT: He is normocephalic, atraumatic. Sclerae anicteric. Oropharynx is pink and moist. Neck: Supple. Chest: Clear. Heart: Irregularly irregular. Extremities: No clubbing, cyanosis, or edema. Neurological: He has no focal deficits in upper and lower extremities and good strength 5/5 proximal ly and distally. Sensation with mild stocking-glove loss. Reflexes depressed and symmetric. In ter ms of his gait, he has good stance and stride. Laboratory Studies: Complete blood count with differential with white blood cell count 5.6, hemoglob in 12.7, and platelets 147. INR 1.55. Chemistries all essentially unremarkable. Glucose 93, calciu m 8.9. LDL cholesterol 71, HDL 38. TSH 0.915, T4 10.4. Urinalysis: 25 esterase, 21 to 50 red bloo d cells, 10 to 20 white blood cells, and 3+ blood. CT angiogram of the head and neck negative for an y obstruction or aneurysm or abnormality. Assessment: Mr. 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 He is on Eliquis and aspirin and has been compliant, but yet c ontinues to have strokes. He has multiple risk factors, but atrial fibrillation is the largest and h as dyslipidemia and hypothyroidism as well. Plan: 1.Recommend a Watchman procedure. 2.Continue aspirin 81 mg daily, Eliquis 5 mg twice daily, and hydrate very well. 3.He should engage in regular exercise, at least 30 minutes daily. 4.Continue medications for his comorbid conditions, which are noted above. 5.After discharge, he may follow up in Dr. Russell's clinic within a month. SANTY/PORSHA Voice ID: [id number] Report ID: [id number]
[2022-10-09] MEDS ORDERED: ATORVASTATIN 20 MG TAB PO SCH (21:00)
[2022-10-09] MEDS ORDERED: ATORVASTATIN 40 MG TAB PO SCH (21:00)
--- NOTE | 2022-10-11 07:07 | EKG ---
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
--- NOTE | 2022-10-11 12:10 | P.DS ---
Admission Date: 10/09/22 Discharge Date: 10/09/22 Disposition: ROUTINE DISCHARGE Discharge Condition: GOOD Reason for Admission: TIA Consultations: Neurology - Dr. Russell Brief History of Present Illness: Patient presented with left upper extremity numbness, weakness. Brain CT, Head/neck CTA were negative. CXR showed extensive bilateral pulmonary opacities present, mildly progressive since 05/01/2022, however most of them were chronic. Brain MRI indicated small, acute and subacute infarctions left cerebellum and bilateral cerebrum, most likely of embolic etiology. Neurology was consulted. Patient was continue on his home dose of eliquis and aspirin. Patients symptoms improved and was deemed stable for discharge. LDL Was 70, patient on zetia, and reported prior intolerance of statins, so no statin given. Patient is to follow up with cardiology to discuss watchman procedure. Hospital Course: Problem list: LUE weakness/paresthesia-resolved suspect TIA Paroxysmal AFib S/P ablation on chronic anticoagulation-now in NSR Hypothyroidism Hyperlipidemia Glaucoma Abnormal CXR Patient presented with left upper extremity numbness, weakness. Brain CT, Head/neck CTA were negative. CXR showed extensive bilateral pulmonary opacities present, mildly progressive since 05/01/2022, however most of them were chronic. Brain MRI indicated small, acute and subacute infarctions left cerebellum and bilateral cerebrum, most likely of embolic etiology. Neurology was consulted. Patient was continue on his home dose of eliquis and aspirin. Patients symptoms improved and was deemed stable for discharge. LDL Was 70, patient on zetia, and reported prior intolerance of statins, so no statin given. Patient is to follow up with cardiology to discuss watchman procedure. Follow up: PCP within 3-5 days Neurology ~1 month Cardiology in a few weeks Pulmonology to discuss x-ray findings Physical Exam: GEN: Alert, Oriented, NAD HEENT: Normal conjunctiva, sclera anicteric CV: Regular rate and rhythm, no edema Pulm: Nonlabored respirations on room air ABD: Soft, nontender, nondistended Neuro: Normal speech, normal affect Vital Signs/Physical Exam: Temp Pulse Resp BP Pulse Ox 98.0 F 65 16 133/76 96 10/09/22 16:00 10/09/22 16:00 10/09/22 16:00 10/09/22 16:00 10/09/22 16:00 Laboratory Data at Discharge: WBC 5.60 thou/uL (4.3-10.9) 10/09/22 03:33 Hgb 12.7 g/dL (13.6-17.9) L 10/09/22 03:33 Hct 37.1 % (39.6-49.0) L 10/09/22 03:33 Plt Count 147 thou/uL (152-406) L 10/09/22 03:33 PT 17.1 SECONDS (9.5-12.5) H 10/08/22 21:30 INR 1.55 10/08/22 21:30 APTT 33.5 SECONDS (24.3-36.9) 10/08/22 21:30 Sodium 138 mEq/L (136-145) 10/09/22 03:33 Potassium 3.8 mEq/L (3.5-5.1) 10/09/22 03:33 BUN 14 mg/dL (7-18) 10/09/22 03:33 Creatinine 0.87 mg/dL (0.70-1.30) 10/09/22 03:33 Glucose 93 mg/dL (74-106) 10/09/22 03:33 Magnesium 1.9 mg/dL (1.6-2.4) 10/08/22 21:30 Total Bilirubin 0.6 mg/dL (0.2-1.0) 10/08/22 21:30 AST 45 U/L (15-37) H 10/08/22 21:30 ALT 22 U/L (16-61) 10/08/22 21:30 Alkaline Phosphatase 123 U/L (45-117) H 10/08/22 21:30 Triglycerides 48 mg/dL (<150) 10/09/22 03:33 Cholesterol 119 mg/dL (<200) 10/09/22 03:33 HDL Cholesterol 38 mg/dL (40-60) L 10/09/22 03:33 Cholesterol/HDL Ratio 3.13 10/09/22 03:33 Home Medications: Apixaban [Eliquis] 5 mg PO BID 05/02/22 Aspirin [Marixa Chewable Aspirin] 81 mg PO DAILY 05/02/22 Calcium Citrate/Vitamin D3 [Citracal + D Maximum [place]] 1 tab PO BID 05/02/22 Dorzolamide HCl/Timolol Maleat [Dorzolamide-Timolol Eye Drops] 1 drop OP BID 05/02/22 Ezetimibe [Zetia] 10 mg PO DAILY 05/02/22 Fluticasone [Flonase 50MCG Nasal [place]*] 1 puff IH DAILY PRN 05/02/22 Latanoprost/Pf [Latanoprost 0.005% Eye Drop] 1 drop OP BEDTIME 05/02/22 Levothyroxine Sodium [Synthroid] 75 mcg PO DAILY 05/02/22 Folic Acid 1 mg PO DAILY 30 Days #30 tab 10/09/22 New Medications: Folic Acid 1 mg PO DAILY 30 Days #30 tab Physician Discharge Instructions: Patient presented with left upper extremity numbness, weakness. Brain CT, Head/neck CTA were negative. CXR showed extensive bilateral pulmonary opacities present, mildly progressive since 05/01/2022, however most of them were chronic. Brain MRI indicated small, acute and subacute infarctions left cerebellum and bilateral cerebrum, most likely of embolic etiology. Neurology was consulted. Patient was continue on his home dose of eliquis and aspirin. Patients symptoms improved and was deemed stable for discharge. LDL Was 70, patient on zetia, and reported prior intolerance of statins, so no statin given. Patient is to follow up with cardiology to discuss watchman procedure. Follow up: PCP within 3-5 days Neurology ~1 month Cardiology in a few weeks Pulmonology to discuss x-ray findings Diet: AHA Followup: NONE,NONE [Primary Care Provider] - Time spent managing pt's care (in minutes): 45
--- NOTE | 2022-10-14 12:47 | EKG ---
Test Date: 2022-10-08 Test Time: 21:56:39 Boardmarker: SUE MEASUREMENT RESULTS: Intervals: Rate: 54 CO: 172 QRSD: 80 QT: 408 QTc: 386 [place]: P: 22 CO: 172 QRS: 21 T: 2 INTERPRETIVE STATEMENTS: Sinus bradycardia with sinus arrhythmia Otherwise normal ECG Electronically Signed On 10-14-22 12:38:06 CDT by Maximino Mckeon
== END 2022-10-09 17:27 | disposition home or self-care (01) ==
LOC: ER 21:30 → 2ND 10-09 01:34
PROVIDERS: ADMIT Hospitalist; ATTEND Hospitalist
DX: R20.2 Paresthesia of skin (principal); R53.1 Weakness; I48.11 Longstanding persistent atrial fibrillation; E03.9 Hypothyroidism, unspecified; E78.5 Hyperlipidemia, unspecified; H40.9 Unspecified glaucoma; K21.9 Gastro-esophageal reflux disease without esophagitis; Z88.2 Allergy status to sulfonamides; Z79.01 Long term (current) use of anticoagulants; Z88.8 Allergy status to other drugs, medicaments and biological substances
CPT/HCPCS: 93005; 87088; 85025 ×2; 81001; 87086; 80048 ×2; 36415; 83735; 85610; 80061; 82947; 80076; 85730; 84436; 84443; 84484; 70496; 70498; 70450; 71045; 70551; 97116; Q9967; J7030; 97161; 99285; G0378

== ENCOUNTER 2022-11-10 15:36 | Emergency (ER) | payer OTHER ==
--- OUTSIDE RECORDS SUMMARY | 2022-11-10 15:45 | XMS REPORT | Continuity of Care Document ---
:1935 Author Organization [facility] t Address [address] [place] [address] Care Team Providers Name Role Phone DIANN HUERTA Primary Care Physician Unavailable KULWANT PACHECO Attending Clinician Unavailable Becca Soriano MD Attending Clinician [phone] Christina Gant Attending Clinician Unavailable KULWANT PACHECO Attending Clinician Unavailable Kulwant Pacheco MD Attending Clinician Flo Laura MD Attending Clinician Taylor TRAVIS, Nedra Attending Clinician Unavailable Melita Melgar MD Attending Clinician TEA_Nu_Netta Attending Clinician Unavailable Isaias Judge Attending Clinician [phone] KALIN MDADEN Attending Clinician Unavailable Kalin Madden MD Attending Clinician [phone], [facility] Room Attending Clinician Unavailable Vicente Wong MD Attending Clinician Isaias Judge Attending Clinician Unavailable Dhruv, Risa Attending Clinician Unavailable DONALD APARICIO Attending Clinician Unavailable KULWANT PACHECO Admitting Clinician Unavailable TEA_Nu_Isaias_ Admitting Clinician Unavailable Isaias Judge Admitting Clinician Unavailable Payers Payer Name Policy Type Policy Number Effective Date Expiration Date Bonita HUTCHINSON MEDICARE [id number] [facility] [id number] ADVANTAGE [place] [id number] Common HEALTHCARE Spirit [facility] UNITED MEDICARE [id number] 2021 HMO 00:00:00 NESHANIC STATION [id number] 2021 HEALTHCARE 00:00:00 (MEDICARE REPLACEMENT/ADVA NTAGE - PPO) NESHANIC STATION [id number] 2021 HEALTHCARE 00:00:00 HUMANA MEDICARE [id number] 2013 ADV 00:00:00 Problems Condition Condition Condition Status Onset Resolution Last Treating Co mments Source Name Details Category Date Date Treatment Clinician Date Atrial Atrial Disease Recurre [facility] fibrillati fibrillati nce 03-15 Marina kes on on 00:00: Medical 00 Center PAF PAF Disease Active [facility] (paroxysma (paroxysma 02-19 Co llege l atrial l atrial 00:00: of fibrillati fibrillati 00 Me dicin on) on) e Bilateral Bilateral Disease Active [facility] 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 Strategy was APPLE. [...] Becca Soriano MD on 05/09/20 at 1146 [employer]NAGER [employer] 18Right EyeThresh old was 24-2. Strategy was [...] Becca Soriano MD on 05/09/20 at 1144 MANAGER [employer] 06/08/19R ight EyeReliab ility was good. Temporal [...] Becca Soriano MD on 05/19/19 at 1153 MANAGER [employer]AF[employer] 04/09/18R elimaxim Camara MD -10.38 Superior and inferior arcuate scotoma, superior nasal stepOS MD -2.86 non specific changesOC T (Date): 08/27/22ST ABLE03/06R ight EyeReliab ility was good. Temporal [...] thickness was showing abnormal thinning. NotesG=47 /65 04/02 OCT RNFL (ziess)OD diffuse thinningG 52OS thin [...] different from the original. SN60WF +19.0 D [id number] +19.5 D OS20/20 ou PVD PVD Disease Active Overview: Method i (posterior (posterior 03-[address] vitreous vitreous 00:00: g of this Hos ekaterina detachment detachment 00 note l ) ) might be different from the original. No retinal tears or detachmen ts. Hypothyroi Hypothyroi Disease Active [facility] dism, dism, 11-20 [facility] un[facility]ifie unspecifie 00:00: Me dical d type d type 00 Center Hyperlipid Hyperlipid Disease Active [facility] emia, emia, 11-20 [facility] unspecifie unspecifie 00:00: Me dical d d 00 Center hyperlipid hyperlipid emia type emia type Osteopenia Osteopenia Disease Active Overview : [facility] 00:00: g of this Medical 00 note Center might be different from the original. Compressi on fracture L3 vertebra PVC PVC Disease Active Overview: [facility] (premature (premature 15 [facility] ventricula ventricula 00:00: g of this of r r 00 note Medicin contractio contractio might be e n) n) different from the original. Last Assessmen t & Plan: Formattin g of this note might be different from the original. Noted on ECG today and on exam. Asymptoma tic. PVC PVC Disease Active Overview: [facility] (premature (premature 915 [facility] ventricula ventricula 00:00: g of this of r r 00 note Medicin contractio contractio might be e n) n) different from the original. Last Assessmen t & Plan: Formattin g of this note might be different from the original. Noted on ECG today and on exam. Asymptoma tic. Hyperlipid Hyperlipid Disease Active Overview : [facility] emia 12-20 [facility] 00:00: g of this of 00 note Medicin might be e different from the original. Last Assessmen t & Plan: Formattin g of this note might be different from the original. Refills sent to pharmacy. Recent FLP is WNL. No changes made today. [id number] Lower Problem Common urinary Spirit tract - [facility] (LUTS) [facility] [id number] Prostate Problem Com fri nodule [facility] [id number] History of Problem Co mmon urethral Spirit stricture [facility] [id number] Microhemat Problem Co mmon uria Spirit [facility] Allergies, Adverse Reactions, Alerts Allergy Allergy Status Severity Reaction(s) Onset Inactive Treating Comm ents Source Name Type Date Date Clinician Chapo Schultzi Active [facility] ycin ty to 02-19 [place] adverse 00:00: of reaction 00 Medicin s to e drug Neomycin Propensi Active [facility] ty to 02-19 [place] adverse 00:00: of reaction 00 Medicin s to e drug Oxycodon Propensi Active [facility] e-Acetam ty to 02-19 [place] inophen adverse 00:00: of reaction 00 Medicin s to e drug Sulfa Propensi Active [facility] Antibiot ty to 02-19 [place] ics adverse 00:00: of reaction 00 Medicin s to e drug Erythrom Propensi Active Other (See 2015-06 ANY MYCIN Methodi ycin ty to Comments) 2-[address] adverse 00:00: CS"Makes Hospita reaction 00 me feel l s to worse drug than the reason I started taking the medicatio n" Oxycodon Propensi Active Other (See 2015-06 "Makes me Methodi e-Acetam ty to Comments) 2-[address] inophen adverse 00:00: fused, Hospita reaction 00 crazy and l s to assertive drug " Sulfa Propensi Active Other (See 2015-06 "koehler my M ethodi (Sulfona ty to Comments) [address] mide adverse 00:00: causes Hospita Antibiot reaction 00 scarring" l ics) s to drug ERYTHROM Allergy Active [facility] YCIN 2- 00:00: 00 NEOMYCIN Allergy Active [facility] 226 00:00: 00 OXYCODON Allergy Active Med Other [facility] E-ACETAM 08-11 INOPHEN 00:00: 00 SULFA Allergy Active [facility] (SULFONA -26 MIDE 00:00: ANTIBIOT 00 ICS) Sulfa Drug Active Swelling [facility] (Sulfona Allergy 08-11 [facility] mide 00:00: Medical Antibiot 00 Center ics) Sulfa Drug Active Swelling [facility] (Sulfona Allergy 08-11 [facility] mide 00:00: Medical Antibiot 00 Center ics) STATINS- Allergy Active [facility] HMG-COA 9-15 REDUCTAS 00:00: E 00 INHIBITO RS Statins- Propensi Active All [facility] St Hmg-Coa ty to 02-28 statins- [facility] Reductas adverse 00:00: had Medical e reaction 00 muscle Center Inhibito s pain rs Statins- Propensi Active All [facility] Hmg-Coa ty to 02-28 statins- [facility] Reductas adverse 00:00: had Medical e reaction 00 muscle Center Inhibito s pain rs neomycin neomycin Active Unknown Commo n [facility] Sulfona Sulfona Active Unknown Commo n mide mide Spirit (substan (substan - CHI ce) ce) [facility] acetamin acetamin Active Unknown Commo n ophen / ophen / Spirit oxycodon oxycodon - [facility] e e [facility] erythrom erythrom Active Unknown Commo n ycin ycin Spirit [facility] Family History Family Member Diagnosis Comments Start Date Stop Date Source Natural sister No Known Problems [facility] Natural father COPD [facility] Natural father Emphysema [facility] Natural mother Cancer [facility] Natural mother Pancreatic cancer Met [facility] Natural brother Heart attack [facility] Maternal grandfather Heart attack [facility] Maternal grandmother Stroke [facility] Paternal grandfather Stroke [facility] Paternal grandmother Diabetes [facility] Social History Social Habit Start Date Stop Date Quantity Comments Source Gender identity 2021-03-11 Identifies as Method ist 14:27:10 male gender [facility] (finding) Sexual orientation 2021-03-11 Method ist 14:27:10 Hospital Sex Assigned At Common Sp madi - [facility] History of Tobacco Common Spirit - Use [facility] History SDOH [facility] Alcohol Frequency Medical Center History [facility] Alcohol Std Drinks [facility] History [facility] Alcohol Binge Medical Jud ter Alcohol intake 2022-08-27 2022-08-27 Current drinker [facility] 00:00:00 00:00:00 of alcohol Hospital (finding) History of Social 2022-08-27 2022-08-[address] function 00:00:00 00:00:00 Hospital Tobacco use and 2022-02-19 2022-02-19 Smokeless tobacco [employer] exposure 00:00:00 00:00:00 non-user of Medicine Alcohol Comment 2017-09-17 2017-09-17 socially per week Me theleanorst 00:00:00 00:00:00 Hospital Smoking Status Start Date Stop Date Source Never smoked tobacco [facility] Magdalena ege of Medicine Medications Ordered Filled Start Stop Current Ordering Indication Dosage Frequency Signature Comments Components Source Medication Medication Date Date Medication? Clinician (SIG) Name Name Aspirin 81 Yes 81mg Take 81 mg [facility] MG tablet 3-14 by mouth. Colle ge 13:23: of 39 Medicin e B Yes 1{tbl} Take 1 [facility] Complex-C-E 3-14 Tablet by Col lege -Zn (BEE 13:23: mouth of ZEE) TABS 39 daily. Medicin e fluticasone Yes 1{spray 1 [place] by [facility] (FLONASE) 3-14 } Nasal College 50 MCG/ACT 13:23: route. of nasal spray 39 Medicin e omeprazole Yes 40mg Take 40 mg [facility] (PRILOSEC) 3-14 by mouth Colle ge 20 MG 13:23: two times of capsule 39 daily. Medicin TAKE TWICE e A DAY BEFORE MEALS L-Methylfol Yes Take by Evangeline rosalinda ate-B6-B12 3-14 mouth. College (FOLTX) 13:23: of 1.-2 39 Medicin MG TABS e Lidocaine Yes Apply Girish HCl 4 % 3-14 topically. Lenard tavera CREDigna 13:23: of 39 Medicin e Aspirin 81 2021-06 Yes 81mg Take 81 mg [facility] MG tablet 2-29 by mouth. Colle ge 10:15: of 52 Medicin e B 2021-06 Yes 1{tbl} Take 1 [facility] Complex-C-E 2-29 Tablet by Col lege -Zn (BEE 10:15: mouth of ZEE) TABS 52 daily. Medicin e fluticasone 2021-06 Yes 1{spray 1 [place] by [facility]ish (FLONASE) 2-29 } Nasal College 50 MCG/ACT 10:15: route. of nasal spray 52 Medicin e omeprazole 2021-06 Yes 40mg Take 40 mg [facility] (PRILOSEC) 2-29 by mouth Colle ge 20 MG 10:15: two times of capsule 52 daily. Medicin TAKE TWICE e A DAY BEFORE MEALS L-Methylfol 2021-06 Yes Take by Evangeline rosalinda ate-B6-B12 2-29 mouth. [place] (FOLTX) 10:15: of .-2 52 Medicin MG TABS e Lidocaine 2021-06 Yes Apply [facility]ish HCl 4 % 2-29 topically. Colleg e CREA 10:15: of 52 Medicin e Aspirin 81 2021-06 Yes 81mg Take 81 mg [facility] MG tablet 0-27 by mouth. Colle ge 10:52: of 11 Medicin e B 2021-06 Yes 1{tbl} Take 1 [facility] Complex-C-E 0-27 Tablet by Col lege -Zn (BEE 10:52: mouth of ZEE) TABS 11 daily. Medicin e fluticasone 2021-06 Yes 1{spray 1 [place] by [facility] (FLONASE) 0-27 } Nasal College 50 MCG/ACT 10:52: route. of nasal spray 11 Medicin e omeprazole 2021-06 Yes 40mg Take 40 mg [facility] (PRILOSEC) 0-27 by mouth. Magdalena ege 20 MG 10:52: of capsule 11 Medicin e L-Methylfol 2021-06 Yes Take by Evangeline rosalinda ate-B6-B12 0-27 mouth. [place] (FOLTX) 10:52: of .2 11 Medicin MG TABS e Lidocaine 2021-06 Yes Apply [facility] HCl 4 % 0-27 topically. Colleg e [...] (two) l mg/mL times a ophthalmic day. [facility] CALCIUM 2021-06 Yes QD Take by [facility] ORAL 0-01 mouth [facility] 20:10: daily. [address] CALCIUM 2021-06 Yes QD Take by [facility] ORAL 0-01 mouth [facility] 20:10: daily. [address] CALCIUM 2021-06 Yes QD Take by [facility] ORAL 0-01 mouth [facility] 20:10: daily. [address] CALCIUM 2021-06 Yes QD Take by [facility] ORAL 0-01 mouth [facility] 20:10: daily. [address] CALCIUM 2021-06 Yes QD Take by [facility] ORAL 0-01 mouth [facility] 20:10: daily. [address] CALCIUM 2021-06 Yes QD Take by [facility] ORAL 0-01 mouth [facility] 20:10: daily. [address] CALCIUM 2021-06 Yes QD Take by [facility] ORAL 0-01 mouth [facility] 20:10: daily. [address] folic acid Yes 1mg QD Take [address] (FOLVITE) 1 9-30 by mouth Luke s MG tablet 20:31: daily. Medica l 39 [place] calcium Yes Osteopenia 1{tbl} Q.5D Take [address] citrate-vit 9-30 tablet by Leann es salas D3 200 20:31: mouth 2 Med ical mg calcium 39 (two) Center -250 unit times Tab daily . aspirin 81 Yes Osteopenia 81mg QD Take [address] MG EC 9-30 by mouth [facility] tablet 20:31: daily. [address] latanoprost Yes 1[drp] QD Place [address] (XALATAN) 9-30 drop into [facility] 0.005 % 20:31: both eyes Medic al ophthalmic 39 nightly. Cente r solution folic acid Yes 1mg QD Take [address] (FOLVITE) 1 9-30 by mouth Luke s MG tablet 20:31: daily. Medica l 39 [place] calcium Yes Osteopenia 1{tbl} Q.5D Take [address] citrate-vit 9-30 tablet by Leann es salas D3 200 20:31: mouth 2 Med ical mg calcium 39 (two) Center -250 unit times Tab daily . aspirin 81 2022-0 Yes Osteopenia 81mg QD Take [address] MG EC 9-30 by mouth [facility] tablet 20:31: daily. [address] latanoprost Yes 1[drp] QD Place [address] (XALATAN) 9-30 drop into [facility] 0.005 % 20:31: both eyes Medic al ophthalmic 39 nightly. Cente r solution folic acid Yes 1mg QD Take [address] (FOLVITE) 1 9-30 by mouth Luke s MG tablet 20:31: daily. [address] calcium Yes Osteopenia 1{tbl} Q.5D Take [address] citrate-vit 9-30 tablet by Leann es salas D3 200 20:31: mouth 2 Med ical mg calcium 39 (two) Center -250 unit times Tab daily . aspirin 81 0 Yes Osteopenia 81mg QD Take [address] MG EC 9-30 by mouth [facility]ukes tablet 20:31: daily. [address] latanoprost Yes 1[drp] QD Place [address] (XALATAN) 9-30 drop into [facility] 0.005 % 20:31: both eyes Medic al ophthalmic 39 nightly. Cente r solution folic acid Yes 1mg QD Take [address] (FOLVITE) 1 9-30 by mouth Luke s MG tablet 20:31: daily. [address] calcium Yes Osteopenia 1{tbl} Q.5D Take [address] citrate-vit 9-30 tablet by Leann es salas D3 200 20:31: mouth 2 Med ical mg calcium 39 (two) Center -250 unit times Tab daily . aspirin 81 0 Yes Osteopenia 81mg QD Take [address] MG EC 9-30 by mouth [facility]ukes tablet 20:31: daily. [address] latanoprost Yes 1[drp] QD Place [address] (XALATAN) 9-30 drop into [facility] 0.005 % 20:31: both eyes Medic al ophthalmic 39 nightly. Cente r solution folic acid 0 Yes 1mg QD Take [address] (FOLVITE) 1 9-30 by mouth Luke s MG tablet 20:31: daily. Medica l 39 Center calcium Yes Osteopenia 1{tbl} Q.5D Take [address] citrate-vit 9-30 tablet by Leann es salas D3 200 20:31: mouth 2 Med ical mg calcium 39 (two) Center -250 unit times Tab daily . aspirin 81 Yes Osteopenia 81mg QD Take [address] MG EC 9-30 by mouth [facility]ukes tablet 20:31: daily. [address] latanoprost Yes 1[drp] QD Place [address] (XALATAN) 9-30 drop into [facility] 0.005 % 20:31: both eyes Medic al ophthalmic 39 nightly. Cente r solution folic acid Yes 1mg QD Take [address] (FOLVITE) 1 9-30 by mouth Luke s MG tablet 20:31: daily. Medic[address] calcium Yes Osteopenia 1{tbl} Q.5D Take [address] citrate-vit 9-30 tablet by Leann es salas D3 200 20:31: mouth 2 Med ical mg calcium 39 (two) Center -250 unit times Tab daily . aspirin 81 Yes Osteopenia 81mg QD Take [address] MG EC 9-30 by mouth [facility]ukes tablet 20:31: daily. [address] latanoprost Yes 1[drp] QD Place [address] (XALATAN) 9-30 drop into [facility] 0.005 % 20:31: both eyes Medic al ophthalmic 39 nightly. Cente r solution folic acid Yes 1mg QD Take [address] (FOLVITE) 1 9-30 by mouth Luke s MG tablet 20:31: daily. Medica [facility] Center calcium Yes Osteopenia 1{tbl} Q.5D Take [address] citrate-vit 9-30 tablet by Leann es salas D3 200 20:31: mouth 2 Med ical mg calcium 39 (two) Center -250 unit times Tab daily . aspirin 81 Yes Osteopenia 81mg QD Take [address] MG EC 9-30 by mouth [facility]ukes tablet 20:31: daily. [address] latanoprost Yes 1[drp] QD Place [address] (XALATAN) 9-30 drop into [facility] 0.005 % 20:31: both eyes Medic al ophthalmic 39 nightly. Cente r solution lidocaine 2021- No Apply [facility] (LMX) 4 % 03-15 topically Luke s cream 08:54: 00:00 daily as Medical 23 :00 needed. [place] lidocaine 2021- No Apply [facility] (LMX) 4 % 03-15 topically Luke s cream 08:54: 00:00 daily as Medical 23 :00 needed. [place] lidocaine 2021- No Apply [facility] (LMX) 4 % 03-15 topically Luke s cream 08:54: 00:00 daily as Medical 23 :00 needed. [place] lidocaine 2021- No Apply [facility] (LMX) 4 % 03-15 topically Luke s cream 08:54: 00:00 daily as Medical 23 :00 needed. [place] lidocaine 2021- No Apply [facility] (LMX) 4 % 03-15 topically Luke s cream 08:54: 00:00 daily as Medical 23 :00 needed. [place] lidocaine 2021- No Apply [facility] (LMX) 4 % 03-15 topically Luke s cream 08:54: 00:00 daily as Medical 23 :00 needed. [place] lidocaine 2021- No Apply [facility] (LMX) 4 % 03-15 topically Luke s cream 08:54: 00:00 daily as Medical 23 :00 needed. [place] levothyroxi Yes 75ug QD Take [address] ne 9-22 mcg by [facility]ukes (SYNTHROID, 00:00: mouth Medic al LEVOTHROID) 00 daily. [place] 75 MCG tablet levothyroxi Yes 75ug QD Take [address] ne 9-22 mcg by [facility]ukes (SYNTHROID, 00:00: mouth Medic al LEVOTHROID) 00 daily. [place] 75 MCG tablet levothyroxi Yes 75ug QD Take [address] ne 9-22 mcg by [facility]ukes (SYNTHROID, 00:00: mouth Medic al LEVOTHROID) 00 daily. [place] 75 MCG tablet levothyroxi Yes 75ug QD Take [address] ne 9-22 mcg by [facility]ukes (SYNTHROID, 00:00: mouth Medic al LEVOTHROID) 00 daily. Center 75 MCG tablet levothyroxi 2021-0 Yes 75ug QD Take [address] ne 9-22 mcg by [facility]ukes (SYNTHROID, 00:00: mouth Medic al LEVOTHROID) 00 daily. Center 75 MCG tablet levothyroxi 2021-0 Yes 75ug QD Take [address] ne 9-22 mcg by [facility]ukes (SYNTHROID, 00:00: mouth Medic al LEVOTHROID) 00 daily. Center 75 MCG tablet levothyroxi 2021-0 Yes 75ug QD Take [address] ne 9-22 mcg by [facility]ukes (SYNTHROID, 00:00: mouth Medic al LEVOTHROID) 00 daily. Center 75 MCG tablet Lidocaine 0 Yes Apply [facility] HCl 4 % 02-19 topically. Lenard tavera CREA 16:14: of 37 Medicin e L-Methylfol 0 Yes Take by Evangeline rosalinda ate-B6-B12 02-19 mouth. College (FOLTX) 16:13: of 1.13-25-2 59 Medicin MG TABS e Aspirin 81 0 Yes 81mg Take 81 mg [facility] MG tablet 02-19 by mouth. Rain kaur 16:07: of 20 Medicin e B 2021-0 Yes 1{tbl} Take 1 [facility] Complex-C-E 02-19 Tablet by Col millan -Zn (BEE 16:07: mouth of ZEE) TABS 20 daily. Medicin e fluticasone 2021-0 Yes 1{spray 1 [place] by [facility] (FLONASE) 02-19 } Nasal College 50 MCG/ACT 16:07: route. of nasal spray 20 Medicin e omeprazole 2021-0 Yes 40mg Take 40 mg [facility] (PRILOSEC) 02-19 by mouth. Magdalena ege 20 MG 16:07: of capsule 20 Medicin e flecainide 2021-0 Yes 50mg Take 1 [facility] (TAMBOCOR) 02-19 Tablet by Magdalena ege 50 MG 00:00: mouth 3 of tablet 00 times Medicin daily. e flecainide 2021-0 Yes 50mg Take 1 [facility] (TAMBOCOR) 02-19 Tablet by Magdalena ege 50 MG 00:00: mouth 3 of tablet 00 times Medicin daily. e flecainide Yes 50mg Take 1 [facility] (TAMBOCOR) - Tablet by Magdalena ege 50 MG 00:00: mouth 3 of tablet 00 times Medicin daily. e flecainide 0 Yes 50mg Take 1 [facility] (TAMBOCOR) 02-19 Tablet by Magdalena ege 50 MG 00:00: mouth 3 of tablet 00 times Medicin daily. e flecainide 2021- No [facility] (TAMBOCOR) 02-19- College 50 MG 00:00: 00:00 of tablet 00 :00 Medicin e ELIQUIS 5 Yes 1{tbl} Take 1 [facility] MG TABS 8-23 Tablet by [place] 00:00: mouth two of 00 times Medicin daily. e ELIQUIS 5 Yes 1{tbl} Take 1 [facility] or MG TABS 8-23 Tablet by [place] 00:00: mouth two of 00 times Medicin daily. e ELIQUIS 5 Yes 1{tbl} Take 1 [facility] or MG TABS 8-23 Tablet by [place] 00:00: mouth two of 00 times Medicin daily. e ELIQUIS 5 Yes 1{tbl} Take 1 [facility] or MG TABS 8-23 Tablet by [place] 00:00: mouth two of 00 times Medicin [...] tablet 00 (two) Center times daily. apixaban 2021-0 Yes 1{tbl} Q.5D Take [facility] (Eliquis) 5 8-23 tablet by Leann es mg Tab 00:00: mouth 2 Medical tablet 00 (two) Center times daily. apixaban 2021-0 Yes 1{tbl} Q.5D Take 1 [facility] (Eliquis) 5 8-23 tablet by Leann es mg Tab 00:00: mouth 2 Medical tablet 00 (two) Center times daily. apixaban 2021-0 Yes 1{tbl} Q.5D Take 1 [facility] (Eliquis) 5 8-23 tablet by Leann es mg Tab 00:00: mouth 2 Medical tablet 00 (two) Center times daily. ezetimibe Yes 10mg Take 10 mg [facility] (ZETIA) 10 8-18 by mouth Colle ge MG tablet 00:00: daily. of Medicin e ezetimibe Yes 10mg Take 1 [facility] (ZETIA) 10 8-18 Tablet by Magdalena ege MG tablet 00:00: mouth of 00 daily. Medicin e ezetimibe Yes 10mg Take 10 mg [facility] (ZETIA) 10 8-18 by mouth Colle ge MG tablet 00:00: daily. of Medicin e ezetimibe Yes 10mg Take 10 mg [facility] [...] taken l coated on tablet 06/02/2016 omeprazole 2022-0 Yes 40mg Take 40 mg M ethodi [...] a 13 l famotidine Yes TAKE ONE Evangeline rosalinda (PEPCID) 40 7-20 (1) College MG tablet 00:00: TABLET(S) of 00 BY MOUTH Medicin EVERY e EVENING. famotidine Yes TAKE ONE Evangeline rosalinda (PEPCID) 40 7-20 (1) College MG [...] Medi nahum 00 Every Center Evening famotidine [address] [facility] (PEPCID) 40 7-20 Tablet(s) Leann es MG tablet 00:00: By Mouth Medi nahum 00 Every Center Evening famotidine 2021-[address] [facility] (PEPCID) 40 7-20 Tablet(s) Leann es MG tablet 00:00: By Mouth Medi nahum 00 Every Center Evening famotidine 0 Yes [facility] (PEPCID) 40 7-20 Tablet(s) Leann es MG tablet 00:00: By Mouth Medi nahum 00 Every Center Evening famotidine 0 2021- No TAKE ONE [facility] (PEPCID) 40 7-20 12-29 (1) College MG tablet 00:00: 00:00 TABLET(S) of 00 :00 BY MOUTH Medicin EVERY e EVENING. EUTHYROX 75 0 Yes TAKE 1 [facility] [...] ONCE of 00 DAILY Medicin e latanoprost 0 Yes INSTILL Evangeline rosalinda (XALATAN) 6-17 ONE (1) College 0.005 % 00:00: DROP(S) IN of ophthalmic 00 EACH EYE Medic in solution AT e BEDTIME. latanoprost 0 Yes INSTILL Evangeline rosalinda (XALATAN) 6-17 ONE (1) College 0.005 % 00:00: DROP(S) IN of ophthalmic 00 EACH EYE Medic in solution AT e BEDTIME. latanoprost 0 Yes INSTILL Evangeline rosalinda (XALATAN) 6-17 ONE (1) College 0.005 % 00:00: DROP(S) IN of ophthalmic 00 EACH EYE Medic in solution AT e BEDTIME. latanoprost Yes INSTILL Evangeline rosalinda (XALATAN) 6-17 ONE (1) [place] 0.005 % 00:00: DROP(S) IN of ophthalmic 00 EACH EYE Medic in solution AT e BEDTIME. dorzolamide Yes INSTILL Evangeline rosalinda -timolol 6-16 ONE (1) [place] (COSOPT) 00:00: DROP(S) IN of 22.3-6.8 00 EACH EYE Medicin MG/ML TWICE A e ophthalmic DAY. solution dorzolamide Yes INSTILL Evangeline rosalinda -timolol 6-16 ONE (1) [place] (COSOPT) 00:00: DROP(S) IN of 22.3-6.8 00 EACH EYE Medicin MG/ML TWICE A e ophthalmic DAY. solution dorzolamide Yes INSTILL Evangeline rosalinda -timolol 6-16 ONE (1) [place] (COSOPT) 00:00: DROP(S) IN of 22.3-6.8 00 EACH EYE Medicin MG/ML TWICE A e ophthalmic DAY. solution dorzolamide Yes INSTILL Evangeline rosalinda -timolol -16 ONE (1) [place] (COSOPT) 00:00: DROP(S) IN of 22.3-6.8 00 [...] Me thodi -timoloL 0-12 10-18 ONE (1) (COSOPT) 00:00: 00:00 DROP(S) IN Ho spita [...] 24 hour needed (low back pain). diclofenac 0 2021- No 1{patch Q24H Place 1 Methodi [...] 24 hour needed (low back pain). celecoxib 2020-0 Yes 2 tabs in [facility] (CeleBREX) 7-[address] 100 MG 00:00: tab at [facility]osp[facility] capsule 00 bedtime l celecoxib 2021-0 Yes 2 tabs in [facility] (CeleBREX) 7-[address] 100 MG 00:00: tab at [facility]ospita capsule 00 bedtime l celecoxib 2021-0 Yes 2 tabs in [facility] (CeleBREX) 7-[address] 100 MG 00:00: tab at [facility]ospita capsule 00 bedtime l celecoxib 2021-0 Yes 2 tabs in [facility] (CeleBREX) 7-[address] 100 MG 00:00: tab at Hospita capsule 00 bedtime l flecainide 2020-1 [facility] tablet 00 [facility] flecainide 2020-1 Yes [facility]. [facility] MG 00:00: Medical tablet 00 Center flecainide 2020-1 Yes [facility]. [facility] MG 00:00: Medical tablet 00 [place] flecainide 2020- Yes DAILY. [facility] 50 MG 00:00: Medical tablet 00 [place] flecainide 2020- Yes DAILY. [facility] 50 MG 00:00: Medical tablet 00 [place] flecainide 2020- Yes DAILY. [facility] 50 MG 00:00: Medical tablet 00 [place] flecainide 2020 Yes DAILY. [facility] 50 MG 00:00: Medical tablet 00 [place] multivitami 20200 Yes 1{tbl} QD Take [address] (FOLBIC) 8-18 tablet by Leann es 2.5-25-2 mg 00:00: mouth Medic al tablet 00 daily. [place] multivitain 0 Yes 1{tbl} QD Take [address] [facility] (FOLBIC) 8-18 tablet by Leann es 2.5-25-2 mg 00:00: mouth Medic al tablet 00 daily. [place] multivitami 0 Yes 1{tbl} QD Take [address] [facility] (FOLBIC) 8-18 tablet by Leann es 2.5-25-2 mg 00:00: mouth Medic al tablet 00 daily. [place] multivitain 0 Yes 1{tbl} QD Take [address] [facility] [address] (FOLBIC) 8-18 tablet by Leann es 2.5-25-2 mg 00:00: mouth Medic al tablet 00 daily. [place] multivitami 0 Yes 1{tbl} QD Take [address] (FOLBIC) 8-18 tablet by Leann es 2.5-25-2 mg 00:00: mouth Medic al tablet 00 daily. [place] multivitami 0 Yes 1{tbl} QD Take [address] [facility] (FOLBIC) 8-18 tablet by Leann es 2.5-25-2 mg 00:00: mouth Medic al tablet 00 daily. [place] multivitain 20[address] Yes 1{tbl} QD Take [address] (FOLBIC) 8-18 tablet by Leann es 2.5-25-2 mg 00:00: mouth Medic al tablet 00 daily. Center ezetimibe 2020-[address] [facility] (ZETIA[facility] 10 8-17 [facility] mg tablet 00:00: Medical 00 [place] ezetimibe 2020-[address] [facility] (ZETIA) 10 8-17 [facility] mg tablet 00:00: Medical 00 [place] ezetimibe 2020-[address] [facility] (ZETIA) 10 8-17 [facility] tablet 00:00: Medical 00 [place] ezetimibe 2020-[address] [facility] (ZETIA) 10 8-17 [facility] tablet 00:00: Medical 00 [place] ezetimibe 2020-[address] [facility] (ZETIA) 10 8-17 [facility] tablet 00:00: Medical 00 [place] ezetimibe 2020-[address] [facility] (ZETIA) 10 8-17 [facility] mg tablet 00:00: Medical 00 [place] ezetimibe 2020-[address] [facility] (ZETIA) 10 8-17 [facility] mg tablet 00:00: Medical 00 [place] celecoxib 2021- No TAKE ONE [facility] [...] EVERY TWELVE HOURS NEEDED FOR PAIN. dorzolamide 2019-0 Yes 1[drp] Q.5D Place 1 [...] Yes Essential 1{spray QD 1 spray by [facility] (FLONASE) 12-02 hypertensio } Nasal [place] k[facility] 50 00:00: n route Medical mcg/actuati 00 daily. Center on nasal spray fluticasone Yes Essential 1{spray QD [address] (FLONASE) 12-02 hypertensio } Nasal [place] [facility] 50 00:00: n route Medical mcg/actuati 00 daily. Center on nasal spray Foltx Foltx No 1{table QD Foltx 1.1325-2 1.25-2 t} 1.1325-2 MG MG MG Dorzolamide Dorzolamide [...] Name Name Influenza TIV (IM) 2022-02-20 Completed [facility] 00:00:00 [facility] Influenza TIV (IM) 2022-02-[address] [facility] 00:00:00 [facility] Influenza TIV (IM) 2022-02-[address] [facility] 00:00:00 [facility] Influenza TIV (IM) 2022-02-[address] [facility] 00:00:00 [facility] Influenza TIV (IM) 2022-02-[address] [facility] 00:00:00 [facility] Influenza TIV (IM) 2022-02-[address] [facility] 00:00:00 [facility] Influenza TIV (IM) 2022-02-[address] [facility] 00:00:00 [facility] Moderna .5mL 2021-05-18 Completed [facility] Colle ge SARS-CoV-2 00:00:00 of Medicine Vaccination Moderna .5 2021-05-18 Completed [facility] Colle ge SARS-CoV-2 00:00:00 of Medicine Vaccination Moderna SARS-CoV-2 2021-05-18 Completed [facility] Vaccination 00:00:00 of Medicine Moderna .5 2021-05-18 Completed [facility] Colle ge SARS-CoV-2 00:00:00 of Medicine Vaccination Moderna .5 2020-08-17 Completed [facility] Colle ge SARS-CoV-2 00:00:00 of Medicine Vaccination Moderna .5 2020-08-17 Completed [facility] SARS-CoV-2 00:00:00 of Medicine Vaccination Moderna SARS-CoV-2 2020-08-17 Completed [facility] Vaccination 00:00:00 of Medicine Moderna .5mL 2020-08-17 Completed [facility] Colle ge SARS-CoV-2 00:00:00 of Medicine Vaccination Moderna .5mL 2020-07-20 Completed [facility] Colle ge SARS-CoV-2 00:00:00 of Medicine Vaccination Moderna .5mL 2020-07-20 Completed [facility] ge SARS-CoV-2 00:00:00 of Medicine Vaccination Moderna SARS-CoV-2 2020-07-20 Completed [facility] Vaccination 00:00:00 of Medicine Moderna .5mL 2020-07-20 Completed [facility] Colle ge SARS-CoV-2 00:00:00 of Medicine Vaccination Influenza TIV (IM) 2019-02-[address] [facility] 00:00:00 [facility] Influenza TIV (IM) 2019-02-[address] [facility] 00:00:00 [facility] Influenza TIV (IM) 2019-02-[address] [facility] 00[facility]00:00 [facility] Influenza TIV (IM) 2019-02-[address] [facility] 00:00:00 [facility] Influenza TIV (IM) 2019-02-[address] [facility] 00:00:00 [facility] Influenza TIV (IM) 2019-02-[address] [facility] 00:00:00 [facility] Influenza TIV (IM) 2019-02-[address] [facility] 00:00:00 [facility] Zoster Recombinant 2018-05-05 Completed [facility] 00:00:00 of Medicine Zoster Recombinant 2018-05-05 Completed [facility] 00:00:00 of Medicine Zoster Recombinant 2018-05-05 Completed [facility] 00:00:00 of Medicine Zoster Recombinant 2018-05-05 Completed [facility] 00:00:00 of Medicine (Shingrix, 2018-05-05 Completed [...] Zoster Vaccine IM Zoster Live 2018-02-26 Completed [facility] 00:00:00 of Medicine Zoster Live 2018-02-26 Completed [facility] 00:00:00 of Medicine Zoster Live 2018-02-26 Completed [facility] e 00:00:00 of Medicine Zoster Live 2018-02-26 Completed [facility] e 00:00:00 of Medicine SHINGLES VARICELLA [...] Completed [facility] (ZOSTAVAX) ZOSTER 00:00:00 [facility] Pneumococcal 2015-03-07 Completed [facility] Conjugate 7-Valent 00:00:[facility] 2015-03-07 Completed [facility] Colle ge Conjugate 7-Valent 00:00:00 of Med icine Pneumococcal 2015-03-07 Completed [facility] Colle ge Conjugate 7-Valent 00:00:[facility] P[facility] 2015-03-07 Completed [facility] Colle ge Conjugate 7-Valent 00:00:00 of Med icine Pneumococcal 2015-03-[address] [facility] Conjugate 7-Valent 00:00:00 [facility] Pneumococcal 2015-03-[address] [facility] Conjugate 7-Valent 00:00:00 [facility] Pneumococcal 2015-03-[address] [facility] Conjugate 7-Valent 00:00:00 [facility] Pneumococcal 2015-03-[address] [facility] Conjugate 7-Valent 00:00:00 [facility] Pneumococcal 2015-03-[address] [facility] Conjugate 7-Valent 00:00:00 [facility] Pneumococcal 2015-03-[address] [facility] Conjugate 7-Valent 00:00:00 [facility] Pneumococcal 2015-03-[address] [facility] Conjugate 7-Valent 00:00:00 [facility] Tetanus 2008-04-20 Completed [facility] 00:00:00 of Medicine Tetanus 2008-04-20 Completed [facility] 00:00:00 of Medicine Tetanus 2008-04-20 Completed [facility] 00:00:00 of Medicine Tetanus 2008-04-20 Completed [facility] 00:00:00 of Medicine Td 7+ years, [...] Systolic blood 2022-08-27 18:27:00 119 mm[Hg] [facility] pressure Medicine Diastolic blood 2022-08-27 18:27:00 79 mm[Hg] [facility] pressure Medicine Heart rate 2022-08-27 18:24:00 61 /min [facility] Body height 2022-08-27 18:24:00 177.8 cm [facility] Body weight 2022-08-27 18:24:00 79.379 kg [facility] BMI 2022-08-27 18:24:00 25.11 kg/m2 [facility] height 2022-07-05 10:30:00 66 [in_i] Common [facility] - [facility] weight 2022-07-05 10:30:00 178.6 [lb_av] Common [facility] temperature 2022-07-05 10:30:00 98.0 [degF] Common [facility] bmi 2022-07-05 10:30:00 28.82 kg/m2 [facility] oximetry 2022-07-05 10:30:00 97 % [facility] respiratory rate 2022-07-05 10:30:00 16 /min Comm on [facility] blood pressure 2022-07-05 10:30:00 138 mm[Hg] Common [facility] - systolic [facility] blood pressure 2022-07-05 10:30:00 69 mm[Hg] [facility] diastolic [facility] Systolic blood 2022-06-13 17:32:00 130 mm[Hg] [facility] pressure Medicine Diastolic blood 2022-06-13 17:32:00 75 mm[Hg] [facility] pressure Medicine Heart rate 2022-06-13 17:32:00 60 /min [facility] Systolic blood 2022-04-11 15:52:00 126 mm[Hg] [facility] pressure Medicine Diastolic blood 2022-04-11 15:52:00 76 mm[Hg] [facility] pressure Medicine Heart rate 2022-04-11 15:51:00 52 /min [facility] [facility] Body height 2022-04-11 15:51:00 177.8 cm [facility] Body weight 2022-04-11 15:51:00 80.287 kg [facility] BMI 2022-04-11 15:51:00 25.40 kg/m2 [facility] HEIGHT 2022 08:00:00 177.8 cm WEIGHT 2022 08:00:00 82.555 kg HEIGHT 2022 08:00:00 177.8 cm WEIGHT 2022 08:00:00 82.555 kg HEIGHT 2022-03-12 08:47:00 177.8 cm WEIGHT 2022-03-12 08:47:00 83.008 kg HEIGHT 2022-03-12 08:47:00 177.8 cm WEIGHT 2022-03-12 08:47:00 83.008 kg Systolic blood 2022-02-19 21:21:00 140 mm[Hg] [facility] pressure Medicine Diastolic blood 2022-02-19 21:21:00 81 mm[Hg] [facility] Medicine Heart rate 2022-02-19 21:16:00 53 /min [facility] Body height 2022-02-19 21:16:00 [facility].8 [facility] 2022-02-19 21:16:00 83.008 [facility] BMI 2022-02-19 21:16:00 26.26 kg/m2 [facility] Height 2021-12-12 00:00:00 70 [in_i] [facility] BMI (Body Mass 2021-12-12 00:00:00 25.5 kg/m2 [facility] Body Weight 2021-12-12 00:00:00 178 [lb_av] [facility] HEIGHT 2020-04-04 09:43:00 177.8 cm WEIGHT 2020-04-04 09:43:00 81.466 kg HEIGHT 2020-04-04 09:43:00 177.8 cm WEIGHT 2020-04-04 09:43:00 81.466 kg Systolic blood 2022 20:05:00 129 mm[Hg] [facility] Diastolic blood 2022 20:05:00 78 mm[Hg] [facility] Heart rate 2022 20:05:00 61 /min [facility] Respiratory rate 2022 20:05:00 17 /min [facility] Oxygen saturation in 2022 20:05:00 97 /min [facility] Arterial blood by Medical Ce nter Pulse oximetry Body temperature 2022 16:01:00 36.11 Marissa [facility] Body height 2022 08:00:00 177.8 cm [facility] Body weight 2022 08:00:00 82.555 kg [facility] BMI 2022 08:00:00 26.11 kg/m2 [facility] Systolic blood 2022-01-14 15:24:00 151 mm[Hg] [facility] pressure Diastolic blood 2022-01-14 15:24:00 84 mm[Hg] [facility] pressure Heart rate 2022-01-14 15:24:00 64 /min [facility] Body temperature 2022-01-14 15:24:00 36.67 Marissa [facility] Body height 2022-01-14 15:24:00 167.6 cm [facility] Body weight 2022-01-14 15:24:00 83.915 kg [facility] BMI 2022-01-14 15:24:00 29.86 kg/m2 [facility] Procedures Procedure Date / Time Performing Clinician Source Performed AUTOMATED VISUAL FIELD, 2022-08-27 14:49:48 Bo [facility] EXTENDED - OU - BOTH EYES Jasmyn OCT, OPTIC NERVE - OU - 2022-08-27 14:49:39 Bo, [facility] BOTH EYES Jasmyn ELECTROCARDIOGRAM COMPLETE 2022-08-27 13:33:00 [facility] ELECTROCARDIOGRAM COMPLETE 2022-06-13 10:08:00 [facility] ELECTROCARDIOGRAM COMPLETE 2022-04-11 10:46:00 B [facility] POCT-ACT 2022 14:56:00 Kulwant Pacheco [facility] POCT-ACT 2022 14:27:00 [facility] 14:06:00 [facility] PO[facility]-ACT 2022 13:43:00 [facility] CARDIAC ELECTROPHYSIOLOGY 2022 12:33:00 Kulwant Pacheco [facility] STUDY, WITH ABLATION Medical Jud ter ABORH, MANUAL 2022 09:44:00 Kaylyn Forte [facility] MAGNESIUM 2022 09:28:00 Rolando Dong [facility] TYPE AND SCREEN, AUTOMATED 2022 09:28:00 Rolando Dong [facility] ECG 12-LEAD 2022 09:01:42 Rolando Dong [facility] CARDIAC CATH REPORT - SCAN 2022 00:00:00 Provider, Default [facility] EKG-SCANNED 2022 00:00:00 Provider, Default [facility] COVID ANTIGEN 2022-03-12 09:20[facility]00 [facility] & AUTO 2022-03-12 08:56:00 [facility] BASIC METABOLIC PANEL 2022-03-12 08:56:00 [facility] PROTHROMBIN TIME/INR 2022-03-12 08:56:00 [facility] CBC W/PLT COUNT & AUTO 2022-03-12 08:56:00 [facility] ELECTROCARDIOGRAM COMPLETE 2022-02-19 16:20:00 B [facility] [employer] RADEX SPI LUMBOSAC MINIMUM 2022-01-04 00:00:00 A [facility] 4 VIEWS Sports Medicine RADEX SPI LUMBOSAC 2/3 2022-01-04 00:00:00 Mahesh isidro Orthopedic VIEWS Sports Medicine US ABDOMEN LIMITED 2021-12-31 07:53:00 Kalin Madden [facility] MRI SPINE EXTERNAL STUDY 2021-12-12 21:19:00 Melita Melgar [facility] RADEX SPI LUMBOSAC MINIMUM 2021-12-12 00:00:00 A [facility] 4 VIEWS Sports Medicine MRI, lumbar spine, w/o 2021-12-12 00:00:00 Mahesh isidro Orthopedic contrast Sports Medicine Plan of Care Planned Activity Planned Date Details Comments Source Future Scheduled 2023 Tobacco Cessation [facility] Test 00:00:00 Counseling and Screening [facility] (12+) [code = Tobacco Cessation Counseling [...] (12+)] Future Scheduled 2022-09-14 65+ PNEUMOCOCCAL VACCINE [facility] Test 01:06:36 (1 - PCV) [code = 65+ Hospit al PNEUMOCOCCAL VACCINE (1 - PCV)] Future Scheduled 2022-09-14 SHINGLES VACCINES (2 of [facility] Test 01:06:36 3) [code = SHINGLES Hospital VACCINES (2 of 3)] Future Scheduled 2022-09-14 COVID-19 VACCINE (4 - [facility] Test 01:06:36 Booster for Moderna Hospital series) [code = COVID-19 VACCINE (4 - Booster for Moderna series)] Future Scheduled 2022-09-14 INFLUENZA VACCINE [code = [facility] Test 01:06:36 INFLUENZA VACCINE] Hospital Future Scheduled 2022-09-14 65+ PNEUMOCOCCAL VACCINE [facility] Test 01:06:36 (1 - PCV) [code = 65+ Hospit al PNEUMOCOCCAL VACCINE (1 - PCV)] Future Scheduled 2022-09-14 SHINGLES VACCINES (2 of [facility] Test 01:06:36 3) [code = SHINGLES Hospital VACCINES (2 of 3)] Future Scheduled 2022-09-14 COVID-19 VACCINE (4 - [facility] Test 01:06:36 Booster for Moderna Hospital series) [code = COVID-19 VACCINE (4 - Booster for Moderna series)] Future Scheduled 2022-09-14 INFLUENZA VACCINE [code = [facility] Test 01:06:36 INFLUENZA VACCINE] Hospital Future Scheduled 2022-08-27 BMI Follow Up Plan [code [facility] of Test 14:23:54 = BMI Follow Up Plan] Medici ne Future Scheduled 2022-08-27 Pneumococcal 65+ (1 - [facility] of Test 14:23:54 PCV) [code = Pneumococcal Me dicine 65+ (1 - PCV)] Future Scheduled 2022-08-27 TETANUS SHOT (ADULT) [facility] of Test 14:23:54 [code = TETANUS SHOT Medicin e (ADULT)] Future Scheduled 2022-08-27 ZOSTER VACCINE (2 of 2) [facility] of Test 14:23:54 [code = ZOSTER VACCINE (2 Me dicine of 2)] Future Scheduled 2022-08-27 Medicare Awv (Initial) B [facility] of Test 14:23:54 [code = Medicare Awv Medicin e (Initial)] Future Scheduled 2022-08-27 COVID-19 Vaccine (4 - [facility] of Test 14:23:54 Booster for Moderna Medicine series) [code = COVID-19 Vaccine (4 - Booster for Moderna series)] Future Scheduled 2022-08-27 Fall Screen [code = Fall [facility] of Test 14:23:54 Screen] Medicine Future Scheduled 2022-08-27 ELECTROCARDIOGRAM [facility] of Test 13:33:49 COMPLETE [code = 38262] Medi cine Future Scheduled 2022-06-16 DEPRESSION SCREENING [...] Scheduled 2022-06-13 BMI FOLLOW UP PLAN [code [facility] of Test 10:25:44 = BMI FOLLOW UP PLAN] Medici ne Future Scheduled 2022-06-13 FALL SCREEN [code = FALL [facility] of Test 10:25:44 SCREEN] Medicine Future Scheduled 2022-06-13 Pneumococcal 65+ (1 - [facility] of Test 10:25:44 PCV) [code = Pneumococcal Me dicine 65+ (1 - PCV)] Future Scheduled 2022-06-13 TETANUS SHOT (ADULT) [facility] of Test 10:25:44 [code = TETANUS SHOT Medicin e (ADULT)] Future Scheduled 2022-06-13 ZOSTER VACCINE (2 of 2) [facility] of Test 10:25:44 [code = ZOSTER VACCINE (2 Me dicine of 2)] Future Scheduled 2022-06-13 MEDICARE IPPE (WELCOME TO [facility] Test 10:25:44 MEDICARE) [code = Medicine MEDICARE IPPE (WELCOME TO MEDICARE)] Future Scheduled 2022-06-13 COVID-19 Vaccine (4 - [facility] Test 10:25:44 Booster for Moderna Medicine series) [code = COVID-19 Vaccine (4 - Booster for Moderna series)] Future Scheduled 2022-06-13 ELECTROCARDIOGRAM [facility] of Test 10:08:21 COMPLETE [code = 95459] Medi cine Future Scheduled 2022-04-22 HEPATITIS B VACCINES (1 [facility] Test 16:08:00 of 3 - 3-dose series) Hospit al [code = HEPATITIS B VACCINES (1 of 3 - 3-dose series)] Future Scheduled 2022-04-22 65+ PNEUMOCOCCAL VACCINE [facility] Test 16:08:00 (1 - PCV) [code = 65+ Hospit al PNEUMOCOCCAL VACCINE (1 - PCV)] Future Scheduled 2022-04-22 SHINGLES VACCINES (2 of [facility] Test 16:08:00 3) [code = SHINGLES Hospital VACCINES (2 of 3)] Future Scheduled 2022-04-22 COVID-19 VACCINE (4 - [facility] Test 16:08:00 Booster for Moderna Hospital series) [code = COVID-19 VACCINE (4 - Booster for Moderna series)] Future Scheduled 2022-04-22 INFLUENZA VACCINE [code = [facility] Test 16:08:00 INFLUENZA VACCINE] Hospital Future Scheduled 2022-04-11 BMI FOLLOW UP PLAN [code [facility] of Test 10:51:58 = BMI FOLLOW UP PLAN] Medici ne Future Scheduled 2022-04-11 FALL SCREEN [code = FALL [facility] of Test 10:51:58 SCREEN] Medicine Future Scheduled 2022-04-11 Pneumococcal 65+ (1 - [facility] of Test 10:51:58 PCV) [code = Pneumococcal Me dicine 65+ (1 - PCV)] Future Scheduled 2022-04-11 TETANUS SHOT (ADULT) [facility] of Test 10:51:58 [code = TETANUS SHOT Medicin e (ADULT)] Future Scheduled 2022-04-11 ZOSTER VACCINE (2 of 2) [facility] of Test 10:51:58 [code = ZOSTER VACCINE (2 Me dicine of 2)] Future Scheduled 2022-04-11 MEDICARE IPPE (WELCOME TO [facility] of Test 10:51:58 MEDICARE) [code = Medicine MEDICARE IPPE (WELCOME TO MEDICARE)] Future Scheduled 2022-04-11 COVID-19 Vaccine (4 - [facility] Test 10:51:58 Booster for Moderna Medicine series) [code = COVID-19 Vaccine (4 - Booster for Moderna series)] Future Scheduled 2022-04-11 FLU VACCINE > 6 MONTHS B [facility] of Test 10:51:58 [code = FLU VACCINE > 6 Medi cine MONTHS] Future Scheduled 2022-04-11 ELECTROCARDIOGRAM [facility] of Test 10:45:12 COMPLETE [code = 44724] Medi cine Future Scheduled 2022-04-07 HEPATITIS B VACCINES (1 [facility] Test 13:25:50 of 3 - 3-dose series) Hospit al [code = HEPATITIS B VACCINES (1 of 3 - 3-dose series)] Future Scheduled 2022-04-07 65+ PNEUMOCOCCAL VACCINE [facility] Test 13:25:50 (1 - PCV) [code = 65+ Hospit al PNEUMOCOCCAL VACCINE (1 - PCV)] Future Scheduled 2022-04-07 SHINGLES VACCINES (2 of [facility] Test 13:25:50 3) [code = SHINGLES Hospital VACCINES (2 of 3)] Future Scheduled 2022-04-07 COVID-19 VACCINE (4 - [facility] Test 13:25:50 Booster for Moderna Hospital series) [code = COVID-19 VACCINE (4 - Booster for Moderna series)] Future Scheduled 2022-04-07 INFLUENZA VACCINE [code = [facility] Test 13:25:50 INFLUENZA VACCINE] Hospital Future Scheduled 2022-02-19 ELECTROCARDIOGRAM [facility] of Test 16:20:23 COMPLETE [code = 59387] Medi cine Future Scheduled 2022-02-19 FALL SCREEN [code = FALL [facility] of Test 16:16:23 SCREEN] Medicine Future Scheduled 2022-02-19 Pneumococcal 65+ (1 - [facility] Test 16:16:23 PCV) [code = Pneumococcal Me dicine 65+ (1 - PCV)] Future Scheduled 2022-02-19 MEDICARE AWV (Initial) B [facility] Test 16:16:23 [code = MEDICARE AWV Medicin e (Initial)] Future Scheduled 2022-02-19 TETANUS SHOT (ADULT) [facility] Test 16:16:23 [code = TETANUS SHOT Medicin e (ADULT)] Future Scheduled 2022-02-19 ZOSTER VACCINE (2 of 2) [facility] Test 16:16:23 [code = ZOSTER VACCINE (2 Me dicine of 2)] Future Scheduled 2022-02-19 COVID-19 Vaccine (4 - [facility] Test 16:16:23 Booster for Moderna Medicine series) [code = COVID-19 Vaccine (4 - Booster for Moderna series)] Future Scheduled 2022-02-19 FLU VACCINE > 6 MONTHS B [facility] Test 16:16:23 [code = FLU VACCINE > [...] 00:00:00 (YEAR 2 or FIRST YEAR if [facility] no IPPE) [code = MEDICARE ANNUAL [...] Type Clinicians Facility Department ID 2022-07-05 Outpatient [facility] [id number] Common 10:12:05 [id number] [facility] 2022-08-27 2022-08-27 Office YANCY PACHECO [id number] [facility] 12:28:46 14:36:00 Visit [facility] [id number] College Y [id number] of [id number] [facility] aneudy 300 e 2022-08-27 2022-08-27 Office Becca Soriano [id number] Methodi 09:30:00 10:50:49 Visit Vinny Vines [id number] s t [id number] Hospit a .[id number] l .8 2022-08-27 2022-08-27 Office Becca Soriano [id number] Methodi 09:30:00 10:50:49 Visit Vinny Vines 26782.1.1 148 s t 3.430.2.7 Hospit a .3.630713 l .8 2022-08-27 2022-08-27 Travel 1.2.840.1 1.2.550.227 7291 847852 Methodi 00:00:00 00:00:[address] 3.430.2.7 0.2.7.3.698 Ho spita .3.896779 084.8 l .8 2022-08-27 2022-08-27 Travel 1.2.840.1 1.2.952.378 1324 639482 Methodi 00:00:00 00:00:[address] 3.430.2.7 0.2.7.3.698 Ho spita .3.394238 084.8 l .8 2022-07-05 2022-07-05 OFFICE STLMLC STLMLC [id number] Co mmon 00:00:00 00:00:00 VISIT [facility] PT LEVEL 4 - [facility] 2022-06-13 2022-06-13 Office YANCY PACHECO 1.2.840.114 [id number] 714 [facility] 10:04:06 13:20:15 Visit KULWANT AMBULATOR 350.1.13.21 College Y 0.2.7.2.[id number] [facility] 300 e 2022-04-11 2022-04-11 Office YANCY PACHECO 1.2.840.114 [id number] 892 [facility] 10:07:50 15:40:04 Visit KULWANT AMBULATOR 350.1.13.21 College Y 0.2.7.2.686 of [id number] Medi aneudy 300 e 2022-04-02 2022-04-02 Refill Gant, 1.2.840.1 [id number] [id number] 8855 Methodi 00:00:00 00:00:[address] 3.430.2.7 Hospit a .3.042620 l .8 2022-04-02 2022-04-02 Refill Gant, 1.2.840.1 [id number] 293309 5017 Methodi 00:00:00 00:00:[address] 3.430.2.7 Hospit a .3.954154 l .8 2022-03-27 2022-03-27 Refill Bo, Becca 1.2.840.1 [id number] Methodi 00:00:00 00:00:00 E Jasmyn 57177.1.1 019 s t 3.430.2.7 Hospit a .3.727770 l .8 2022-03-27 2022-03-27 Refill [place], Becca 1.2.840.1 [id number] Methodi 00:00:00 00:00:00 E Jasmyn 65834.1.1 019 s t 3.430.2.7 Hospit a .3.393254 l .8 2022 2022 Outpatient [facility] [id number] 29 [facility] 08:22:00 23:59:00 Horace 2022 2022 Outpatient ZI PACHECO [facility] Surgery [id number] 784 [facility] 08:22:00 20:10:00 [facility] 2022 2022 [facility] ZI Pacheco [facility] [id number] [facility] 08:22:00 20:10:00 [facility] 2022 2022 Surgery Champ [facility] [id number] [facility] 12:03:00 16:36:00 [facility] 2022 2022 [id number] [address] 12:32:00 16:02:00 Event [facility] 2022 2022 Outpatient [facility] [id number] 93 [facility] 00:00:00 08:21:00 Horace 2022-03-12 2022-03-12 Office Kulwant Villarreal [facility] [id number] [id number] 09:00:00 09:15:00 Visit [facility] 2022-03-12 2022-03-12 Outpatient ZI [facility] SLE [id number] SLE 08:43:18 08:43:18 2022-02-26 2022-02-26 Office Becca Soriano 1.2.840.1 [id number] 21 [id number] Methodi 10:30:00 11:00:00 Visit Vinny Vines 27059.1.1 110 s t 3.430.2.7 Hospit a .3.541764 l .8 2022-02-26 2022-02-26 Office eBcca Soriano 1.2.840.1 [id number] 21 [id number] Methodi 10:30:00 11:00:00 Visit [place]inny [place]ines 99352.1.1 110 s t 3.430.2.7 Hospit a .3.870260 l .8 2022-02-26 2022-02-26 Travel 1.2.840.1 1.2.857.493 8790 942779 Methodi 00:00:00 00:00:[address] 3.430.2.7 0.2.7.3.698 Ho spita .3.388814 084.8 l .8 2022-02-26 2022-02-26 Travel 1.2.840.1 1.2.270.521 5184 556289 Methodi 00:00:00 00:00:[address] 3.430.2.7 0.2.7.3.698 Ho spita .3.579565 084.8 l .8 2022-02-19 2022-02-20 Office YANCY PACHECO 1.2.840.114 [id number] 74 [facility] 15:47:10 08:17:00 Visit KULWANT AMBULATOR 350.1.13.21 College Y 0.2.7.2.686 of 170.5150464 [facility] aneudy 300 e 2022-01-23 2022-01-23 Hospital Sherine, 1.2.840.1 [id number] 77360 Methodi 10:44:35 23:59:00 Encounter Melita Conley 89472.1.1 060 s t 3.430.2.7 Hospit a .3.201693 l .8 2022-01-23 2022-01-23 [facility] Sherine, 1.2.840.1 [id number] 02046 Methodi 10:44:35 23:59:00 Encounter Melita Conley 53013.1.1 060 s t 3.430.2.7 Hospit a .3.772581 l .8 2022-01-14 2022-01-14 Office Sherine, 1.2.840.1 [id number] 9735 Methodi 10:30:00 11:09:37 Visit Melita Conley 37050.1.[address] 3.430.2.7 Hospit a .3.507006 l .8 2022-01-14 2022-01-14 Office Sherine, 1.2.840.1 [id number] 221120 9239 Methodi 10:30:00 11:09:37 Visit Melita Conley 72609.1.[address] 3.430.2.7 Hospit a .3.296051 l .8 2022-01-14 2022-01-14 Travel 1.2.840.1 1.2.730.206 4296 474257 Methodi 00:00:00 00:00:[address] 3.430.2.7 0.2.7.3.698 Ho spita .3.889585 084.8 l .8 2022-01-142022-01-14 Travel 1.2.840.1 1.2.528.321 6815 763097 Methodi 00:00:00 00:00:[address] 3.430.2.7 0.2.7.3.698 Ho spita .3.628602 084.8 l .8 2022-01-04 2022-01-04 Outpatient FOG_Stuckey AOSM AO 632 7631-20 Steph 03:03:00 03:03:00 _Netta 297163 [facility] 2022-01-04 2022-01-04 Outpatient EDENILSON Judge cly367 06-0 00:00:00 00:00:00 Isaias Hernandez [id number]-v [id number]-[id number] d073bc 2022-01-04 2022-01-04 Isaias PYLE [place] - Ortho [id number] 2 Steph 00:00:00 00:00:00 Snehal Judge MD: 7401 FOG_Ofc dic [facility], [place] [address] , Ph. [phone] 2022-01-01 2022-01-01 Outpatient FOG_Stuckey [facility]ID [facility] 632 7631-20 Steph 07:10:00 07:10:00 _Netta 380474 Ortho pe dic Sports Medicin e 2021-12-31 2021-12-31 Outpatient MARYANNE, [facility] SLE [id number] 404 [facility] 07:10:11 23:59:00 KALIN 2021-12-31 2021-12-31 [facility] Maryanne Kalin Valverde [facility] 1 [id number] [facility] 07:10:11 23:59:00 Encounter [facility] 2021-12-31 2021-12-31 Office Marvin, 1.2.840.1 [id number] 55548 00114 Methodi 13:15:00 14:59:52 Visit Vicente 96993.1.[address] Alejandro 3.430.2.7 Hospit a .3.355196 l .8 2021-12-31 2021-12-31 Office Marvin, 1.2.840.1 [id number] 12198 23991 Methodi 13:15:00 14:59:52 Visit Vicente 43085.1.[address] Alejandro 3.430.2.7 Hospit a .3.171020 l .8 2021-12-31 2021-12-31 Travel 1.2.840.1 1.2.644.201 3023 936217 Methodi 00:00:00 00:00:[address] 3.430.2.7 0.2.7.3.698 Ho spita .3.196735 084.8 l .8 2021-12-31 2021-12-31 Travel 1.2.840.1 1.2.534.087 1049 235384 Methodi 00:00:00 00:00:[address] 3.430.2.7 0.2.7.3.698 Ho spita .3.257226 084.8 l .8 2021-12-12 2021-12-12 Outpatient Nu [facility] [id number] [facility] 15:08:00 15:08:00 Isaias [facility]tez [facility] 2021-12-12 2021-12-12 Outpatient FOG_anette AOSM AO 632 7631-20 Steph 03:42:00 03:42:00 _Netta 672216 [facility] Medic[facility] 2021-12-12 2021-12-12 Isaias Hernandez AOSM [place] - Ortho [id number] Steph 00:00:00 00:00:00 Snehal Judge MD: 7401 FOG_Ofc dic [facility] Spo [facility] [place], [place] [address] , Ph. [phone] 2021-12-12 2021-12-12 Outpatient QulinEDENILSON AO [id number] 40-f 00:00:00 00:00:00 Isaias Hernandez [id number]-m [id number] dbcfac 2021-12-10 2021-12-10 Outpatient FOG_Stuckey AOSM AOSM 632 7631-20 Steph 07:24:00 07:24:00 _Netta 488423 Ortho [facility] Medicin e 2021-12-07 2021-12-07 [facility], [facility] [id number] [address] 00:00:00 00:00:00 Orders [facility] 2021-12-05 2021-12-05 Outpatient FOG_Stanette AOSM AOSM 632 7631-20 Steph 03:37:00 03:37:00 _Netta 882739 Ortho pe dic Sports Medicin e 2021-10-01 2021-10-01 Office Marvin, 1.2.840.1 [id number] 90588 06945 Methodi 10:00:00 10:20:25 Visit Vicente 49042.1.[address] Alejandro 3.430.2.7 Hospit a .3.284163 l .8 2021-10-01 2021-10-01 Travel 1.2.840.1 1.2.537.510 0610 072871 Methodi 00:00:00 00:00:[address] 3.430.2.7 0.2.7.3.698 Ho spita .3.698344 084.8 l .8 2021-08-17 2021-08-17 Clinical Dhruv, 1.2.840.1 [id number] 2099 171267 Methodi 12:30:00 13:29:49 Support Risa 73486.1.[address] 3.430.2.7 Hospit a .3.828748 l .8 2021-08-17 2021-08-17 Travel 1.2.840.1 1.2.301.644 5124 715555 Methodi 00:00:00 00:00:[address] 3.430.2.7 0.2.7.3.698 Ho spita .3.147170 084.8 l .8 2021-08-15 2021-08-15 Office Becca Soriano 1.2.840.1 [id number] 21 [id number] Methodi 11:00:00 12:07:22 Visit Vinny Vines 14265.1.1 634 s t 3.430.2.7 Hospit a .3.593201 l .8 2021-08-15 2021-08-15 Travel 1.2.840.1 1.2.652.507 5538 120181 Methodi 00:00:00 00:00:[address] 3.430.2.7 0.2.7.3.698 Ho spita .3.105806 084.8 l .8 2021-07-02 2021-07-02 Office Marvin, 1.2.840.1 [id number] 76055 89340 Methodi 10:00:00 10:40:56 Visit Vicente 84099.1.[address] Alejandro 3.430.2.7 Hospit a .3.660277 l .8 2021-07-02 2021-07-02 Travel 1.2.840.1 1.2.425.366 5432 783266 Methodi 00:00:00 00:00:[address] 3.430.2.7 0.2.7.3.698 Ho spita .3.997397 084.8 l .8 2021-04-02 2021-04-02 Outpatient MARVIN, [facility] [id number] 6573 [place] 00:00:00 00:00:00 VICENTE [address] 2021-03-13 2021-03-13 Outpatient MARVIN, [facility] [id number] 4153 [place] 00:00:00 00:00:00 VICENTE [address] 2021-03-01 2021-03-01 Outpatient BECCA SORIANO [facility] 300 [id number] [place] 00:00:00 00:00:[address] 2021-03-01 2021-03-01 Outpatient SHERINE [facility] [id number] 715 [place] 00:00:00 00:00:00 MELITA [address] 2021-01-04 2021-01-04 Outpatient SHERINE [facility] [id number] 524 [place] 00:00:00 00:00:00 MELITA [address] 2020-12-28 2020-12-28 Outpatient SHERINE [facility] [id number] 622 [place] 00:00:00 00:00:00 MELITA [address] 2020-09-05 2020-09-05 Outpatient BECCA SORIANO [facility] 717 [id number] [place] 00:00:00 00:00:[address] 2020-05-09 2020-05-09 Outpatient BO BECCA [facility] 060 [id number] [place] 00:00:00 00:00:[address] 2020-04-04 2020-04-04 Outpatient ZI MADDEN, [facility] SLE [id number] 142 [facility] 00:00:00 00:00:00 KALIN 2020-04-04 2020-04-04 Outpatient EL [facility] SLE [id number] 226 [facility] 00:00:00 00:00:00 2020-04-03 2020-04-03 Outpatient SLE SLE [id number] 0-2 [facility] 00:00:00 00:00:00 [id number] 2019-12-28 2019-12-28 Outpatient SHERINE [facility] [id number] 714 [place] 00:00:00 00:00:00 MELITA [address] 2019-12-28 2019-12-28 Outpatient BECCA SORIANO [facility] 437 [id number] [place] 00:00:00 00:00:[address] 2019-08-24 2019-08-24 Outpatient SLE SLE [id number] 0-2 [facility] 00:00:00 00:00:00 [id number] 2019-06-25 2019-06-25 Outpatient SHERINE [facility] [id number] 769 [place] 00:00:00 00:00:00 MELITA [address] Results Test Description Test Time Test Comments Results Result Comments Source POC ACTIVATED CLOTTING TIME 2022 15:16:00 Test Item Value Reference Range Interpretation Comme nts Activated Clotting Time (test 306 sec : 74-137 seconds, Baseline: TESTED AT code = 3184-9) [facility] [address] [facility], [address]: Miter Cutter/Techni tex ID = [id number] for CABAN-GOLDBER G, [facility] ACTIVATED CLOTTING [id number] 15:16:00 Test Item Value Reference Range Interpretation Comments Activated Clotting Time 306 sec : 74 -137 seconds, (test code = 3184-9) Baselin e: TESTED AT [address], [address]: Miter Cutter/Techni tex ID = [id number] for CABAN-GOLDBER G, [facility] ACTIVATED CLOTTING [id number] 15:16:00 Test Item Value Reference Range Interpretation Comments Activated Clotting Time 306 sec : 74 -137 seconds, (test code = 3184-9) Baselin e: TESTED AT [address], 770 30: Miter Cutter/Techni tex ID = [id number] for CABAN-GOLDBER G, [facility] ACTIVATED CLOTTING [id number] 15:16:00 Test Item Value Reference Range Interpretation Comments Activated Clotting Time 306 sec : 74 -137 seconds, (test code = 3184-9) Baselin e: TESTED AT [address], 770 30: Miter Cutter/Techni tex ID = [id number] for CABAN-GOLDBER G, [facility] ACTIVATED CLOTTING [id number] 15:16:00 Test Item Value Reference Range Interpretation Comments Activated Clotting Time 306 sec : 74 -137 seconds, (test code = 3184-9) Baselin e: TESTED AT [address], 770 30: Miter Cutter/Techni tex ID = [id number] for CABAN-GOLDBER G, [facility] ACTIVATED CLOTTING [id number] 15:16:00 Test Item Value Reference Range Interpretation Comments Activated Clotting Time 306 sec : 74 -137 seconds, (test code = 3184-9) Baselin e: TESTED AT [address], 770 30: Miter Cutter/Techni tex ID = [id number] for CABAN-GOLDBER G, [facility] ACTIVATED CLOTTING [id number] 15:16:00 Test Item Value Reference Range Interpretation Comments Activated Clotting Time 306 sec : 74 -137 seconds, (test code = 3184-9) Baselin e: TESTED AT [address], [facility] 30: Miter Cutter/Techni tex ID = [id number] for [facility]LIN [id number] 15:16:00 Test Item Value Reference Range Interpretation Comments ACTIVATED CLOTTING TIME 306 sec : 74 -137 seconds, (BEAKER) (test code = Baseli ne: TESTED AT 441) [address], [facility] 30: Miter Cutter/Techni tex ID = [id number] for AYLIN GALAN [id number] 14:42:37 Test Item Value Reference Range Interpretation Comments ACTIVATED CLOTTING TIME 312 sec : 74 -137 seconds, (BEAKER) (test code = Baseli ne: TESTED AT 441) [place] [address] 30: Miter Cutter/Techni tex ID = [id number] for AYLIN GALAN [id number] 14:22:21 Test Item Value Reference Range Interpretation Comments ACTIVATED CLOTTING TIME 318 sec : 74 -137 seconds, (BEAKER) (test code = Baseli ne: TESTED AT [facility]) [address], [facility] 30: Miter Cutter/Techni tex ID = [id number] for AYLIN GALAN [id number] 13:59:09 Test Item Value Reference Range Interpretation Comments ACTIVATED CLOTTING TIME 277 sec : 74 -137 seconds, (BEAKER) (test code = Baseli ne: TESTED AT [facility]) [place] [address] 30: Miter Cutter/Techni tex ID = [id number] for AYLIN GALAN [id number] 10:05:51 Test Item Value Reference Range Interpretation Comments MAGNESIUM (BEAKER) (test code = 1.6 mg/dL 1.6-2.6 627) Miter Cutter ID - PIAYA LBASIC METABOLIC [id number] 13:01:02 Test Item Value Reference Range Interpretation [...] eGF R is based on the CKD-EPI 2020 equation that d oes not use a race coefficientEsti mated GFR is not as accur ate as Creatinine Ileana jose in predicting glom erular filtration rate . Estimated GFR is not appl icable for dialysis patien ts Miter Cutter ID - ADMINCOVID [id number] 10:06:11 Test Item Value Reference Range Interpretation Comments SARS COVID ANTIGEN Negative Negative (test code = 85317-1) CONCHIS (test code = CONCHIS) The QuickVue SARS Antigen test does not differentiate between SARS-CoV and SARS-CoV-2. The test has been authorized by the FDA under an EUA for use by authorized laboratories. Lab Interpretation Normal (test code = 47418-8) [facility] [id number] 10:06:11 Test Item Value Reference Range Interpretation Comments SARS COVID ANTIGEN Negative Negative (test code = 09444-2) CONCHIS (test code = CONCHIS) The QuickVue SARS Antigen test does not differentiate between SARS-CoV and SARS-CoV-2. The test has been authorized by the FDA under an EUA for use by authorized laboratories. Lab Interpretation Normal (test code = 30982-3) [facility] [id number] 10:06:11 Test Item Value Reference Range Interpretation Comments SARS COVID ANTIGEN Negative Negative (test code = 96093-3) OCNCHIS (test code = CONCHIS) The QuickVue SARS Antigen test does not differentiate between SARS-CoV and SARS-CoV-2. The test has been authorized by the FDA under an EUA for use by authorized laboratories. Lab Interpretation Normal (test code = 99495-1) [facility] [id number] 10:06:11 Test Item Value Reference Range Interpretation Comments SARS COVID ANTIGEN Negative Negative (test code = 05695-1) CONCHIS (test code = CONCHIS) The QuickVue SARS Antigen test does not differentiate between SARS-CoV and SARS-CoV-2. The test has been authorized by the FDA under an EUA for use by authorized laboratories. Lab Interpretation Normal (test code = 37672-2) [facility] [id number] 10:06:11 Test Item Value Reference Range Interpretation Comments SARS COVID ANTIGEN Negative Negative (test code = 60736-2) CONCHIS (test code = CONCHIS) The QuickVue SARS Antigen test does not differentiate between SARS-CoV and SARS-CoV-2. The test has been authorized by the FDA under an EUA for use by authorized laboratories. Lab Interpretation Normal (test code = 41637-1) [facility] [id number] 10:06:11 Test Item Value Reference Range Interpretation Comments SARS COVID ANTIGEN Negative Negative (test code = 82707-8) CONCHIS (test code = CONCHIS) The QuickVue SARS Antigen test does not differentiate between SARS-CoV and SARS-CoV-2. The test has been authorized by the FDA under an EUA for use by authorized laboratories. Lab Interpretation Normal (test code = 18042-8) [facility] [id number] 10:06:11 Test Item Value Reference Range Interpretation Comments SARS COVID ANTIGEN Negative Negative (test code = 36705-7) CONCHIS (test code = CONCHIS) The QuickVue SARS Antigen test does not differentiate between SARS-CoV and SARS-CoV-2. The test has been authorized by the FDA under an EUA for use by authorized laboratories. Lab Interpretation Normal (test code = 64378-9) [facility] [id number] 10:06:11 Test Item Value Reference Range Interpretation Comments SARS COVID ANTIGEN (test code = Negative Negative 91994445) The QuickVue SARS Antigen test does not differentiate between SARS-CoV and SARS-CoV-2.The test has been authorized by the FDA under an EUA for use by authorized laboratories.PROTHROMBIN TIME/[id number] 09:33:47 Test Item Value Reference Range Interpretation Comments PROTIME (BEAKER) 16.9 seconds 11.9-14.2 H (test code = 759) INR (BEAKER) (test 1.47 See_Comment [Automat ed message] code = 370) The system [employer]assets generated this result transmitted ref erence range: <=5.90. The reference range was not used to int erpret this result as normal/abnormal . RECOMMENDED COUMADIN/WARFARIN INR THERAPY RANGESSTANDARD DOSE: 2.0 - 3.0 Includes: PROPHYLAXIS for venous thrombosis, systemic embolization; TREATMENT for venous thrombosis and/or pulmonary embolus.HIGH RISK: Target INR is 2.5-3.5 for patients with mechanical heart valves.CBC W/PLT COUNT & AUTO [id number] 09:11:22 Test Item Value Reference Range Interpretation [...] (BEAKER) (test code = 2801) US, ABDOMINAL, [id number] 17:42:00Reason for Exam:->disease of gallbladderPROVID[facility] : 1935 Sex: MFINAL REPORT [...] stone measures 1.1 cm. Signed: Raza Abraham MDRconne[facility] Verified Date/Time: 12/31/2021 17:42:00 - MRI L-SPINE W/O [id number] 09:19:00 [facility] 1935 Sex: M Patient Name: SAURAV ABDI Unit No: [id number] Report Has Been Amended EXAMS: CPT CODE: [id number] MRI L-SPINE W/O CONT 22773 Addendum - 12/13/2021 SIGNED 12/13/2021 ADDENDUM: [id number] MRI/MRILSPNWO ADDENDUM: There is an acute to subacute less than 25% benign appearing superior endplate compression fracture of L4. at 0919 Reported and signed by: Mauricio Pan MD Report DIAGNOSIS: 1. At L1- 2 there is 2 mm of disc bulging [...] right and moderate left foraminal narrowing is seen with mild narrowing of the canal. Facet degeneration is present. 4. At L4-5 there is a mild retrolisthesis with 3 mm of left foraminal and [...] at all levels. There is a thoracolumbar scoliosis convex right and a lumbar scoliosis is left. Disc configurations are as described. Spondylitic changesare as noted. The conus is in the expected location. The description these findings assumes a normalcount of 5 lumbar type vertebra. [facility] NAME: SAURAV ABDI [address] [facility] PHYS: Isaias Viera MD : 1935 AGE: 86 SEX: [place], [place] [address] LOC: Y.MRI PHONE #: [phone] EXAM DATE: 12/12/2021 STATUS: DEP CLI FAX #: [phone] RAD #: D/ C DT PAGE 1 Signed Report (CONTINUED) Patient Name: SAURAV ABDI Unit No: [id number] Report Has Been Amended EXAMS: CPT CODE: [id number] MRI L-SPINE W/O CONT 48783 (Continued) at 0900 Reported and signed by: Mauricio Pan MD CC: Isaias Judge MD Technologist: DOROTHEA YA MRI. Transcribed D/ (899) Caitlyn [facility] NAME: ORANCOLCHESTER [address] [place] [address] PHYS: Isaias Viera MD : 1935 AGE: 86 SEX: M [place] [address] LOC: Y.MRI PHONE #:[phone] EXAM DATE: 12/12/2021 STATUS: DEP CLI FAX #: [phone] RAD #: D/C DT PAGE 2 Signed R eport Patient Name: JINCOLCHESTER Unit No: [id number] Report Has Been Amended EXAMS: CPT CODE: [id number] MRI L-SPINE W/O CONT 04563 (Continued) Orig Print D/T: S: 12/13/2021 (902) [facility] NAME: OR[address] PHYS: Isaias Viera MD : 1935 AGE: 86 SEX: M [place] [address] LOC: Y.MRI PHONE #: [phone] EXAM DATE: 12/12/2021 STATUS: DEP CLI FAX #: [phone] RAD #: D/C DT PAGE 3 Signed [id number] 11:02:00 Test Item Value Reference Range Interpretation Comments PROSTATE SPECIFIC ANTIGEN (BEAKER) 0.3 ng/mL 0.0-4.0 (test code = 844) Miter Cutter ID Eugenia HERNANDEZ [id number] 11:02:00 Test Item Value Reference Range Interpretation Comments THYROID STIMULATING HORMONE 1.803 uIU/mL 0.350-4.940 (BEAKER) (test code = 772) Miter Cutter ID - MARY MANE, CHEST, 2 [id number] 10:56:00Reason for Exam:->htnCHI [facility] : 1935 Sex: MFINAL REPORT INDICATION: htn COMPARISON: August 20, 2018 TECHNIQUE: Frontal and lateral views of the chest. IMPRESSION:Lungs and pleura: Mild interstitial congestive changes may reflect developing edema. No consolidation. No effusion.Heart and mediastinum: Normal heart size. Unremarkable mediastinal contours.Osseous structures: No acute abnormality.Additional findings: None. Signed: JR Jacobson Robert MDReport Verified Date/Time: 04/04/2020 10:56:33 Reading Location: [facility] Radiology Reading Room COMPREHENSIVE METABOLIC [id number] 10:41:00 Test Item Value Reference Range Interpretation [...] S NOT APPLICABLE FOR DIALYSIS PATIEN TS. Miter Cutter MAYURI HERNANDEZ FLIPID [id number] 10:41:00 Test Item Value Reference Range Interpretation [...] Borderline 130-159 High 160-189 Very High >=190 Miter Cutter MAYURI HERNANDEZ FB-TYPE NATRIURETIC FACTOR (BNP)2020-04-04 10:41:00 Test Item Value Reference Range Interpretation Comments B-TYPE NATRIURETIC PEPTIDE (BEAKER) 221 pg/mL 0-100 H (test code = 700) Miter Cutter MAYURI HERNANDEZ FCBC W/PLT COUNT & AUTO [id number] 10:32:00 Test Item Value Reference Range Interpretation [...] 0-1 PERCENT (BEAKER) (test code = 2801) [id number] 09:26:00 Test Item Value Reference Range Interpretation Comments PROSTATE SPECIFIC ANTIGEN (BEAKER) 0.2 ng/mL 0.0-4.0 (test code = 844) Miter Cutter MAYURI VALENTE [id number] 09:26:00 Test Item Value Reference Range Interpretation Comments THYROID STIMULATING HORMONE 2.28 uIU/mL 0.35-4.94 (BEAKER) (test code = 772) Miter Cutter MAYURI VALENTE MLIPID [id number] 09:02:00 Test Item Value Reference Range Interpretation [...] Borderline 130-159 High 160-189 Very High >=190 Miter Cutter MAYURI VALENTE MBASIC METABOLIC [id number] 09:02:00 Test Item Value Reference Range Interpretation [...] S NOT APPLICABLE FOR DIALYSIS PATIEN TS. Miter Cutter ID - AMBROSIO EPATIC FUNCTION [id number] 09:02:00 Test Item Value Reference Range Interpretation [...] (test code = 24 U/L 6-55 347) Miter Cutter ID - AMBROSIO [facility] W/PLT COUNT & AUTO [id number] 08:54:00 Test Item Value Reference Range Interpretation [...] 0-1 PERCENT (BEAKER) (test code = 2801) [id number] 09:03:00 Test Item Value Reference Range Interpretation Comments PROSTATE SPECIFIC ANTIGEN (BEAKER) 0.2 ng/mL 0.0-4.0 (test code = 844) [id number] 09:03:00 Test Item Value Reference Range Interpretation Comments THYROID STIMULATING HORMONE 0.38 uIU/mL 0.35-4.94 (BEAKER) (test code = 772) LIPID [id number] 08:48:00 Test Item Value Reference Range Interpretation [...] 130-159 High 160-189 Very High >=190BASIC METABOLIC [id number] 08:48:00 Test Item Value Reference Range Interpretation [...] APPLICABLE FOR DIALYSIS PATIEN TS. HEPATIC FUNCTION [id number] 08:48:00 Test Item Value Reference Range Interpretation [...] 6-55 347) CBC W/PLT COUNT & AUTO [id number] 08:25:00 Test Item Value Reference Range Interpretation [...] PET, CARDIAC PERFUSION MULTIPLE STUDIES, REST AND [id number] 14:08:00 Reason for Exam:->chest painFINAL REPORT PROCEDURE: Rest/Stress MYOCARDIAL PERFUSION PET with regadenoson\\XA9\\ CPT CODE: 06839 INDICATION: Chest pain HISTORY: Cardiac risk factors: [...] images showcalcification the aorta 7. No previous [facility] study for comparison. NONINVASIVE RISK STRATIFICATION: The above findings are considered low risk (<1% annual mortality rate) based on the following crite saurav:- Normal or small myocardial perfusion defect at rest or with stress(JACC. 2012;59(9):857-81.) Signed: Adelfo Salinas MDReport Verified Date/Time: 07/29/2018 14:08:02 Reading Location: [address] Reading Room PSA 2018-07-29 09:42:00 Test Item Value Reference Range Interpretation Comments PROSTATE SPECIFIC ANTIGEN (BEAKER) 0.3 ng/mL 0.0-4.0 (test code = 844) [id number] 09:42:00 Test Item Value Reference Range Interpretation Comments THYROID STIMULATING HORMONE 0.64 uIU/mL 0.35-4.94 (BEAKER) (test code = 772) B-TYPE NATRIURETIC FACTOR (BNP)2018-07-29 09:29:00 Test Item Value Reference Range Interpretation Comments B-TYPE NATRIURETIC PEPTIDE (BEAKER) 125 pg/mL 0-100 H (test code = 700) LIPID [id number] 09:23:00 Test Item Value Reference Range Interpretation [...] 130-159 High 160-189 Very High >=190BASIC METABOLIC [id number] 09:23:00 Test Item Value Reference Range Interpretation [...] APPLICABLE FOR DIALYSIS PATIEN TS. HEPATIC FUNCTION [id number] 09:23:00 Test Item Value Reference Range Interpretation [...] 6-55 347) CBC W/PLT COUNT & AUTO [id number] 09:01:00 Test Item Value Reference Range Interpretation [...] 0-1 PERCENT (BEAKER) (test code = 2801) [id number] 09:12:00 Test Item Value Reference Range Interpretation Comments PROSTATE SPECIFIC ANTIGEN (BEAKER) 0.3 ng/mL 0.0-4.0 (test code = 844) [id number] 08:35:00 Test Item Value Reference Range Interpretation Comments THYROID STIMULATING HORMONE 0.84 uIU/mL 0.35-4.94 (BEAKER) (test code = 772) B-TYPE NATRIURETIC FACTOR (BNP)2018-02-25 08:22:00 Test Item Value Reference Range Interpretation Comments B-TYPE NATRIURETIC PEPTIDE (BEAKER) 159 pg/mL 0-100 H (test code = 700) LIPID [id number] 08:15:00 Test Item Value Reference Range Interpretation [...] 130-159 High 160-189 Very High >=190BASIC METABOLIC [id number] 08:15:00 Test Item Value Reference Range Interpretation [...] APPLICABLE FOR DIALYSIS PATIEN TS. HEPATIC FUNCTION [id number] 08:15:00 Test Item Value Reference Range Interpretation [...] 6-55 347) CBC W/PLT COUNT & AUTO [id number] 07:57:00 Test Item Value Reference Range Interpretation [...] (test code = 2801) RAD, CHEST, 2 [id number] 11:54:00Reason for Exam:->HTNFINAL REPORT CLINICAL HISTORY: HTN [...] MDReport Verified Date/Time: 08/20/2017 11:54:58 Reading Location: [facility] Radiology Reading Room [id number] 11:48:00 Test Item Value Reference Range Interpretation Comments THYROID STIMULATING HORMONE 1.05 uIU/mL 0.35-4.94 (BEAKER) (test code = 772) [id number] 10:45:00 Test Item Value Reference Range Interpretation Comments PROSTATE SPECIFIC ANTIGEN (BEAKER) 0.4 ng/mL 0.0-4.0 (test code = 844) LIPID [id number] 10:37:00 Test Item Value Reference Range Interpretation [...] 130-159 High 160-189 Very High >=190BASIC METABOLIC [id number] 10:37:00 Test Item Value Reference Range Interpretation [...] APPLICABLE FOR DIALYSIS PATIEN TS. HEPATIC FUNCTION [id number] 10:37:00 Test Item Value Reference Range Interpretation [...] 6-55 347) CBC W/PLT COUNT & AUTO [id number] 10:06:00 Test Item Value Reference Range Interpretation [...] 0-1 PERCENT (BEAKER) (test code = 2801) [id number] 10:54:00 Test Item Value Reference Range Interpretation Comments PROSTATE SPECIFIC ANTIGEN (BEAKER) 0.9 ng/mL 0.0-4.0 (test code = 844) [id number] 10:06:00 Test Item Value Reference Range Interpretation Comments THYROID STIMULATING HORMONE 0.86 uIU/mL 0.35-4.94 (BEAKER) (test code = 772) LIPID [id number] 09:51:00 Test Item Value Reference Range Interpretation [...] 130-159 High 160-189 Very High >=190BASIC METABOLIC [id number] 09:51:00 Test Item Value Reference Range Interpretation [...] APPLICABLE FOR DIALYSIS PATIEN TS. HEPATIC FUNCTION [id number] 09:51:00 Test Item Value Reference Range Interpretation [...] 6-55 347) CBC W/PLT COUNT & AUTO [id number] 09:12:00 Test Item Value Reference Range Interpretation [...] 0-1 PERCENT (BEAKER) (test code = 2801) [id number] 11:16:00 Test Item Value Reference Range Interpretation Comments THYROID STIMULATING HORMONE 1.13 uIU/mL 0.35-4.94 (BEAKER) (test code = 772) LIPID [id number] 10:34:00 Test Item Value Reference Range Interpretation [...] 130-159 High 160-189 Very High >=190BASIC METABOLIC [id number] 10:34:00 Test Item Value Reference Range Interpretation [...] APPLICABLE FOR DIALYSIS PATIEN TS. HEPATIC FUNCTION [id number] 10:34:00 Test Item Value Reference Range Interpretation [...] (test code = 17 U/L 6-55 347) [id number] 10:17:00 Test Item Value Reference Range Interpretation Comments PROSTATE SPECIFIC ANTIGEN (BEAKER) 0.5 ng/mL 0.0-4.0 (test code = 844) CBC W/PLT COUNT & AUTO [id number] 09:50:00 Test Item Value Reference Range Interpretation [...]
--- NOTE | 2022-11-10 17:59 | RAD REPORT ---
EXAM DESCRIPTION: RAD - Chest Single View - 11/10/2022 5:32 pm CLINICAL HISTORY: right sided chest pain COMPARISON: Chest Single View dated 10/08/2022; Abdomen 1 View (KUB) dated 10/07/2022; Chest Single Vi ew dated 05/01/2022; Chest Single View dated 08/10/2016; Abdomen Pelvis W Contrast dated 04/26/2019 FINDINGS: Lines: None. Lungs: Background of chronic lung changes. No definite acute process . Pleural: No significant pleural effusions or pneumothorax. Cardiac: The heart size is within normal limits. Mediastinum: Within normal limits. Bones: No acute fractures. Other: None IMPRESSION: Chronic interstitial lung changes without evidence of a superimposed acute process .
--- NOTE | 2022-11-10 19:16 | ER ---
Nurse's Notes [facility] Name: Saurav Vega Age: 87 yrs Sex: Male : 1935 Arrival Date: 11/10/2022 Time: 15:36 Bed IW6 Private MD: Diagnosis: Chest Wall Strain Presentation: 11/10 16:10 Chief complaint: Patient states: Right rib pain since Friday. I was in my truck and i nj1 drop something on the passenger side, reach for it and I felt something when I got back to sitting. Worsen in severity. Coronavirus screen: Vaccine status: Patient reports receiving the 2nd dose of the covid vaccine. Ebola Screen: Patient denies travel to an Ebola-affected area in the 21 days before illness onset. Initial Sepsis Screen: Does the patient meet any 2 criteria? No. Patient's initial sepsis screen is negative. Does the patient have a suspected source of infection? No. Patient's initial sepsis screen is negative. Risk Assessment: Do you want to hurt yourself or someone else? Patient reports no desire to harm self or others. Onset of symptoms was November 05, 2022. 16:10 Method Of Arrival: Ambulatory nj1 16:10 Acuity: IRVING 3 nj1 Historical: - Allergies: 16:14 Erythromycin; nj1 16:14 Neomycin Sulfate; nj1 16:14 Percocet; nj1 16:14 Sulfa (Sulfonamide Antibiotics); nj1 - PMHx: 16:14 acid reflux; Atrial fibrillation; Glaucoma; Hypercholesterolemia; Hypothyroidism; nj1 Irregular heart rate; - PSHx: 16:14 Cardiac Ablation; Knee replacement, brenda; nj1 16:17 Tonsillectomy; Vasectomy; Cataract, brenda; Inguinal hernia, left; nj1 - Immunization history:: Client reports receiving the 2nd dose of the Covid vaccine. - Social history:: Smoking status: Patient denies any tobacco usage or history of. Screenin:[address] [facility] ED Fall Risk Assessment (Adult) History of falling in the last 3 months, pf1 including since admission No falls in past 3 months (0 pts) Confusion or Disorientation No (0 pts) Intoxicated or Sedated No (0 pts) Impaired Gait Yes (1 pt) Mobility Assist Device Used Yes (1 pt) Altered Elimination No (0 pt) Score/Fall Risk Level 0 - 2 = Low Risk Oriented to surroundings, Maintained a safe environment, Educated pt \T\ family on fall prevention, incl call for assistance when getting out of bed, Assessed \T\ reinforced patient's understanding of fall precautions, Provided non-skid footwear, Hourly rounding (assess needs \T\ fall precautionary measures) done, Used ambulatory aids as needed (educated on \T\ assisted with), Used gait belt as appropriate. Abuse screen: Denies threats or abuse. Nutritional screening: No deficits noted. Tuberculosis screening: No symptoms or risk factors identified. Assessment: 19:20 General: Appears in no apparent distress. comfortable, well groomed, well developed, pf1 Behavior is calm, cooperative, appropriate for age, quiet. 19:20 Pain: Complains of pain in right ribcage pain. Neuro: No deficits noted. Level of pf1 Consciousness is awake, alert, obeys commands, Oriented to person, place, time, situation. Cardiovascular: No deficits noted. Capillary refill < 3 seconds Patient's skin is warm and dry. Respiratory: No deficits noted. Airway is patent Respiratory effort is even, unlabored, Respiratory pattern is regular, symmetrical. GI: No deficits noted. No signs and/or symptoms were reported involving the gastrointestinal system. : No deficits noted. No signs and/or symptoms were reported regarding the genitourinary system. EENT: No deficits noted. No signs and/or symptoms were reported regarding the EENT system. Derm: No deficits noted. No signs and/or symptoms reported regarding the dermatologic system. Musculoskeletal: Capillary refill < 3 seconds. Vital Signs: 16:10 BP 129 / 74; Pulse 71; Resp 18; Temp 98.2(O); Pulse Ox 96% ; Weight 74.84 kg; Height 5 nj1 ft. 10 in. ; 19:25 BP 137 / 98; Pulse 61; Resp 18; Pulse Ox 98% on R/A; pf1 16:10 Body Mass Index 23.67 (74.84 kg, 177.8 cm) ny1 ED Course: 15:38 Patient arrived in ED. ts1 16:14 Keon Marie PA is PHCP. [facility] 16:14 Shlomo Varela MD is Attending Physician. [facility] 16:14 Triage completed. nj1 16:19 Arm band placed on right wrist. nj1 17:34 Chest Single View XRAY In Process Unspecified. EDMS 19:20 Patient has correct armband on for positive identification. pf1 19:28 No provider procedures requiring assistance completed. Patient did not have IV access pf1 during this emergency room visit. Administered Medications: No medications were administered Medication: 19:20 VIS not applicable for this client. pf1 Outcome: 19:15 Discharge ordered by . rocio 19:28 Discharged to home ambulatory. pf1 19:28 Condition: stable 19:28 Discharge instructions given to patient, Instructed on discharge instructions, follow up and referral plans. Demonstrated understanding of instructions, follow-up care, medications, Prescriptions given X 1. 19:29 Patient left the ED. pf1 Signatures: Dispatcher [employer] EDMS Keon Marie PA PA jmm Finley, Pamala, THADDEUS RN pf1 Gerri Lilly RN RN nj1 Lisa Wilson, PAS PAS ts1
--- NOTE | 2022-11-10 19:16 | EDPHYS ---
Physician Documentation [facility] Name: Saurav Vega Age: 87 yrs Sex: Male : 1935 Arrival Date: 11/10/2022 Time: 15:36 Bed IW6 Private MD: ED Physician Shlomo Varela HPI: 11/10 16:28 This 87 yrs old Male presents to ER via Ambulatory with complaints of RIB PAIN. [facility] 16:28 The patient or guardian reports chest pain that is located primarily in the anterior [facility] chest wall, right. Onset: acutely, 1 week(s) ago. The pain does not radiate. Is an 87-year-old male with history of atrial fibrillation, glaucoma, hyperlipidemia, hypertension the presents emerged part with complaints of right-sided chest pain beginning after reaching over in his car this past Friday. Pain has been mild up until last night. Denies shortness of breath.. Historical: - Allergies: 16:14 Erythromycin; nj1 16:14 Neomycin Sulfate; nj1 16:14 Percocet; nj1 16:14 Sulfa (Sulfonamide Antibiotics); nj1 - PMHx: 16:14 acid reflux; Atrial fibrillation; Glaucoma; Hypercholesterolemia; Hypothyroidism; nj1 Irregular heart rate; - PSHx: 16:14 Cardiac Ablation; Knee replacement, brenda; nj1 16:17 Tonsillectomy; Vasectomy; Cataract, brenda; Inguinal hernia, left; nj1 - Immunization history:: Client reports receiving the 2nd dose of the Covid vaccine. - Social history:: Smoking status: Patient denies any tobacco usage or history of. ROS: 16:28 Constitutional: Negative for fever, chills, and weight loss. jmm 16:28 Respiratory: Negative for shortness of breath, cough, wheezing, and pleuritic chest pain. 16:28 Cardiovascular: Positive for chest pain, with movement. 16:28 All other systems are negative. Exam: 16:28 Constitutional: This is a well developed, well nourished patient who is awake, alert, jmm and in no acute distress. Head/Face: atraumatic. Eyes: EOMI, no conjunctival erythema appreciated ENT: Moist Mucus Membranes Neck: Trachea midline, Supple 16:28 Cardiovascular: Regular rate and rhythm. No edema appreciated Respiratory: Normal respirations, no respiratory distress appreciated Abdomen/GI: Non distended Back: Normal ROM Skin: General appearance color normal MS/ Extremity: Moves all extremities, no obvious deformities appreciated, no edema noted to the lower extremities Neuro: Awake and alert Psych: Behavior is normal, Mood is normal, Patient is cooperative and pleasant 16:28 Chest/axilla: Inspection: normal, Palpation: tenderness, that is moderate, of the right breast, that totally reproduces the patient's complaints. Vital Signs: 16:10 BP 129 / 74; Pulse 71; Resp 18; Temp 98.2(O); Pulse Ox 96% ; Weight 74.84 kg; Height 5 nj1 ft. 10 in. ; 19:25 BP 137 / 98; Pulse 61; Resp 18; Pulse Ox 98% on R/A; pf1 16:10 Body Mass Index 23.67 (74.84 kg, 177.8 cm) nj1 MDM: 16:28 Patient medically screened. [facility] 19:22 Differential diagnosis: Rib fracture, chest wall strain. Data reviewed: vital signs, [facility] nurses notes, radiologic studies, plain films. Counseling: I had a detailed discussion with the patient and/or guardian regarding: the historical points, exam findings, and any diagnostic results supporting the discharge/admit diagnosis, radiology results, the need for outpatient follow up, to return to the emergency department if symptoms worsen or persist or if there are any questions or concerns that arise at home. ED course: Patient is alert nontoxic in appearance in the ED. No hypoxia appreciated. Vital signs within normal limits. Chest x-ray was negative. Most likely chest wall strain. Patient given strict return precautions. Patient understood and agrees plan of care.. 11/10 16:27 Order name: Chest Single View XRAY; Complete Time: 18:00 [facility] Administered Medications: No medications were administered Disposition Summary: 11/10/22 19:15 Discharge Ordered Location: Home [facility] Condition: Stable [facility] Diagnosis - Chest Wall Strain [facility] Followup: [facility] - With: Private Physician - When: 2 - 3 days - Reason: Recheck today's complaints, Continuance of care, Re-evaluation by your physician Discharge Instructions: - Discharge Summary Sheet [facility] - Chest Wall Pain [facility] Forms: - Medication Reconciliation Form [facility] - Thank You Letter [facility] - Antibiotic Education [facility] - Prescription Opioid Use [facility] Prescriptions: - orphenadrine citrate 100 mg Oral Tablet Sustained Release - take 1 tablet by ORAL route 2 times per day As needed; 20 tablet; Refills: 0, jmm Product Selection Permitted Signatures: Dispatcher [employer] Keon Darling PA PA jmm Jaco, Norma, RN RN nj1
[2022-11-10 19:44] VITALS: TEMP 98.2
[2022-11-10 19:45] VITALS: BP 137/98; O2SAT 98
== END 2022-11-10 19:29 | disposition home or self-care (01) ==
LOC: ER 15:36
DX: S29.011A Strain of muscle and tendon of front wall of thorax, initial encounter (principal); Z88.2 Allergy status to sulfonamides; Z88.3 Allergy status to other anti-infective agents; Z88.5 Allergy status to narcotic agent; Z96.653 Presence of artificial knee joint, bilateral
CPT/HCPCS: 71045; 99283

== ENCOUNTER 2023-09-01 15:56 | Inpatient (IN) | payer OTHER ==
[2023-09-01 17:09] LABS: Absolute Lymphocytes (CBC) 0.7 K/uL (0.7-4.9); Absolute Neutrophil 12.4 K/uL (1.8-8.0); Basophils % 0.1 % (0-1.3); Hematocrit 39.2 % (39.6-49.0); Hemoglobin 13.6 g/dL (13.6-17.9); Lymphocytes % 5.1 % (15.3-44.8); MCH 34.8 pg (27.0-35.0); MCHC 34.6 g/dL (32.0-36.0); MCV 100.6 fL (80-100); MPV 7.3 fL (7.6-11.3); Monocytes % 6.8 % (3.3-12.3); Nucleated Red Blood Cells % 0.1 % (0-0); Platelets 189 thou/uL (152-406); RBC Red Blood Cell Count 3.89 M/uL (4.33-5.43); Red Cell Distribution Width 16.7 % (12.1-15.2)
[2023-09-01 17:20] LABS: Albumin 2.1 g/dL (3.4-5.0); Albumin/Globulin Ratio 0.5 (1.1-1.8); Anion Gap 11.4 mEq/L (5.0-15.0); Bilirubin Direct 1.3 mg/dL (0-0.2); Bilirubin Indirect, Calculated 1.3 mg/dL (0.2-0.8); Bilirubin Total 2.6 mg/dL (0.2-1.0); Potassium 3.4 mEq/L (3.5-5.1); Protein, Total 6.1 g/dL (6.4-8.2); Troponin High Sensitivity 45.4 pg/mL (<58.9)
--- NOTE | 2023-09-01 17:43 | RAD REPORT ---
EXAM DESCRIPTION: CT - CTHCSPWOC - 09/01/2023 5:05 pm CLINICAL HISTORY: fall COMPARISON: Ct Stroke Brain Wo Cont dated 10/08/2022; Brain Wo Cont dated 10/09/2022; Neck Angio dated 10/08/2022 TECHNIQUE: Axial thin cut noncontrast CT images of the head were obtained. Axial thin cut noncontrast CT images of the cervical spine were obtained. Multiplanar reformatted images were generated and reviewed. All CT scans are performed using dose optimization technique as appropriate and may include automated exposure control or mA/KV adjustment according to patient size. FINDINGS: CT HEAD WITHOUT CONTRAST: No acute hemorrhage, hydrocephalus or extra-axial collection is identified.Patchy white matter hypoat tenuation, stable in extent, nonspecific, suggestive of chronic small vessel ischemic changes.No area s of brain edema or midline shift. The paranasal sinuses and mastoids are clear.The calvarium is intact. CT CERVICAL SPINE WITHOUT CONTRAST: No fracture or subluxation. Exaggerated cervical lordosis. Multilevel degenerative changes most for a t C3-4 and C4-5 bilaterally contributing to advanced degrees of neural foraminal narrowing. No prever tebral soft tissues swelling is identified. Ground-glass opacities in the peripheral left upper lung, may relate to interstitial pneumonitis or s carring. Moderate degenerative pannus at the C1-2 articulation. IMPRESSION: No acute traumatic intracranial or cervical spine findings. Chronic findings as above. Ground-glass opacities in the peripheral left upper lung, may relate to interstitial pneumonitis or s carring.
--- NOTE | 2023-09-01 18:04 | RAD REPORT ---
[facility] CLINICAL HISTORY: TRAUMA COMPARISON: Chest Single View dated 11/10/2022; Chest Single View dated 10/08/2022; Abdomen 1 View ([facility] B) dated 10/07/2022; Chest Single View dated 05/01/2022 TECHNIQUE: Portable AP view of the chest. FINDINGS: Patchy left mid to lower lung airspace opacities. No pneumothorax or effusion. The cardio mediastinal contours are unremarkable. IMPRESSION: Patchy left mid to lower lung airspace opacities, concerning for aspiration/pneumonia.
[2023-09-01 18:35] LABS: Specific Gravity 1.012 (1.005-1.030); Sqamous Epithelial None Seen /HPF (None Seen); Urine Bacteria None Seen /HPF (<20); Urine Bilirubin NEGATIVE (Negative); Urine Blood 3+ (OVER) (Negative); Urine Clarity Extremely Turbid (Clear); Urine Color Yellow (Yellow); Urine Culture Reflex Order NOT NEEDED; Urine Glucose NEGATIVE (Negative); Urine Ketones TRACE (Negative); Urine Micro Reflex YN NO BILL MICROSCOPIC; Urine Nitrite NEGATIVE (Negative); Urine Protein TRACE (Negative); Urine RBC >50 /HPF (None Seen); Urine Urobilinogen 1+ (Normal); Urine WBC <5 /HPF (<5)
--- NOTE | 2023-09-01 18:40 | ER ---
Nurse's Notes [facility] Name: Saurav Vega Age: 88 yrs Sex: Male : 1935 Arrival Date: 09/01/2023 Time: 15:56 Bed 4 Private MD: Diagnosis: Unspecified bacterial pneumonia Presentation: 08/31 16:11 Chief complaint: Patient states: Slid off of walker onto kitchen floor this morning and ph couldn't get up, states that he was on the ground for at least an hour, c/o generalized weakness and lower back pain. Coronavirus screen: Vaccine status: Patient reports receiving the 2nd dose of the covid vaccine. Ebola Screen: No symptoms or risks identified at this time. Initial Sepsis Screen: Does the patient meet any 2 criteria? No. Patient's initial sepsis screen is negative. Does the patient have a suspected source of infection? No. Patient's initial sepsis screen is negative. Risk Assessment: Do you want to hurt yourself or someone else? Patient reports no desire to harm self or others. Onset of symptoms was September 01, 2023. 16:11 Method Of Arrival: Wheelchair ph 16:11 Acuity: IRVING 3 ph 16:37 Care prior to arrival: None. Mechanism of Injury: Fall out of chair. Trauma event ko1 details: Injury occurred in the [facility]. Triage Assessment: 16:17 General: Appears in no apparent distress. Behavior is calm, cooperative. Pain: ph Complains of pain in back. Neuro: Level of Consciousness is awake, alert, obeys commands, Oriented to person, place, time, situation. Trauma Activation: Not Applicable Physician: ED Physician; Name: ; Notified At: ; Arrived At: Physician: General Surgeon; Name: ; Notified At: ; Arrived At: Physician: Radiology; Name: ; Notified At: ; Arrived At: Physician: Respiratory; Name: ; Notified At: ; Arrived At: Physician: Lab; Name: ; Notified At: ; Arrived At: Historical: - Allergies: 16:17 Erythromycin; ph 16:17 Neomycin Sulfate; ph 16:17 Percocet; ph 16:17 Sulfa (Sulfonamide Antibiotics); ph - PMHx: 16:17 acid reflux; Atrial fibrillation; Glaucoma; Hypercholesterolemia; Hypothyroidism; ph Irregular heart rate; - PSHx: 16:17 Cardiac Ablation; Cataract; Inguinal hernia; Knee replacement; Tonsillectomy; Vasectomy;ph - Immunization history:: Adult Immunizations unknown. - Social history:: Smoking status: Patient denies any tobacco usage or history of. - Immunization history: Last tetanus immunization: < 5 years ago. Screenin:37 Abuse screen: Denies threats or abuse. Denies injuries from another. Tuberculosis ko1 screening: No symptoms or risk factors identified. 18:50 [facility] ED Fall Risk Assessment (Adult) History of falling in the last 3 months, ko1 including since admission Yes- fall prone (multiple falls) (3 pts) Confusion or Disorientation No (0 pts) Intoxicated or Sedated No (0 pts) Impaired Gait Yes (1 pt) Mobility Assist Device Used Yes (1 pt) Altered Elimination No (0 pt) Score/Fall Risk Level 3 or more points = High Risk Oriented to surroundings, Maintained a safe environment, Educated pt \T\ family on fall prevention, incl call for assistance when getting out of bed, Assessed \T\ reinforced patient's understanding of fall precautions, Provided non-skid footwear, Hourly rounding (assess needs \T\ fall precautionary measures) done, Used ambulatory aids as needed (educated on \T\ assisted with), Used gait belt as appropriate Implemented a Fall Risk Plan of Care, Apply high fall risk patient identification: yellow non skid footwear/ fall signage, Remained w/in arm's length of patient and in sight while toileting, Offered frequent toileting (1:1 observation), Remained with patient while ambulating, Utilized family, sitter, or virtual antenna engineer as indicated. Nutritional screening: No deficits noted. Primary Survey: 16:37 NO uncontrolled hemorrhage observed. A: The client is awake and alert. The airway is ko1 patent. The client is alert. Airway: patent, No supplemental oxygen in use on arrival. Oral cavity: clear, Trachea midline. Breathing/Chest: Spontaneous respiratory effort, equal unlabored respirations, breath sounds clear bilaterally, regular pattern, symmetrical chest rise and fall. Respiratory effort: spontaneous, unlabored, Breath sounds: clear, bilaterally. Respiratory pattern: regular, Chest inspection: symmetrical rise and fall of the chest. Circulation: No external hemorrhage present. Regular and strong central pulse, skin warm/dry/normal color. Disability Pupils are equal, round, reactive to light and accommodation. Client is alert. Exposure/Environment: There is no evidence of uncontrolled external bleeding. No obvious injuries are noted at this time. 16:39 Reassessment Alertness and Airway: Awake and alert. The airway is patent. Oxygen No O2 ko1 Breathing: Spontaneous respiratory effort, equal unlabored respirations, breath sounds clear bilaterally, regular pattern with symmetrical chest rise and fall. Respiratory effort Spontaneous Unlabored Breath sounds Clear Respiratory pattern Regular Chest inspection Symmetrical Circulation: No external hemorrhage noted. Regular and strong central pulse, skin warm/dry/normal color. Disability: Pupils Pupils are equal, round, reactive to light and accomodation. Alert. Assessment: 16:35 General: Appears uncomfortable, ill, slender, Behavior is calm, cooperative, ko1 appropriate for age. Pain: Complains of pain in back. Neuro: No deficits noted. Cardiovascular: No deficits noted. Respiratory: Reports shortness of breath on exertion cough that is productive. GI: No deficits noted. : No deficits noted. EENT: No deficits noted. Derm: Bruising that is dark purple, brown, yellow, on right shoulder and chest, right groin. Musculoskeletal: Range of motion: limited in all extremities, generalized weakness. 19:00 Reassessment: patient states he had a fall today. as9 19:00 General: Appears in no apparent distress. comfortable, Behavior is calm, cooperative, as9 appropriate for age. Neuro: Level of Consciousness is awake, alert, obeys commands, Oriented to person, place, situation, Appropriate for age. Cardiovascular: Capillary refill < 3 seconds Patient's skin is warm and dry. Respiratory: Airway is patent Respiratory effort is unlabored, Respiratory pattern is regular, symmetrical. GI: Abdomen is non-distended. : No signs and/or symptoms were reported regarding the genitourinary system. EENT: No deficits noted. Derm: Bruising that is. Musculoskeletal: Capillary refill < 3 seconds, Range of motion: limited in all extremities. Vital Signs: 16:11 BP 98 / 62; Pulse 66; Resp 18; Temp 97.5; Pulse Ox 93% on R/A; Weight 79.38 kg; Height ph 5 ft. 10 in. ; 18:50 BP 112 / 69; Pulse 72; Resp 16; Pulse Ox 93% on 2 lpm NC; ko1 19:00 BP 113 / 63; Pulse 64; Resp 20; Temp 98.3; Pulse Ox 97% on 2 lpm NC; as9 16:11 Body Mass Index 25.11 (79.38 kg, 177.8 cm) ph [place] Coma Score: 16:37 Eye Response: spontaneous(4). Motor Response: obeys commands(6). Verbal Response: ko1 oriented(5). Total: 15. Trauma Score (Adult): 16:37 Eye Response: spontaneous(1); Verbal Response: oriented(1); Motor Response: obeys ko1 commands(2); Systolic BP: > 89 mm Hg(4); Respiratory Rate: 10 to 29 per min(4); [place] Score: 15; Trauma Score: 12 ED Course: 16:00 Patient arrived in ED. ae5 16:04 Aldo Long MD is Attending Physician. ec2 16:17 Triage completed. ph 16:18 Arm band placed on. ph 16:30 Pratima Conley, THADDEUS is Primary Nurse. ko1 16:37 Patient has correct armband on for positive identification. Allergy band placed. Fall ko1 risk band placed. Placed in gown. Bed in low position. Call light in reach. Side rails up X2. Adult w/ patient. Patient maintains SpO2 saturation greater than 95% on room air. Client placed on continuous cardiac and pulse oximetry monitoring. NIBP monitoring applied. quality assurance monitor final on. 16:37 Patient maintains SpO2 saturation greater than 95% on room air. ko1 16:50 Initial lab(s) drawn, by me, sent to lab. Inserted saline lock: 22 gauge in left ll1 antecubital area, using aseptic technique. Blood collected. 17:00 Door closed. Noise minimized. Lights dimmed. Warm blanket given. Pillow given. Head of ko1 bed elevated. 17:04 Creatine Phosphokinase Sent. ko1 17:06 CT Head C Spine In Process Unspecified. EDMS 17:37 XRAY Chest (1 view) In Process Unspecified. EDMS 18:26 UAM Sent. ko1 18:30 Assisted with urinal. ko1 18:30 Urine collected: straight cath specimen, bozena colored, Amount Returned: 300mL. ko1 18:37 US Abdomen Limited In Process Unspecified. EDMS 18:40 Jefferson Castillo MD is Hospitalizing Provider. ec2 18:50 Provided Education on: na. ko1 18:53 No provider procedures requiring assistance completed. Patient admitted, IV remains in ko1 place. 18:55 Thermoregulation: warm blanket given to patient. ko1 Administered Medications: 20:09 Drug: NS 0.9% IV 1000 ml IV at 1 bolus Per protocol; 1000 mL bolus Route: IV; Rate: 1 as9 bolus; Site: left antecubital; 21:07 Follow up: IV Status: Completed infusion; IV Intake: 1000ml as9 20:10 Drug: Rocephin IV 1 grams IV at calculated rate once; Given slow IV push per pharmacy as9 instructions Route: IV; Rate: calculated rate; Site: left antecubital; 21:06 Follow up: Response: No adverse reaction as9 20:10 Drug: vibramycin - Doxycycline IVPB 100 mg IVPB at 100 ml/hr once; (mix in 100 ml NS) as9 Route: IVPB; Rate: 100 ml/hr; Site: left antecubital; 21:07 Follow up: IV Status: Completed infusion; IV Intake: 100ml as9 Medication: 18:50 VIS not applicable for this client. ko1 Intake: 18:54 PO: 60ml (Water); Total: 60ml. ko1 21:07 IV: 100ml; Total: 160ml. as9 21:07 IV: 1000ml; Total: 1160ml. as9 Output: 18:54 Urine: 300ml (Straight Cath); Total: 300ml. ko1 Outcome: 18:40 Decision to Hospitalize by Provider. ec2 18:53 Admitted to ER Hold. Please see [facility] for further documentation. ko1 18:53 Condition: stable 18:53 Instructed on the need for admit, Demonstrated understanding of instructions, 18:54 Patient's length of stay in the Emergency Department was greater than 2 hours. ko1 admittedPatient's length of stay extended due to 22:17 Patient left the ED. rv Signatures: Dispatcher [employer] Marjorie Moss RN RN ph Vicente, Ronaldo, RN RN rv Lewis, Lynsay, RN RN ll1 Pratima Conley RN RN ko1 Aldo Long MD MD ec2 Anusha Torres 5 Rober Moss RN RN as9 Corrections: (The following items were deleted from the chart) 18:50 16:35 BP 112 / 69; Pulse 72bpm; Resp 16bpm; Pulse Ox 93% 2 lpm Nasal Cannula; ko1 ko1
--- NOTE | 2023-09-01 18:40 | EDPHYS ---
Physician Documentation [facility] Name: Saurav Vega Age: 88 yrs Sex: Male : 1935 Arrival Date: 09/01/2023 Time: 15:56 Bed 4 Private MD: ED Physician Aldo Long HPI: 08/31 16:51 This 88 yrs old Male presents to ER via Wheelchair with complaints of Fall ec2 Injury. 16:51 Patient arrives today for evaluation of generalized weakness. Patient with recurrent ec2 falls, was recently had a fall today. No head pain, no neck pain, no prodromal symptoms. Patient has been having progressive weakness over the past 2 months. No recent fevers or chills, no urinary problems. Denies any difficulty breathing.. Historical: - Allergies: 16:17 Erythromycin; ph 16:17 Neomycin Sulfate; ph 16:17 Percocet; ph 16:17 Sulfa (Sulfonamide Antibiotics); ph - PMHx: 16:17 acid reflux; Atrial fibrillation; Glaucoma; Hypercholesterolemia; Hypothyroidism; ph Irregular heart rate; - PSHx: 16:17 Cardiac Ablation; Cataract; Inguinal hernia; Knee replacement; Tonsillectomy; Vasectomy;ph - Immunization history:: Adult Immunizations unknown. - Social history:: Smoking status: Patient denies any tobacco usage or history of. - Immunization history: Last tetanus immunization: < 5 years ago. ROS: 16:52 Constitutional: as per hpi ec2 Exam: 16:52 Constitutional: GEN: NAD Head: atraumatic Eyes: EOMI Ears: External ears are ec2 normal. CV: regular rate LUNGS: no respiratory distress ABD: non-distended, soft, nontender, no guarding, not rigid SKIN: no evidence of rashes MSK: no evidence of trauma NEURO: moves all extremities equally Vital Signs: 16:11 BP 98 / 62; Pulse 66; Resp 18; Temp 97.5; Pulse Ox 93% on R/A; Weight 79.38 kg; Height ph 5 ft. 10 in. ; 18:50 BP 112 / 69; Pulse 72; Resp 16; Pulse Ox 93% on 2 lpm NC; ko1 19:00 BP 113 / 63; Pulse 64; Resp 20; Temp 98.3; Pulse Ox 97% on 2 lpm NC; as9 16:11 Body Mass Index 25.11 (79.38 kg, 177.8 cm) ph [place] Coma Score: 16:37 Eye Response: spontaneous(4). Motor Response: obeys commands(6). Verbal Response: ko1 oriented(5). Total: 15. Trauma Score (Adult): 16:37 Eye Response: spontaneous(1); Verbal Response: oriented(1); Motor Response: obeys ko1 commands(2); Systolic BP: > 89 mm Hg(4); Respiratory Rate: 10 to 29 per min(4); [place] Score: 15; Trauma Score: 12 MDM: 16:30 Patient medically screened. ec2 16:52 Data reviewed: vital signs. ED course: Patient arrives today for evaluation of ec2 generalized weakness and recurrent falls. Examination remarkable for well-appearing nontoxic dividual who has no overt signs of trauma. Will obtain lab work, CT imaging of the head and C-spine, obtain urinary studies. Evaluate for cardiac pathology, intracranial brain bleed given the patient's blood thinner use. Additionally evaluating for C-spine injury given the patient's age.. 16:54 ED course: Ultimately patient with progression of his generalized weakness. I discussed ec2 likely admission to the hospital for his generalized weakness and recurrent falls given his need for therapy and likely rehab.. 17:27 ED course: Metabolic profile shows hypokalemia 3.4, CBC shows slight leukocytosis of ec2 14.1. Slight T. bili elevation at 2.6. CPK normal, troponin within normal ranges.. 18:38 ED course: Urine without nitrites or leuk esterase, no WBCs or bacteria noted. Chest ec2 x-ray shows left lung opacities, will treat for pneumonia. CT also shows groundglass opacities in the left lung ta. Will admit the patient for pneumonia, weakness.. 08/31 16:45 Order name: Basic Metabolic Panel; Complete Time: 17:26 ec2 08/31 16:45 Order name: CBC with Diff; Complete Time: 17: ec2 08/31 16:45 Order name: NT PRO-BNP; Complete Time: 17:26 ec2 08/31 16:45 Order name: Troponin HS; Complete Time: 17:26 ec2 08/31 16:45 Order name: LFT's; Complete Time: 17:26 ec2 08/31 16:45 Order name: UAM; Complete Time: 18:37 ec2 08/31 17:02 Order name: Creatine Phosphokinase; Complete Time: 17:26 EDMS 08/31 20:17 Order name: Basic Metabolic Panel EDMS 08/31 20:17 Order name: Basic Metabolic Panel EDMS 08/31 20:17 Order name: Basic Metabolic Panel EDMS 08/31 20:17 Order name: Basic Metabolic Panel EDMS 08/31 20:17 Order name: CBC with Automated Diff EDMS 08/31 20:17 Order name: CBC with Automated Diff EDMS 08/31 20:17 Order name: CBC with Automated Diff EDMS 08/31 20:17 Order name: CBC with Automated Diff EDMS 08/31 16:45 Order name: XRAY Chest (1 view); Complete Time: 18:37 ec2 08/31 16:45 Order name: CT Head C Spine; Complete Time: 18:37 ec2 08/31 17:28 Order name: US Abdomen Limited; Complete Time: 18:52 ec2 08/31 16:45 Order name: EKG; Complete Time: 16:45 ec2 08/31 16:45 Order name: Cardiac monitoring; Complete Time: 16:55 ec2 08/31 16:45 Order name: EKG - Nurse/Tech; Complete Time: 17:20 ec2 08/31 16:45 Order name: IV Saline Lock; Complete Time: 17:04 ec2 08/31 16:45 Order name: Labs collected and sent; Complete Time: 17:04 ec2 08/31 16:45 Order name: O2 Per Protocol; Complete Time: 16:47 ec2 08/31 16:45 Order name: O2 Sat Monitoring; Complete Time: 16:47 ec2 08/31 16:45 Order name: Cath; Complete Time: 18:26 ec2 Administered Medications: 20:09 Drug: NS 0.9% IV 1000 ml IV at 1 bolus Per protocol; 1000 mL bolus Route: IV; Rate: 1 as9 bolus; Site: left antecubital; 21:07 Follow up: IV Status: Completed infusion; IV Intake: 1000ml as9 20:10 Drug: Rocephin IV 1 grams IV at calculated rate once; Given slow IV push per pharmacy as9 instructions Route: IV; Rate: calculated rate; Site: left antecubital; 21:06 Follow up: Response: No adverse reaction as9 20:10 Drug: vibramycin - Doxycycline IVPB 100 mg IVPB at 100 ml/hr once; (mix in 100 ml NS) as9 Route: IVPB; Rate: 100 ml/hr; Site: left antecubital; 21:07 Follow up: IV Status: Completed infusion; IV Intake: 100ml as9 Disposition Summary: 09/01/23 18:40 Hospitalization Ordered Notes: Hospitalization Status: Inpatient Admission ec2 Provider: Jefferson Castillo ec2 Location: Telemetry/[facility] (Inpatient) ec2 Condition: Stable ec2 Problem: an ongoing problem ec2 Symptoms: have improved ec2 Bed/Room Type: Standard ec2 Room Assignment: 429(09/01/23 20:58) cm10 Diagnosis - Unspecified bacterial pneumonia ec2 Forms: - Medication Reconciliation Form ec2 - SBAR form ec2 - Leadership Thank You Letter ec2 Signatures: Dispatcher [employer] EDVA Marjorie Sultana RN RN Pratima Conley RN RN ko1 Candice Pina RN RN cm10 Aldo Long MD MD ec2 Rober Moss RN RN as9 Corrections: (The following items were deleted from the chart) 16:52 16:51 Patient arrives today for evaluation of generalized weakness. Patient with ec2 recurrent falls, was recently had a fall today.. ec2 17:02 16:52 CREATINE PHOSPHOKINASE+C.LAB.BRZ ordered. EDVA EDVA 20:58 18:40 ec2 cm10
--- NOTE | 2023-09-01 18:48 | RAD REPORT ---
EXAM DESCRIPTION: US - Abdomen Exam Limited - 09/01/2023 6:35 pm CLINICAL HISTORY: ruq eval, biliary eval COMPARISON: Esophagram Only dated 02/12/2023 TECHNIQUE: Sonographic grayscale and color flow images of the right upper abdominal quadrant were o btained. FINDINGS: The gallbladder demonstrates no gallstones. No pericholecystic fluid or gallbladder wall t hickening. The common bile duct is normal measuring 2 mm. The liver demonstrates no findings of intrahepatic biliary dilatation. IMPRESSION: Unremarkable examination.
[2023-09-01] MEDS ORDERED: CEFTRIAXONE 1000 MG/VIAL ONE (19:46)
[2023-09-01] MEDS ORDERED: NA CHLORIDE 0.9% 100 ML ONE (19:47)
[2023-09-01] MEDS ORDERED: DOXYCYCLINE HYCLATE 100MG INJ ONE (19:47)
[2023-09-01] MEDS ORDERED: NA CHLORIDE 0.9% 1,000 ML ONE (19:47)
[2023-09-01] MEDS ORDERED: ACETAMINOPHEN 500 MG TAB PO PRN (20:11)
[2023-09-01] MEDS ORDERED: ALBUTEROL 2.5 MG/3 ML NEB SOL NEB PRN (20:11)
[2023-09-01] MEDS ORDERED: IPRATROPIUM BROM 0.5MG/2.5ML NEB PRN (20:11)
--- NOTE | 2023-09-01 20:16 | P.HP ---
Certification for Inpatient Patient admitted to: Inpatient With expected LOS: >2 Midnights Practitioner: I am a practitioner with admitting privileges, knowledge of patient current condition, hospital course, and medical plan of care. Services: Services provided to patient in accordance with Admission requirements found in Title 42 Section 412.3 of the Code of Federal Regulations Patient History Date of Service: 09/02/23 Reason for admission: Fall, pneumonia. History of Present Illness: 88-year-old male patient with medical history significant for paroxysmal atrial fibrillation, hypertension, hyperlipidemia, advanced age was evaluated for episode of persistent and progressive weakness. He also had had fall episode. He was worked up in the ED and found to have pneumonia and chest x-ray done in the ED and also concerns for UTI. He did have significant UA findings and x-ray was concerning for left lung field opacification. Surveillance CT to rule out injury from fall episode was nonrevealing. He was started on broad-spectrum antibiotic therapy of Rocephin and doxycycline and was admitted for inpatient care. Allergies acetaminophen [From Percocet] Allergy (Verified 10/09/22 06:48) Unknown oxycodone [From Percocet] Allergy (Verified 10/09/22 06:48) Unknown Erythromycin Allergy (Uncoded 10/09/22 06:48) Unknown Neomycin Sulfate Allergy (Uncoded 10/09/22 06:48) Unknown Sulfa (Sulfonamide A Allergy (Uncoded 10/09/22 06:48) Unknown Home Medications: Apixaban [Eliquis] 5 mg PO BID 05/02/22 Aspirin [Marixa Chewable Aspirin] 81 mg PO DAILY 05/02/22 Calcium Citrate/Vitamin D3 [Citracal + D Maximum Caplet] 1 tab PO BID 05/02/22 Dorzolamide HCl/Timolol Maleat [Dorzolamide-Timolol Eye Drops] 1 drop OP BID 05/02/22 Ezetimibe [Zetia] 10 mg PO DAILY 05/02/22 Fluticasone [Flonase 50MCG Nasal Richey*] 1 puff IH DAILY PRN 05/02/22 Latanoprost/Pf [Latanoprost 0.005% Eye Drop] 1 drop OP BEDTIME 05/02/22 Levothyroxine Sodium [Synthroid] 75 mcg PO DAILY 05/02/22 Amiodarone HCl [Cordarone*] 1 tab PO BID 09/02/23 B12/Levomefolate Calcium/B-6 [Foltx Tablet] 1 tab PO DAILY 09/02/23 Finasteride [Proscar*] 1 tab PO DAILY 09/02/23 Solifenacin [Vesicare*] 1 tab PO DAILY 09/02/23 - Past Medical/Surgical History Diabetic: No -: Paroxysmal A. fib. -: Hypothyroidism. -: GERD. -: Glaucoma -: Hyperlipidemia -: Cardiac ablation. -: Eye Sx to correct double vision -: Right L5-S1 Transforaminal Epidural IRVING -: Hernia Repair -: Cataract Sx -: brenda knee replacement -: tonsillectomy Psychosocial/ Personal History: Lives at home alone - Family History Mother -: Cancer Brother -: Heart disease - Social History Alcohol use: No CD- Drugs: No Caffeine use: No Review of Systems General: Weakness, Malaise Eyes: Unremarkable ENT: Unremarkable Respiratory: Cough, Hemoptysis Cardiovascular: Unremarkable Gastrointestinal: Unremarkable Genitourinary: Unremarkable Musculoskeletal: Unremarkable Integumentary: Unremarkable Neurological: Unremarkable Lymphatics: Unremarkable Physical Examination - Physical Exam General: Alert HEENT: Atraumatic Neck: Supple Respiratory: Diminished Cardiovascular: Regular rate/rhythm, Normal S1 S2 Gastrointestinal: Soft and benign Musculoskeletal: No swelling Neurological: Normal speech - Studies Laboratory Data (last 24 hrs) 09/01/23 09/01/23 16:50 16:50 WBC 14.10 H Hgb 13.6 Hct 39.2 L Plt Count 189 Sodium 135 L Potassium 3.4 L BUN 13 Creatinine 1.17 Glucose 123 H Total Bilirubin 2.6 H AST 113 H ALT 98 H Alkaline Phosphatase 158 H Assessment and Plan - Plan Fall episode: Concerning for deconditioning. Will have PT and OT evaluate. Continue bedrest. Pneumonia: Left lung field opacification seen on x-ray. Will continue empiric antibiotic therapy Rocephin and doxycycline pending further review. Cultures taken, will adjust antibiotic therapy based on report. Will continue breathing treatment. Atrial fibrillation: Will continue rate control medication with amiodarone and anticoagulation with apixaban Hyperlipidemia: Continue statin therapy. Hypothyroidism: Continue levothyroxine dose UTI: UA is very concerning. Cultures taken. Will continue Rocephin pending further review. Prophylaxis: Eliquis for A-fib anticoagulation. CODE STATUS: Full code pending further review. Disposition: We will treat his multiple medical issues and he will be discharged once deemed clinically stable. - Advance Directives Does patient have a Living Will: Yes Does patient have a Durable POA for Healthcare: Yes
[2023-09-01] MEDS: INSULIN REGULAR (HUMAN) 100 UNIT/ML SQ SCH (21:00)
[2023-09-01] MEDS: NA CHLORIDE 0.9% 1,000 ML IV SCH (22:53)
[2023-09-02 07:05] LABS: Absolute Monocytes 0.6 K/uL (0.1-1.3); Absolute Neutrophil 11.4 K/uL (1.8-8.0); Basophils % 0.1 % (0-1.3); Hematocrit 41.1 % (39.6-49.0); Hemoglobin 14.2 g/dL (13.6-17.9); MCH 34.9 pg (27.0-35.0); MCHC 34.4 g/dL (32.0-36.0); MCV 101.3 fL (80-100); MPV 7.7 fL (7.6-11.3); Monocytes % 4.3 % (3.3-12.3); Neutrophils % 81.6 % (41.7-73.7); Nucleated Red Blood Cells % 0.1 % (0-0); Platelets 196 thou/uL (152-406); RBC Red Blood Cell Count 4.06 M/uL (4.33-5.43); Red Cell Distribution Width 17.1 % (12.1-15.2)
[2023-09-02] MEDS: CEFTRIAXONE 1,000 MG in NA CHLORIDE 0.9% 50 ML IVPB SCH (08:56)
[2023-09-02] MEDS: DOXYCYCLINE 100 MG in NA CHLORIDE 0.9% 100 ML IVPB SCH (09:00)
[2023-09-02] MEDS ORDERED: ENOXAPARIN 40 MG/0.4 ML SQ SCH (09:00)
[2023-09-02] MEDS: POTASSIUM CL SA 10 MEQ TAB PO SCH (09:00)
[2023-09-02] MEDS ORDERED: AZITHROMYCIN IV 500 MG in NA CHLORIDE 0.9% 250 ML IVPB SCH (09:00)
[2023-09-02] MEDS: APIXABAN 2.5 MG TABLET PO SCH (09:00)
[2023-09-02 09:21] LABS: Arterial Blood Carboxyhemoglob 1.4 % (0-1.5); Blood Gas Oxyhemoglobin 88.9 % (94-97); Blood Gas THB 13.7 g/dl (12-18); Blood O2 Saturation 91.5 % (92-98.5)
--- NOTE | 2023-09-02 09:22 | P.PN ---
Subjective Date of Service: 09/02/23 Chief Complaint: Fall, pneumonia. O2 sats in the 70s this morning, hemoptysis, patient is on Eliquis, CT PE protocol ordered, continuous pulse ox monitoring ordered Family requested SNF eval order placed, ABG,, pulmonary following, cardiology consult - Physical Exam General: Alert HEENT: Atraumatic Neck: Supple Respiratory: Diminished, hemoptysis, hypoxic Cardiovascular: Regular rate/rhythm, Normal S1 S2 Gastrointestinal: Soft and benign Musculoskeletal: No swelling, scoliosis, moderate generalized weakness Neurological: Normal speech <Suly Pearson - Last Filed: 09/02/23 09:24> Date of Service: 09/02/23 <SaraBessychris Jones - Last Filed: 09/02/23 21:05> Review of Systems Per HPI <Suly Pearson - Last Filed: 09/02/23 09:24> Physical Examination - Vital Signs Temperature: 97.1 F Blood Pressure: 122/79 Pulse: 60 Respirations: 18 Pulse Ox (%): 95 - Studies Laboratory Data (last 24 hrs) 09/01/23 09/01/23 16:50 16:50 WBC 14.10 H Hgb 13.6 Hct 39.2 L Plt Count 189 Sodium 135 L Potassium 3.4 L BUN 13 Creatinine 1.17 Glucose 123 H Total Bilirubin 2.6 H AST 113 H ALT 98 H Alkaline Phosphatase 158 H <Suly Pearson - Last Filed: 09/02/23 09:24> Assessment And Plan - Plan Assessment plan Fall episode: Concerning for deconditioning. Will have PT and OT evaluate. Continue bedrest. Acute hypoxic respiratory failure secondary to pneumonia pneumonia Hemoptysis: Left lung field opacification seen on x-ray. Will continue empiric antibiotic therapy Rocephin and doxycycline pending further review. Cultures taken, will adjust antibiotic therapy based on report. Will continue breathing treatment CT PE protocol ordered Pulmonary consulted Atrial fibrillation Chronic anticoagulation Cardiology consult Hold Eliquis due to hemoptysis Will continue rate control medication with amiodarone and anticoagulation with apixaban Hyperlipidemia Continue statin therapy. Hypothyroidism: Continue levothyroxine dose Acute cystitis UTI: UA is very concerning. Cultures taken. Will continue Rocephin pending further review. Prophylaxis: Eliquis for A-fib anticoagulation. On hold Hold Eliquis for hemoptysis CODE STATUS: Full code pending further review. Disposition: Family requesting SNF placement, we will treat his multiple medical issues and he will be discharged once deemed clinically stable. Discharge Plan: [facility] - Code Status/Comfort Care Code Status: Full Code Critical Care: No Time Spent Managing PTS Care (In Minutes): 35 <Suly Pearson - Last Filed: 09/02/23 09:24> - Plan Pt seen and examined. I agree with the note by the BLOOD BANK ASSISTANT. Pt had hemoptysis this am. We gave breathing treatment and ordered CT chest. Continue iv abx. Continue other home meds <Yara Ruiz - Last Filed: 09/02/23 21:05>
--- NOTE | 2023-09-02 10:16 | RAD REPORT ---
EXAM DESCRIPTION: CT - Chest For Pe Angio - 09/02/2023 9:34 am CLINICAL HISTORY: hemoptysis COMPARISON: Chest Single View dated 09/01/2023 TECHNIQUE: Thin axial CT images of the chest were obtained following administration of 100 mL Isovue 370 IV contrast. Multiplanar reconstructions, and maximum intensity projection reconstructions were generated and reviewed. Exam utilizes a protocol for optimal evaluation of pulmonary arterial tree. All CT scans are performed using dose optimization technique as appropriate and may include automated exposure control or mA/KV adjustment according to patient size. FINDINGS: Pulmonary arteries are normal. No emboli or other suspicious finding. No acute or signific ant aorta findings. Patchy alveolar opacities partially sparing the left lung apex, involving the remainder of the left l jin, and the medial aspect of the right lower lobe. No pleural thickening or pleural effusion. No pne umothorax. Mild cardiomegaly. No abnormal mediastinal or hilar masses or lymphadenopathy seen. No chest wall mas s or abnormal axilliary lymphadenopathy. IMPRESSION: No evidence of acute central pulmonary emboli. Patchy bilateral airspace opacities as above, concerning for pneumonia versus atypical pulmonary david a.
--- NOTE | 2023-09-02 14:08 | EKG ---
Test Date: 2023-09-01 Test Time: 16:15:41 Pilot Fuel Engineer: MARÍA MEASUREMENT RESULTS: Intervals: Rate: 63 MD: QRSD: 104 QT: 454 QTc: 464 [place]: P: MD: QRS: 34 T: 22 INTERPRETIVE STATEMENTS: Atrial fibrillation Abnormal ECG Compared to ECG 10/08/2022 21:57:33 Sinus bradycardia no longer present Sinus arrhythmia no longer present Ventricular premature complex(es) no longer present Electronically Signed On 09-02-23 14:05:34 CDT by Irwin Burroughs
--- NOTE | 2023-09-02 17:24 | P.CNS ---
Date of Consult: 09/02/23 Reason for Consult: Hemoptysis Chief Complaint: Hemoptysis History of Present Illness: Pt is 88 yrs of age/ Aw hemoptysis for the past 2 wks/ Aw fall and weakness. Allergies acetaminophen [From Percocet] Allergy (Verified 10/09/22 06:48) Unknown oxycodone [From Percocet] Allergy (Verified 10/09/22 06:48) Unknown Erythromycin Allergy (Uncoded 10/09/22 06:48) Unknown Neomycin Sulfate Allergy (Uncoded 10/09/22 06:48) Unknown Sulfa (Sulfonamide A Allergy (Uncoded 10/09/22 06:48) Unknown Home Medications: Apixaban [Eliquis] 5 mg PO BID 05/02/22 Aspirin [Marixa Chewable Aspirin] 81 mg PO DAILY 05/02/22 Calcium Citrate/Vitamin D3 [Citracal + D Maximum Caplet] 1 tab PO BID 05/02/22 Dorzolamide HCl/Timolol Maleat [Dorzolamide-Timolol Eye Drops] 1 drop OP BID 05/02/22 Ezetimibe [Zetia] 10 mg PO DAILY 05/02/22 Fluticasone [Flonase 50MCG Nasal [place]*] 1 puff IH DAILY PRN 05/02/22 Latanoprost/Pf [Latanoprost 0.005% Eye Drop] 1 drop OP BEDTIME 05/02/22 Levothyroxine Sodium [Synthroid] 75 mcg PO DAILY 05/02/22 Amiodarone HCl [Cordarone*] 1 tab PO BID 09/02/23 B12/Levomefolate Calcium/B-6 [Foltx Tablet] 1 tab PO DAILY 09/02/23 Finasteride [Proscar*] 1 tab PO DAILY 09/02/23 Solifenacin [Vesicare*] 1 tab PO DAILY 09/02/23 - Past Medical/Surgical History Diabetic: No -: Paroxysmal A. fib. -: Hypothyroidism. -: GERD. -: Glaucoma -: Hyperlipidemia -: Cardiac ablation. -: Eye Sx to correct double vision -: Right L5-S1 Transforaminal Epidural IRVING -: Hernia Repair -: Cataract Sx -: brenda knee replacement -: tonsillectomy Psychosocial/ Personal History: Lives at home alone - Family History Mother Medical History: Cancer Brother Medical History: Heart disease - Social History Smoking Status: Never smoker Alcohol use: No CD- Drugs: No Caffeine use: No Place of Residence: Home Review of Systems General: Weakness Respiratory: Shortness of Breath, Hemoptysis Physical Examination Temp Pulse Resp BP Pulse Ox 99.2 F 80 24 H 93/49 L 94 09/02/23 12:00 09/02/23 14:33 09/02/23 12:00 09/02/23 12:00 09/02/23 14:33 General: Alert, Moderate distress, Severe distress Neck: Supple Respiratory: Crackles/rales (Crackles on the left side) Cardiovascular: No edema, Regular rate/rhythm, Normal S1 S2 Gastrointestinal: Normal bowel sounds, Soft and benign - Problems (1) Pneumonia Current Visit: Yes Status: Acute Plan: Pt AW hemoptysis has extenive consolidation on the left side. DW cardiolgy no [place] was performed due to anatomy. c/o significant hemoptysis. DC Eliquis for now CW antbiotics. On high flow O2 Qualifiers: Pneumonia type: due to unspecified organism
[2023-09-02] MEDS: MORPHINE 2 MG/ML SYR ONE (18:40)
[2023-09-02] MEDS: MORPHINE 2 MG/ML SYR IV ONE (18:41)
--- NOTE | 2023-09-02 20:37 | CON ---
Date of Consultation: 09/02/2023 Reason For Consultation: Recommendations regarding Eliquis for atrial fibrillation as he is having h emoptysis. History Of Present Illness: An 88-year-old male, history of paroxysmal fibrillation, dyslipidemia, h ypertension, severe scoliosis. He was on Eliquis for stroke prevention for a long time and an attemp t was made to do a left atrial appendage closure. However, due to scoliosis and the distortion of hi s anatomy, it was not feasible to be performed, so appendage closure was not done. He comes in with cough with hemoptysis, very short of breath. Denies having any chest pain. Past Medical History: As outlined above in the HPI. Medications: Refer reconciliation sheet for detailed list. Allergies: OXYCODONE, ERYTHROMYCIN, ACETAMINOPHEN. Family History: No premature coronary artery disease or cancer. Social History: Does not smoke or drink. Does not use any drugs. Review of Systems: All systems reviewed are negative except above mentioned in HPI. Physical Examination: Vital Signs: Reviewed. Head and Neck: Pupils are equal, reactive to light. Intact eye movements. No JVD. No cervical lym phadenopathy. Neck is supple. Thyroid is not enlarged. Lungs: Rhonchi bilaterally. No accessory muscle use, muscle retraction. Heart: Regular. No extra sounds. Abdomen: Soft, nontender. Bowel sounds positive. No organomegaly. No masses or hernia. No rigidi ty or rebound. Extremities: No edema, clubbing, or cyanosis. Intact pulses. Skin: No rash. Neurologic: Alert, awake, oriented x3. No acute focal deficits appreciated. Investigations: BUN 12, creatinine 0.9. Hemoglobin is 14.2, white blood cell count 14,000. Assessment And Recommendation: 1.Hemoptysis, likely due to pneumonia and the patient is on Eliquis, which exacerbated the hemorrhag e. Pulmonary is on board. At this point, discontinue Eliquis. He is not a candidate for it, and on ce he stabilizes and the pneumonia is under control, then Eliquis will be resumed as an outpatient [facility]. His heart rate is controlled. Continue the rest of his medications. 2.Pneumonia, on wide-spectrum antibiotics. 3.Significant shortness of breath due to pneumonia, on proper treatment with antibiotics. SR/MODL Voice ID: [id number] Report ID: [id number]
[2023-09-02] MEDS: HYDROCODONE/APAP 5/325 MG TAB PO PRN (21:54)
[2023-09-03] MEDS: MORPHINE 2 MG/ML SYR IV PRN (03:54)
[2023-09-03 04:56] LABS: Absolute Lymphocytes (CBC) 0.8 K/uL (0.7-4.9); Absolute Monocytes 0.7 K/uL (0.1-1.3); Absolute Neutrophil 11.3 K/uL (1.8-8.0); Basophils % 0.1 % (0-1.3); Hematocrit 36.3 % (39.6-49.0); Hemoglobin 12.6 g/dL (13.6-17.9); Lymphocytes % 6.4 % (15.3-44.8); MCH 35.2 pg (27.0-35.0); MCHC 34.8 g/dL (32.0-36.0); MCV 101.1 fL (80-100); MPV 7.4 fL (7.6-11.3); Monocytes % 5.2 % (3.3-12.3); Neutrophils % 88.3 % (41.7-73.7); Nucleated Red Blood Cells % 0.1 % (0-0); Platelets 151 thou/uL (152-406); RBC Red Blood Cell Count 3.59 M/uL (4.33-5.43); Red Cell Distribution Width 17.3 % (12.1-15.2)
[2023-09-03 05:05] LABS: Anion Gap 10.2 mEq/L (5.0-15.0); Potassium 4.2 mEq/L (3.5-5.1)
[2023-09-03 05:15] LABS: Magnesium 1.6 mg/dL (1.6-2.4)
[2023-09-03] MEDS: MAGNESIUM SULFATE 1 gm IVPB 1 GM/100 ML BAG IV ONE (05:34)
--- NOTE | 2023-09-03 07:41 | P.PN ---
Subjective Date of Service: 09/03/23 Chief Complaint: Hemoptysis Transferred to ICU for acute hypoxic respiratory failure Pulmonary consult Green placed for urinary retention, Dr. Franks consulted - Physical Exam General: Alert HEENT: Atraumatic Neck: Supple Respiratory: Diminished, hemoptysis, hypoxic Cardiovascular: Regular rate/rhythm, Normal S1 S2 Gastrointestinal: Soft and benign Musculoskeletal: No swelling, scoliosis, moderate generalized weakness Neurological: Normal speech <Suly Pearson - Last Filed: 09/03/23 13:40> Date of Service: 09/04/23 <Yara Ruiz Karen - Last Filed: 09/04/23 22:30> Review of Systems Per HPI <Suly Pearson - Last Filed: 09/03/23 13:40> Physical Examination - Vital Signs Temperature: 97.2 F Blood Pressure: 93/67 Pulse: 81 Respirations: 28 Pulse Ox (%): 96 <Suly Pearson - Last Filed: 09/03/23 13:40> Assessment And Plan - Plan Assessment plan Fall episode: Concerning for deconditioning. Will have PT and OT evaluate. Continue bedrest. Acute hypoxic respiratory failure secondary to pneumonia pneumonia Hemoptysis: Left lung field opacification seen on x-ray. Will continue empiric antibiotic therapy Rocephin and doxycycline pending further review. Cultures taken, will adjust antibiotic therapy based on report. Will continue breathing treatment CT PE protocol ordered negative for PE Pulmonary consulted Atrial fibrillation Chronic anticoagulation Cardiology consult Hold Eliquis due to hemoptysis Will continue rate control medication with amiodarone and anticoagulation with apixaban Hyperlipidemia Continue statin therapy. Hypothyroidism: Continue levothyroxine dose Acute cystitis UTI: UA is very concerning. Cultures taken. Will continue Rocephin pending further review. Prophylaxis: Eliquis for A-fib anticoagulation. On hold Hold Eliquis for hemoptysis CODE STATUS: Full code pending further review. Disposition: Family requesting SNF placement, we will treat his multiple medical issues and he will be discharged once deemed clinically stable. Discharge Plan: Home ([facility] facility) - Code Status/Comfort Care Code Status: Full Code Critical Care: Yes Time Spent Managing PTS Care (In Minutes): 55 <LiliSuly - Last Filed: 09/03/23 13:40> - Plan Pt seen and examined. I agree with the note by the ANIMAL CONTROL SUPERVISOR. Pt had hemotysis and acute resp distress. Will transfer to the ICU. Stop Eliquis but continue iv abx. <Yara Ruiz - Last Filed: 09/04/23 22:30>
[2023-09-03] MEDS ORDERED: AMIODARONE HCL 200 MG TAB ONE ×2 (08:41→20:56)
[2023-09-03] MEDS: TIMOLOL MALEAT OPTH SCH (09:00)
[2023-09-03] MEDS: DORZOLAMIDE HCL OPTH SCH (09:00)
[2023-09-03] MEDS ORDERED: HYDROCODONE/APAP 5/325 MG TAB ONE ×2 (09:46→19:59)
[2023-09-03] MEDS: FUROSEMIDE 40 MG/4 ML VIAL IV ONE (09:47)
[2023-09-03] MEDS: FINASTERIDE 5 MG TAB PO SCH (09:49)
[2023-09-03] MEDS: AMIODARONE HCL 200 MG TAB PO SCH (09:49)
[2023-09-03] MEDS: EZETIMIBE 10 MG TAB PO SCH (09:49)
[2023-09-03] MEDS: LEVOTHYROXINE SOD 0.075 MG TAB PO SCH (09:49)
[2023-09-03] MEDS: ASPIRIN 81 MG CHEWABLE TABLET PO SCH (09:50)
[2023-09-03 10:32] LABS: Blood Morphology Comment NOT SEEN (NOT SEEN); Differential Total Cells Count 100; Lymphocytes 11 % (15-42); Monocytes 6 % (0-10); Platelet Estimate ADEQ; Segmented Neutrophils 83 % (40-80)
--- NOTE | 2023-09-03 11:59 | P.PN ---
Subjective Date of Service: 09/03/23 Chief Complaint: Respiratory failure Subjective: Improving (Patient is improving has extensive pneumonia involving the left side including some on the right side High concentrations of oxygen significant desaturation) Review of Systems General: Weakness Respiratory: Shortness of Breath Physical Examination - Vital Signs Temperature: 97.2 F Blood Pressure: 113/63 Pulse: 86 Respirations: 30 Pulse Ox (%): 99 - Physical Exam General: Alert, Oriented x3 Neck: Supple Respiratory: Clear to auscultation bilaterally, Crackles/rales (Crackles on the left side) Assessment And Plan - Current Problems (Diagnosis) (1) Pneumonia Current Visit: Yes Status: Acute Plan: Patient admitted with extensive pneumonia involving his left lung CT scan no evidence of thromboembolism he is some pneumonia on the right side patient's white count is declining patient is FiO2 of 40% continue with present therapy Qualifiers: Pneumonia type: due to unspecified organism Laterality: left
[2023-09-03] MEDS ORDERED: NA CHLORIDE 0.9% 500 ML ONE (12:43)
[2023-09-03] MEDS: NA CHLORIDE 0.9% 500 ML IV ONE (12:48)
[2023-09-03] MEDS ORDERED: ALBUTEROL 2.5 MG/3 ML NEB SOL NEB PRN (17:35)
[2023-09-03] MEDS: LATANOPROST OPTH SCH (21:00)
[2023-09-03] MEDS ORDERED: DEXMEDETOMIDINE HCL 200 MCG/2 ML VIAL ONE (21:06)
[2023-09-03] MEDS ORDERED: NA CHLORIDE 0.9% 100 ML ONE (21:07)
[2023-09-03] MEDS: DEXMEDETOMIDINE HCL 200 MCG in NA CHLORIDE 0.9% 98 ML IV SCH (21:17)
[2023-09-04] MEDS ORDERED: NA CHLORIDE 0.9% 100 ML ONE (01:10)
[2023-09-04] MEDS ORDERED: DEXMEDETOMIDINE HCL 200 MCG/2 ML VIAL ONE (01:10)
[2023-09-04 03:29] VITALS: TEMP 97.5
[2023-09-04 05:17] VITALS: BMI 25.9
[2023-09-04 05:17] LABS: Absolute Lymphocytes (CBC) 0.6 K/uL (0.7-4.9); Absolute Monocytes 0.4 K/uL (0.1-1.3); Absolute Neutrophil 8.1 K/uL (1.8-8.0); Hematocrit 36.6 % (39.6-49.0); Hemoglobin 12.6 g/dL (13.6-17.9); Lymphocytes % 6.8 % (15.3-44.8); MCH 35.1 pg (27.0-35.0); MCHC 34.5 g/dL (32.0-36.0); Monocytes % 4.3 % (3.3-12.3); Neutrophils % 88.9 % (41.7-73.7); Nucleated Red Blood Cells % 0.1 % (0-0); Platelets 109 thou/uL (152-406); RBC Red Blood Cell Count 3.59 M/uL (4.33-5.43); Red Cell Distribution Width 17.3 % (12.1-15.2)
[2023-09-04 05:33] LABS: Magnesium 1.8 mg/dL (1.6-2.4)
--- NOTE | 2023-09-04 07:07 | ECHO ---
HEIGHT: 5 ft 10 in WEIGHT: 180 lb 9.6 oz DATE OF STUDY: 09/03/[address]: Suly Pearson ELECTRICAL DESIGNER-Karen 2-DIMENSIONAL: YES M.MODE: YES DOPPLER: YES COLOR FLOW: YES TDS: PORTABLE: YES DEFINITY: BUBBLE STUDY: DIAGNOSIS: HYPOXIA, EVALUATE HEART RATE CARDIAC HISTORY: CATHERIZATION: SURGERY: PROSTHETIC VALVE: PACEMAKER: MEASUREMENTS (cm) DIASTOLIC (NORMALS) SYSTOLIC (NORMALS) IVSd 1.0 (0.6-1.2) LA Diam 3.7 (1.9-4.0) LVEF 77% LVIDd 3.8 (3.5-5.7) LVIDs 2.1 (2.0-3.5) %FS 45% LVPWd 1.0 (0.6-1.2) Ao Diam 3.5 (2.0-3.7) 2 DIMENSIONAL ASSESSMENT: RIGHT ATRIUM: NORMAL LEFT ATRIUM: NORMAL RIGHT VENTRICLE: NORMAL LEFT VENTRICLE: NORMAL TRICUSPID VALVE: MODERATE TRICUSPID REGURGITATION MITRAL VALVE: MILD MITRAL REGURGITATION PULMONIC VALVE: TRACE PULMONIC REGURGITATION AORTIC VALVE: SEVERE CALCIFIED PERICARDIAL EFFUSION: NONE AORTIC ROOT: NORMAL LEFT VENTRICULAR WALL MOTION: NORMAL DOPPLER/COLOR FLOW: DIASTOLIC DYSFUNCTION COMMENTS: 1. NORMAL LEFT VENTRICULAR SYSTOLIC FUNCTION, EJECTION FRACTION 55-60%, NORMAL WALL MOTION 2. DIASTOLIC DYSFUNCTION 3. 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 SEVERE MITRAL ANNULAR CALCIFICATION, MILD MITRAL REGURGITATION 5. SEVERE PULMONARY HYPERTENSION, RIGHT VENTRICULAR SYSTOLIC PRESSURE GREATER THAN 60 mmHg TECHNOLOGIST: GILLIAN GREENE
[2023-09-04] MEDS ORDERED: NA CHLORIDE 0.9% 1,000 ML ONE (07:08)
[2023-09-04] MEDS: MAGNESIUM SULFATE 1 gm IVPB 1 GM/100 ML BAG IV ONE (08:00)
--- NOTE | 2023-09-04 08:10 | P.PN ---
Subjective Date of Service: 09/04/23 Chief Complaint: Hemoptysis Transferred to ICU for acute hypoxic respiratory failure And family has decided to transition patient to hospice today Worsening hypotension, acute acute hypoxic respiratory failure on BiPAP - Physical Exam General: Alert HEENT: Atraumatic Neck: Supple Respiratory: Diminished, hemoptysis, hypoxic Cardiovascular: Regular rate/rhythm, Normal S1 S2 Gastrointestinal: Soft and benign Musculoskeletal: No swelling, scoliosis, moderate generalized weakness Neurological: Normal speech <Suly Pearson - Last Filed: 09/04/23 09:32> Date of Service: 09/04/23 <Yara Ruiz C - Last Filed: 09/04/23 22:16> Review of Systems Per HPI <Suly Pearson - Last Filed: 09/04/23 09:32> Physical Examination - Vital Signs Temperature: 97.5 F Blood Pressure: 80/63 Pulse: 56 Respirations: 18 Pulse Ox (%): 95 <Suly Pearson - Last Filed: 09/04/23 09:32> Assessment And Plan - Plan Assessment plan Palliative care 09/03 Transition to hospice Fall episode: Concerning for deconditioning. Will have PT and OT evaluate. Continue bedrest. Acute hypoxic respiratory failure secondary to pneumonia pneumonia Hemoptysis: Left lung field opacification seen on x-ray. Will continue empiric antibiotic therapy Rocephin and doxycycline pending further review. Cultures taken, will adjust antibiotic therapy based on report. Will continue breathing treatment CT PE protocol ordered negative for PE Pulmonary consulted Atrial fibrillation Chronic anticoagulation Cardiology consult Hold Eliquis due to hemoptysis Will continue rate control medication with amiodarone and anticoagulation with apixaban Hyperlipidemia Continue statin therapy. Hypothyroidism: Continue levothyroxine dose Acute cystitis UTI: UA is very concerning. Cultures taken. Will continue Rocephin pending further review. Prophylaxis: Eliquis for A-fib anticoagulation. On hold Hold Eliquis for hemoptysis CODE STATUS: Full code pending further review. Disposition: Transition to hospice 09/03 - Code Status/Comfort Care Comfort Measures: Palliative Care Critical Care: Yes Time Spent Managing PTS Care (In Minutes): 55 <Suly Pearson - Last Filed: 09/04/23 09:32> - Plan Pt manuel nd examined. He has transitioned to inpatient hospice. <Yara Ruiz C - Last Filed: 09/04/23 22:16>
[2023-09-04] MEDS: ENSURE HIGH PROTEIN 237 ML CAN PO SCH (09:00)
[2023-09-04 11:28] VITALS: BP 89/58
[2023-09-04 12:23] VITALS: O2SAT 96
--- NOTE | 2023-09-04 12:52 | P.DS ---
Admission Date: 09/01/23 Discharge Date: 09/04/23 Reason for Admission: Hemoptysis Brief History of Present Illness: 88-year-old male patient with medical history significant for paroxysmal atrial fibrillation, hypertension, hyperlipidemia, advanced age was evaluated for episode of persistent and progressive weakness. He also had had fall episode. He was worked up in the ED and found to have pneumonia and chest x-ray done in the ED and also concerns for UTI. He did have significant UA findings and x-ray was concerning for left lung field opacification. Surveillance CT to rule out injury from fall episode was nonrevealing. He was started on broad-spectrum antibiotic therapy of Rocephin and doxycycline and was admitted for inpatient care. . - Physical Exam General: Alert HEENT: Atraumatic Neck: Supple Respiratory: Diminished Cardiovascular: Regular rate/rhythm, Normal S1 S2 Gastrointestinal: Soft and benign Musculoskeletal: No swelling Neurological: Normal speech Hospital Course: Patient evaluated for fall, was noted to have pneumonia, A-fib RVR, patient continued to deteriorate, was placed on BiPAP, for acute hypoxic respiratory failure was evaluated by cardiology, pulmonary, urology. Green was placed for acute urinary retention. Patient has continued to decline, hypotensive, family suggested to transition to hospice. Patient discharged to inpatient hospice for declining health. <Suly Pearson - Last Filed: 09/04/23 12:52> Admission Date: 09/01/23 Discharge Date: 09/04/23 Hospital Course: Pt seen and examined. I agree with the note by the CONTAMINATION CONSULTANT. Family wants comfort care. Pt was transitioned to comfort care. <Yara Ruiz - Last Filed: 09/04/23 22:17> Disposition: HOSPICE-MEDICAL FACILITY Discharge Condition: CRITICAL Vital Signs/Physical Exam: Temp Pulse Resp BP Pulse Ox 97.5 F 82 18 89/58 L 96 09/04/23 09:35 09/04/23 11:00 09/04/23 11:00 09/04/23 11:00 09/04/23 11:00 Laboratory Data at Discharge: WBC 9.10 thou/uL (4.3-10.9) 09/04/23 04:56 Hgb 12.6 g/dL (13.6-17.9) L 09/04/23 04:56 Hct 36.6 % (39.6-49.0) L 09/04/23 04:56 Plt Count 109 thou/uL (152-406) L D 09/04/23 04:56 Sodium 136 mEq/L (136-145) 09/04/23 04:56 Potassium 4.0 mEq/L (3.5-5.1) 09/04/23 04:56 BUN 28 mg/dL (7-18) H 09/04/23 04:56 Creatinine 1.30 mg/dL (0.70-1.30) 09/04/23 04:56 Glucose 135 mg/dL (74-106) H 09/04/23 04:56 Magnesium Cancelled 09/04/23 05:00 Total Bilirubin 2.6 mg/dL (0.2-1.0) H 09/01/23 16:50 AST 113 U/L (15-37) H 09/01/23 16:50 ALT 98 U/L (16-61) H 09/01/23 16:50 Alkaline Phosphatase 158 U/L (45-117) H 09/01/23 16:50 <Suly Pearson - Last Filed: 09/04/23 12:52> Vital Signs/Physical Exam: Temp Pulse Resp BP Pulse Ox 97.5 F 82 18 89/58 L 96 09/04/23 12:59 09/04/23 12:59 09/04/23 12:59 09/04/23 12:59 09/04/23 12:59 Laboratory Data at Discharge: WBC 9.10 thou/uL (4.3-10.9) 09/04/23 04:56 Hgb 12.6 g/dL (13.6-17.9) L 09/04/23 04:56 Hct 36.6 % (39.6-49.0) L 09/04/23 04:56 Plt Count 109 thou/uL (152-406) L D 09/04/23 04:56 Sodium 136 mEq/L (136-145) 09/04/23 04:56 Potassium 4.0 mEq/L (3.5-5.1) 09/04/23 04:56 BUN 28 mg/dL (7-18) H 09/04/23 04:56 Creatinine 1.30 mg/dL (0.70-1.30) 09/04/23 04:56 Glucose 135 mg/dL (74-106) H 09/04/23 04:56 Magnesium Cancelled 09/04/23 05:00 Total Bilirubin 2.6 mg/dL (0.2-1.0) H 09/01/23 16:50 AST 113 U/L (15-37) H 09/01/23 16:50 ALT 98 U/L (16-61) H 09/01/23 16:50 Alkaline Phosphatase 158 U/L (45-117) H 09/01/23 16:50 <Yara Ruiz - Last Filed: 09/04/23 22:17> Activity: Bedrest Time spent managing pt's care (in minutes): 55 <Suly Pearosn - Last Filed: 09/04/23 12:52> <Yara Ruiz - Last Filed: 09/04/23 22:17> Home Medications: Apixaban [Eliquis] 5 mg PO BID 05/02/22 Calcium Citrate/Vitamin D3 [Citracal + D Maximum Caplet] 1 tab PO BID 05/02/22 Fluticasone [Flonase 50MCG Nasal [place]*] 1 puff IH DAILY PRN 05/02/22 Latanoprost/Pf [Latanoprost 0.005% Eye Drop] 1 drop OP BEDTIME 05/02/22 Levothyroxine Sodium [Synthroid] 75 mcg PO DAILY 05/02/22 B12/Levomefolate Calcium/B-6 [Foltx Tablet] 1 tab PO DAILY 09/02/23 Solifenacin [Vesicare*] 1 tab PO DAILY 09/02/23 Followup: Kishore Ballard MD [ACTIVE - CAN ADMIT] - Cami Orozco FNP [Primary Care Provider] -
--- NOTE | 2023-09-04 12:59 | P.PN ---
Subjective Date of Service: 09/04/23 Chief Complaint: Respiratory failure Patient's condition is not improving is still very hypoxic is 100% oxygen family members at the bedside requesting hospice care and comfort care. Patient is alert and responsive however he has developed bradycardia on the precidexdrip Review of Systems is unable to be obtained Physical Examination - Vital Signs Temperature: 97.5 F Blood Pressure: 89/58 Pulse: 82 Respirations: 18 Pulse Ox (%): 96 - Physical Exam General: Alert, Oriented x1 Respiratory: Crackles/rales (On the left side) Cardiovascular: No edema, Regular rate/rhythm Assessment And Plan - Current Problems (Diagnosis) (1) Pneumonia Current Visit: Yes Status: Acute Plan: Admitted with severe pneumonia left greater than the right he also has severe title scoliosis sale requiring considerable amount of oxygen not eating and drinking white count is declining he has developed a bradycardia and hypotension/family members request hospice and comfort care Qualifiers: Pneumonia type: due to unspecified organism Laterality: left
--- NOTE | 2023-09-04 19:46 | P.CNS ---
Date of Consult: 09/03/23 88-year-old gentleman with hypothyroidism, A. fib p ablation 03/15/2022 on Eliquis and aspirin, with h/o L3 compression fracture repaired with moderate LUTS, a nodular prostate, and history of urethral stricture disease in the setting of possible microscopic hematuria p cysto 09/04/2022 with suspected urethritis, evidence of BPH with mild to moderately elevated median bar and mild lateral lobar hypertrophy with markedly trabeculated detrusor with multiple cellules and diverticuli throughout, with 1.1 - 1.5cm right nephrolithiasis, KUB: 2 calcific densities projecting over the renal fossa, largest on the right measuring 1.5 cm. He was scheduled to follow-up with me, as we had seen each other on several prior occasions with plans to proceed with noninvasive intervention for his right nephrolithiasis to prevent complication of obstruction that could result in an emergency department visit and precipitation of sepsis that increases risk of morbidity and mortality. However, given the patient's need for chronic anticoagulation, he was under evaluation by cardiology for the potential of placement of a Watchman device; so he could hold the Eliquis sufficient to proceed with the noninvasive shockwave lithotripsy. Unfortunately, the patient underwent evaluation by the tape recorder repairer and his anatomy associated with some scoliosis apparently made placement of the Watchman device unfeasible; so he let me know at the time of my visit with him that he would not be a candidate for the Watchman device and thus would not likely be able to hold his Eliquis sufficient for ESWL. In the interim however, he has had development of severe respiratory distress and has been admitted to the hospital ICU on high flow oxygen, 75 to 80% but still with tachypnea, mild tachycardia, and obvious dyspnea at rest and with attempts at speaking. I counseled the patient that we would certainly worry about how to manage his nonobstructing right nephrolithiasis, but in the absence of any sign of obstruction on this admission, this could wait until he had recovered from his acute respiratory failure event now active. I expressed my concern about the patient's clinical appearance and his respiratory status to the nurses present at the nursing station, who agreed they would speak again to Dr. Figueroa about alternate therapy. I have since been informed that the patient on 09/04/2023 has elected to go on hospice care.
== END 2023-09-04 13:20 | disposition hospice, inpatient (51) | DRG 871 ==
LOC: ER 15:56 → ERHOLD 20:11 → 4TH 22:06 → 3RD-ICU 09-02 20:59
PROVIDERS: ADMIT Internal Medicine Nephrology; ATTEND Hospitalist
PROC: 4A033R1 Measurement of Arterial Saturation, Peripheral, Percutaneous Approach (ICD-10-PCS; principal; 2023-09-02)
PROC: 5A0945A Assistance with Respiratory Ventilation, 24-96 Consecutive Hours, High Flow/Velocity Cannula (ICD-10-PCS; 2023-09-02)
PROC: 5A09357 Assistance with Respiratory Ventilation, Less than 24 Consecutive Hours, Continuous Positive Airway Pressure (ICD-10-PCS; 2023-09-03)
PROC: 0T9B70Z Drainage of Bladder with Drainage Device, Via Natural or Artificial Opening (ICD-10-PCS; 2023-09-03)
DX: A41.9 Sepsis, unspecified organism (principal); J18.9 Pneumonia, unspecified organism; J96.01 Acute respiratory failure with hypoxia; R04.2 Hemoptysis; N30.00 Acute cystitis without hematuria; R65.20 Severe sepsis without septic shock; E03.9 Hypothyroidism, unspecified; I48.0 Paroxysmal atrial fibrillation; I10 Essential (primary) hypertension; E78.5 Hyperlipidemia, unspecified; M41.9 Scoliosis, unspecified; K21.9 Gastro-esophageal reflux disease without esophagitis; R33.9 Retention of urine, unspecified; Z60.2 Problems related to living alone; Z88.2 Allergy status to sulfonamides; Z51.5 Encounter for palliative care; Z88.5 Allergy status to narcotic agent; Z88.1 Allergy status to other antibiotic agents; Z88.8 Allergy status to other drugs, medicaments and biological substances; Z79.01 Long term (current) use of anticoagulants; Z79.82 Long term (current) use of aspirin; Z79.890 Hormone replacement therapy; Z79.899 Other long term (current) drug therapy; Z96.653 Presence of artificial knee joint, bilateral; W19.XXXA Unspecified fall, initial encounter; Y93.9 Activity, unspecified; Y92.9 Unspecified place or not applicable; Y99.9 Unspecified external cause status
CPT/HCPCS: 36415; 36600; 70450; 71045; 71275; 72125; 76705; 80048; 80076; 81001; 82550; 82805; 82947; 83735; 83880; 84145; 84484; 85025; 87040; 93005; 93306; 94660; 94760; 96365; 96375; 99285; J0696; J2270; J3475; J7030; J7040; Q9967

== ENCOUNTER 2023-09-04 14:09 | Inpatient (IN) | payer OTHER ==
[2023-09-04] MEDS ORDERED: BISACODYL 10 MG RECTAL SUPP PR PRN (14:36)
[2023-09-04 14:55] VITALS: BMI 25.8
[2023-09-04] MEDS: LORazepam 2 MG/ML VIAL IV SCH (15:15)
[2023-09-04] MEDS: HYDROMORPHONE HCL 1 MG/ML INJ IV SCH (15:15)
[2023-09-04 20:34] VITALS: O2SAT 94
[2023-09-04] MEDS: SCOPOLAMINE HYDROBROMIDE PATCH TD SCH (21:00)
--- NOTE | 2023-09-04 21:52 | P.HP ---
Patient History Date of Service: 09/04/23 Reason for admission: HOSPICE ADMISSION FOR RESPIRATORY FAILURE History of Present Illness: JIN CASTILLO COMES IN FOR PNEUMONIA, LATER HAD HEMOPTYSIS AND FAILED TO IMPROVE. FAMILY ASKED FOR HOSPICE AND HOSPITALIST CONSULTED HOSPICE TEAM. I WENT AND SAW THE PATIENT AND FAMILY AT BEDSIDE IN MY LUNCH HOUR. HE LOOKED VERY WEAK AND IN DISTRESS ON BIPAP. I EXPLAINED TO FAMILY HOW HOSPICE WORKS. THEY ARE CONTENT WITH THE PROCESS. AFTER THE FAMILY COMES BY TOMORROW, THEY WANT BIPAP REMOVED AND KEEP HIM SEDATED UNTIL HE PASSES. THEY DON'T WANT FATHER TO SUFFER. Allergies acetaminophen [From Percocet] Allergy (Verified 10/09/22 06:48) Unknown oxycodone [From Percocet] Allergy (Verified 10/09/22 06:48) Unknown Erythromycin Allergy (Uncoded 10/09/22 06:48) Unknown Neomycin Sulfate Allergy (Uncoded 10/09/22 06:48) Unknown Sulfa (Sulfonamide A Allergy (Uncoded 10/09/22 06:48) Unknown Home Medications: Apixaban [Eliquis] 5 mg PO BID 05/02/22 Calcium Citrate/Vitamin D3 [Citracal + D Maximum [place]] 1 tab PO BID 05/02/22 Fluticasone [Flonase 50MCG Nasal [place]*] 1 puff IH DAILY PRN 05/02/22 Latanoprost/Pf [Latanoprost 0.005% Eye Drop] 1 drop OP BEDTIME 05/02/22 Levothyroxine Sodium [Synthroid] 75 mcg PO DAILY 05/02/22 B12/Levomefolate Calcium/B-6 [Foltx Tablet] 1 tab PO DAILY 09/02/23 Solifenacin [Vesicare*] 1 tab PO DAILY 09/02/23 - Past Medical/Surgical History Diabetic: No -: Paroxysmal A. fib. -: Hypothyroidism. -: GERD. -: Glaucoma -: Hyperlipidemia -: Cardiac ablation. -: Eye Sx to correct double vision -: Right L5-S1 Transforaminal Epidural IRVING -: Hernia Repair -: Cataract Sx -: brenda knee replacement -: tonsillectomy Psychosocial/ Personal History: Lives at home alone - Family History Mother -: Cancer Brother -: Heart disease - Social History Smoking Status: Never smoker Alcohol use: No CD- Drugs: No Caffeine use: No Review of Systems is unable to be obtained Physical Examination - Vital Signs Temperature: 96.4 F Pulse: 92 Respirations: 16 Pulse Ox (%): 62 - Physical Exam General: Moderate distress HEENT: Atraumatic, PERRLA, Mucous membr. moist/pink, EOMI, Sclerae nonicteric Neck: Supple, 2+ carotid pulse no bruit, No LAD, Without JVD or thyroid abnormality Respiratory: Clear to auscultation bilaterally, Normal air movement, Diminished Cardiovascular: Abnormal S1 S2 Gastrointestinal: Normal bowel sounds, No tenderness Musculoskeletal: No tenderness Integumentary: No rashes Neurological: Normal gait, Normal speech, Normal strength at 5/5 x4 extr, Normal tone, Normal affect Lymphatics: No axilla or inguinal lymphadenopathy Assessment and Plan - Problems (Diagnosis) (1) Acute respiratory failure Current Visit: No Status: Acute Plan: FAMILY WANTS HOSPICE CARE. [facility] WAS CALLED BY THE ADMITTING DOCTOR. FAMILY IS AWARE OF THE PROCESS. Orders (last 24 hrs) 09/04/23 14:34 Code Status [Resuscitation Status] [CODE.STATUS1] Routine 09/04/23 14:35 Nursing Orders Routine 09/04/23 14:36 Bisacodyl [Dulcolax] 10 mg CA DAILY PRN 09/04/23 15:00 Hydromorphone [Dilaudid] 1 mg IV Q3H LORazepam [Ativan] 1 mg IV Q3H 09/04/23 21:00 Scopolamine Hydrobromide [Transderm-Scop] 1 pat TD Q3D@2100 (2) Atrial fibrillation with RVR Current Visit: No Status: Acute (3) Pneumonia Current Visit: No Status: Acute Qualifiers: Pneumonia type: due to unspecified organism Laterality: left - Advance Directives Does patient have a Living Will: Yes Does patient have a Durable POA for Healthcare: Yes
[2023-09-05 08:19] VITALS: BP 93/57; TEMP 97.9
== END 2023-09-05 16:00 | disposition expired | DRG 951 ==
LOC: 3RD-ICU 14:09 → 4TH 21:09
PROVIDERS: ADMIT Internal Medicine; ATTEND Internal Medicine
DX: Z51.5 Encounter for palliative care (principal)
CPT/HCPCS: 94660; J1170